=== PATIENT | male | born 1950 | race Caucasian/White ===

== ENCOUNTER 2024-02-11 09:00 | Outpatient (OUT) | payer MEDICARE, OTHER, SELFPAY ==
--- NOTE | 2024-02-11 09:17 | CT_ITS ---
[address] [address] Patient Name: NIVIA RAMOS MRN: [id number] date: 1950 Sex: M Assigned Patient Location: CT Current Patient Location: Accession/Order Number: [id number] Exam Date: 02/11/2024 10:45 Report Date: 02/12/2024 11:09 At the request of: ELIJAH DUNBAR Procedure: CT abdomen pelvis wo/w con EXAMINATION: CT abdomen pelvis wo/w con HISTORY: Abnormal Finding On CT, Cecum Mass COMPARISON: No relevant comparison available. TECHNIQUE: Axial, Coronal, and Sagittal images were created without and with non-ionic intravenous contrast material. Dose reduction techniques were achieved by using automated exposure control and/or adjustment of mA and/or kV according to patient size and/or use of iterative reconstruction technique. FINDINGS: LUNG BASES: No visible pulmonary or pleural disease. LIVER: No enlargement, atrophy, abnormal density, or significant focal lesion. BILIARY: No dilatation or calcification. PANCREAS: No lesion, fluid collection, ductal dilatation, or atrophy. SPLEEN: No enlargement or focal lesion. ADRENALS: No mass or enlargement. KIDNEYS: Right renal enhancing hypodensity measuring 36 Hounsfield units on precontrast coronal image 45 and 16 Hounsfield units postcontrast coronal image, 1.8 cm in diameter axial image 169, indeterminate. Additional hypodensities likely small cysts. No obstructive uropathy. BOWEL/MESENTERY: Nonobstructive bowel gas pattern. Normal appendix. Suture line along the sigmoid colon. Posterior soft tissue thickening along the cecum best seen on axial image 186 measuring up to 1.1 cm, AORTA/VASCULAR: No aortic aneurysm or dissection. Moderate calcific atherosclerosis RETROPERITONEUM: No mass or adenopathy. LYMPH NODES: No adenopathy. URINARY BLADDER: Moderately distended urinary bladder PELVIC ORGANS: No visible mass. Pelvic organs appropriate for patient age. ABDOMINAL WALL: 2 cm umbilical hernia containing fat without strangulation BONES: No bony lesion or fracture. OTHER: Negative. CT/CT abdomen pelvis wo/w con IMPRESSION: Posterior soft tissue thickening of the cecum, indeterminate. Consider direct visualization 1.8 cm enhancing lesion medial pole of the right kidney. Malignancy should be considered Electronically authenticated by: REMBERTO HENDERSON Date: 02/12/2024 11:09
== END 2024-02-11 09:01 | disposition home or self-care (01) ==
LOC: CT 09:05
PROVIDERS: PCP Internal Medicine; Visit Provider Internal Medicine
DX: R93.89 Abnormal findings on diagnostic imaging of other specified body structures (principal); K63.89 Other specified diseases of intestine
CPT/HCPCS: 74178; Q9967

== ENCOUNTER 2024-04-03 08:59 | Outpatient (OUT) | payer MEDICARE, OTHER, SELFPAY ==
--- NOTE | 2024-04-03 09:10 | CT_ITS ---
[address] [address] Patient Name: NIVIA RAMOS MRN: [id number] date: 1950 Sex: M Assigned Patient Location: LAB Current Patient Location: Accession/Order Number: [id number] Exam Date: 04/03/2024 10:45 Report Date: 04/06/2024 10:04 At the request of: ARIANNA REECE Procedure: CT abdomen pelvis wo/w con EXAMINATION: CT abdomen pelvis wo/w con HISTORY: Renal Mass COMPARISON: CT abdomen pelvis 02/11/2024 TECHNIQUE: Axial, Coronal, and Sagittal images were obtained without and/or with IV contrast as indicated by examination type. Dose reduction techniques were achieved by using automated exposure control and/or adjustment of mA and/or kV according to patient size and/or use of iterative reconstruction technique. FINDINGS: LUNG BASES: No visible pulmonary or pleural disease. LIVER: No enlargement, atrophy, suspicious density, or significant focal lesion. BILIARY: No dilatation or calcification. PANCREAS: No lesion, fluid collection, or abnormal duct dilatation. SPLEEN: No enlargement or focal lesion. ADRENALS: No mass or enlargement. KIDNEYS: Mildly enhancing 2.0 cm rounded mass within posterior medial mid body of right kidney. BOWEL/MESENTERY: Prior sigmoid resection and anastomosis. No visible mass, obstruction, or bowel wall thickening. AORTA/VASCULAR: Moderate atherosclerotic disease. No aneurysm or dissection. RETROPERITONEUM: No mass or adenopathy. LYMPH NODES: No adenopathy. URINARY BLADDER: No visible focal wall thickening, lesion, or calculus. PELVIC ORGANS: No visible mass. Pelvic organs appropriate for patient age. ABDOMINAL WALL: Small fat filled paraumbilical hernia without strangulation. 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 No appreciable bone lesion. OTHER: Negative. CT/CT abdomen pelvis wo/w con IMPRESSION: 1. Stable 2.0 cm mildly enhancing mass within mid body of right kidney. Nonspecific but concerning for neoplasm. 2. Additional chronic changes detailed above. Electronically authenticated by: FERNANDO GUERRA Date: 04/06/2024 10:04
[2024-04-03 09:13] LABS: Estimated GFR (African America >60 (>=60 mL/min/1.73m^2); Estimated GFR (Non-African Ame >60 (>=60 mL/min/1.73m^2)
--- OUTSIDE RECORDS SUMMARY | 2024-04-03 09:14 | XMS_ITS | CCD ---
Author Organization [facility] Care Team Providers Care Branch Account Executive Name Role Phone JUANJO MURDOCK Primary Care Physician [phone] NEENA MURDOCK Attending Unavailable NEENA MURDOCK Admitting Unavailable DR JUANJO MURDOCK Consulting Unavailable DR JUANJO MURDOCK Primary Care Unavailable Juanjo Murdock II Unavailable Juanjo Murdock II Unavailable Walker CUNHA, Max Unavailable Juanjo Murdock MD Unavailable Juanjo Murdock MD Primary Care Provider [phone] Mathieu GAMEZ MD, Daniel B Unavailable Walker CUNHA, Max Unavailable Mathieu GAMEZ MD, Daniel B Primary Care Provider Edmond FUENTES Attending Unavailable Edmond FUENTES Attending Unavailable Edmond FUENTES Attending Unavailable JUANJO MURDOCK Referring Unavailable Edmond FUENTES Attending Unavailable JUANJO MURDOCK II Primary Care Unavailable JEOVANNY-PALSHOOK, FLIP Referring Unavai KAMERON Dyer Attending Unavailable KAMERON WINSLOW Admitting Unavailable JUANJO MURDOCK II Primary Care Unavailable JEOVANNY-PALSHOOK, FLIP Referring Unavai lable JEOVANNY-PALSHOOK, FLIP Referring Unavai lable JEOVANNY-PALSHOMELBA, FLIP Referring Unavai lable JUANJO MURDOCK II Primary Care Unavailable JUANJO MURDOCK II Primary Care Unavailable JEOVANNY-PALSHOOK, FLIP Referring Unavai lable JUANJO MURDOCK II Primary Care Unavailable JEOVANNY-PALSHOOK, FLIP Referring Unavai lable JUANJO MURDOCK II Primary Care Unavailable UNAI, SHINYA Attending Unavailable MURDOCK II, JUANJO B Primary Care Unavailable KAMERON WINSLOW Attending Unavailable KAMERON WINSLOW Referring Unavailable MURDOCK II, JUANJO B Primary Care Unavailable WALKER, MAX Referring Unavailable WALKER, MAX Referring Unavailable WALKER, MAX Attending Unavailable WALKER, MAX Referring Unavailable MURDOCK II, JUANJO B Primary Care Unavailable BRI VALLADARES Attending Unavailable JEOVANNY-PALSHOOK, FLIP Referring Unavai lable MURDOCK II, JUANJO B Primary Care Unavailable MICHEL BRICENO Attending Unavailable JEOVANNY-PALSHOOK, FLIP Referring Unavai lable Murdock, Juanjo Primary Care Unavailable NancePilot Admitting Unavailable NanceLucy Attending Unavailable Mike Max Admitting Unavailable Bisage, Mike Attending Unavailable Murdock, Juanjo Primary Care Unavailable Murdock, Juanjo Primary Care Unavailable Bisage, Mike Admitting Unavailable Pankaj, Mike Attending Unavailable AMRITA HERNANDEZ Attending Unavailable MURDOCKLAZAROEL B Attending Unavailable HEMMERPEGGY Attending Unavailable HEMMER, PEGGY Miranda Attending Unavailable BLACKSTONQUANG Attending Unavailable HEMMER, PEGGY M Referring Unavailable MURDOCK, JUANJO B Attending Unavailable PETCINDY MANN Attending Unavailable BLACKSTON, QUANG Oleary Attending Unavailable HEMMER, PEGGY M Referring Unavailable BRINK, SARAH Attending Unavailable HEMMER, PEGGY M Referring Unavailable BRINK, SARAH Attending Unavailable HEMMER, PEGGY M Referring Unavailable MURDOCKJUANJO B Attending Unavailable BRINK, SARAH Attending Unavailable HEMMER, PEGGY M Referring Unavailable BLACKSTONQUANG Attending Unavailable HEMMER, PEGGY M Referring Unavailable BRINK, SARAH Attending Unavailable HEMMER, PEGGY M Referring Unavailable BRINK, SARAH Attending Unavailable HEMMER, PEGGY M Referring Unavailable KELBLEMELBA Husain Attending Unavailable HEMMER, PEGGY M Referring Unavailable NANCE LUCY Ramirez Attending Unavailable JUANJO MURDOCK B Referring Unavailable WALKER HIGGINBOTHAM Attending Unavailable MIKE MAX Attending Unavailable WALKER HIGGINBOTHAM Referring Unavailable HEMMER, PEGGY Miranda Attending Unavailable Allergies Allergy Classification Reported Allergen(s) Allergy Type Date of Onset Reaction(s) Facility (5 sources) Sulfanilamide; Translations: [sulfanilamide topical] Drug Allergy Unknown (qualifier value) [facility] (1 source) Sulfanilamide Drug Allergy 4 [facility] (20 sources) Sulfonamides (Antibiotic); Translations: [SULFA (SULFONAMIDE ANTIBIOTICS)] Drug Allergy 4 Other: See Comments [facility] (20 sources) Sulfanilamide Allergy to substance 3 Unknown [facility] Work Phone: (20 sources) tiZANidine; Translations: [TIZANIDINE] Drug Allergy 1 GI intolerance, GI Upset [facility] Medications Current Medications Medication Drug Class(es) Dates Sig (Normalized) Sig (Original) acetaminophen 325 mg / HYDROcodone bitartrate 5 mg oral tablet (2 sources) Opioid Agonist Start: 03-27-2024 take 1 tablet by mouth every six hours as needed for pain and pain HYDROcodone-aceta minophen (Robson) 5-325 MG tablet Take 1 tablet by mouth every 6 (six) hours if needed for moderate pain or severe pain 03/27/2024 Active [id number] 200 actuat albuterol 0.09 mg/actuat metered dose inhaler (6 sources) beta2-Adrenergic Agonist End: 01-07-2024 take 2 puff(s) by inhalation every four hours for wheezing albuterol HFA 90 mcg/act inhaler Inhale 2 puffs every 4 (four) hours if needed for wheezing. 01/07/2024 Discontinued (Other) amLODIPine 5 mg / benazepril hydrochloride 20 mg oral capsule (20 sources) Dihydropyridine Calcium Channel Carroll, Angiotensin Converting Enzyme Inhibitor Start: 04-12-2023 End: 05-16-2024 take 1 capsule by mouth in the morning amLODIPine-benaze pril (Lotrel) 5-20 MG capsule Indications: Primary hypertension (CMS/HCC) Take 1 capsule by mouth in the morning. 100 capsule 3 04/12/2023 01/30/2024 Discontinued (Reorder) Start: 04-14-2019 take 1 capsule by mo uth once daily amLODIPine-benazepril (Lotrel) 5-20 MG capsule Indications: Primary hypertension (CMS/HCC) Take 1 capsule by mouth Daily 90 capsule 3 01/31/2024 Active Comment on above: Take 1 capsule by mo uth every morning. ascorbic acid 1000 mg oral tablet (20 sources) Vitamin C take 1 tablet by mouth once daily Ascorbic Acid (VITAMIN C) 1,000 mg tablet Take 1,000 mg by mouth once daily. Active Comment on above: Take 1,000 mg by paty th once daily. aspirin 81 mg oral tablet (20 sources) Platelet Aggregation Inhibitor, Nonsteroidal Anti-inflammatory Drug Start: 04-14-2019 take 1 tablet by mouth once daily aspirin 81 mg oral tablet 81 mg = 1 tab(s), Oral, Daily, # 30 tab(s), Refills(s) 0 Start Date: 04/14/19 Status: Ordered take 1 tablet by mouth in the mo rning aspirin (Aspirin Adult Low Dose) 81 MG EC tablet Take 81 mg by mouth in the morning. Active Comment on above: Take 81 mg by mouth daily at bedtime. benzonatate 200 mg oral capsule (2 sources) Non-narcotic Antitussive Start: End: take 1 capsule by mouth three times daily as needed for cough benzonatate (Tessalon) 200 MG capsule Indications: URI with cough and congestion Take 1 capsule (200 mg) by mouth 3 (three) times a day as needed for cough for up to 7 days Do not crush or chew. 21 capsule 03/31/2024 04/07/2024 Active bisoprolol fumarate 5 mg / hydroCHLOROthiazide 6.25 mg oral tablet (20 sources) Thiazide Diuretic, beta-Adrenergic Carroll Start: End: 025 take 1 tablet by mouth once daily bisoprolol-hydroCHL OROthiazide (Ziac) 5-6.25 MG tablet Indications: Primary hypertension (CMS/HCC) TAKE 1 TABLET BY MOUTH ONCE DAILY at the same time 90 tablet 3 02/07/2024 Active Start: 04-09-2019 take 1 tablet by paty th once daily Ziac 2.5 mg-6.25 mg Tab tab(s), Oral, Daily, Refill(s) 0 Start Date: 04/09/19 Status: Ordered Comment on above: Take 1 tablet by paty th every morning. 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 03/31/2024 Discontinued (Other) Comment on above: Take 10 mg by mouth every morning. codeine phosphate 2 mg/ml / guaiFENesin 20 mg/ml oral solution (2 sources) Opioid Agonist Start: End: take 10 mL by mouth every six hours as needed for cough and cough and cough guaiFENesin-codeine (Robitussin-AC) 100-10 MG/5ML syrup Indications: Acute cough Take 10 mL by mouth every 6 (six) hours if needed for cough for up to 10 days 240 mL 0 05/21/2023 05/31/2023 Active cyclobenzaprine hydrochloride 10 mg oral tablet (20 sources) Muscle Relaxant Start: End: take 1 tablet by mouth twice daily as needed for muscle spasms cyclobenzaprine (Flexeril) 10 MG tablet Indications: Lumbar paraspinal muscle spasm Take 1 tablet (10 mg) by mouth 2 (two) times a day as needed for muscle spasms 60 tablet 5 01/30/2024 Active Start: 08-21-2022 End: 03-03-2024 take 1 tablet by mouth once daily at bedtime cyclobenzaprine (FLEXERIL) 10 mg tablet Take 10 mg by mouth daily at bedtime. 08/21/2022 Active Comment on above: Take 10 mg by mouth daily at bedtime. ibuprofen 800 mg oral tablet (20 sources) Nonsteroidal Anti-inflammatory Drug Start: End: take 1 tablet by mouth three times daily as needed for pain ibuprofen 800 MG tablet Indications: Generalized osteoarthritis Take 1 tablet (800 mg) by mouth 3 (three) times a day as needed for mild pain or moderate pain 90 tablet 3 01/30/2024 01/29/2025 Active Start: 09-04-2022 take 1 tablet by paty th once daily at bedtime ibuprofen (MOTRIN) 800 mg tablet Take 1 tablet by mouth daily at bedtime. 09/04/2022 Active Start: 04-09-2019 take 1 mg by mouth e very six hours Motrin IB mg, Oral, q6hr, Refills(s) 0 Start Date: 04/09/19 Status: Ordered Comment on above: Take 1 tablet by paty th daily at bedtime. iv contrast (will be provided with radiology test) (1 source) Start: 2023 End: 2023 inject 1 dose intravenously once iv contrast (will be provided with radiology test) Indications: Aortic valve disorder CTA CHST/ABD/PEL. No IV access, insert saline lock prior to the sedation, infusion, injection for imaging exam. Discontinue saline lock post exam. If Pt. has a central line or IVAD, may access for administration according to line specific nursing protocol. Once exam is complete flush line and de-access according to line specific nursing protocol in the CT contrast administration guidelines link. 1 Each 0 11/12/2023 11/13/2023 Active ketoconazole 20 mg/ml topical cream (20 sources) Azole Antifungal ketoconazole (NIZOral) 2 % cream Apply 1 application topically Daily as needed PRN Active levoFLOXacin 500 mg oral tablet (2 sources) Quinolone Antimicrobial Start: 2023 End: 2023 take 1 tablet by mouth in the morning levoFLOXacin (Levaquin) 500 MG tablet Indications: Acute non-recurrent pansinusitis Take 1 tablet (500 mg) by mouth in the morning for 10 days. 10 tablet 0 05/21/2023 05/31/2023 Active Flexall (4 sources) Start: 2019 Flexall Topical, BID, Refill(s) 0 Start Date: 04/14/19 Status: Ordered mometasone furoate 1 mg/ml topical cream (20 sources) Corticosteroid mometasone (Eloc on) 0.1 % cream Apply 1 application topically Daily as needed Active Multi Vitamin+ (4 sources) Start: 2019 Multi Vitamin+ Refill(s) 0 Start Date: 04/14/19 Status: Ordered MULTIVITAMIN ORAL (20 sources) take 1 tablet by mouth once daily MULTIVITAMIN ORAL Take 1 tablet by mouth once daily. Suspended take 1 tablet by mouth once laurie y MULTIVITAMIN ORAL Take 1 tablet by mouth once daily. Active take 1 tablet by mouth once laurie y MULTIVITAMIN ORAL Take 1 tablet by mouth once daily. 0 Active Comment on above: Take 1 tablet by paty th once daily. perflutren lipid microspheres 1.3 mL in NaCl (PF) 0.9% 10 mL injection (DEFINITY) (4 sources) Start: 08-15-2022 End: 11-14-2023 perflutren lipid microspheres 1.3 mL in NaCl (PF) 0.9% 10 mL injection (DEFINITY) predniSONE 10 mg oral tablet (2 sources) Start: 05-21-2023 End: 05-29-2023 take 4 tablets by mouth once daily, then take 3 tablets by mouth once daily, then take 2 tablets by mouth once daily, then take 1 tablet by mouth once daily predniSONE (Deltasone) 10 MG tablet Indications: Olecranon bursitis of left elbow Take 4 tablets (40 mg) by mouth Daily for 2 days, THEN 3 tablets (30 mg) Daily for 2 days, THEN 2 tablets (20 mg) Daily for 2 days, THEN 1 tablet (10 mg) Daily for 2 days. 20 tablet 0 05/21/2023 05/29/2023 Active 125 ml sodium chloride 9 mg/ml prefilled syringe (4 sources) Start: 08-15-2022 End: 11-14-2023 sodium chloride 0.9 % (flush) 10 mL (BD POSIFLUSH) Problems Active Problems Problem Classification Problem Date Documented Da te Episodic/Chronic Aortic; peripheral; and visceral artery aneurysms (20 sources) Ectasia of thoracic aorta; Translations: [Thoracic aortic ectasia] Onset: 01-22-2024 01-22-2024 Chronic Congestive heart failure; nonhypertensive (2 sources) Chronic heart failure co-occurrent with normal ejection fraction; Translations: [Chronic diastolic (congestive) heart failure] Onset: 01-17-2024 01-17-2024 Chronic Diverticulosis and diverticulitis (20 sources) Diverticular disease; Translations: [Diverticulosis of colon] Onset: 09-18-2022 04-09-2019 Chronic Essential hypertension (20 sources) Hypertensive disorder; Translations: [Essential (primary) hypertension] Onset: 08-06-2022 Resolved: 01-22-2024 04-09-2019 Chronic Heart valve disorders (20 sources) Aortic stenosis, non-rheumatic ; Translations: [Nonrheumatic aortic (valve) stenosis] Onset: 09-18-2022 11-02-2022 Chronic Heart valve disorders (4 sources) Cardiac murmur, unspecified; Translations: [CARDIAC MURMUR UNSPECIFIED] Onset: 08-02-2022 Episodic Hyperplasia of prostate (20 sources) Benign prostatic hypertrophy with outflow obstruction; Translations: [Benign prostatic hyperplasia with lower urinary tract symptoms] Onset: 05-02-2022 Chronic Neoplasms of unspecified nature or uncertain behavior (2 sources) Neoplastic disease; Translations: [Neoplasm of unspecified behavior of bone, soft tissue, and skin] 02-03-2024 Episodic Osteoarthritis (20 sources) Osteoarthritis; Translations: [Degenerative joint disease involving multiple joints] Onset: 03-09-2015 04-09-2019 Chronic Other and unspecified benign neoplasm (2 sources) Skin lesion; Translations: [Hemangioma of skin and subcutaneous tissue] 02-03-2024 Episodic Other connective tissue disease (2 sources) Bursitis of olecranon of left elbow; Translations: [Olecranon bursitis, left elbow] 05-21-2023 Episodic Other diseases of bladder and urethra (20 sources) Diverticulum of bladder; Translations: [Diverticulum of bladder] Onset: 01-22-2024 01-22-2024 Chronic Other diseases of kidney and ureters (8 sources) Renal mass; Translations: [Other specified disorders of kidney and ureter] Onset: 03-31-2024 02-13-2024 Chronic Other diseases of kidney and ureters (1 source) Disorder of kidney and/or ureter; Translations: [Other specified disorders of kidney and ureter] Onset: 03-02-2024 Chronic Other diseases of kidney and ureters (1 source) Urinary tract obstruction; Translations: [Other obstructive and reflux uropathy] Onset: 05-02-2022 Episodic Other gastrointestinal disorders (15 sources) Other specified diseases of intestine; Translations: [Other specified disorders of intestine] Onset: 03-17-2024 01-30-2024 Episodic Other lower respiratory disease (2 sources) Cough; Translations: [Acute cough] 05-21-2023 Episodic Other lower respiratory disease (2 sources) Dyspnea; Translations: [Shortness of breath] 11-11-2023 Episodic Other lower respiratory disease (2 sources) Nodule of lung; Translations: [Solitary pulmonary nodule] 01-21-2024 Episodic Other lower respiratory disease (20 sources) Multiple nodules of lung; Translations: [Other nonspecific abnormal finding of lung field] Onset: 01-22-2024 01-22-2024 Episodic Other lower respiratory disease (1 source) Solitary pulmonary nodule; Translations: [Lung nodule] Onset: 02-06-2024 Episodic Other nervous system disorders (1 source) Other acute postprocedural pain; Translations: [Other acute postprocedural pain] Onset: 03-27-2024 Episodic Other screening for suspected conditions (not mental disorders or infectious disease) (20 sources) Computed tomography result abnormal; Translations: [Abnormal findings on diagnostic imaging of other specified body structures] Onset: 01-22-2024 01-22-2024 Chronic Other screening for suspected conditions (not mental disorders or infectious disease) (1 source) CT of abdomen abnormal; Translations: [Abnormal findings on diagnostic imaging of other abdominal regions, including retroperitoneum] 03-17-2024 Episodic Other skin disorders (2 sources) Seborrheic keratosis; Translations: [Other seborrheic keratosis] 02-03-2024 Episodic Other skin disorders (2 sources) Lentiginosis; Translations: [Other melanin hyperpigmentation] 02-03-2024 Episodic Other skin disorders (2 sources) Actinic keratosis; Translations: [Actinic keratosis] 02-03-2024 Episodic Other skin disorders (2 sources) Inflamed seborrheic keratosis; Translations: [Inflamed seborrheic keratosis] 02-03-2024 Episodic Other skin disorders (2 sources) Surgical wound finding; Translations: [Other specified disorders of the skin and subcutaneous tissue] 03-26-2024 Episodic Other upper respiratory disease (20 sources) Allergic rhinitis; Translations: [Other allergic rhinitis] Onset: 09-18-2022 09-18-2022 Chronic Other upper respiratory infections (20 sources) Chronic sinusitis; Translations: [Chronic sinusitis, unspecified] Onset: 07-01-2017 03-04-2023 Chronic Other upper respiratory infections (4 sources) Acute pansinusitis; Translations: [Acute pansinusitis, unspecified] 05-21-2023 Episodic Peripheral and visceral atherosclerosis (20 sources) Atherosclerosis of aorta; Translations: [Atherosclerosis of aorta] Onset: 01-22-2024 01-22-2024 Chronic Spondylosis; intervertebral disc disorders; other back problems (20 sources) Cervical spondylosis; Translations: [Spondylosis without myelopathy or radiculopathy, cervical region] Onset: 07-17-2014 03-04-2023 Chronic Sprains and strains (2 sources) Low back strain; Translations: [Strain of muscle, fascia and tendon of lower back, initial encounter] 01-07-2024 Episodic Unclassified (2 sources) Cecum mass 02-13-2024 Past or Other Problems Problem Classification Problem Date Documented Da te Episodic/Chronic Genitourinary symptoms and ill-defined conditions (20 sources) Nocturia; Translations: [Poor stream of urine] Onset: 03-04-2023 04-09-2019 Episodic Other acquired deformities (20 sources) Spondylolisthesis; Translations: [Spondylolisthesis , site unspecified] Onset: 07-17-2014 03-04-2023 Episodic Other connective tissue disease (20 sources) History of cervical spine fusion; Translations: [Arthrodesis status] Onset: 07-19-2014 03-04-2023 Episodic Other non-epithelial cancer of skin (20 sources) History of malignant neoplasm of skin; Translations: [History of malignant basal cell neoplasm of skin] Onset: 09-18-2022 Resolved: 09-18-2022 04-09-2019 Episodic Residual codes; unclassified (20 sources) History of partial resection of colon; Translations: [Acquired absence of other specified parts of digestive tract] Onset: 09-18-2022 09-18-2022 Episodic Residual codes; unclassified (20 sources) History of excision of intestinal structure; Translations: [Acquired absence of other specified parts of digestive tract] Onset: 08-22-2020 03-04-2023 Episodic Screening and history of mental health and substance abuse codes (20 sources) Ex-smoker; Translations: [Personal history of nicotine dependence] Onset: 03-04-2023 04-14-2019 Episodic Spondylosis; intervertebral disc disorders; other back problems (20 sources) Spasm of muscle of lower back; Translations: [Muscle spasm of back] Onset: 09-18-2022 09-18-2022 Episodic Results Test Name Value Interpretation Reference Range Facility Basic Metabolic Panelon 12-1 4 Anion gap [Moles/Vol] 8.2 mmol/L Normal 6.0-15.0 [facility] Comment on above: Performed By: #### C BC, BMP #### [address] Calcium [Mass/Vol] 9.6 mg/dL Normal 8.6-10.3 [facility] Comment on above: Result Comment: PERF ORMED BY: [place] [id number] PATHOLOGIST [employer] KATHY MARCANO M.D. Performed By: #### C BC, BMP #### [address] Chloride [Moles/Vol] 99 mmol/L Normal 98-107 [facility] Comment on above: Performed By: #### C BC, BMP #### [address] CO2 [Moles/Vol] 32.0 mmol/L High 21.0-31.0 [facility] Comment on above: Performed By: #### C BC, BMP #### [address] Creatinine [Mass/Vol] 0.76 mg/dL Normal 0.70-1.30 [facility] Comment on above: Performed By: #### C BC, BMP #### [place] [address] [place] GFR/1.73 sq M.predicted MDRD (S/P/Bld) [Vol rate/Area] mL/min/{1.73_m2} Normal [facility] Comment on above: Performed By: #### C BC, BMP #### [address] Glucose [Mass/Vol] 93 mg/dL Normal 70-100 [facility] Comment on above: Result Comment: [place] Glucose Reference Range is dependent on time and content of last meal. Glucose of more than 200 mg/dL in a nonstressed, ambulatory subject supports the diagnosis of Diabetes Mellitus. ADA recommended reference range Performed By: #### C BC, BMP #### [facility] [address] [id number] [facility] Potassium [Moles/Vol] 4.2 mmol/L Normal 3.5-5.1 [facility] Comment on above: Performed By: #### C BC, BMP #### [facility] [address] Sodium [Moles/Vol] 135 mmol/L Low 136-145 [facility] Comment on above: Performed By: #### C BC, BMP #### [facility] [address] Urea nitrogen [Mass/Vol] 14 mg/dL Normal 7-25 [facility] Comment on above: Performed By: #### C BC, BMP #### [facility] [address] Basic metabolic 1998 panelon 03-26-2024 Anion gap [Moles/Vol] 8.2 mmol/L 6.0 - 15.0 meq/L [facility] Calcium [Mass/Vol] 9.6 mg/dL 8.6 - 10. 3 mg/dL [facility] Chloride [Moles/Vol] 99 mmol/L 98 - 10 7 mmol/L [facility] CO2 [Moles/Vol] 32 mmol/L High 21.0 - 31.0 mmol/L [facility] Creatinine (U) [Mass/Vol] 0.76 mg/dL 0.70 - 1.30 mg/dL [facility] ESTIMATED GFR mL/Min [facility] Glucose [Mass/Vol] 93 mg/dL 70 - 100 mg/dL [facility] Comment on above: Random Glucose Refer ence Range is dependent on time and content of last meal. Glucose of more than 200 mg/dL in a nonstressed, ambulatory subject supports the diagnosis of Diabetes Mellitus. ADA recommended reference range Interpretation and review of laboratory results Abnormal [facility] Potassium [Moles/Vol] 4.2 mmol/L 3.5 - 5.1 mmol/L [facility] Sodium [Moles/Vol] 135 mmol/L Low 136 - 145 mmol/L [facility] Urea nitrogen [Mass/Vol] 14 mg/dL 7 - 25 mg/dL [facility] CBC W Auto Differential pane l (Bld)on 03-26-2024 Basophils (Bld) [#/Vol] 0.1 10*3/uL 0.0 - 0.2 10*3/uL [facility] Basophils/100 WBC Manual cnt (Syn fld) 0.9 % . [facility] Eosinophils (Bld) [#/Vol] 0.2 10*3/uL 0.0 - 0.45 10*3/uL [facility] Eosinophils/100 WBC Manual cnt (Syn fld) 2.5 % . [facility] Erythrocyte distribution width (RBC) [Ratio] 13.1 % 12.0 - 14.8 % [facility] Hematocrit (Bld) [Volume fraction] 38.8 % 38.8 - 50.0 % [facility] Hemoglobin (Bld) [Mass/Vol] 13.2 g/dL 13.0 - 17.0 g/dL [facility] Interpretation and review of laboratory results Abnormal [facility] Lymphocytes (Bld) [#/Vol] 1.3 10*3/uL 1.00 - 4.8 10*3/uL [facility] Lymphocytes/100 WBC Manual cnt (Syn fld) 22 % . [facility] MCH (RBC) [Entitic mass] 32.6 pg 27.5 - 35.2 pg [facility] MCHC (RBC) [Mass/Vol] 34 g/dL 32.5 - 35.6 g/dL [facility] MCV (RBC) [Entitic vol] 96.1 fL 83.5 - 101 fL [facility] Monocytes (Bld) [#/Vol] 0.9 10*3/uL High 0.0 - 0.8 10*3/uL [facility] Monocytes+Macrophage s/100 WBC Manual cnt (Syn fld) 15.6 % . [facility] Neutrophils (Bld) [#/Vol] 3.6 10*3/uL 1.8 - 7.7 10*3/uL [facility] Neutrophils/100 WBC Manual cnt (Syn fld) 59 % . [facility] NRBC 0 /100{WBC} 0 - 0.5 /100{WBC} [facility] Platelet mean volume (Bld) [Entitic vol] 7.6 fL 6.6 - 10.1 fL [facility] Platelets (Bld) [#/Vol] 286 10*3/uL 150 - 450 10*3/uL [facility] RBC LM.HPF (Urine sed) [#/Area] 4.04 10*6/uL 3.90 - 5.60 10*6/uL [facility] WBC (Bld) [#/Vol] 6 10*3/uL 4.1 - 10.5 10*3/uL [facility] WBC LM.HPF (Urine sed) [#/Area] 6 10*3/uL 4.1 - 10.5 10*3/uL [facility] Complete Blood Count Auto Di ffon 03-26-2024 Basophils (Bld) [#/Vol] 0.1 10*3/uL Normal 0.0-0.2 [facility] Comment on above: Result Comment: PERF ORMED BY: [place] [id number] PATHOLOGIST [employer]DLE WORKER KATHY MARCANO M.D. Performed By: #### C BC, BMP #### [address] Basophils/100 WBC (Bld) 0.9 % Normal . [facility] Comment on above: Performed By: #### C BC, BMP #### [address] Eosinophils (Bld) [#/Vol] 0.2 10*3/uL Normal 0.0-0.45 [facility] Comment on above: Performed By: #### C BC, BMP #### [address] Eosinophils/100 WBC (Bld) 2.5 % Normal . [facility] Comment on above: Performed By: #### C BC, BMP #### [address] Erythrocyte distribution width (RBC) [Ratio] 13.1 % Normal 12.0-14.8 [facility] Comment on above: Performed By: #### C BC, BMP #### [address] Hematocrit (Bld) [Volume fraction] 38.8 % Normal 38.8-50.0 [facility] Comment on above: Performed By: #### C BC, BMP #### [address] Hemoglobin (Bld) [Mass/Vol] 13.2 g/dL Normal 13.0-17.0 [facility] Comment on above: Performed By: #### C BC, BMP #### [address] Lymphocytes (Bld) [#/Vol] 1.3 10*3/uL Normal 1.00-4.8 [facility] Comment on above: Performed By: #### C BC, BMP #### [address] Lymphocytes/100 WBC (Bld) 22.0 % Normal . [facility] Comment on above: Performed By: #### C BC, BMP #### [address] MCH (RBC) [Entitic mass] 32.6 pg Normal 27.5-35.2 [facility] Comment on above: Performed By: #### C BC, BMP #### [address] MCV (RBC) [Entitic vol] 96.1 fL Normal 83.5-101 [facility] Comment on above: Performed By: #### C BC, BMP #### [address] Mean Corpuscular HGB Conc 34.0 g/dL Normal 32.5-35.6 [facility] Comment on above: Performed By: #### C BC, BMP #### [address] Monocytes (Bld) [#/Vol] 0.9 10*3/uL High 0.0-0.8 [facility] Comment on above: Performed By: #### C BC, BMP #### [address] Monocytes/100 WBC (Bld) 15.6 % Normal . [facility] Comment on above: Performed By: #### C BC, BMP #### [facility] [address] [id number] [place] Neutrophils (Bld) [#/Vol] 3.6 10*3/uL Normal 1.8-7.7 [facility] Comment on above: Performed By: #### C BC, BMP #### [facility] [address] [place] [address] [place] Neutrophils/100 WBC (Bld) 59.0 % Normal . [facility] Comment on above: Performed By: #### C BC, BMP #### [facility] [address] [place] [address] [place] NRBC% 0.0 /100{WBC} Normal 0-0.5 [facility] Comment on above: Performed By: #### C BC, BMP #### [facility] [address] [phone] [place] Platelet mean volume (Bld) [Entitic vol] 7.6 fL Normal 6.6-10.1 [facility] Comment on above: Performed By: #### C BC, BMP #### [facility] [address] [place] [address] [place] Platelets (Bld) [#/Vol] 286 10*3/uL Normal 150-450 [facility] Comment on above: Performed By: #### C BC, BMP #### [facility] [address] [place] [address] [place] RBC (Bld) [#/Vol] 4.04 10*6/uL Normal 3.90-5.60 [facility] Comment on above: Performed By: #### C BC, BMP #### [facility] [address] [place] [address] [place] WBC (Bld) [#/Vol] 6.0 10*3/uL Normal 4.1-10.5 [facility] Comment on above: Performed By: #### C BC, BMP #### [facility] [address] [phone] [place] ECG 12 lead ECGon 03-26-2024 ECG 12 lead ECG [facility] [place] [address] Electrocardiograph Report Signed Patient: Nivia Ramos MR#: [id number] : 1950 Acct:[id number] Age/Sex: 73 / M ADM Date: 03/26/24 Loc: Room: Type: [facility] Attending Dr: Mike Max DO Ordering Provider: Mike Max DO Date of Service: 03/26/24 ECG/ECG 12 lead ECG: surgery 03/27/24 Copies to: Test Reason : Blood Pressure : */* mmHG Vent. Rate : 65 BPM Atrial Rate : 65 BPM P-R Int : 188 ms QRS Dur : 106 ms QT Int : 376 ms P-R-T Axes : 41 -16 57 degrees QTcB Int : 391 ms Normal sinus rhythm Incomplete right bundle branch block Borderline ECG No previous ECGs available Confirmed by URBAN CUNHA [facility] ([id number][facility] on 03/26/2024 5:49:26 PM Referred By: Electronically Signed By: GHANSHYAM DUGGAN MD [facility] Transcribed By: MUS Signed By Ghanshyam Duggan MD, FAC 03/26/24 5531 Normal [facility] Naun 03-25-2024 KAYLAN Telephone (CATHMN) NIVIA RAMOS ([id number]) 1950 M Date Time Provider Department 03/25/24 MICHEL BRICENO During your visit today, we recorded the following information about you: Bradford Duff 03/25/2024 10:06 AM Signed Pt has decided to move forward and has been warm transferred to TAVR nurse. Allergies As of Date: 03/25/2024 Noted Allergy Reaction TIZANIDINE 09/08/2020 8 - GI Upset SULFA (SULFONAMIDE ANTIBIOTICS) 01/03/2014 14 - Other: See Comments Comments: Red eyes d/t sulfa eye drops Date Reviewed: 02/06/2024 Reviewed by: Bri Valladares APRN.[facility] - Fully Assessed Reason for Visit: Return Call Request [[id number]] Prescriptions as of 03/25/2024 - mometasone (ELOCON) 0.1 % cream Apply 1 Application to affected area. - bisoprolol-hydroCHLOROt hiazide (ZIAC) 5-6.25 mg per tablet Take 1 tablet by mouth every morning. - amLODIPine-benazepril (LOTREL) 5-20 mg per capsule Take 1 capsule by mouth every morning. - cetirizine (ZYRTEC) 10 mg tablet Take 10 mg by mouth every morning. - cyclobenzaprine (FLEXERIL) 10 mg tablet Take 10 mg by mouth daily at bedtime. - ibuprofen (MOTRIN) 800 mg tablet Take 1 tablet by mouth daily at bedtime. - aspirin, enteric coated (ASPIRIN, ENTERIC COATED) 81 mg EC tablet Take 81 mg by mouth daily at bedtime. - Ascorbic Acid (VITAMIN C) 1,000 mg tablet Take 1,000 mg by mouth once daily. - MULTIVITAMIN ORAL Take 1 tablet by mouth once daily. Problem List As Of Date: 03/25/2024 (None) Encounter Status:Closed by BRADFORD DUFF [facility]IV[facility] ([id number]) 1950 M Date Time Provider Department 03/25/24 ETHEL RIZVI During your visit today, we recorded the following information about you: Ethel Rizvi APRN.[employer] 03/25/2024 10:11 AM Signed I spoke with him on the phone today. He would like to proceed with TAVR. Offered 05/28/2023, pre-op on Saturday 05/27. However, we will contact him again to confirm scheduling once we are < 30 days out. I have advised that he get an updated dental clearance as the last one was completed in August 2023. Will send a new dental form in [facility]. Reviewed medication list; will not need to stop anything PRIOR to the TAVR. Ethel Rizvi APRN.[employer] Allergies As of Date: 03/25/2024 Noted Allergy Reaction TIZANIDINE 09/08/2020 8 - GI Upset SULFA (SULFONAMIDE ANTIBIOTICS) 01/03/2014 14 - Other: See Comments Comments: Red eyes d/t sulfa eye drops Date Reviewed: 02/06/2024 Reviewed by: Bri Valladares APRN.[employer] - Fully Assessed Reason for Visit: Patient Update [[id number]] Primary Visit Diagnosis:Nonrheumatic aortic valve stenosis [I35.0] Prescriptions as of 03/25/2024 - mometasone (ELOCON) 0.1 % cream Apply 1 Application to affected area. - bisoprolol-hydroCHLOROt hiazide (ZIAC) 5-6.25 mg per tablet Take 1 tablet by mouth every morning. - amLODIPine-benazepril (LOTREL) 5-20 mg per capsule Take 1 capsule by mouth every morning. - cetirizine (ZYRTEC) 10 mg tablet Take 10 mg by mouth every morning. - cyclobenzaprine (FLEXERIL) 10 mg tablet Take 10 mg by mouth daily at bedtime. - ibuprofen (MOTRIN) 800 mg tablet Take 1 tablet by mouth daily at bedtime. - aspirin, enteric coated (ASPIRIN, ENTERIC COATED) 81 mg EC tablet Take 81 mg by mouth daily at bedtime. - Ascorbic Acid (VITAMIN C) 1,000 mg tablet Take 1,000 mg by mouth once daily. - MULTIVITAMIN ORAL Take 1 tablet by mouth once daily. Problem List As Of Date: 03/25/2024 (None) Encounter Status:Closed by ETHEL RIZVI on 03/25/24 [facility] No Panel Informationon 03-25 Consent obtained: written (The rationale for Mohs as well as the risks, benefits, and alternatives. The risks of infection, scarring, bleeding, prolonged wound healing, incomplete removal, allergy to anesthesia or meds, nerve injury, and recurrence were addressed.) Lyerly Protocol: Procedure explained and questions answered to patient or proxy's satisfaction: Yes Test results available and properly labeled: Yes Pathology report reviewed: Yes Photo or diagram used for site identification: Yes Site/side marked: Yes Anticoagulation: Is the patient taking prescription anticoagulant and/or aspirin prescribed/recommended by a physician? Yes (81 mg ASA) Was the anticoagulation regimen changed prior to Mohs? No Anesthesia: Anesthesia method: local infiltration Local anesthetic: lidocaine 1% WITH epi and sodium bicarbonate Procedure Details: Biopsy accession number: [id number] Biopsy lab: [email or web address] Date of biopsy: 02/03/2024 Frozen section biopsy performed: Yes Specimen debulked: No Pre-Op diagnosis: basal cell carcinoma BCC subtype: nodular MohsAIQ Surgical site (if tumor spans multiple areas, please select predominant area): nose Surgery side: midline Surgical site (from skin exam): Mid Tip of Nose Pre-operative length (cm): 0.6 Pre-operative width (cm): 0.6 Indications for Mohs surgery: anatomic location where tissue conservation is critical and recurrence Previously treated? Yes Previous treatment type: Mohs micrographic surgery Previous treatment type comment: 01/17/2023 Mohs Appropriate Use Criteria Score: 9 Details of micrographic surgery: Mohs accession number: [id number] Micrographic Surgery Details: Post-operative length (cm): 1.3 Post-operative width (cm): 1.1 Number of Mohs stages: 2 Stage 1 Comments: The area was prepped with Betadine, draped in a sterile fashion, and infiltrated with local anesthetic. Sterile technique was used throughout the procedure. The marked area of clinical tumor with a small rim of clinically normal surrounding skin was removed using Mohs technique with beveled edges. Hash smith were placed for orientation of the specimen. Hemostasis was achieved with electrodessication. After hemostasis, the defect was measured and recorded, a temporary sterile dressing was placed over the wound, and the patient was escorted to the waiting area. The specimen was oriented, mapped, and if necessary, divided into sections. A Mohs map was prepared. The specimen was placed in a labeled delaney dish and was taken to the Mohs lab where it was chromacoded and processed. Mohs sections were prepared with serial tissue sections, stained, and evaluated by Dr. Higginbotham for interpretation of deep and peripheral margins. The Mohs map was marked accordingly. Amount of lidocaine used: 1.5 cc Estimated blood loss: minimal Defect size: 1.3 x 1.0 cm Number of blocks per stage: 1 Number of positive blocks: 1 Tumor features identified on Mohs section: basal carcinoma Tumor features identified on Mohs section comment: infiltrative pattern Depth of defect after stage: dermis Stage 2 Comments: The patient returned to the procedure room, the dressing was removed, the tumor area was re-prepped and draped, and anesthesia was assessed and augmented as necessary. A layer of tissue around the positive margin(s) was removed, and the tissue was oriented, mapped, and processed in an identical fashion as for Stage 1. Hemostasis was achieved and dressing placed as in Stage 1. The patient was escorted to the waiting area. As with Stage 1, Mohs sections were prepared with serial tissue sections, stained, and evaluated by Dr. Higginbotham for interpretation of deep and peripheral margins. The Mohs map was updated. Assistants: Lynsey Bell LPN Amount of lidocaine used: 1.3 cc Estimated blood loss: minimal Defect size: 1.3 x 1.1 cm Number of blocks: 1 Number of positive blocks: 0. Tumor free margins were obtained and the Mohs procedure was considered complete. Tumor features identified on Mohs section: no tumor identified Depth of defect after stage comment: deep dermis Patient tolerance of procedure: tolerated well, no immediate complications Reconstruction: Was the defect reconstructed? Yes (Undecided, patient will discuss with ENT) Was reconstruction performed by the same Mohs surgeon? No If no, what is the specialty of the surgeon who did the reconstruction? ENT facial plastics When was reconstruction performed? different day Antibiotics: Were antibiotics given on the day of surgery? Yes When were antibiotics given? post-operative [facility] Healthcare [facility] Ambulatory Visit Summaryon 1 05-02-2023 Ambulatory Visit Summary Ambulatory Visit Summary NIVIA RAMOS :1950 Visit Date:03/02/2024 Ambulatory Visit Instructions Your Diagnosis Renal mass Bladder diverticulum BPH with urinary obstruction Tests Performed CT Abdomen/Pelvis w/ + w/o Contrast -- Results Pending -- Please visit your patient portal for your results or contact your primary care physician. Your Care Team Attending Physician - CHEVY CUNHA, Edmond Rojas Primary Care Physician - MURDOCK JUANJO CUNHA Referring Physician - JUANJO MURDOCK MD This Is Your Medications List Contact prescribing physician if questions or concerns amlodipine-benazepril (Lotrel 5 mg-20 mg Cap) aspirin (aspirin 81 mg oral tablet) bisoprolol-hydrochlorot hiazide (Ziac 2.5 mg-6.25 mg Tab) ibuprofen (Motrin IB) menthol topical (Flexall) multivitamin (Multi Vitamin+) Procedures Performed Cardiac catheterization (01/2024), Laser ablation of prostate (01/20/2014), Cystoscopy (06/29/2013), Colectomy, hernia repair, neck surgery, Tonsillectomy, Transrectal biopsy of prostate using ultrasound (US) guidance. Discharge Vitals Heart Rate (Peripheral) 72 Respiratory Rate 16 Blood Pressure 138/98 Height 175 cm Height 69 in Weight 72 kg Weight 158.733 lb BMI 23.51 What to do next Scheduled Follow-Up Appointments Saturday 10:15 AM EST With: Edmond FUENTES MD Where: [facility] [address] [facility] [place] [address]- Saturday 10:00 AM EDT With: Edmond FUENTES MD Where: [facility] [address] [facility] [address]- You Need to Schedule the Following Appointments Follow Up with Edmond FUENTES MD, URL When: Where: [address] [place] [id number]- Medications What How Much When Instructions Unchanged amlodipine-benazepril (Lotrel 5 mg-20 mg Cap) 1 Capsules By Mouth Every day Contact prescribing physician if questions or concerns Unchanged aspirin (aspirin 81 mg oral tablet) 1 Tablets By Mouth Every day Contact prescribing physician if questions or concerns Unchanged bisoprolol-hydrochlorot hiazide (Ziac 2.5 mg-6.25 mg Tab) By Mouth Every day Contact prescribing physician if questions or concerns Unchanged ibuprofen (Motrin IB) By Mouth Every 6 hours Contact prescribing physician if questions or concerns Unchanged menthol topical (Flexall) Topical 2 times a day Contact prescribing physician if questions or concerns Unchanged multivitamin (Multi Vitamin+) Contact prescribing physician if questions or concerns Allergies Sulfanilamide (Unknown) Problems Ongoing - Any problem that you are currently receiving treatment for. Bladder diverticulum BPH with urinary obstruction Diverticular disease Former smoker HTN (hypertension) Nocturia Osteoarthrosis Personal history of skin cancer Renal mass Weak urinary stream Patient Survey You may receive a survey via text or e-mail asking about your office visit. Please share your experience with us by completing your survey. We appreciate your feedback and thank you for choosing us for your care. Education Materials Renal Mass A renal mass is an abnormal growth in the kidney. It may be found while performing an MRI, CT scan, or ultrasound to evaluate other problems of the abdomen. A renal mass that is cancerous (malignant) may grow or spread quickly. Others are not cancerous (benign). Renal masses include: ??? Tumors. These may be malignant or benign. ? The most common type of kidney cancer in adults is renal cell carcinoma. In children, the most common type of kidney cancer is Wilms tumor. ? The most common benign tumors of the kidney include renal adenomas, oncocytomas, and angiomyolipoma (AML). ??? Cysts. These are fluid-filled sacs that form on or in the kidney. What are the causes? Certain types of cancers, infections, or injuries can cause a renal mass. It is not always known what causes a cyst to develop in or on the kidney. What are the signs or symptoms? Often, a renal mass does not cause any signs or symptoms; most kidney cysts do not cause symptoms. How is this diagnosed? Your health care provider may recommend tests to diagnose the cause of your renal mass. These tests may be done if a renal mass is found: ??? Physical exam. ??? Blood tests. ??? Urine tests. ??? Imaging tests, such as ultrasound, CT scan, or MRI. ??? Biopsy. This is a small sample that is removed from the renal mass and tested in a lab. The exact tests and how often they are done will depend on: ??? The size and appearance of the renal mass. ??? Risk factors or medical conditions that increase your risk for problems. ??? Any symptoms associated with the renal mass, or concerns that you have about it. Tests and physical exam (more content not included)... Normal [facility] Urology Office/Clinic Noteon 03-02-2024 Urology Office/Clinic Note Urology Office/Clinic Note Chief Complaint Re referaal HPI Staff Re Referral per Juanjo Murdock MD due to renal mass-right CT SCAN, Chest XRAY-[facility] Pt was last seen on 09/16/23 Previous DX: BPH with urinary obstruction, nocturia, weak urinary stream Previous PSA 08/15/23 - 1.08-PCP IPPS 5 Dysuria: Sometimes has burning but not consistently Incomplete bladder emptying: denies Hematuria: denies visible blood Frequency: 5x or more Urgency: denies Nocturia: 0x-1x Stream: denies hesitancy, weak stream at night, denies start/stop stream Leaking: denies Post void dripping: denies Wearing pads/ Depends: denies Urge incontinence: denies Stress incontinence: denies Incontinence without Sensory Awareness: denies Abdominal pain: denies Flank pain: denies Sexual complaints: denies History of Present Illness Tests reviewed: UA, referral records, CTs I have reviewed the previous health record information and history for this patient from Dr. Murdock and Dr. Fuentes. I have reviewed and verified the staff HPI to be accurate for this encounter. Review of Systems PHQ Score Initial Depression Screen Score: 0 SCORE ROS - Provider Constitutional: denies weight loss, denies hot flashes. Eyes: denies eye problems. Gastrointestinal: denies nausea, denies vomiting. Cardiovascular: denies chest pain or angina. Integumentary: no dryness Musculoskeletal: denies musculoskeletal symptoms. ENMT: denies otolaryngeal symptoms. Respiratory: no shortness of breath. Heme/Lymph: denies easy bleeding tendency, denies easy bruising tendency. Psychiatric: no confusion, no anxiety. Genitourinary: See HPI. Physical Exam Vitals & Measurements HR: 72(Peripheral) RR: 16 BP: 138/98 HT: 69 in HT: 175 cm WT: 72 kg WT: 158.733 lb BMI: 23.51 General Appearance: alert, no distress, well nourished, well developed male. Assessment/Plan Re-referred by Dr. Juanjo Murdock due to incidentally found renal mass and bladder diverticulum. Pt accompanied by an adult female today. 1. Renal mass (N28.89: Other specified disorders of kidney and ureter) CT CAP w con 01/17/24 [facility] - Kidneys unremarkable. CT AP w/wo con 02/11/24 [facility] - 1.8 cm R Medial Pole Renal enhancing hypodensity. Malignancy additional hypodensities likely small cyst. Reviewed imaging with pt, given that the small mass is enhancing, it is suspicious for malignancy. Discussed other imaging options besides for CT given the discrepancy between the [facility] and [facility] readings like BHARTI or MRI. Reassured pt that if mass is malignant, they are typically slow growing. Discussed options including cont to monitor vs renal bx (would refer to tertiary center) vs surgical options (minimally invasive like cryotherapy vs radiofrequency ablation vs surgical removal). Likely would not require radical nephrectomy given small size. Risk that kidney bx misses malignant area and is neg while the mass could be cancerous. Unable to view image however per report, if the mass is inside the kidney, this would make bx more difficult and risky. R/Bs of options discussed. Recommended cont to monitor. Pt amenable. Also needs aortic valve replaced which is certainly of greater priority than potential renal mass at this time. Follow up [address] AP w/wo con at [facility] or sooner if needed. Pt understands and agrees with plan. 2. 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 Reviewed imaging. Could be congenital vs developed overtime due to ROMO from BPH. 3. BPH with urinary obstruction (N40.1: Benign prostatic hyperplasia with lower urinary tract symptoms) PSA (through PCP): 07/01/19 - 1.28 07/12/20 - 1.23 07/25/22 - 0.98 08/15/23 - 1.08 S/p green light 01/19/15. UA neg. IPSS 8 (5). Not taking any BPH or bladder meds. -PSA due 09/2024. As noted the patient was previously seen for BPH and PSA monitoring. He had a CT scan for another reason. Reviewed CT scan report (independent review) This reveals a 1.8 cm right renal mass which does enhance, suspicious for the possibility of renal cell carcinoma. We did note that he has had 2 CT scans within a fairly small timeframe. The CT scan from the [facility] did not mention this mass but the CT scan from the [facility] certainly does. We discussed the options as well delineated above. He agrees with the plan for repeat evaluation with imaging and in about 4 months. Discussed that the bladder diverticulum could either be acquired or congenital. He said no evidence of gross hematuria. Do not see that there is a definite indication for cystoscopic evaluation. He is to call if anything changes from the standpoint. Follow-up With When Contact Information Edmond FUENTES MD, URL [address] [address]- Additional Instructions: [address] Ab pelvis w/wo con at [facility] Patient Education Renal Mass Benign Prostatic Hyper (more content not included)... Normal [facility] Comment on above: Result Comment: Elec tronically Signed By: Edmond FUETNES MD\.br\Date and Time Signed: 03/02/24 16:46 EST\.br\Electronically Co-Signed By: Astrid Harris\.br\Date and Time Co-Signed: 03/02/24 11:42 EST KAYLANon 02-14-2024 CNPN Telephone (CATHMN) NIVIA RAMOS ([id number]) 1950 M Date Time Provider Department 02/14/24 ZITA SIMMONS CATHNC During your visit today, we recorded the following information about you: Zita Simmons APRN.MUSIC ARTIST 02/14/2024 1:09 PM Signed Patient called to update us regarding how he wants to move forward. He states that he will hopefully have more information to make a decision by end of March or April. I told him to keep us updated as he continues to decide Allergies As of Date: 02/14/2024 Noted Allergy Reaction TIZANIDINE 09/08/2020 8 - GI Upset SULFA (SULFONAMIDE ANTIBIOTICS) 01/03/2014 14 - Other: See Comments Comments: Red eyes d/t sulfa eye drops Date Reviewed: 02/06/2024 Reviewed by: Bri Valladares APRN.MUSIC ARTIST - Fully Assessed Reason for Visit: Patient Update [1234] Cmt: { Prescriptions as of 02/14/2024 - mometasone (ELOCON) 0.1 % cream Apply 1 Application to affected area. - bisoprolol-hydroCHLOROt hiazide (ZIAC) 5-6.25 mg per tablet Take 1 tablet by mouth every morning. - amLODIPine-benazepril (LOTREL) 5-20 mg per capsule Take 1 capsule by mouth every morning. - cetirizine (ZYRTEC) 10 mg tablet Take 10 mg by mouth every morning. - cyclobenzaprine (FLEXERIL) 10 mg tablet Take 10 mg by mouth daily at bedtime. - ibuprofen (MOTRIN) 800 mg tablet Take 1 tablet by mouth daily at bedtime. - aspirin, enteric coated (ASPIRIN, ENTERIC COATED) 81 mg EC tablet Take 81 mg by mouth daily at bedtime. - Ascorbic Acid (VITAMIN C) 1,000 mg tablet Take 1,000 mg by mouth once daily. - MULTIVITAMIN ORAL Take 1 tablet by mouth once daily. Problem List As Of Date: 02/14/2024 (None) Encounter Status:Closed by ZITA SIMMONS [facility][id number]) 1950 M Date Time Provider Department 02/14/24 MICHEL BRICENO During your visit today, we recorded the following information about you: Bradford Duff 02/14/2024 1:11 PM Signed Pt returned TAVR nurse call. Allergies As of Date: 02/14/2024 Noted Allergy Reaction TIZANIDINE 09/08/2020 8 - GI Upset SULFA (SULFONAMIDE ANTIBIOTICS) 01/03/2014 14 - Other: See Comments Comments: Red eyes d/t sulfa eye drops Date Reviewed: 02/06/2024 Reviewed by: Bri Valladares APRN.CNP - Fully Assessed Reason for Visit: Return Call Request [[id number]] Prescriptions as of 02/14/2024 - mometasone (ELOCON) 0.1 % cream Apply 1 Application to affected area. - bisoprolol-hydroCHLOROt hiazide (ZIAC) 5-6.25 mg per tablet Take 1 tablet by mouth every morning. - amLODIPine-benazepril (LOTREL) 5-20 mg per capsule Take 1 capsule by mouth every morning. - cetirizine (ZYRTEC) 10 mg tablet Take 10 mg by mouth every morning. - cyclobenzaprine (FLEXERIL) 10 mg tablet Take 10 mg by mouth daily at bedtime. - ibuprofen (MOTRIN) 800 mg tablet Take 1 tablet by mouth daily at bedtime. - aspirin, enteric coated (ASPIRIN, ENTERIC COATED) 81 mg EC tablet Take 81 mg by mouth daily at bedtime. - Ascorbic Acid (VITAMIN C) 1,000 mg tablet Take 1,000 mg by mouth once daily. - MULTIVITAMIN ORAL Take 1 tablet by mouth once daily. Problem List As Of Date: 02/14/2024 (None) Encounter Status:Closed by BRADFORD DUFF on 02/14/24 Normal [facility] CNOVon 02-06-2024 CNOV Office Visit (PULMAV ) NIVIA RAMOS ([id number]) 1950 M Date Time Provider Department 02/06/24 10:30 AM BRI VALLADARES During your visit today, we recorded the following information about you: Pulse Blood pressure Weight Height 69/minute 159/80 71.4 kg 1.753 m Bri Valladares APRN.CNP 02/06/2024 11:08 AM Signed [facility] INCIDENTAL LUNG NODULE PROGRAM Impression / Recommendations Lung Nodule- 6 mm right upper lobe nodule. This nodule may be a scar, inflammation, mucus but a malignancy can't be excluded. Plan will be to repeat CT scan in 6 months. Follow Up Follow Up Diagnosis: Lung Nodule Recommendation: CT Scan Follow up Date: 08/05/2024 Follow-Up Scheduled: Yes Pulmonary Follow-Up Type: Lung Nodule Surveillance Enrolled in Lung Nodule program: Yes Lung Nodule Program Location: [facility] Requesting Provider: Flip Lozano Reason for the Consult Nivia Ramos presents today for consultation / opinion regarding lung nodule(s). My impression and final recommendations will be communicated back to the requesting physician by way of shared medical record or letter via US mail. History of Present Illness Nivia Ramos is a 73 year old male with a pertinent past medical history significant for Former smoker: (13 pack-years, >40 years since quit) who is being seen as a new consultation for evaluation of a lung nodule(s). Nivia Ramos had a CTA Chest (scan type) on 01.17.2024 (date) for the indication of aortic valve disorder. 1 were detected Incidentally. Solid Smooth nodule/s up to 6 mm were noted in the Right upper lobe of the lung. They have no prior imaging (No) He rides a stationary bike 30-40 mins a day 5 to 6 days a week. Respiratory symptoms include: SOB: No Chest tightness: No Coughing: Yes: Without mucus, occasionally Hemoptysis: No Wheezing: No Fever/Chills: No Recent Respiratory Infection: No Unintentional weight loss: No Last 6 Encounter Wt Readings: Date: Wt: 01/21/2024 70.3 kg (155 lb) 01/17/2024 71.2 kg (157 lb) 12/12/2023 70.3 kg (155 lb) 10/22/2023 69.4 kg (153 lb) 10/23/2022 69.1 kg (152 lb 6.4 oz) Modified Medical Research Eek Dyspnea Scale (MMRC) I only get breathless with strenous exercise 0 Other Pertinent Clinical Risk Factors: Significant exposures (1 year or more of exposure): Dusts. Recent travel history: None Animal exposure: dog and cat Hobbies: none Does the patient have a prior history malignancy? No Does the patient have a family history of lung cancer? No Malignancy Risk ([facility] model) Lung Nodule Calculator: (if applicable) 11-20% risk of malignancy. Problem List, History, Medications and allergies have been reviewed from the [facility] electronic medical record and any appropriate up-dates have been made. Physical Exam BP 159/80 Pulse 69 Ht 175.3 cm (5' 9 ) Wt 71.4 kg (157 lb 6.5 oz) SpO2 99% BMI 23.25 kg/m? General Appearance: Well appearing, alert, in no acute distress, well-hydrated, well nourished.. Eyes: Anicteric sclera. Pupils are equally round and reactive to light. Extraocular movements are intact. . Lungs: Lungs clear to auscultation. No wheezing, rhonchi, rales.. Heart: RRR without murmur, gallop, or rubs. No ectopy. Extremities: No deformities, edema, skin discoloration, clubbing or cyanosis. Good capillary refill. . Neurologic: Gait normal. Reflexes normal and symmetric. Sensation grossly intact.. Diagnostic Data I have personally visualized, reviewed and analyzed the findings on pulmonary function testing and radiographs. Last CT/CTA Chest/Lungs CTA CHEST/ABD/PEL (GATED) W IVCON Exam End: 01/17/2024 2:56 PM (Final result) Narrative: * * *Final Report* * * DATE OF EXAM: Jan 17 2024 2:56PM JQC 0133 - CTA C/A/P (GATED) W IVCON / PROCEDURE REASON: Aortic valve disorder * * * * Physician Interpretation * * * * CTA Aorta chest, abdomen and pelvis Direct Image Comparison: None HISTORY: 73 years y/o Male with chronic h/o aortic valve stenosis. Evaluation for further treatment options, including surgical and transcatheter interventional treatment. There is request to define thoracic and aortic anatomy. Additional request to define details aortic annulus and root anatomy including dynamic assessment TECHNIQUE: SCANNER: Multi-detector scanner PROTOCOL: Spiral imaging of the heart with retrospective gating with sub-millimeter slice reconstruction throughout the cardiac cycle for dynamic 4-D assessment, following intravenous contrast administration. Additional single-phase, non-gated spiral imaging of the chest/abdomen/pelvis without additional contrast administration. Scan Range: thoracic inlet through the isch (more content not included)... Normal [facility] No Panel Informationon 02-02 Type of biopsy: tangential Informed consent: discussed and consent obtained Informed consent comment: The risks and benefits of the biopsy were discussed. Risks include but are not limited to bleeding, infection, scarring, pain, and nerve damage. An opportunity to ask questions prior to the procedure was permitted and all questions were answered. Patient was prepped and draped in usual sterile fashion: area cleansed with alcohol. Anesthesia: the lesion was anesthetized in a standard fashion Anesthetic: 1% lidocaine w/ epinephrine 1-100,000 buffered w/ 8.4% NaHCO3 Instrument used: DermaBlade Hemostasis achieved with: electrodesiccation Outcome: patient tolerated procedure well Outcome comment: The specimen was placed in a prelabeled formalin container to be sent for pathology Post-procedure details: sterile dressing applied and wound care instructions given Post-procedure details comment: Emphasized need to contact clinic for any signs of infection, uncontrollable bleeding, or complications. Dressing type: bandage Additional details: Photo taken Amount of lidocaine used: 0.5 cc [facility] 01-29-2024 [facility] Telephone (CATHMN) NIVIA RAMOS ([id number]) 1950 M Date Time Provider Department 01/29/24 ANJALI CRAIG During your visit today, we recorded the following information about you: Anjali Craig APRN.CNP 01/29/2024 2:29 PM Signed Allergies As of Date: 01/29/2024 Noted Allergy Reaction TIZANIDINE 09/08/2020 8 - GI Upset SULFA (SULFONAMIDE ANTIBIOTICS) 01/03/2014 14 - Other: See Comments Comments: Red eyes d/t sulfa eye drops Date Reviewed: 01/21/2024 Reviewed by: Liss Rico RN - Fully Assessed Reason for Visit: Dental [Other] Prescriptions as of 01/29/2024 - mometasone (ELOCON) 0.1 % cream Apply 1 Application to affected area. - bisoprolol-hydroCHLOROt hiazide (ZIAC) 5-6.25 mg per tablet Take 1 tablet by mouth every morning. - amLODIPine-benazepril (LOTREL) 5-20 mg per capsule Take 1 capsule by mouth every morning. - cetirizine (ZYRTEC) 10 mg tablet Take 10 mg by mouth every morning. - cyclobenzaprine (FLEXERIL) 10 mg tablet Take 10 mg by mouth daily at bedtime. - ibuprofen (MOTRIN) 800 mg tablet Take 1 tablet by mouth daily at bedtime. - aspirin, enteric coated (ASPIRIN, ENTERIC COATED) 81 mg EC tablet Take 81 mg by mouth daily at bedtime. - Ascorbic Acid (VITAMIN C) 1,000 mg tablet Take 1,000 mg by mouth once daily. - MULTIVITAMIN ORAL Take 1 tablet by mouth once daily. Problem List As Of Date: 01/29/2024 (None) Encounter Status:Closed by ANJALI CRAIG on 01/29/24 Normal [facility] CATH DIAGNOSTICon 01-20 [facility] CATH DIAGNOSTIC Site Id: [id number] Lab #: [id number] Rod Tape Operator 4 Study Date: 01/21/2024 Start Time: 01/21/2024 5:01:43 PM End Time: 01/21/2024 5:41:02 PM Physician Name Kameron Winslow M.D., Aditya M.D. Nursing/NATASHA Hernandez,Dinesh Quiros R.N., B. R.N. Schlabach, J. R.N. + + PATIENT INFORMATION + + Name: NIVIA RAMOS : 1950 Age: 73 years Gender: M Height: 69 in / 175 cm Weight: 155.00 lb / 70.31 kg BMI: 22.96 kg/m BSA: 1.85 m Allergies: YES + --------+ CLINICAL HISTORY/INDICATION(s) + --------+ Preoperative assessment before valvular surgery; AUC score = 7. CAD Presentation: No Symptoms, No Angina Angina Classification (within 2 weeks): No Angina Anti-Angina Meds (within 2 weeks): No. No Heart Failure No Cardiomyopathy - No LV Dysfunction Pre-Op Evaluation before Non-Card Surg: No Cardiogenic Shock: No Cardiac Arrest: No 73 y/o M who presents for preop [facility] pmh: 1. Aortic stenosis, CHICO 0.7, Pk/Mn: 63/32 2. HTN 3. Basel Cell Carcinoma s/p MOHS procedure 4. Diverticulosis with perforation (2009) s/p partial colectomy Access Point Sheath Size Hemostasis Method Right Radial Artery 6F Short Radial TR band + + DIAGNOSTIC FINDINGS + + Coronary Anatomy: Right Dominant Injection Site(s): Coronary Artery LMT: _ The LMT is normal. Additional Comment: Large caliber, short vessel that bifurcates into the LAD and LCX systems. LAD: _ The LAD has mild diffuse disease. Additional Comment: Large caliber vessel that wraps the apex. Gives rise to three small to moderate diagonal branches. LCX: _ The Circumflex has mild diffuse disease. Additional Comment: Large caliber vessel. Bifurcates distally to supply two moderate to large tortuous marginal branches. Small caliber AV continuation. RAMUS: _ The proximal Ramus is narrowed 50 % - focal disease. Additional Comment: Moderate caliber vessel that reaches distal anterolateral wall. RCA: _ The RCA has mild diffuse disease. Additional Comment: Moderate calbier dominant vessel. High RPDA takeoff. Distally supplies RPLV. + + IMPRESSION/PLAN + + Impression: Mild non-obstructive coronary artery disease in a right dominant system. Catheters: JL4 JR4 via R radial access. Recommended Treatment: Valve repair / replacement. Plan: 1. No revascularization recommended at the time of valve intervention. 2. Routine lifestyle optimization and medical management of non-obstructive mild coronary artery disease. + + ADVERSE OUTCOME(s)/COMPLICATION (s) + + None + --------+ PROCEDURAL & TECHNICAL DETAILS + --------+ PROCEDURE SEQUENCE: Time Procedure Performed 01/21/2024 5:31:01 PM Left Heart Cath PROCEDURE DETAILS: Contrast: Contrast Type Total Infused Omnipaque 150ml 55 Blood Loss: < 30ml Specimen: No Specimen Obtained RADIATION: Procedure performed under Fluoroscopic Guidance Total Dose Dose Area Product Total Exposure Time 96.96 mGy 8.43 Gy*cm 179.54 sec + + MEDICAL HISTORY + + Left Ventricle EF: LVEF 58, last assessed on 10/22/2023, by Echo. Physician Intra Service Procedure End Time: 01/21/2024 5:41:02 PM Attending Physician Presence Attestation: Entire Procedure Electronically submitted by: Kameron Winslow MD On: 01/22/2024 at 7:32:42 AM Final CC [facility] Image : [id number] [id number] See Link below for Image Normal [facility] CBC panel Auto (Bld)on 01-20 Erythrocyte distribution width (RBC) [Ratio] 12.6 % Normal 11.5-15.0 [facility] Comment on above: Order Comment: Speci men Type: BLOOD SPECIMENOrdering Facility: [facility] Address: [address] [place] [address] Performed By: #### 5 8410-2 ####[facility] [id number] [place] [address] [place] Hematocrit (Bld) [Volume fraction] 41.3 % Normal 39.0-51.0 [facility] Comment on above: Order Comment: Speci men Type: BLOOD SPECIMENOrdering Facility: [facility] Address: [address] [place] [address] Performed By: #### 5 8410-2 ####[facility] [id number] [place] [address] [place] Hemoglobin (Bld) [Mass/Vol] 13.4 g/dL Normal 13.0-17.0 [facility] Comment on above: Order Comment: Speci men Type: BLOOD SPECIMENOrdering Facility: [facility] Address: [address] [place] [address] Performed By: #### 5 8410-2 ####[facility] [id number] [place] [address] [place] MCH (RBC) [Entitic mass] 31.5 pg Normal 26.0-34.0 [facility] Comment on above: Order Comment: Speci men Type: BLOOD SPECIMENOrdering Facility: [facility] Address: [address] [place] [address] Performed By: #### 5 8410-2 ####[facility] [id number] [address] [id number] [address] [place] MCHC (RBC) [Mass/Vol] 32.4 g/dL Normal 30.5-36.0 [facility] Comment on above: Order Comment: Speci men Type: BLOOD SPECIMENOrdering Facility: [facility] Address: [address] [place] [address] Performed By: #### 5 8410-2 ####[facility] [id number] [place] [address] [place] MCV (RBC) [Entitic vol] 96.9 fL Normal 80.0-100.0 [facility] Comment on above: Order Comment: Speci men Type: BLOOD SPECIMENOrdering Facility: [facility] Address: [address] [place] [address] Performed By: #### 5 8410-2 ####[facility] [id number] [place] [address] [place] Nucleated RBC (Bld) [#/Vol] 10*3/uL Normal <0.01 [facility] Comment on above: Order Comment: Speci men Type: BLOOD SPECIMENOrdering Facility: [facility] Address: [address] [place] [address] Performed By: #### 5 8410-2 ####[facility] [id number] [place] [address] [place] Platelet mean volume (Bld) [Entitic vol] 9.2 fL Normal 9.0-12.7 [facility] Comment on above: Order Comment: Speci men Type: BLOOD SPECIMENOrdering Facility: [facility] Address: [address] [place] [address] Performed By: #### 5 8410-2 ####[facility] [id number] [place] [address] [place] Platelets (Bld) [#/Vol] 315 10*3/uL Normal 150-400 [facility] Comment on above: Order Comment: Speci men Type: BLOOD SPECIMENOrdering Facility: [facility] Address: [address] [place] [address] Performed By: #### 5 8410-2 ####[facility] [id number] [place] [address] [place] RBC (Bld) [#/Vol] 4.26 10*6/uL Normal 4.20-6.00 [facility] Comment on above: Order Comment: Speci men Type: BLOOD SPECIMENOrdering Facility: [facility] Address: [address] [place] [address] Performed By: #### 5 8410-2 ####[facility] [id number] [place] [address] [place] WBC (Bld) [#/Vol] 7.09 10*3/uL Normal 3.70-11.00 [facility] Comment on above: Order Comment: Speci men Type: BLOOD SPECIMENOrdering Facility: [facility] Address: [address] [place] [address] Performed By: #### 5 8410-2 ####[facility] [id number] [place] [address] [place] CNOVon 01-21-2024 CNOV Office Visit ([facility] ) NIVIA RAMOS ([id number]) 1950 M Date Time Provider Department 01/21/24 2:30 PM FELIZ MAYERS [facility] During your visit today, we recorded the following information about you: Feliz Mayers MD 01/21/2024 6:10 PM Signed [facility] [place] DEPARTMENT OF CARDIAC SURGERY OUTPATIENT VISIT DATE January 21, 2024 OUTPATIENT VISIT SERVICE DATE: 01/21/2024 SERVICE TIME: 2:30 PM PCP: Juanjo Murdock II, MD [address] [place] [address] Referring Physician: No referring provider defined for this encounter. Patient Type: Consult Visit to determine Surgery: Yes HPI: Mr. Nivia Ramos is a 73 year old male seen in consultation at the request of for opinion regarding treatment options for . He is currently asymptomatic. The Echocardiogram reveals severe (pk/mn 63/32, DI 0.25, 1+MR, 1+TR. Cardiac catheterization pending . CT shows 4.0cm aorta. Last CT Result Conclusion CTA CHEST/ABD/PEL (GATED) W IVCON Exam End: 01/17/2024 2:56 PM (Final result) Impression: IMPRESSION: Mildly dilated aortic root at 4.0 cm and ascending aorta at 3.9 cm. Otherwise Normal Thoracic and Abdominal Aortic Anatomy. Atherosclerotic changes as in the body of the report. Minimum luminal diameter throughout: 7 mm. Aortic Annulus Anatomy as described above. Small (<6 mm) non-calcified lung nodules. 6.3 mm noncalcified intrabronchial nodule involving anterior subsegmental upper lobar bronchus (12:258) Incidental Finding: Follow-up Acuity: Incidental Finding: Solid: 6-8 mm (solitary nodule) Routing Code: RI_1 Recommendation: CT Chest WO IVCON Time Frame: 6-12 months Comments: If stable on follow-up imaging, a repeat chest CT exam in 12 months (18-24 months from the initial exam) is recommended --END OF FINDING-- COMMUNICATION:? Results will be communicated with the ordering provider via [employer] staff message by [employer] within 2 business days of report finalization. Suspect 4.1 cm lesion involving cecum/ileocecal junction, assessment is limited in this study. Dedicated imaging recommended ACTIONABLE RESULT: FOLLOW-UP Acuity: Actionable Findings: Digestive Tract Routing Code: GI_1 Recommendation: Unlisted Recommendation (see report) Time Frame: At the discretion of the clinical team. COMMUNICATION: Results will be communicated with the ordering provider via [employer] staff message or phone message by [facility] within 2 business days of report finalization. --END OF FINDING-- Suspect large 5.7 cm posterior diverticulum. Dedicated imaging recommended Acuity: Actionable Findings: Kidneys/Ureters/Bladder Routing Code: GU_1 Recommendation: Unlisted Recommendation (see report) TimeFrame: at the discretion of the clinical team. --END OF FINDING-- Director Summer Sessions: CAMRYN ... Last ECHO Result Conclusion ECHO Collected: 10/22/2023 12:48 PM (Final result) Impression: CONCLUSIONS: - Technically difficult exam due to body habitus. - Exam indication: Aortic Stenosis - The left ventricle is normal in size. Left ventricular systolic function is normal. EF = 58 ? 5% (2D biplane) Normal left ventricular diastolic function. - The right ventricle is normal in size. Right ventricular systolic function is normal. - The right atrial cavity is mildly dilated. - The visualized aorta is borderline dilated with a maximal dimension of 3.9 cm. - There is severe aortic valve stenosis caused by calcified valve and restricted opening. AV area is 0.70 cm? (0.38 cm?/m?) by continuity, VTI. The peak gradient is 63 mmHg, the mean gradient is 32 mmHg and the dimensionless valve index is 0.25. Prior gradients of 63/32 mmHg. Paradoxic low flow, low gradient severe . - Exam was compared with the prior echocardiographic exam performed on 10/23/2022. There is no significant change. * * * Final * * * Based on my evaluation he is a low risk for OHS. Impression: Plan: continue medical management vs SAVR vs TAVR The risks, benefits and anticipated outcomes of the procedure, the risks and benefits of the alternatives to the procedure, and the roles and tasks of the personnel to be involved, were discussed with the patient, and the patient consents to the procedure and agrees to proceed. We discussed the possibility that there could be two patients undergoing surgery in two separate rooms (concurrent surgery) and that I would be present for the critical components of all operations. We also discussed that in an emergency situation, a qualified backup surgeon is available and in the rare event of such a serious situation, that colleague might take over the operation. These findings will be communicated back to the requesting (more content not included)... Normal [facility] CNOV Office Visit (CATHMN ) NIVIA RAMOS ([id number]) 1950 M Date Time Provider Department 01/21/24 12:00 PM [facility] During your visit today, we recorded the following information about you: Respiration Weight Height 18/minute 70.3 kg 1.753 m Raya Karimi 01/21/2024 2:59 PM Signed [facility] [place] [facility] Department of Cardiovascular Medicine SECTION OF INTERVENTIONAL CARDIOLOGY OUTPATIENT VISIT DATE January 21, 2024 OUTPATIENT VISIT TYPE ESTABLISHED FOLLOW UP Primary Conveyor Tender: Dr. Briceno Chief Complaint: Patient here for cardiac follow up evaluation History of Present Illness: Patient is a 73 year old male who presents today for ongoing evaluation of valvular heart disease. Pt noticed a decrease in his ability to perform daily cycling exercises (decreased rpm on his stationary bike). Continues to exercise for 30 min each morning even with the decrease. Patient is slightly fatigued, and experiences occasional exertional dyspnea but has no limitations on his daily activities. CT scan results discussed with pt, and consult placed for lung nodule clinic. Pt is the primary caregiver for his who has dementia, and is accompanied today by his daughter. 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 Denies: chest pain, orthopnea, PND, palpitations, lightheadedness, syncope, claudication, leg swelling, cough, and wheezing CARDIOVASCULAR MEDICINE TESTING: CT CHEST/ABDOMEN/PEL 01/17/2024: LINES, TUBES and DEVICES: None CHEST: Chest wall anatomy: unremarkable. LUNGS: . Small (<6 mm) non-calcified lung nodules. 6.3 mm noncalcified intrabronchial nodule involving anterior subsegmental upper lobar bronchus (12:258) MEDIASTINUM: unremarkable. PERICARDIUM: unremarkable CENTRAL PULMONARY ARTERY: normal dimensions. Assessment is limited due to limited contrast enhancement. CARDIAC CHAMBERS: LEFT VENTRICLE: normal size with normal systolic function; LV EF = 75 %; LV EDV 96 ml; LVmass 139 g RIGHT VENTRICLE: normal size and normal function on qualitative assessment. LV/RV reference values: [normal values LV EDV 77-195 ml; LVmass 118-238 g normal value RV EDV 88-227 ml] Left Atrium: dilated. TOSIN: normal. Right Atrium: normal size CENTRAL VENOUS and PULMONARY VENOUS RETURN: normal. Coronary Sinus: normal size MITRAL VALVE: assessment is limited in the current study - no leaflet calcification. No annular calcification TRICUSPID and PULMONIC VALVE: appear unremarkable. CORONARY ANATOMY: normal origin of the coronary arteries. Severe calcified atherosclerotic changes of the coronary arteries. However, the current study is not optimized for coronary assessment. AORTIC ANNULUS: no calcification -max. and min. Diameter: 2.7 x 2.3 cm, AREA: 4.9 cm2, Circumference: 9.1 cm AORTIC VALVE: bicuspid, with likely fusion of the left and right cusp. Severe leaflet calcification. - AV calcium score 1940 AU (threshold 170 HU, Score likely underestimated relative to standard threshold of 130 HU) - significant restriction of valve opening with slit-like systolic opening area consistent with severe aortic stenosis. Coronary Height/distance to annulus: Left Main: 13 mm, RCA: 12 mm. AORTA: Pathology: No acute aortic pathology. Intervention: None Complications: n/a Aortic Size: Ectasia/Mild Dilation aortic root and ascending aorta. STJ: maintained. No calcification. Wall Changes: scattered mild partially calcified wall changes. Moderate partially calcified wall changes infrarenal abdominal aorta. Arch Branch Vessels: Patent, normal size proximal segments of the arch branch vessels, with mild partially calcified wall changes. Moderate changes left subclavian Visceral Branch Vessels: Patent, normal size proximal segments of the visceral branch vessels and renal arteries, with mild proximal partially calcified wall changes. Iliac Arteries: Patent, normal size iliac arteries, with mild partially calcified wall changes. AORTIC DIMENSIONS: AORTIC ROOT: 4.0 cm measured [id number] STJ: 3.1 cm mid ASCENDING THORACIC AORTA: 3.9 cm mid AORTIC ARCH: 2.7 cm mid DESCENDING THORACIC AORTA: 3.0 cm JUXTARENAL ABDOMINAL AORTA (level of SMA): 2.3 cm mid INFRARENAL ABDOMINAL AORTA: 1.8 cm Diameter Left and Right Common Iliac Arteries minimal luminal diameter: 9 / 9 mm respectively Diameter Left and Right External Iliac Arteries minimal luminal diameter: 7 / 7 mm respectively ABDOMEN Gallbladder: unremarkable. Liver: unremarkable. Spleen: unremarkable. Adrenal glands: unremarkable. Pancreas: unremarkable. Kidneys: unremarkable. Bowel: Suspect 4.1 cm lesion involving cecum/ileocecal junction, assessment is limited in this study. Dedicated imaging recommended. PELVIS: Bladder: Suspect large 5.7 cm (more content not included)... Normal [facility] Comprehensive metabolic 2000 panelon 01-21-2024 Albumin [Mass/Vol] 4.5 g/dL Normal 3.9-4.[address] [facility] Comment on above: Order Comment: Speci men Type: BLOOD SPECIMENOrdering Facility: [facility] Address: [address] [place] [address] Performed By: #### 2 4323-8 ####[facility] LABCLIA [id number] [place] [address] [place] ALP [Catalytic activity/Vol] 61 U/L Normal 38-113 [facility] Comment on above: Order Comment: Speci men Type: BLOOD SPECIMENOrdering Facility: [facility] Address: [address] [place] [address] Performed By: #### 2 4323-8 ####[facility] LABCLIA [id number] [place] [address] [place] ALT [Catalytic activity/Vol] 15 U/L Normal 10-54 [facility] Comment on above: Order Comment: Speci men Type: BLOOD SPECIMENOrdering Facility: [facility] Address: [address] [place] [address] Performed By: #### 2 4323-8 ####[facility] LABCLIA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 ml; LVmass 139 g RIGHT VENTRICLE: normal size and normal function on qualitative assessment. LV/RV reference values: [normal values LV EDV 77-195 ml; LVmass 118-238 g normal value RV EDV 88-227 ml] Left Atrium: dilated. TOSIN: normal. Right Atrium: normal size CENTRAL VENOUS and PULMONARY VENOUS RETURN: normal. Coronary Sinus: normal size MITRAL VALVE: assessment is limited in the current study - no leaflet calcification. No annular calcification TRICUSPID and PULMONIC VALVE: appear unremarkable. CORONARY ANATOMY: normal origin of the coronary arteries. Severe calcified atherosclerotic changes of the coronary arteries. However, the current study is not optimized for coronary assessment. AORTIC ANNULUS: no calcification -max. and min. Diameter: 2.7 x 2.3 cm, AREA: 4.9 cm2, Circumference: 9.1 cm AORTIC VALVE: bicuspid, with likely fusion of the left and right cusp. Severe leaflet calcification. - AV calcium score 1940 AU (threshold 170 HU, Score likely underestimated relative to standard threshold of 130 HU) - significant restriction of valve opening with slit-like systolic opening area consistent with severe aortic stenosis. Coronary Height/distance to annulus: Left Main: 13 mm, RCA: 12 mm. AORTA: Pathology: No acute aortic pathology. Intervention: None Complications: n/a Aortic Size: Ectasia/Mild Dilation aortic root and ascending aorta. STJ: maintained. No calcification. Wall Changes: scattered mild partially calcified wall changes. Moderate partially calcified wall changes infrarenal abdominal aorta. Arch Branch Vessels: Patent, normal size proximal segments of the arch branch vessels, with mild partially calcified wall changes. Moderate changes left subclavian Visceral Branch Vessels: Patent, normal size proximal segments of the visceral branch vessels and renal arteries, with mild proximal partially calcified wall changes. Iliac Arteries: Patent, normal size iliac arteries, with mild partially calcified wall changes. AORTIC DIMENSIONS: AORTIC ROOT: 4.0 cm measured [id number]-[id number] STJ: 3.1 cm mid ASCENDING THORACIC AORTA: 3.9 cm mid AORTIC ARCH: 2.7 cm mid DESCENDING THORACIC AORTA: 3.0 cm JUXTARENAL ABDOMINAL AORTA (level of SMA): 2.3 cm mid INFRARENAL ABDOMINAL AORTA: 1.8 cm Diameter Left and Right Common Iliac Arteries minimal luminal diameter: 9 / 9 mm respectively Diameter Left and Right External Iliac Arteries minimal luminal diameter: 7 / 7 mm respectively ABDOMEN Gallbladder: unremarkable. Liver: unremarkable. Spleen: unremarkable. Adrenal glands: unremarkable. Pancreas: unremarkable. Kidneys: unremarkable. Bowel: Suspect 4.1 cm lesion involving cecum/ileocecal junction, assessment is limited in this study. Dedicated imaging recommended. PELVIS: Bladder: Suspect large 5.7 cm posterior diverticulum. Dedicated i (more content not included)... DIVISION OF RADIOLOGY Provider, [facility] - 01/17/2024 * * *Final Report* * * DATE OF EXAM: Jan 17 2024 2:56PM JQC 0133 - CTA C/A/P (GATED) W IVCON / PROCEDURE REASON: Aortic valve disorder * * * * Physician Interpretation * * * * CTA Aorta chest, abdomen and pelvis Direct Image Comparison: None HISTORY: 73 years y/o Male with chronic h/o aortic valve stenosis. Evaluation for further treatment options, including surgical and transcatheter interventional treatment. There is request to define thoracic and aortic anatomy. Additional request to define details aortic annulus and root anatomy including dynamic assessment TECHNIQUE: SCANNER: Multi-detector scanner PROTOCOL: Spiral imaging of the heart with retrospective gating with sub-millimeter slice reconstruction throughout the cardiac cycle for dynamic 4-D assessment, following intravenous contrast administration. Additional single-phase, non-gated spiral imaging of the chest/abdomen/pelvis without additional contrast administration. Scan Range: thoracic inlet through the ischial tuberosities CT Dose-Length Product (DLP): 1129 mGy*cm CT Dose Reduction Employed: Automated exposure control (AEC) CONTRAST: IV administration of 60 ml Omnipaque 350 Scan acquisition: uncomplicated Macro Version: [id number]:[id number]_7 For optimization of anatomic evaluation, advanced 3-D off-line postprocessing was performed on a dedicated workstation by the interpreting physician. STUDY LIMITATIONS: Limited contrast enhancement of the aorta except for the level of the heart.. RESULT: LINES, TUBES and DEVICES: None CHEST: Chest wall anatomy: unremarkable. LUNGS: . Small (<6 mm) non-calcified lung nodules. 6.3 mm noncalcified intrabronchial nodule involving anterior subsegmental upper lobar bronchus (12:258) MEDIASTINUM: unremarkable. PERICARDIUM: unremarkable CENTRAL PULMONARY ARTERY: normal dimensions. Assessment is limited due to limited contrast enhancement. CARDIAC CHAMBERS: LEFT VENTRICLE: normal size with normal systolic function; LV EF = 75 %; LV EDV 96 ml; LVmass 139 g RIGHT VENTRICLE: normal size and normal function on qualitative assessment. LV/RV reference values: [normal values LV EDV 77-195 ml; LVmass 118-238 g normal value RV EDV 88-227 ml] Left Atrium: dilated. TOSIN: normal. Right Atrium: normal size CENTRAL VENOUS and PULMONARY VENOUS RETURN: normal. Coronary Sinus: normal size MITRAL VALVE: assessment is limited in the current study - no leaflet calcification. No annular calcification TRICUSPID and PULMONIC VALVE: appear unremarkable. CORONARY ANATOMY: normal origin of the coronary arteries. Severe calcified atherosclerotic changes of the coronary arteries. However, the current study is not optimized for coronary assessment. AORTIC ANNULUS: no calcification -max. and min. Diameter: 2.7 x 2.3 cm, AREA: 4.9 cm2, Circumference: 9.1 cm AORTIC VALVE: bicuspid, with likely fusion of the left and right cusp. Severe leaflet calcification. - AV calcium score 1940 AU (threshold 170 HU, Score likely underestimated relative to standard threshold of 130 HU) - significant restriction of valve opening with slit-like systolic opening area consistent with severe aortic stenosis. Coronary Height/distance to annulus: Left Main: 13 mm, RCA: 12 mm. AORTA: Pathology: No acute aortic pathology. Intervention: None Complications: n/a Aortic Size: Ectasia/Mild Dilation aortic root and ascending aorta. STJ: maintained. No calcification. Wall Changes: scattered mild partially calcified wall changes. Moderate partially calcified wall changes infrarenal abdominal aorta. Arch Branch Vessels: Patent, normal size proximal segments of the arch branch vessels, with mild partially calcified wall changes. Moderate changes left subclavian Visceral Branch Vessels: Patent, normal size proximal segments of the visceral branch vessels and renal arteries, with mild proximal partially calcified wall changes. Iliac Arteries: Patent, normal size iliac arteries, with mild partially calcified wall changes. AORTIC DIMENSIONS: AORTIC ROOT: 4.0 cm measured [id number] STJ: 3.1 cm mid ASCENDING THORACIC AORTA: 3.9 cm mid AORTIC ARCH: 2.7 cm mid DESCENDING THORACIC AORTA: 3.0 cm JUXTARENAL ABDOMINAL AORTA (level of SMA): 2.3 cm mid INFRARENAL ABDOMINAL AORTA: 1.8 cm Diameter Left and Right Common Iliac Arteries minimal luminal diameter: 9 / 9 mm respectively Diameter Left and Right External Iliac Arteries minimal luminal diameter: 7 / 7 mm respectively ABDOMEN Gallbladder: unremarkable. Liver: unremarkable. Spleen: unremarkable. Adrenal glands: unremarkable. Pancreas: unremarkable. Kidneys: unremarkable. Bowel: Suspect 4.1 cm lesion involving cecum/ileocecal junction, assessment is limited in this study. Dedicated imaging recommended. (more content not included)... [facility] Radiology Study observation (narrative) [facility] ECG COMPLETEon 01-17-2024 ECG COMPLETE Ventricular Rate : 6 2 BPM Atrial Rate : 62 BPM P-R Interval : 180 ms QRS Duration : 104 ms Q-T Interval : 396 ms QTC Calculation(Bazett) : 401 ms Calculated P Idalou : 29 degrees Calculated R Idalou : -44 degrees Calculated T Idalou : 15 degrees NORMAL SINUS RHYTHM LEFT AXIS DEVIATION MINIMAL VOLTAGE CRITERIA FOR LVH, MAY BE NORMAL VARIANT ( R in aVL ) ABNORMAL ECG Confirmed by SHEEBA ROLLE MD ([id number]) on 02/21/2024 3:47:18 PM NAME : NIVIA RAMOS PID : [id number] : 1950 Gender : Male Race : ORD : [id number] Procedure Date : Jan 17 2024 14:17:59 Edit Date : Feb 21 2024 15:47:24 Diagnosis: NORMAL SINUS RHYTHM LEFT AXIS DEVIATION MINIMAL VOLTAGE CRITERIA FOR LVH, MAY BE NORMAL VARIANT ( R in aVL ) ABNORMAL ECG Confirmed by SHEEBA ROLLE MD ([id number]) on 02/21/2024 3:47:18 PM Test Reason : Location : 314 : J14 J1-4 Overread By : SHEEBA ROLLE MD Edited By : SHEEBA ROLLE MD Referred By : HAMLET LOZANO Acquired by : KEYLA LIMON Normal [facility] XR CHEST 2V FRONTAL/LATon XR CHEST 2V FRONTAL/LAT * * *Final Report* * * DATE OF EXAM: Jan 17 2024 2:23PM [id number] - XR CHEST 2V FRONTAL/LAT / PROCEDURE REASON: Aortic valve disorder * * * * Physician Interpretation * * * * EXAMINATION: CHEST RADIOGRAPH (2 VIEW FRONTAL and LATERAL) CLINICAL HISTORY: Aortic valve disorder MQ: XC2_6 EXAM DATE/TIME: 01/17/2024 2:23 PM COMPARISON: No prior chest radiograph is available for comparison. RESULT: Lines, tubes, and devices: None. Lungs and pleura: No acute focal lung consolidation is seen. No substantial pleural effusion is seen. There is no pneumothorax. Cardiomediastinal silhouette: Normal cardiomediastinal silhouette. Bones and soft tissues: The vertebral bodies are well aligned and the vertebral body heights are maintained. Cervical spinal instrumentation is seen. There is mild pectus excavatum. IMPRESSION: Please see body of the report. Director Summer Sessions: [facility] Transcribe Date/Time: Jan 17 2024 4:48P Dictated by : JOSH EVANGELISTA MD This examination was interpreted and the report reviewed and electronically signed by: JOSH EVANGELISTA MD on Jan 17 2024 4:50PM EST [id number] Normal [facility] XR Chest PA and Lateralon IMPRESSION: Please see body of the report. Director Summer Sessions: [facility] Transcribe Date/Time: Jan 17 2024 4:48P Dictated by : JOSH EVANGELISTA MD This examination was interpreted and the report reviewed and electronically signed by: JOSH EVANGELISTA MD on Jan 17 2024 4:50PM EST DIVISION OF RADIOLOGY * * *Final Report* * * DATE OF EXAM: Jan 17 2024 2:23PM [id number] - XR CHEST 2V FRONTAL/LAT / PROCEDURE REASON: Aortic valve disorder * * * * Physician Interpretation * * * * EXAMINATION: CHEST RADIOGRAPH (2 VIEW FRONTAL & LATERAL) CLINICAL HISTORY: Aortic valve disorder MQ: XC2_6 EXAM DATE/TIME: 01/17/2024 2:23 PM COMPARISON: No prior chest radiograph is available for comparison. RESULT: Lines, tubes, and devices: None. Lungs and pleura: No acute focal lung consolidation is seen. No substantial pleural effusion is seen. There is no pneumothorax. Cardiomediastinal silhouette: Normal cardiomediastinal silhouette. Bones and soft tissues: The vertebral bodies are well aligned and the vertebral body heights are maintained. Cervical spinal instrumentation is seen. There is mild pectus excavatum. DIVISION OF RADIOLOGY Provider, [facility] - 01/17/2024 * * *Final Report* * * DATE OF EXAM: Jan 17 2024 2:23PM [id number] - XR CHEST 2V FRONTAL/LAT / PROCEDURE REASON: Aortic valve disorder * * * * Physician Interpretation * * * * EXAMINATION: CHEST RADIOGRAPH (2 VIEW FRONTAL & LATERAL) CLINICAL HISTORY: Aortic valve disorder MQ: XC2_6 EXAM DATE/TIME: 01/17/2024 2:23 PM COMPARISON: No prior chest radiograph is available for comparison. RESULT: Lines, tubes, and devices: None. Lungs and pleura: No acute focal lung consolidation is seen. No substantial pleural effusion is seen. There is no pneumothorax. Cardiomediastinal silhouette: Normal cardiomediastinal silhouette. Bones and soft tissues: The vertebral bodies are well aligned and the vertebral body heights are maintained. Cervical spinal instrumentation is seen. There is mild pectus excavatum. IMPRESSION IMPRESSION: Please see body of the report. Director Summer Sessions: [facility] Transcribe Date/Time: Jan 17 2024 4:48P Dictated by : JOSH EVANGELISTA MD This examination was interpreted and the report reviewed and electronically signed by: JOSH EVANGELISTA MD on Jan 17 2024 4:50PM EST [facility] Radiology Study observation (narrative) [facility] XR Chest PA and LateralOrder ed By: Ccf Provider on 01-17-2024 [facility] CBC W Auto Differential pane l (Bld)on 11-13-2023 Basophils (Bld) [#/Vol] 0.04 10*3/uL Normal <0.11 [facility] Comment on above: Order Comment: Speci men Type: BLOOD SPECIMENOrdering Facility: [facility] Address: [address] [place] [address] Performed By: #### 5 7021-8 ####[facility] LABCLIA [id number] [place] [address] Basophils/100 WBC (Bld) 0.7 % Normal [facility] Comment on above: Order Comment: Speci men Type: BLOOD SPECIMENOrdering Facility: [facility] Address: [address] [place] [address] Performed By: #### 5 7021-8 ####[facility] LABCLIA [id number] [place] [address] Differential cell count method Nom (Bld) Auto Normal [facility] Comment on above: Order Comment: Speci men Type: BLOOD SPECIMENOrdering Facility: [facility] Address: [address] [place] [address] Performed By: #### 5 7021-8 ####[facility] LABCLIA [id number] [place] [address] Eosinophils (Bld) [#/Vol] 0.11 10*3/uL Normal <0.46 [facility] Comment on above: Order Comment: Speci men Type: BLOOD SPECIMENOrdering Facility: [facility] Address: [address] [place] [address] Performed By: #### 5 7021-8 ####[facility] LABCLIA [id number] [place] [address] Eosinophils/100 WBC (Bld) 1.9 % Normal [facility] Comment on above: Order Comment: Speci men Type: BLOOD SPECIMENOrdering Facility: [facility] Address: [address] [place] [address] Performed By: #### 5 7021-8 ####[facility] LABCLIA [id number] [place] [address] Erythrocyte distribution width (RBC) [Ratio] 12.6 % Normal 11.5-15.0 [facility] Comment on above: Order Comment: Speci men Type: BLOOD SPECIMENOrdering Facility: [facility] Address: [address] [place] [address] Performed By: #### 5 7021-8 ####[facility] LABCLIA [id number] [place] [address] Hematocrit (Bld) [Volume fraction] 38.6 % Low 39.0-51.0 [facility] Comment on above: Order Comment: Speci men Type: BLOOD SPECIMENOrdering Facility: [facility] Address: [address] [place] [address] Performed By: #### 5 7021-8 ####[facility] LABCLIA [id number] [place] [address] Hemoglobin (Bld) [Mass/Vol] 13.0 g/dL Normal 13.0-17.0 [facility] Comment on above: Order Comment: Speci men Type: BLOOD SPECIMENOrdering Facility: [facility] Address: [address] [place] [address] Performed By: #### 5 7021-8 ####[facility] LABCLIA [id number] [place] [address] Immature granulocytes (Bld) [#/Vol] 10*3/uL Normal <0.10 [facility] Comment on above: Order Comment: Speci men Type: BLOOD SPECIMENOrdering Facility: [facility] Address: [address] [place] [address] Performed By: #### 5 7021-8 ####[facility] LABIA [id number] [place] [address] Immature granulocytes/100 WBC (Bld) 0.3 % Normal [facility] Comment on above: Order Comment: Speci men Type: BLOOD SPECIMENOrdering Facility: [facility] Address: [address] [place] [address] Performed By: #### 5 7021-8 ####[facility] LABCLIA [id number] [place] [address] Lymphocytes (Bld) [#/Vol] 1.09 10*3/uL Normal 1.00-4.00 [facility] Comment on above: Order Comment: Speci men Type: BLOOD SPECIMENOrdering Facility: [facility] Address: [address] [place] [address] Performed By: #### 5 7021-8 ####[facility] LABCLIA [id number] [place] [address] Lymphocytes/100 WBC (Bld) 18.7 % Normal [facility] Comment on above: Order Comment: Speci men Type: BLOOD SPECIMENOrdering Facility: [facility] Address: [address] [place] [address] Performed By: #### 5 7021-8 ####[facility] LABCLIA [id number] [place] [address] MCH (RBC) [Entitic mass] 32.7 pg Normal 26.0-34.0 [facility] Comment on above: Order Comment: Speci men Type: BLOOD SPECIMENOrdering Facility: [facility] Address: [address] [place] [address] Performed By: #### 5 7021-8 ####[facility] LABCLIA [id number] [place] [address] MCHC (RBC) [Mass/Vol] 33.7 g/dL Normal 30.5-36.0 [facility] Comment on above: Order Comment: Speci men Type: BLOOD SPECIMENOrdering Facility: [facility] Address: [address] [place] [address] Performed By: #### 5 7021-8 ####[facility] LABCLIA [id number] [place] [address] MCV (RBC) [Entitic vol] 97.0 fL Normal 80.0-100.0 [facility] Comment on above: Order Comment: Speci men Type: BLOOD SPECIMENOrdering Facility: [facility] Address: [address] [place] [address] Performed By: #### 5 7021-8 ####[facility] LABCLIA [id number] [place] [address] Monocytes (Bld) [#/Vol] 0.73 10*3/uL Normal <0.87 [facility] Comment on above: Order Comment: Speci men Type: BLOOD SPECIMENOrdering Facility: [facility] Address: [address] [place] [address] Performed By: #### 5 7021-8 ####[facility] LABCLIA [id number] [place] [address] Monocytes/100 WBC (Bld) 12.5 % Normal [facility] Comment on above: Order Comment: Speci men Type: BLOOD SPECIMENOrdering Facility: [facility] Address: [address] [place] [address] Performed By: #### 5 7021-8 ####[facility] LABCLIA [id number] [place] [address] Neutrophils (Bld) [#/Vol] 3.83 10*3/uL Normal 1.45-7.50 [facility] Comment on above: Order Comment: Speci men Type: BLOOD SPECIMENOrdering Facility: [facility] Address: [address] [place] [address] Performed By: #### 5 7021-8 ####[facility] LABCLIA [id number] [place] [address] Neutrophils/100 WBC (Bld) 65.9 % Normal [facility] Comment on above: Order Comment: Speci men Type: BLOOD SPECIMENOrdering Facility: [facility] Address: [address] [place] [address] Performed By: #### 5 7021-8 ####[facility] LABCLIA [id number] [place] [address] Nucleated RBC (Bld) [#/Vol] 10*3/uL Normal <0.01 [facility] Comment on above: Order Comment: Speci men Type: BLOOD SPECIMENOrdering Facility: [facility] Address: [address] [place] [address] Performed By: #### 5 7021-8 ####[facility] LABCLIA [id number] [place] [address] Nucleated RBC/100 WBC (Bld) [Ratio] 0.0 /100 WBC Normal [facility] Comment on above: Order Comment: Speci men Type: BLOOD SPECIMENOrdering Facility: [facility] Address: [address] [place] [address] Performed By: #### 5 7021-8 ####[facility] LABIA [id number] [place] [address] Platelet mean volume (Bld) [Entitic vol] 8.8 fL Low 9.0-12.7 [facility] Comment on above: Order Comment: Speci men Type: BLOOD SPECIMENOrdering Facility: [facility] Address: [address] [place] [address] Performed By: #### 5 7021-8 ####[facility] LABCLIA [id number] [place] [address] Platelets (Bld) [#/Vol] 243 10*3/uL Normal 150-400 [facility] Comment on above: Order Comment: Speci men Type: BLOOD SPECIMENOrdering Facility: [facility] Address: [address] [place] [address] Performed By: #### 5 7021-8 ####[facility] LABIA [id number] [place] [address] RBC (Bld) [#/Vol] 3.98 10*6/uL Low 4.20-6.00 [facility] Comment on above: Order Comment: Speci men Type: BLOOD SPECIMENOrdering Facility: [facility] Address: [address] [place] [address] Performed By: #### 5 7021-8 ####[facility] LABIA [id number] [place] [address] WBC (Bld) [#/Vol] 5.82 10*3/uL Normal 3.70-11.00 [facility] Comment on above: Order Comment: Speci men Type: BLOOD SPECIMENOrdering Facility: [facility] Address: [address] [place] [address] Performed By: #### 5 7021-8 ####[facility] LABIA [id number] [place] [address] Comprehensive metabolic 2000 panelon 11-13-2023 Albumin [Mass/Vol] 4.3 g/dL Normal 3.9-4.[address] [facility] Comment on above: Order Comment: Speci men Type: BLOOD SPECIMENOrdering Facility: [facility] Address: [address] [place] [address] Performed By: #### 2 4323-8 ####[facility] LABIA [id number] [place] [address] ALP [Catalytic activity/Vol] 60 U/L Normal 38-113 [facility] Comment on above: Order Comment: Speci men Type: BLOOD SPECIMENOrdering Facility: [facility] Address: [address] [place] [address] Performed By: #### 2 4323-8 ####[facility] LABCLIA [id number] [place] [address] ALT [Catalytic activity/Vol] 14 U/L Normal 10-54 [facility] Comment on above: Order Comment: Speci men Type: BLOOD SPECIMENOrdering Facility: [facility] Address: [address] [place] [address] Performed By: #### 2 4323-8 ####[facility] LABCLIA [id number] [place] [address] Anion gap [Moles/Vol] 7 mmol/L Low 8-15 [facility] Comment on above: Order Comment: Speci men Type: BLOOD SPECIMENOrdering Facility: [facility] Address: [address] [place] [address] Performed By: #### 2 4323-8 ####[facility] LABCLIA [id number] [place] [address] AST [Catalytic activity/Vol] 20 U/L Normal 14-40 [facility] Comment on above: Order Comment: Speci men Type: BLOOD SPECIMENOrdering Facility: [facility] Address: [address] [place] [address] Performed By: #### 2 4323-8 ####[facility] LABCLIA [id number] [place] [address] Bilirubin [Mass/Vol] 0.7 mg/dL Normal 0.2-1.3 [facility] Comment on above: Order Comment: Speci men Type: BLOOD SPECIMENOrdering Facility: [facility] Address: [address] [place] [address] Performed By: #### 2 4323-8 ####[facility] LABCLIA [id number] [place] [address] Calcium [Mass/Vol] 10.0 mg/dL Normal 8.5-10.[address] [facility] Comment on above: Order Comment: Speci men Type: BLOOD SPECIMENOrdering Facility: [facility] Address: [address] [place] [address] Performed By: #### 2 4323-8 ####[facility] LABCLIA [id number] [place] [address] Chloride [Moles/Vol] 102 mmol/L Normal 98-107 [facility] Comment on above: Order Comment: Speci men Type: BLOOD SPECIMENOrdering Facility: [facility] Address: [address] [place] [address] Performed By: #### 2 4323-8 ####[facility] LABCLIA [id number] [place] [address] CO2 [Moles/Vol] 29 mmol/L Normal 22-30 [facility] Comment on above: Order Comment: Speci men Type: BLOOD SPECIMENOrdering Facility: [facility] Address: [address] [place] [address] Performed By: #### 2 4323-8 ####[facility] LABCLIA [id number] [place] [address] Creatinine [Mass/Vol] 0.82 mg/dL Normal 0.73-1.22 [facility] Comment on above: Order Comment: Speci men Type: BLOOD SPECIMENOrdering Facility: [facility] Address: [address] [place] [address] Performed By: #### 2 4323-8 ####[facility] LABCLIA [id number] [place] [address] Creatinine and Glomerular filtration rate.predicted panel (S/P/Bld) 93 mL/min/1.73m??? Normal >=60 [facility] Comment on above: Order Comment: Speci men Type: BLOOD SPECIMENOrdering Facility: [facility] Address: [address] [place] [address] Result Comment: Bia mated Glomerular Filtration Rate (eGFR) is calculated using the 2020 CKD-EPI creatinine equation. This equation utilizes serum creatinine, sex, and age as parameters. The creatinine assay has traceable calibration to isotope dilution-mass spectrometry. Refer to KDIGO guidelines for clinical interpretation. In patients with unstable renal function, e.g. those with acute kidney injury, the eGFR may not accurately reflect actual GFR. Performed By: #### 2 4323-8 ####[facility] LABCLIA [id number] [place] [address] Glucose [Mass/Vol] 111 mg/dL High 74-[address] [facility] Comment on above: Order Comment: Speci men Type: BLOOD SPECIMENOrdering Facility: [facility] Address: [address] [place] [address] Result Comment: The Canadian Diabetes Association (ADA) provides guidance for cutoff values for fasting glucose and random glucose. The ADA defines fasting as no caloric intake for at least 8 hours. Fasting plasma glucose results between 100 to 125 mg/dL indicate increased risk for diabetes (prediabetes). Fasting plasma glucose results greater than or equal to 126 mg/dL meet the criteria for diagnosis of diabetes. In the absence of unequivocal hyperglycemia, results should be confirmed by repeat testing. In a patient with classic symptoms of hyperglycemia or hyperglycemic crisis, random plasma glucose results greater than or equal to 200 mg/dL meet the criteria for diagnosis of diabetes. Reference: Standards of Medical Care in Diabetes 2016, Canadian Diabetes Association. Diabetes Care. 2016.39(Suppl 1). Performed By: #### 2 4323-8 ####[facility] LABCLIA [id number] [place] [address] Potassium [Moles/Vol] 4.3 mmol/L Normal 3.7-5.1 [facility] Comment on above: Order Comment: Speci men Type: BLOOD SPECIMENOrdering Facility: [facility] Address: [address] [id number] Performed By: #### 2 4323-8 ####[facility] LABCLIA [id number] [place] [address] Protein [Mass/Vol]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 influenza virus vaccine, inactivated 01/15/2023 Recorded pneumococcal 23-valent vaccine 06/04/2022 Recorded SARS-CoV-2 (COVID-19) [id number] 02/07/2022 Recorded 2023-09-04: [id number] influenza virus vaccine, inactivated 01/16/2022 Recorded SARS-CoV- (more content not included)... Normal [facility] Comment on above: Result Comment: Elec tronically Signed By: Edmond FUENTES MD\.br\Date and Time Signed: 09/16/23 11:53 EDT\.br\Electronically Co-Signed By: Astrid Harris\.br\Date and Time Co-Signed: 09/16/23 11:17 EDT ECHOCARDIO M/2D COMPLETEon 0 08-02-2022 ECHOCARDIO M/2D COMPLETE Patient: NIVIA RAMOS Exam Date: 08/02/2022 : 1950 Gender:M Ordering : DR JUANJO MURDOCK M.D. Admission #: [id number] Family : NEENA MURDOCK Order #: [id number] CLICK HERE TO VIEW EXAM ECHOCARDIOGRAM REPORT PROCEDURE: CARDIO PULMONARY ECHOCARDIO M/2D COMP INDICATIONS: Cardiac murmur, hypertension COMPARISON: None. DESCRIPTION: COMPLETE ECHOCARDIOGRAM Real-time transthoracic echocardiography with 2D, M-mode, spectral and color flow Doppler performed. QUALITY: Technical quality was good. LEFT VENTRICLE: Normal chamber size. Normal left ventricular wall thickness. LV EF: Normal left ventricular ejection fraction, (>55%). No significant wall motion abnormalities. DIASTOLIC: Normal diastolic function. ATRIAL SEPTUM: Inadequately seen. LEFT ATRIUM: Normal chamber size. RIGHT ATRIUM: Normal chamber size. RIGHT VENTRICLE: Normal chamber size. Normal systolic function. TRICUSPID VALVE: Normal mobility and thickness. Mild to moderate regurgitation. Moderately elevated right ventricular systolic pressure; RVSP 48 mmHg MITRAL VALVE: Normal mobility and thickness. No evidence of mitral valve stenosis. There is no mitral annular calcification. Mild to moderate mitral regurgitation. AORTIC VALVE: Normal trileaflet appearance. Moderately calcified aortic valve. Severely diminished mobility. Doppler velocity suggest moderate to severe aortic valve stenosis. DVI 0.23, and CHICO 0.9 cm2 consistent with severe stenosis. Mild aortic regurgitation. AORTIC ROOT: Normal diameter and appearance. PULMONIC VALVE: Normal thickness and mobility. No stenosis. Mild regurgitation. PERICARDIUM: No evidence of pericardial effusion. IVC: Collapses with inspirations. CONCLUSION: 1. Global left ventricular systolic function is normal; visually estimated ejection fraction 60 to 65%. 2. Normal diastolic function. 3. The right ventricle is normal in size and systolic function. 4. Mild to moderate tricuspid regurgitation. 5. Moderately elevated right ventricular systolic pressure. 6. Mild to moderate mitral regurgitation. 7. Moderate to severe aortic valve stenosis. DVI is 0.23 consistent with severe aortic valve stenosis. Mild aortic valve regurgitation. 8. Mild pulmonic valve regurgitation. Adult Echocardiography Procedure Report Left Ventricle LVEDD (3.7 - 5.6 cm): 4.34 cm LVESD (2.2 - 4.0 cm): 2.66 cm LVIVS thickness (0.6 - 1.2 cm): 1.02 cm LVPW thickness (0.5 - 1.0 cm): 1.07 cm e': 0.11 m/s E - e': 7.98 LVOT Max Gradient: 1.97 mm[Hg] Peak Velocity (LVOT): 0.70 m/s Mean Velocity (LVOT): 0.51 m/s LVOT Diameter 2.07 cm Left Ventricular Ejection Fraction: 69.27 %, 69.27 % Left Atrium LA Volume Index (2D A2C): 35.94 ml, 35.94 ml Left Atrium Systolic Dimension: 3.88 cm Mitral Valve MV E to A Ratio: 1.09 Mitral Valve A-Wave Peak Velocity: 0.83 m/s Mitral Valve E-Wave Peak Velocity: 0.90 m/s Right Ventricle Aorta AO Root Diam: 3.70 cm Aortic Valve AoV Area (Peak Hi): 0.79 cm2, 0.79 cm2 AoV Area (VTI): 0.87 cm2, 0.87 cm2 Peak Velocity(Antegrade Flow): 3.00 m/s Peak Gradient(Antegrade Flow): 35.89 mm[Hg] Mean Velocity(Antegrade Flow): 2.06 m/s Mean Gradient(Antegrade Flow): 19.02 mm[Hg] Velocity Time Integral: 72.06 cm Tricuspid Valve Peak Velocity (Regurgitant Flow): 2.70 m/s, 2.76 m/s, 2.85 m/s, 3.48 m/s Peak Velocity: 0.43 m/s Pulmonic Valve Peak Velocity: 0.87 m/s, 0.92 m/s Peak Gradient: 3.03 mm[Hg], 3.38 mm[Hg] Right Atrium Dictated by: Marvin Lopez M.D. on 08/02/2022 at 15:30 Approved by: Marvin Lopez M.D. on 08/02/2022 at 15:38 Normal [facility] Comprehensive Metabolic Pane [facility] 07-25-2021 Albumin [Mass/Vol] 4.0 g/dL Normal 3.6-5.1 [facility] Specialist Comment on above: Performed By: #### L TONY, CMP #### [facility] [address], [place] [id number] Albumin/Globulin [Mass ratio] 1.8 {ratio} Normal 1.0-2.5 [facility] Specialist Comment on above: Performed By: #### L TONY, CMP #### [facility] [address], [place] [id number] ALP [Catalytic activity/Vol] 72 U/L Normal 40-129 [facility] Specialist Comment on above: Performed By: #### L TONY, CMP #### [facility] [address], [place] [id number] ALT [Catalytic activity/Vol] 24 U/L Normal 9-46 [facility] Specialist Comment on above: Result Comment: 03/08 Female reference range changed. Performed By: #### L TONY, CMP #### [facility] [address], [place] [id number] Anion gap [Moles/Vol] 15 mmol/L Normal 12-20 [facility] Specialist Comment on above: Result Comment: Effe ctive 04/13/2019 reference range changed. Performed By: #### L TONY, CMP #### [facility] [address], [place] [id number] AST [Catalytic activity/Vol] 27 U/L Normal 10-40 [facility] Comment on above: Performed By: #### L IPD, CMP #### [facility] [address], [place] [id number] Bilirubin [Mass/Vol] 0.44 mg/dL Normal 0.30-1.20 [facility] Comment on above: Performed By: #### L IPD, CMP #### [facility] [address], [place] [id number] BUN/CREA 24 Ratio High 6-22 [facility] Comment on above: Performed By: #### L IPD, CMP #### [facility] [address], [place] [id number] Calcium [Mass/Vol] 9.3 mg/dL Normal 8.6-10.2 [facility] Comment on above: Performed By: #### L IPD, CMP #### [facility] [address], [place] [id number] Chloride [Moles/Vol] 103 mmol/L Normal 98-107 [facility] Comment on above: Performed By: #### L IPD, CMP #### [facility] [address], [place] [id number] CO2 [Moles/Vol] 24 mmol/L Normal 20-31 [facility] Comment on above: Performed By: #### L IPD, CMP #### [facility] [address], [place] [id number] Creatinine [Mass/Vol] 0.7 mg/dL Normal 0.7-1.4 [facility] Comment on above: Performed By: #### L IPD, CMP #### [facility] [address], [place] [id number] eGFRAA 135 mL/min/1.73m2 Normal >60 [facility] Comment on above: Performed By: #### L IPD, CMP #### [facility] [address], [place] [id number] eGFRNAA 111 mL/min/1.73m2 Normal >60 [facility] Specialist Comment on above: Performed By: #### L IPD, CMP #### [facility] [address], [place] [id number] Globulin (S) [Mass/Vol] 2.2 g/dL Normal 1.9-3.7 [facility] Corporate Representative Comment on above: Performed By: #### L IPD, CMP #### [facility] [address], [place] [id number] Glucose [Mass/Vol] 99 mg/dL Normal 65-99 [facility] Corporate Representative Comment on above: Result Comment: For FASTING Glucose --- ADA reference ranges: Normal 65-99 mg/dl Prediabetes 100-125 Diabetes >/= 126 Performed By: #### L IPD, CMP #### [facility] [address], [place] [id number] Potassium [Moles/Vol] 4.4 mmol/L Normal 3.5-5.5 [facility] Corporate Representative Comment on above: Performed By: #### L IPD, CMP #### [facility] [address], [place] [id number] Protein [Mass/Vol] 6.2 g/dL Normal 6.1-8.1 [facility] Corporate Representative Comment on above: Performed By: #### L IPD, CMP #### [facility] [address], [place] [id number] Sodium [Moles/Vol] 138 mmol/L Normal 135-146 [facility] Corporate Representative Comment on above: Performed By: #### L IPD, CMP #### [facility] [address], [place] [id number] Urea nitrogen [Mass/Vol] 17 mg/dL Normal 7-25 [facility] Corporate Representative Comment on above: Performed By: #### L IPD, CMP #### [facility] [address], [place] [id number] Lipid Panelon 07-25-2021 Cholesterol [Mass/Vol] 208 mg/dL High 125-200 [facility] Corporate Representative Comment on above: Result Comment: Low risk < 200mg/dL Borderline risk 201-239 mg/dl High risk > or equal to 240 Performed By: #### L IPD, CMP #### [facility] [address], [place] [id number] Cholesterol in HDL [Mass/Vol] 85 mg/dL Normal >40 [facility] Corporate Representative Comment on above: Result Comment: High Cardiovascular Risk HDL <40 mg/dL Low Cardiovascular Risk HDL > or equal to 60 mg/dl Performed By: #### L IPD, CMP #### [facility] [address], [place] [id number] Cholesterol in LDL [Mass/Vol] 109 mg/dL Normal [facility] Corporate Representative Comment on above: Result Comment: LDL ATP III CLASSIFICATION LDL less than 100 mg/dl Optimal LDL 100-129 mg/dl Near or above optimal LDL 130-159 Borderline high LDL 160-189 High LDL greater than 189 mg/dl Very High Performed By: #### L IPD, CMP #### [facility] [address], [place] [id number] Cholesterol in VLDL [Mass/Vol] 14 mg/dL Normal [facility] Corporate Representative Comment on above: Performed By: #### L IPD, CMP #### [facility] [address], [place] [id number] Cholesterol.total/Ch olesterol in HDL [Mass ratio] 2 {ratio} Normal [facility] Specialist Comment on above: Performed By: #### L IPD, CMP #### [facility] [address], [place] [id number] Triglyceride [Mass/Vol] 71 mg/dL Normal 30-150 [facility] Corporate Representative Comment on above: Result Comment: TRIG ATPIII CLASSIFICATIONS TRIG less than 150 mg/dl Normal TRIG 150-199 mg/dl Borderline High TRIG 200-500 mg/dl High TRIG greather than 500 mg/dl Very High Performed By: #### L IPD, CMP #### [facility] [address], [place] [id number] PSA SCREEN (MEDICARE)on 07-07 TPSA 1.290 ng/mL Normal <4.000 [facility] Corporate Representative Comment on above: Result Comment: PSA Test Method: ECLIA/Jonathan e 601 Performed By: #### P SA #### [facility] [address], [place] [id number] Vital Signs Date Time Vital Sign Value Performing Clinician Facility 03-31-2024 11:09-0500 Body height 175.3 cm Peggy Hemmer PA Work Phone: [facility] 03-31-2024 11:09-0500 Body mass index (BMI) [Ratio] 23.3 kg/m2 Peggy Hemmer PA Work Phone: [facility] 03-31-2024 11:09-0500 Body temperature 101.5 [degF] Peggy Hemmer PA Work Phone: [facility] 03-31-2024 11:09-0500 Body weight 71.58 kg Peggy Hemmer PA Work Phone: [facility] 03-31-2024 11:09-0500 Diastolic blood pressure 70 mm[Hg] Peggy Hemmer PA Work Phone: [facility] 03-31-2024 11:09-0500 Heart rate 87 /min Peggy Hemmer PA Work Phone: [facility] 03-31-2024 11:09-0500 Respiratory rate 16 /min Peggy Hemmer PA Work Phone: [facility] 03-31-2024 11:09-0500 SaO2% (BldA) [Mass fraction] 96 % Peggy Hemmer PA Work Phone: [facility] 03-31-2024 11:09-0500 Systolic blood pressure 112 mm[Hg] Peggy Hemmer PA Work Phone: [facility] 03-26-2024 11:19-0500 Body height 175.3 cm Mike Max DO Work Phone: [facility] 03-26-2024 11:19-0500 Body mass index (BMI) [Ratio] 23.63 kg/m2 Mike Max DO Work Phone: [facility] 03-26-2024 11:19-0500 Body weight 72.58 kg Mike Max DO Work Phone: [facility] 03-26-2024 09:09-0500 Diastolic blood pressure 82 mm[Hg] Walker Higginbotham MD Work Phone: [facility] 03-26-2024 09:09-0500 Systolic blood pressure 140 mm[Hg] Walker Higginbotham MD Work Phone: [facility] 03-17-2024 13:59-0500 Body height 175.3 cm Lucy Ramirez MD Work Phone: [facility] 03-17-2024 13:59-0500 Body mass index (BMI) [Ratio] 23.63 kg/m2 Lucy Ramirez MD Work Phone: [facility] 03-17-2024 13:59-0500 Body weight 72.58 kg Lucy Ramirez MD Work Phone: [facility] 03-17-2024 13:59-0500 Diastolic blood pressure 76 mm[Hg] Lucy Ramirez MD Work Phone: [facility] 03-17-2024 13:59-0500 Systolic blood pressure 162 mm[Hg] Lucy Ramirez MD Work Phone: [facility] 03-02-2024 10:54-0500 Blood Pressure Location Edmond FUENTES [facility] 03-02-2024 10:54-0500 Diastolic blood pressure 98 mm[Hg] Edmond CHEVY [facility] 03-02-2024 10:54-0500 Heart rate 72 /min Edmond FUENTES [facility] 03-02-2024 10:54-0500 Respiratory rate 16 /min Edmond FUENTES [facility] 03-02-2024 10:54-0500 Systolic blood pressure 138 mm[Hg] Edmond CHEVY [facility] 02-13-2024 09:11-0500 Body height 175.3 cm Juanjo Murdock MD Work Phone: [facility] 02-13-2024 09:11-0500 Body mass index (BMI) [Ratio] 23.33 kg/m2 Juanjo Murdock MD Work Phone: [facility] 02-13-2024 09:11-0500 Body weight 71.67 kg Juanjo Murdock MD Work Phone: [facility] 02-13-2024 09:11-0500 Diastolic blood pressure 82 mm[Hg] Juanjo Murdock MD Work Phone: [facility] 02-13-2024 09:11-0500 Heart rate 74 /min Juanjo Murdock MD Work Phone: [facility] 02-13-2024 09:11-0500 SaO2% (BldA) [Mass fraction] 98 % Juanjo Murdock MD Work Phone: [facility] 02-13-2024 09:11-0500 Systolic blood pressure 138 mm[Hg] Juanjo Murdock MD Work Phone: [facility] 02-06-2024 10:17-0400 Body height 175.3 cm Bri Valladares APRN.MUSIC ARTIST Work Phone: [facility] 02-06-2024 10:17-0400 Body mass index (BMI) [Ratio] 23.25 kg/m2 Bri Valladares APRN.MUSIC ARTIST Work Phone: [facility] 02-06-2024 10:17-0400 Body weight 71.4 kg Bri Valladares APRN.MUSIC ARTIST Work Phone: [facility] 02-06-2024 10:17-0400 Diastolic blood pressure 80 mm[Hg] Bri Valladares BAKER OPERATOR AUTOMATIC.MUSIC ARTIST Work Phone: [facility] 02-06-2024 10:17-0400 Systolic blood pressure 159 mm[Hg] Bri Valladares APRN.MUSIC ARTIST Work Phone: [facility] 02-06-2024 10:14-0400 Heart rate 69 /min Bri Valladares APRN.MUSIC ARTIST Work Phone: [facility] 02-06-2024 10:14-0400 SaO2% (BldA) [Mass fraction] 99 % Bri Mali JOSHI Work Phone: [facility] 01-30-2024 10:55-0400 Body height 175.3 cm Juanjo Murdock MD Work Phone: [facility] 01-30-2024 10:55-0400 Body mass index (BMI) [Ratio] 23.33 kg/m2 Juanjo Murdock MD Work Phone: [facility] 01-30-2024 10:55-0400 Body weight 71.67 kg Juanjo Murdock MD Work Phone: [facility] 01-30-2024 10:55-0400 Diastolic blood pressure 84 mm[Hg] Juanjo Murdock MD Work Phone: [facility] 01-30-2024 10:55-0400 Heart rate 75 /min Juanjo Murdock MD Work Phone: [facility] 01-30-2024 10:55-0400 SaO2% (BldA) [Mass fraction] 98 % Juanjo Murdock MD Work Phone: [facility] 01-30-2024 10:55-0400 Systolic blood pressure 158 mm[Hg] Juanjo Murdock MD Work Phone: [facility] 01-22-2024 14:11-0400 Body height 175.3 cm Peggy Hemmer PA Work Phone: [facility] 01-22-2024 14:11-0400 Body mass index (BMI) [Ratio] 23.1 kg/m2 Peggy Hemmer PA Work Phone: [facility] 01-22-2024 14:11-0400 Body weight 70.94 kg Peggy Hemmer PA Work Phone: [facility] 01-22-2024 14:11-0400 Diastolic blood pressure 90 mm[Hg] Peggy Hemmer PA Work Phone: [facility] 01-22-2024 14:11-0400 Heart rate 75 /min Peggy Hemmer PA Work Phone: [facility] 01-22-2024 14:11-0400 Respiratory rate 16 /min Peggy Sernarenetta PA Work Phone: [facility] 01-22-2024 14:11-0400 SaO2% (BldA) [Mass fraction] 98 % Peggy Sernamer PA Work Phone: [facility] 01-22-2024 14:11-0400 Systolic blood pressure 152 mm[Hg] Peggy Sernarenetta PA Work Phone: [facility] 01-21-2024 12:14-0400 Body height 175.3 cm [facility] 01-21-2024 12:14-0400 Body mass index (BMI) [Ratio] 22.89 kg/m2 [facility] 01-21-2024 12:14-0400 Body weight 70.31 kg [facility] 01-21-2024 12:14-0400 Respiratory rate 18 /min [facility] 01-17-2024 13:08-0400 Body height 175.3 cm Michel Briceno MD Work Phone: [facility] 01-17-2024 13:08-0400 Body mass index (BMI) [Ratio] 23.18 kg/m2 Michel Briceno MD Work Phone: [facility] 01-17-2024 13:08-0400 Body weight 71.22 kg Michel Briceno MD Work Phone: [facility] 01-17-2024 13:08-0400 Diastolic blood pressure 91 mm[Hg] Michel Briceno MD Work Phone: [facility] 01-17-2024 13:08-0400 Heart rate 64 /min Michel Briceno MD Work Phone: [facility] 01-17-2024 13:08-0400 Respiratory rate 16 /min Michel Briceno MD Work Phone: [facility] 01-17-2024 13:08-0400 SaO2% (BldA) [Mass fraction] 96 % Michel Briceno MD Work Phone: [facility] 01-17-2024 13:08-0400 Systolic blood pressure 179 mm[Hg] Michel Briceno MD Work Phone: [facility] 01-07-2024 10:04-0400 Body height 175.3 cm Peggy Hemmer PA Work Phone: [facility] 01-07-2024 10:04-0400 Body mass index (BMI) [Ratio] 23.3 kg/m2 Peggy Hemmer PA Work Phone: [facility] 01-07-2024 10:04-0400 Body weight 71.58 kg Peggy Hemmer PA Work Phone: [facility] 01-07-2024 10:04-0400 Diastolic blood pressure 76 mm[Hg] Peggy Hemmer PA Work Phone: [facility] 01-07-2024 10:04-0400 Heart rate 72 /min Peggy Hemmer PA Work Phone: [facility] 01-07-2024 10:04-0400 Respiratory rate 16 /min Peggy Hemmer PA Work Phone: [facility] 01-07-2024 10:04-0400 SaO2% (BldA) [Mass fraction] 96 % Peggy Hemmer PA Work Phone: [facility] 01-07-2024 10:04-0400 Systolic blood pressure 158 mm[Hg] Peggy Hemmer PA Work Phone: [facility] 10-22-2023 14:51-0400 Body height 175.3 cm Max Cardoso MD Work Phone: [facility] 10-22-2023 14:51-0400 Body mass index (BMI) [Ratio] 22.59 kg/m2 Max Cardoso MD Work Phone: [facility] 10-22-2023 14:51-0400 Body weight 69.4 kg Max Cardoso MD Work Phone: [facility] 10-22-2023 14:51-0400 Diastolic blood pressure 70 mm[Hg] Max Cardoso MD Work Phone: [facility] 10-22-2023 14:51-0400 Heart rate 66 /min Max Cardoso MD Work Phone: [facility] 10-22-2023 14:51-0400 Respiratory rate 12 /min Max Cardoso MD Work Phone: [facility] 10-22-2023 14:51-0400 SaO2% (BldA) [Mass fraction] 98 % Max Cardoso MD Work Phone: [facility] 10-22-2023 14:51-0400 Systolic blood pressure 140 mm[Hg] Max Cardoso MD Work Phone: [facility] 09-16-2023 10:41-0400 Body temperature 98.6 [degF] Edmond FUENTES [facility] 09-16-2023 10:41-0400 Diastolic blood pressure 86 mm[Hg] Edmond FUENTES [facility] 09-16-2023 10:41-0400 Heart rate 71 /min Edmond FUENTES [facility] 09-16-2023 10:41-0400 Respiratory rate 16 /min Edmond FUENTES [facility] 09-16-2023 10:41-0400 Systolic blood pressure 140 mm[Hg] Edmond COOK [facility] 05-21-2023 10:44-0500 Body mass index (BMI) [Ratio] 23.42 kg/m2 Amrita Hernandez NP Work Phone: [facility] 05-21-2023 10:44-0500 Body weight 71.94 kg Amrita Hernandez BARREL LEVELER Work Phone: [facility] 05-21-2023 10:44-0500 Diastolic blood pressure 80 mm[Hg] Amrita Hernandez BARREL LEVELER Work Phone: [facility] 05-21-2023 10:44-0500 Heart rate 76 /min Amrita Fariasvely BARREL LEVELER Work Phone: [facility] 05-21-2023 10:44-0500 Respiratory rate 14 /min Amrita [place] BARREL LEVELER Work Phone: [facility] 05-21-2023 10:44-0500 SaO2% (BldA) [Mass fraction] 98 % Amrita Hernandez BARREL LEVELER Work Phone: [facility] 05-21-2023 10:44-0500 Systolic blood pressure 140 mm[Hg] Amrita [place] BARREL LEVELER Work Phone: [facility] 10-23-2022 13:45-0400 Diastolic blood pressure 77 mm[Hg] Max Cardoso MD Work Phone: [facility] 10-23-2022 13:45-0400 Systolic blood pressure 141 mm[Hg] Max Cardoso MD Work Phone: [facility] 10-23-2022 13:39-0400 Body height 175.3 cm Max Cardoso MD Work Phone: [facility] 10-23-2022 13:39-0400 Body weight 69.13 kg Max Cardoso MD Work Phone: [facility] 10-23-2022 13:39-0400 Heart rate 64 /min Max Cardoso MD Work Phone: [facility] 10-23-2022 13:39-0400 SaO2% (BldA) [Mass fraction] 99 % Max Cardoso MD Work Phone: [facility] 10-22-2022 08:00-0400 Blood Pressure Location Edmond FUENTES [facility] 10-22-2022 08:00-0400 Diastolic blood pressure 87 mm[Hg] Edmond FUENTES [facility] 10-22-2022 08:00-0400 Heart rate 68 /min Edmond FUENTES [facility] 10-22-2022 08:00-0400 Respiratory rate 16 /min Edmond FUENTES [facility] 10-22-2022 08:00-0400 Systolic blood pressure 158 mm[Hg] Edmond FUENTES [facility] Encounters Encounter Date Encounter Type Care Provider Facility Start: 09-22-2024 ambulatory Edmond Rojas [place] Facility :[facility] Start: 06-01-2024 ambulatory Edmond Bob [place] Facility :[facility] Start: 03-31-2024 End: 03-31-2024 Bamboo flowsheet Peggy Wakefield PA Work Phone: [facility] Start: 03-31-2024 End: 03-31-2024 Bamboo flowsheet Peggy Wakefield PA Work Phone: [facility] Start: 03-31-2024 End: 03-31-2024 Office outpatient visit 15 minutes Peggy Wakefield PA Work Phone: [facility] Comment on above: URI with cough and c ongestion (Primary Dx) Start: 03-31-2024 End: 03-31-2024 ambulatory PEGGY WAKEFIELD Not Available Start: 03-27-2024 End: 03-27-2024 ambulatory Mike Max Facility:[facility] Start: 03-26-2024 End: 03-26-2024 ambulatory Juanjo Murdock Facility:[facility] Start: 03-26-2024 End: 03-26-2024 External Result Encounter Mike Max DO Work Phone: [facility] Unsolicited Start: 03-26-2024 End: 03-26-2024 External Result Encounter Mike Max DO Work Phone: [facility] Unsolicited Start: 03-26-2024 End: 03-26-2024 ambulatory MIKE MAX Not Available Start: 03-26-2024 End: 03-26-2024 Office outpatient new 45 minutes Mike Max DO Work Phone: [facility] Comment on above: Mohs defect (Primary Dx); 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 Start: 03-26-2024 End: 03-26-2024 Patient encounter procedure Walker Higginbotham MD Work Phone: [facility] Comment on above: 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 Start: 03-26-2024 End: 03-26-2024 ambulatory WALKER HIGGINBOTHAM Not Available Start: 03-25-2024 End: 03-25-2024 ambulatory Ethel Underwood Dana GRAMAJO.POWER PLANT MECHANIC Work Phone: Cardiology Comment on above: Dental clearance Start: 03-25-2024 End: 03-25-2024 E-mail encounter from caregiver Ethel Underwood Dana GRAMAJO.POWER PLANT MECHANIC Work Phone: Cardiology Start: 03-25-2024 End: 03-25-2024 Telephone encounter Michel Briceno MD Work Phone: Cardiology Comment on above: Return Call Request Patient Update Start: 03-24-2024 End: 03-24-2024 ambulatory Juanjo Murdock Facility:[facility] Start: 03-17-2024 End: 03-17-2024 Office outpatient new 45 minutes Lucy Nance MD Work Phone: [facility] Comment on above: Abnormal abdominal C T scan (Primary Dx); Cecum mass Start: 03-17-2024 End: 03-17-2024 ambulatory LUCY NANCE V Not Available Start: 03-02-2024 End: 03-02-2024 ambulatory JUANJO MURDOCK Facility:[facility] Start: 03-02-2024 End: 03-02-2024 Patient encounter procedure Edmond FUENTES [facility] Start: 02-27-2024 End: 02-27-2024 Bamboo flowsheet Melba Kelbley GYMNASIUM TEACHER [facility] Start: 02-27-2024 End: 02-27-2024 Bamboo flowsheet Melba Shettyy GYMNASIUM TEACHER [facility] Start: 02-27-2024 End: 02-27-2024 ambulatory Melba Shettyy GYMNASIUM TEACHER [facility] Comment on above: Lumbar paraspinal mu scle spasm (Primary Dx) Start: 02-25-2024 End: 02-25-2024 Bamboo flowsheet Sarah Brink GYMNASIUM TEACHER [facility] Start: 02-25-2024 End: 02-25-2024 Bamboo flowsheet Sarah Brink GYMNASIUM TEACHER [facility] Start: 02-25-2024 End: 02-25-2024 ambulatory Sarah Brink GYMNASIUM TEACHER [facility] Comment on above: Lumbar paraspinal mu scle spasm (Primary Dx) Start: 02-21-2024 End: 02-21-2024 Bamboo flowsheet Sarah Brink GYMNASIUM TEACHER [facility] Start: 02-21-2024 End: 02-21-2024 Bamboo flowsheet Sarah Brink GYMNASIUM TEACHER [facility] Start: 02-21-2024 End: 02-21-2024 ambulatory Sarah Brink GYMNASIUM TEACHER [facility] Comment on above: Lumbar paraspinal mu scle spasm (Primary Dx) Start: 02-18-2024 End: 02-18-2024 Bamboo flowsheet Quang Gacria PT Work Phone: [facility] Start: 02-18-2024 End: 02-18-2024 Bamboo flowsheet Quang Garcia PT Work Phone: [facility] Start: 02-18-2024 End: 02-18-2024 ambulatory Quang Garcia PT Work Phone: [facility] Comment on above: Lumbar paraspinal mu scle spasm (Primary Dx) Start: 02-14-2024 End: 02-14-2024 Telephone encounter Michel Briceno MD Work Phone: Cardiology Comment on above: Return Call Request Patient Update ({) Start: 02-13-2024 End: 02-13-2024 Edna Murdock MD Work Phone: [facility] Start: 02-13-2024 End: 02-13-2024 Bamboo flowsheet Juanjo Murdock MD Work Phone: [facility] Start: 02-13-2024 End: 02-13-2024 ambulatory Sarah Brink GYMNASIUM TEACHER [facility] Comment on above: Lumbar paraspinal mu scle spasm (Primary Dx) Start: 02-13-2024 End: 02-13-2024 Office outpatient visit 25 minutes Juanjo Murdock MD Work Phone: [facility] Comment on above: Primary hypertension (CMS/HCC) (Primary Dx); Abnormal finding on CT scan; Cecum mass; Bladder diverticulum; Renal mass, right; Nonrheumatic aortic valve stenosis; Pulmonary nodules Start: 02-13-2024 End: 02-13-2024 ambulatory JUANJO MURDOCK Not Available Start: 02-10-2024 End: 02-10-2024 Bamboo flowsheet Sarah Brink GYMNASIUM TEACHER [facility] Start: 02-10-2024 End: 02-10-2024 Bamboo flowsheet Sarah Brink GYMNASIUM TEACHER [facility] Start: 02-10-2024 End: 02-10-2024 ambulatory Sarah Brink GYMNASIUM TEACHER [facility] Comment on above: Lumbar paraspinal mu scle spasm (Primary Dx) TAVR Meeting Start: 02-07-2024 End: 02-07-2024 ambulatory Sarah Brink GYMNASIUM TEACHER [facility] Comment on above: Lumbar paraspinal mu scle spasm (Primary Dx) Start: 02-06-2024 End: 02-06-2024 ambulatory JUANJO MURDOCK II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 (RSV), vaccine, bivalent, protein subunit RSV prefusion F, diluent reconstituted, 0.5 mL, PF Peggy FARLEY Work Phone: [facility] 02-12-2024 influenza virus vacc ine, unspecified formulation [facility] 02-12-2024 influenza, high dose seasonal, preservative-free Peggy FARLEY Work Phone: [facility] 02-22-2023 SARS-COV-2 (COVID-19 ) vaccine, mRNA, spike protein, LNP, PF, 50 mcg/0.5 mL Amrita Hernandez BARREL LEVELER Work Phone: [facility] 01-15-2023 influenza virus vacc ine, unspecified formulation [employer] [facility] 01-15-2023 influenza, high dose seasonal, preservative-free Amrita Hernandez BARREL LEVELER Work Phone: [facility] 01-15-2023 Influenza, High-dose Seasonal, Quadrivalent, Preservative Free Amrita Hernandez BARREL LEVELER Work Phone: [facility] 06-04-2022 pneumococcal polysaccharide vaccine, 23 valent Amrita Hernandez BARREL LEVELER Work Phone: [facility] 02-07-2022 SARS-CoV-2 (COVID-19 ) [id number] Edmond CHEVY [facility] Comment on above: Result Comment: 2023: [id number] 01-16-2022 influenza, high dose seasonal, preservative-free Amrita Hernandez BARREL LEVELER Work Phone: [facility] 01-16-2022 Influenza, High-dose Seasonal, Quadrivalent, Preservative Free Amrita Hernandez BARREL LEVELER Work Phone: [facility] 01-16-2022 influenza virus vacc ine, unspecified formulation Max Cardoso MD Work Phone: [facility] 08-02-2021 SARS-CoV-2 (COVID-19 ) mRNA-1273 vaccine Edmond FUENTES [facility] Comment on above: Result Comment: 2023: [id number] 02-20-2021 SARS-CoV-2 (COVID-19 ) mRNA-1273 vaccine Edmond FUENTES [facility] 01-11-2021 influenza virus vacc ine, unspecified formulation Edmond CHEVY [facility] 01-11-2021 Influenza, High-dose Seasonal, Quadrivalent, Preservative Free Amrita Hernandez BARREL LEVELER Work Phone: [facility] 06-14-2020 SARS-CoV-2 (COVID-19 ) mRNA-1273 vaccine Edmond CHEVY [facility] Comment on above: Result Comment: 2023: [id number] 05-17-2020 SARS-CoV-2 (COVID-19 ) mRNA-7103 vaccine Edmond FUENTES [facility] Comment on above: Result Comment: 2023: [id number] 01-12-2020 influenza virus vacc ine, unspecified formulation Edmond FUENTES [facility] 01-12-2020 influenza, high dose seasonal, preservative-free Amrita [place] [employer] [place] [employer] [place] BARREL LEVELER Work Phone: [facility] 06-16-2019 zoster vaccine recombinant Amrita Gypsy BARREL LEVELER Work Phone: [facility] 04-09-2019 zoster vaccine recombinant Amrita [place] BARREL LEVELER Work Phone: [facility] 01-26-2019 influenza virus vacc ine, unspecified formulation Edmond FUENTES [facility] 01-26-2019 influenza, high dose seasonal, preservative-free Amrita [place] BARREL LEVELER Work Phone: [facility] 02-06-2018 influenza virus vacc ine, unspecified formulation Edmond FUENTES [facility] 02-06-2018 Influenza, High-dose Seasonal, Quadrivalent, Preservative Free Amrita [place] BARREL LEVELER Work Phone: [facility] 01-28-2017 influenza virus vacc ine, unspecified formulation Edmond FUENTES [facility] 01-28-2017 Influenza, High-dose Seasonal, Quadrivalent, Preservative Free Amrita [place] BARREL LEVELER Work Phone: [facility] 07-26-2016 pneumococcal polysaccharide vaccine, 23 valent Amrita [employer] BARREL LEVELER Work Phone: [facility] 02-10-2016 influenza virus vacc ine, unspecified formulation Edmond FUENTES [facility] 02-10-2016 influenza, injectabl e, quadrivalent, preservative free Amrita [place] BARREL LEVELER Work Phone: [facility] 03-09-2015 tetanus toxoid, redu ronny diphtheria toxoid, and acellular pertussis vaccine, adsorbed Amrita [place] BARREL LEVELER Work Phone: [facility] 01-18-2015 seasonal influenza, intradermal, preservative free Amrita Gypsy BARREL LEVELER Work Phone: [facility] 01-29-2014 influenza virus vacc ine, unspecified formulation [employer] [facility] 01-29-2014 influenza, injectabl e, quadrivalent, preservative free Amrita Gypsy BARREL LEVELER Work Phone: [facility] 06-08-2013 pneumococcal polysaccharide vaccine, 23 valent Amrita Gypsy BARREL LEVELER Work Phone: [facility] 01-30-2013 influenza virus vacc ine, unspecified formulation Edmond FUENTES [facility] 01-30-2013 influenza, seasonal, injectable Amrita [employer] Work Phone: [facility] 07-11-2012 zoster vaccine, live Amrita [employer] BARREL LEVELER Work Phone: [facility] 06-23-2012 zoster vaccine, live Amrita [employer]psy BARREL LEVELER Work Phone: [facility] 03-08-2006 tetanus toxoid, redu ronny diphtheria toxoid, and acellular pertussis vaccine, adsorbed Amrita Gypsy BARREL LEVELER Work Phone: [facility] Payers Date Payer Category Payer Self-pay 2024 Unknown [id number] 2022 Private Health Insurance [id number] 2014 Medicare [id number] 2014 Unknown [id number] 2014 Medicare [id number] 1959 Medicare [id number] 1959 Unknown [id number] 1949 Unknown [id number] 2.16.84 0.1.991072.3.579.2.593 1949 Unknown [id number] 2.16.8 40.1.608051.3.579.2.727 1949 Unknown [id number] 2.16.8 40.1.667340.3.579.2.727 1949 Unknown [id number] 2.16.8 40.1.557823.3.579.2.727 1949 Unknown [id number] 2.16.8 40.1.820632.3.579.2.727 1949 Unknown [id number] 2.16.84 0.1.534719.3.579.2.1259 1949 Unknown [id number] 2.16.84 0.1.202960.3.579.2.1259 1949 Unknown [id number] 2.16.84 0.1.683382.3.579.2.1259 1949 Unknown [id number] 2.16.84 0.1.562493.3.579.2.1259 1949 Unknown [id number] 2.16.84 0.1.576693.3.579.2.1259 1949 Unknown [id number] 2.16.84 0.1.523660.3.579.2.1259 1949 Unknown [id number] 2.16.84 0.1.184180.3.579.2.1259 1949 Unknown [id number] 2.16.84 0.1.827828.3.579.2.1259 1949 Unknown [id number] 2.16.84 0.1.897624.3.579.2.1259 1949 Unknown [id number] 2.16.84 0.1.127837.3.579.2.1259 1949 Unknown [id number] 2.16.84 0.1.443655.3.579.2.125 1949 Unknown [id number] 2.16.84 0.1.910131.3.579.2.125 1949 Unknown [id number] 2.16.84 0.1.054246.3.579.2.125 1949 Unknown [id number] 2.16.84 0.1.475738.3.579.2.1259 1949 Unknown [id number] 2.16.84 0.1.005349.3.579.2.125 1949 Unknown [id number] 2.16.84 0.1.829231.3.579.2.1259 1949 Unknown [id number] 2.16.84 0.1.243840.3.579.2.125 1949 Unknown [id number] 2.16.84 0.1.537058.3.579.2.1259 1949 Unknown [id number] 2.16.84 0.1.148197.3.579.2.125 1949 Unknown [id number] 2.16.84 0.1.410568.3.579.2.1259 Unknown [id number] 2.16.8 40.1.158422.3.579.2.531 Social History Date Type Detail Facility Start: 04-19-2020 End: 01-22-2024 Tobacco smoking status Ex-smoker (finding) [facility] Start: 10-23-2022 End: 08-07-2023 Sex Assigned At Male [facility] Tobacco smoking stat [facility] Tobacco smoking consumption unknown [facility] Start: 1950 Sex Assigned At Not on file [facility] Start: 10-23-2022 Tobacco smoking stat us NHIS Never smoked tobacco [facility] Start: 10-23-2022 End: 01-22-2024 Tobacco use and exposure Smokeless tobacco non-user [facility] Start: 10-23-2022 End: 03-31-2024 Alcohol intake Current drinker of alcohol (finding) [facility] Start: 10-23-2022 End: 08-07-2023 Alcohol intake [facility] National Score (1-10 0), lower number is lower risk 59 [facility] Start: 04-08-1968 End: 04-08-1981 History of tobacco use Current smoker [facility] Start: 04-08-1968 End: 04-08-1981 History of tobacco use Cigarette Smoker [facility] How often to you hav e a drink containing alcohol? 2-3 time sa week [facility] How many standard drinks containing alcohol do you have on a typical day? 1 or 2 [facility] How often do you hav e 6 or more drinks on 1 occasion? Never [facility] Start: 09-21-2022 Alcohol Comment Caffeine intak e: 2-3 cups per day of soda [facility] Goals Date Patient Goal Desired Activity /State Personal health goal Functional Status Date Assessment Result Facility 03-02-2024 Functional Status N/A [facility] 09-16-2023 Functional Status N/A [facility] 10-22-2022 Functional Status N/A [facility] Clinical Notes 05-02-2022 to 03-31-2024 MIGUELITO Huitron - 03/31/2024 11:00 AM Cecilia Max DO - 03/26/2024 11:00 AM Abhijeet Higginbotham MD - 03/26/2024 9:00 AM Shobha Ramirez MD - 03/17/2024 2:00 PM ESTPatient Instructions Note Date & Type Note Facility 03-31-2024 History of Present illness Narrative Images from the original note were not included. Subjective Patient ID: Nivia Ramos is a 73 y.o. male who presents for URI. Nivia is present today for evaluation of URI symptoms. Admits sinus pressure, headache, nasal congestion, cough dry, hoarseness, fever, scratchy throat. Started Saturday. He did have basal cell carcinoma removal on Saturday and has been on Keflex for 10 days so still has about 5 days left of it. Fever just started this morning. First noticed scratchy throat on Saturday. Current Outpatient Medications on File Prior to Visit Medication Sig Dispense Refill HYDROcodone-acetaminophen (Robson) 5-325 MG tablet Take 1 tablet by mouth every 6 (six) hours if needed for moderate pain or severe pain amLODIPine-benazepril (Lotrel) 5-20 MG capsule Take 1 capsule by mouth Daily 90 capsule 3 aspirin (Aspirin Adult Low Dose) 81 MG EC tablet Take 81 mg by mouth in the morning. bisoprolol-hydroCHLOROthiazide (Ziac) 5-6.25 MG tablet TAKE 1 TABLET BY MOUTH ONCE DAILY at the same time 90 tablet 3 cephalexin (Keflex) 500 MG capsule Take 1 capsule, by mouth, bid, 10 days 20 capsule 0 cyclobenzaprine (Flexeril) 10 MG tablet Take 1 tablet (10 mg) by mouth 2 (two) times a day as needed for muscle spasms 60 tablet 5 ibuprofen 800 MG tablet Take 1 tablet (800 mg) by mouth 3 (three) times a day as needed for mild pain or moderate pain 90 tablet 3 ketoconazole (NIZOral) 2 % cream Apply 1 application topically Daily as needed PRN mometasone (Elocon) 0.1 % cream Apply 1 application topically Daily as needed [DISCONTINUED] cetirizine (ZyrTEC ALLERGY) 10 MG tablet Take 10 mg by mouth 1 (one) time each day at the same time. (Patient not taking: Reported on 03/26/2024) No current facility-administered medications on file prior to visit. I have reviewed and reconciled the history and medication list with the patient today. Allergies Allergen Reactions Sulfanilamide Unknown Tizanidine GI intolerance Social History Tobacco Use Smoking status: Former Current packs/day: 0.00 Types: Cigarettes Quit date: 04/08/1971 Years since quittin.0 Smokeless tobacco: Never Vaping Use Vaping status: Never Used Substance Use Topics Alcohol use: Yes Alcohol/week: 4.0 standard drinks of alcohol Types: 4 Standard drinks or equivalent per week Comment: Caffeine intake: 2-3 cups per day of soda Drug use: Never Family History Problem Relation Name Age of Onset Hypertension Mother Other (COD) Mother Heart failure Father Hypertension Father Other (cod) Father Hypertension Sibling Melanoma Neg Hx Past Medical History: Diagnosis Date Actinic keratoses Allergic rhinitis Basal cell carcinoma 04/20/2022 right jawline, Mohs BPH (benign prostatic hyperplasia) Diverticulosis of colon 2009 w/ perforation Heart murmur Patient reports he was dx with heart murmur Hypertension (CMS/HCC) Osteoarthritis, multiple sites Past Surgical History: Procedure Laterality Date CERVICAL SPINE SURGERY COLECTOMY PARTIAL / TOTAL 2009 COLONOSCOPY 2010 COLONOSCOPY 03/24/2024 Normal HERNIA REPAIR PROSTATE BIOPSY 2005 TONSILLECTOMY 1954 WOUND DEBRIDEMENT 03/26/2024 Debridement, Biopsy, Dorsal Nasal Flap Reconstruction Visit Vitals BP 112/70 Pulse 87 Temp 101.5 F Resp 16 Ht 5' 9 Wt 157 lb 12.8 oz SpO2 96% BMI 23.30 kg/m Smoking Status Former BSA 1.87 m Review of Systems Constitutional: Positive for fever. Negative for chills and fatigue. HENT: Positive for congestion, sinus pressure, sinus pain, sore throat and voice change. Respiratory: Positive for cough. Negative for shortness of breath and wheezing. Cardiovascular: Negative for chest pain, palpitations and leg swelling. Gastrointestinal: Negative for abdominal pain, constipation, diarrhea, nausea and vomiting. Skin: Negative for rash. Neurological: Positive for headaches. Objective Physical Exam Constitutional: General: He is not in acute distress. Appearance: Normal appearance. HENT: Head: Normocephalic and atraumatic. Right Ear: Tympanic membrane and ear canal normal. Left Ear: Tympanic membrane and ear canal normal. Nose: Right Turbinates: Swollen (Mild). Left Turbinates: Swollen (Mild). Comments: Healing skin of nose s/p procedure for skin cancer. Mouth/Throat: Mouth: Mucous membranes are moist. Pharynx: Posterior oropharyngeal erythema (Mild) present. Eyes: General: No scleral icterus. Cardiovascular: Rate and Rhythm: Normal rate and regular rhythm. Heart sounds: Murmur (Over RUSB) heard. Decrescendo systolic murmur is present with a grade of 3/6. Pulmonary: Effort: Pulmonary effort is normal. No respiratory distress. Breath sounds: Normal breath sounds. No wheezing, rhonchi or rales. Comments: Dry cough after taking a few deep breaths Musculoskeletal: General: No swelling. Lymphadenopathy: Cervical: No cervical adenopathy. Skin: General: Skin is warm and dry. Neurological: General: No focal deficit present. Mental Status: He is alert and oriented to person, place, and time. Psychiatric: Mood and Affect: Mood normal. Behavior: Behavior normal. Assessment/Plan Diagnoses and all orders for this visit: URI with cough and congestion - benzonatate (Tessalon) 200 MG capsule; Take 1 capsule (200 mg) by mouth 3 (three) times a day as needed for cough for up to 7 days Do not crush or chew. Advised pt that as his symptoms started while on an antibiotic, it is likely a viral illness and should be self-limiting. Benzonatate prn for cough. Increase water intake, get plenty of rest. Can take Tylenol prn for any discomfort or fever. Cough into elbow. Wash hands often. Follow up in our office if no improvement in one week. ER if fever 104 or greater, or significant worsening of symptoms. Follow up if symptoms worsen or fail to improve. documented in this encounter [facility] 03-26-2024 History of Present illness Narrative Subjective Patient ID: Nivia Ramos is a 73 y.o. male who presents for Mohs Reconstruction (New Patient : Mohs nose / BCC) HPI 73-year-old white male presents today for evaluation of Mohs defect of the nasal tip. Patient recently underwent excision of basal cell carcinoma of the nasal tip. Left with soft tissue defect in this area. Review of Systems Patient describes mild discomfort in the area of surgical intervention. Has undergone resection in the past in the similar area. The rest of his review of systems is negative. Allergies as of 03/26/2024 - Reviewed 03/26/2024 Allergen Reaction Noted Sulfanilamide Unknown 09/18/2022 Tizanidine GI intolerance 09/18/2022 Past Medical History: Diagnosis Date Actinic keratoses Allergic rhinitis Basal cell carcinoma 04/20/2022 right jawline, Mohs BPH (benign prostatic hyperplasia) Diverticulosis of colon 2009 w/ perforation Heart murmur Patient reports he was dx with heart murmur Hypertension (CMS/HCC) Osteoarthritis, multiple sites Current Outpatient Medications: amLODIPine-benazepril (Lotrel) 5-20 MG capsule, Take 1 capsule by mouth Daily, Disp: 90 capsule, Rfl: 3 aspirin (Aspirin Adult Low Dose) 81 MG EC tablet, Take 81 mg by mouth in the morning., Disp: , Rfl: bisoprolol-hydroCHLOROthiazide (Ziac) 5-6.25 MG tablet, TAKE 1 TABLET BY MOUTH ONCE DAILY at the same time, Disp: 90 tablet, Rfl: 3 cephalexin (Keflex) 500 MG capsule, Take 1 capsule, by mouth, bid, 10 days, Disp: 20 capsule, Rfl: 0 cyclobenzaprine (Flexeril) 10 MG tablet, Take 1 tablet (10 mg) by mouth 2 (two) times a day as needed for muscle spasms, Disp: 60 tablet, Rfl: 5 ibuprofen 800 MG tablet, Take 1 tablet (800 mg) by mouth 3 (three) times a day as needed for mild pain or moderate pain, Disp: 90 tablet, Rfl: 3 ketoconazole (NIZOral) 2 % cream, Apply 1 application topically Daily as needed PRN, Disp: , Rfl: mometasone (Elocon) 0.1 % cream, Apply 1 application topically Daily as needed, Disp: , Rfl: cetirizine (ZyrTEC ALLERGY) 10 MG tablet, Take 10 mg by mouth 1 (one) time each day at the same time. (Patient not taking: Reported on 03/26/2024), Disp: , Rfl: Past Surgical History: Procedure Laterality Date CERVICAL SPINE SURGERY COLECTOMY PARTIAL / TOTAL 2009 COLONOSCOPY 2010 HERNIA REPAIR PROSTATE BIOPSY 2006 TONSILLECTOMY 1954 Social History Socioeconomic History Marital status: Spouse name: Not on file Number of children: Not on file Years of education: Not on file Highest education level: Not on file Occupational History Not on file Tobacco Use Smoking status: Former Current packs/day: 0.00 Types: Cigarettes Quit date: 04/08/1971 Years since quittin.0 Smokeless tobacco: Never Vaping Use Vaping status: Never Used Substance and Sexual Activity Alcohol use: Yes Alcohol/week: 4.0 standard drinks of alcohol Types: 4 Standard drinks or equivalent per week Comment: Caffeine intake: 2-3 cups per day of soda Drug use: Never Sexual activity: Not on file Other Topics Concern Not on file Social History Narrative Not on file Social Drivers of Health Financial Resource Strain: Not on file Food Insecurity: Not on file Transportation Needs: Not on file Physical Activity: Not on file Stress: Not on file Social Connections: Not on file Intimate Partner Violence: Unknown (05/31/2023) Received from [facility] Safety & Environment Fear of Current or Ex-Partner: Not on file Emotionally Abused: Not on file Physically Abused: Not on file Sexually Abused: Not on file Physically or Sexually Abused: Not on file Housing Stability: Not on file Objective ENT Physical Exam General Examination: General overview: Normal, age-appropriate, no evidence of distress Head: Normocephalic, atraumatic Eyes: Pupils are equally round and reactive to light and accommodation, extraocular muscles are intact Ears: External ear architecture within normal limits, ear canals are patent, tympanic membranes are intact. Nose: External nose shows a 2 x 1.5 cm soft tissue defect of the left nasal tip without involvement of the underlying cartilage., nares patent, septum intact, no evidence of congestion. Oral cavity: Mucosa moist, no evidence of ulcer, mass, or lesion Throat: Clear Neck/thyroid: Neck supple, full range of motion, no cervical lymphadenopathy, no evidence of thyromegaly Lymph nodes: No cervical lymphadenopathy Skin: Warm and dry, no evidence of suspicious lesions, no rash Heart: No jugular venous distention, point of maximal impulse normal Lungs: Good air movement, no audible wheezing, no shortness of breath Chest: Normal shape and expansion Abdomen: Normal, soft, nontender, nondistended Musculoskeletal: Cervical spine normal, full range of motion Extremities: No clubbing, cyanosis, or edema Peripheral pulses: 2+ radial, 2+ carotid Neurologic: Alert and oriented, cranial nerves 2-12 are grossly intact Psych: Alert and oriented, normal affect, no evidence of distress Assessment/Plan Diagnoses and all orders for this visit: Mohs defect Comments: Recommend wound debridement with flap reconstruction 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 - Ambulatory referral to ENT At this time, I do recommend debridement of the wound with reconstruction utilizing flap and/or skin graft methods. All of the options, risks, and aspects are discussed in depth. The risks include but are not limited to bleeding, infection, poor wound healing, need for further surgery, nerve injury, serous disability, and documented in this encounter [facility] 03-26-2024 History of Present illness Narrative Images from the original note were not included. Mohs Surgery Location: Mid tip of nose Date of biopsy: 02/03/2024 Diagnosis: Basal Cell Carcinoma All pertinent medical history, medications, and allergies were reviewed. General Exam: alert, oriented to person, place, and time, normal affect, well appearing Unaccompanied A focused exam completed based on patient reported problems, see below: 1. 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 Mid Tip of Nose Erythematous macule within previous surgical scar Mohs surgery Consent obtained: written (The rationale for Mohs as well as the risks, benefits, and alternatives. The risks of infection, scarring, bleeding, prolonged wound healing, incomplete removal, allergy to anesthesia or meds, nerve injury, and recurrence were addressed.) [place] Protocol: Procedure explained and questions answered to patient or proxy's satisfaction: Yes Test results available and properly labeled: Yes Pathology report reviewed: Yes Photo or diagram used for site identification: Yes Site/side marked: Yes Anticoagulation: Is the patient taking prescription anticoagulant and/or aspirin prescribed/recommended by a physician? Yes (81 mg ASA) Was the anticoagulation regimen changed prior to Mohs? No Anesthesia: Anesthesia method: local infiltration Local anesthetic: lidocaine 1% WITH epi and sodium bicarbonate Procedure Details: Biopsy accession number: [id number] Biopsy lab: [facility] Date of biopsy: 02/03/2024 Frozen section biopsy performed: Yes Specimen debulked: No Pre-Op diagnosis: basal cell carcinoma BCC subtype: nodular MohsAIQ Surgical site (if tumor spans multiple areas, please select predominant area): nose Surgery side: midline Surgical site (from skin exam): Mid Tip of Nose Pre-operative length (cm): 0.6 Pre-operative width (cm): 0.6 Indications for Mohs surgery: anatomic location where tissue conservation is critical and recurrence Previously treated? Yes Previous treatment type: Mohs micrographic surgery Previous treatment type comment: 01/17/2023 Mohs Appropriate Use Criteria Score: 9 Details of micrographic surgery: Mohs accession number: [id number] Micrographic Surgery Details: Post-operative length (cm): 1.3 Post-operative width (cm): 1.1 Number of Mohs stages: 2 Stage 1 Comments: The area was prepped with Betadine, draped in a sterile fashion, and infiltrated with local anesthetic. Sterile technique was used throughout the procedure. The marked area of clinical tumor with a small rim of clinically normal surrounding skin was removed using Mohs technique with beveled edges. Hash smith were placed for orientation of the specimen. Hemostasis was achieved with electrodessication. After hemostasis, the defect was measured and recorded, a temporary sterile dressing was placed over the wound, and the patient was escorted to the waiting area. The specimen was oriented, mapped, and if necessary, divided into sections. A Mohs map was prepared. The specimen was placed in a labeled delaney dish and was taken to the Mohs lab where it was chromacoded and processed. Mohs sections were prepared with serial tissue sections, stained, and evaluated by Dr. Higginbotham for interpretation of deep and peripheral margins. The Mohs map was marked accordingly. Amount of lidocaine used: 1.5 cc Estimated blood loss: minimal Defect size: 1.3 x 1.0 cm Number of blocks per stage: 1 Number of positive blocks: 1 Tumor features identified on Mohs section: basal carcinoma Tumor features identified on Mohs section comment: infiltrative pattern Depth of defect after stage: dermis Stage 2 Comments: The patient returned to the procedure room, the dressing was removed, the tumor area was re-prepped and draped, and anesthesia was assessed and augmented as necessary. A layer of tissue around the positive margin(s) was removed, and the tissue was oriented, mapped, and processed in an identical fashion as for Stage 1. Hemostasis was achieved and dressing placed as in Stage 1. The patient was escorted to the waiting area. As with Stage 1, Mohs sections were prepared with serial tissue sections, stained, and evaluated by Dr. Higginbotham for interpretation of deep and peripheral margins. The Mohs map was updated. Assistants: Lynsey Bell LPN Amount of lidocaine used: 1.3 cc Estimated blood loss: minimal Defect size: 1.3 x 1.1 cm Number of blocks: 1 Number of positive blocks: 0. Tumor free margins were obtained and the Mohs procedure was considered complete. Tumor features identified on Mohs section: no tumor identified Depth of defect after stage comment: deep dermis Patient tolerance of procedure: tolerated well, no immediate complications Reconstruction: Was the defect reconstructed? Yes (Undecided, patient will discuss with ENT) Was reconstruction performed by the same Mohs surgeon? No If no, what is the specialty of the surgeon who did the reconstruction? ENT facial plastics When was reconstruction performed? different day Antibiotics: Were antibiotics given on the day of surgery? Yes When were antibiotics given? post-operative Mohs Post Operative Type of repair: Referred for repair to Ely Max DO. Consultation is today at 11:5 am. Wound Care: A dressing was placed on the surgical wound. Post-operative instructions were given in writing and were reviewed with the patient. A follow-up appointment was made, and instructions were given to follow-up sooner if necessary. Related Procedures Ambulatory referral to ENT Related Medications cephalexin (Keflex) 500 MG capsule Take 1 capsule, by mouth, bid, 10 days Next visit: 02/11/2025 documented in this encounter [facility] 03-25-2024 Telephone encounter Note see message Ethel Rizvi APRN.CNS [facility] Work Phone: 03-25-2024 Miscellaneous Notes see message Ethel Rizvi APRN.CNS documented in this encounter [facility] 03-25-2024 Telephone encounter Note I spoke with him on the phone today. He would like to proceed with TAVR. Offered 05/28/2023, pre-op on Saturday 05/27. However, we will contact him again to confirm scheduling once we are < 30 days out. I have advised that he get an updated dental clearance as the last one was completed in August 2023. Will send a new dental form in [facility]. Reviewed medication list; will not need to stop anything PRIOR to the TAVR. Ethel Rizvi APRN.CNS [facility] 03-25-2024 Miscellaneous Notes I spoke with him on the phone today. He would like to proceed with TAVR. Offered 05/28/2023, pre-op on Saturday 05/27. However, we will contact him again to confirm scheduling once we are < 30 days out. I have advised that he get an updated dental clearance as the last one was completed in August 2023. Will send a new dental form in [facility]. Reviewed medication list; will not need to stop anything PRIOR to the TAVR. Ethel Rizvi APRN.CNS documented in this encounter [facility] 03-25-2024 Telephone encounter Note Pt has decided to move forward and has been warm transferred to TAVR nurse. [facility] 03-25-2024 Miscellaneous Notes Pt has decided to move forward and has been warm transferred to TAVR nurse. documented in this encounter [facility] 03-17-2024 History of Present illness Narrative Images from the original note were not included. Nivia Ramos 1950 Nivia Ramos is a 73 y.o. male presents with chief complaint of Consult (Abnormal CT, needs colonoscopy) HPI: The patient is a 73-year-old male who presents to discuss colonoscopy. Patient is being worked up for an aortic valve replacement in [place]. He had some CT scans performed and apparently there were some abnormalities in his primary care physician ordered another CT scan of the abdomen. This showed posterior soft tissue thickening along the cecum measuring up to 1.1 cm. There was also a lesion on the medial pole of the right kidney for which urology is following him. Patient's last colonoscopy was about 3 years ago and this was normal. About 20 years ago, patient had sigmoid colectomy for diverticular disease. Patient denies abdominal pain, change in bowel habits, blood in the stool. He denies family history for colon cancer. Patient denies chest pain or shortness of breath. He does exercise regularly and just did 40 minutes on the bike without any symptoms. SUBJECTIVE: MEDICATIONS: ALLERGIES Current Outpatient Medications Medication Instructions amLODIPine-benazepril (Lotrel) 5-20 MG capsule 1 capsule, Oral, Daily aspirin (ASPIRIN ADULT LOW DOSE) 81 mg, Daily bisoprolol-hydroCHLOROthiazide (Ziac) 5-6.25 MG tablet TAKE 1 TABLET BY MOUTH ONCE DAILY at the same time cetirizine (ZYRTEC ALLERGY) 10 mg, Every 24 hours cyclobenzaprine (FLEXERIL) 10 mg, Oral, 2 times daily PRN ibuprofen 800 mg, Oral, 3 times daily PRN ketoconazole (NIZOral) 2 % cream 1 application , Daily PRN mometasone (Elocon) 0.1 % cream 1 application , Daily PRN Allergies Allergen Reactions Sulfanilamide Unknown Tizanidine GI intolerance PAST MEDICAL HISTORY: SOCIAL HISTORY SURGICAL HISTORY: Past Medical History: Diagnosis Date Actinic keratoses Allergic rhinitis Basal cell carcinoma 04/20/2022 right jawline, Mohs BPH (benign prostatic hyperplasia) Diverticulosis of colon 2009 w/ perforation Heart murmur Patient reports he was dx with heart murmur Hypertension (CMS/HCC) Osteoarthritis, multiple sites Social History Tobacco Use Smoking status: Former Current packs/day: 0.00 Types: Cigarettes Quit date: 04/08/1971 Years since quittin.9 Smokeless tobacco: Never Vaping Use Vaping status: Never Used Substance Use Topics Alcohol use: Yes Alcohol/week: 4.0 standard drinks of alcohol Types: 4 Standard drinks or equivalent per week Comment: Caffeine intake: 2-3 cups per day of soda Drug use: Never Past Surgical History: Procedure Laterality Date CERVICAL SPINE SURGERY COLECTOMY PARTIAL / TOTAL 2009 COLONOSCOPY 2010 HERNIA REPAIR PROSTATE BIOPSY 2006 TONSILLECTOMY 195 REVIEW OF SYMPTOMS: Review of Systems Constitutional: Negative for fever. HENT: Negative for trouble swallowing. Respiratory: Negative for shortness of breath. Cardiovascular: Negative for chest pain. Gastrointestinal: Negative for abdominal pain and blood in stool. Genitourinary: Negative for difficulty urinating. Neurological: Negative for syncope. OBJECTIVE: Visit Vitals BP 162/76 Ht 5' 9 Wt 160 lb BMI 23.63 kg/m Smoking Status Former BSA 1.88 m Physical Exam Constitutional: General: He is not in acute distress. HENT: Head: Atraumatic. Eyes: General: No scleral icterus. Cardiovascular: Rate and Rhythm: Normal rate and regular rhythm. Heart sounds: Murmur heard. Comments: Systolic murmur. Pulmonary: Breath sounds: Normal breath sounds. Abdominal: General: There is no distension. Palpations: Abdomen is soft. Tenderness: There is no abdominal tenderness. Musculoskeletal: Right lower leg: No edema. Left lower leg: No edema. Skin: General: Skin is warm and dry. Neurological: Mental Status: He is alert. ASSESSMENT AND PLAN: Assessment/Plan Diagnoses and all orders for this visit: Abnormal abdominal CT scan Cecum mass - Ambulatory referral to General Surgery Plan will be to perform a colonoscopy. The procedure, benefits, risks including risks of bleeding, perforation, incomplete colonoscopy were discussed. If the colonoscopy is normal, next colonoscopy in 10 years. documented in this encounter [facility] 03-02-2024 Hospital Discharge instructions Patient Education 03/02/2024 11:31:38 Renal Mass Renal Mass A renal mass is an abnormal growth in the kidney. It may be found while performing an MRI, CT scan, or ultrasound to evaluate other problems of the abdomen. A renal mass that is cancerous (malignant) may grow or spread quickly. Others are not cancerous (benign). Renal masses include: Tumors. These may be malignant or benign. ?The most common type of kidney cancer in adults is renal cell carcinoma. In children, the most common type of kidney cancer is Wilms tumor. ?The most common benign tumors of the kidney include renal adenomas, oncocytomas, and angiomyolipoma (AML). Cysts. These are fluid-filled sacs that form on or in the kidney. What are the causes? Certain types of cancers, infections, or injuries can cause a renal mass. It is not always known what causes a cyst to develop in or on the kidney. What are the signs or symptoms? Often, a renal mass does not cause any signs or symptoms; most kidney cysts do not cause symptoms. How is this diagnosed? Your health care provider may recommend tests to diagnose the cause of your renal mass. These tests may be done if a renal mass is found: Physical exam. Blood tests. Urine tests. Imaging tests, such as ultrasound, CT scan, or MRI. Biopsy. This is a small sample that is removed from the renal mass and tested in a lab. The exact tests and how often they are done will depend on: The size and appearance of the renal mass. Risk factors or medical conditions that increase your risk for problems. Any symptoms associated with the renal mass, or concerns that you have about it. Tests and physical exams may be done once, or they may be done regularly for a period of time. Tests and exams that are done regularly will help monitor whether the mass is growing and beginning to cause problems. How is this treated? Treatment is not always needed for this condition. Your health care provider may recommend careful monitoring and regular tests and exams. Treatment will depend on the cause of the mass. Treatment for a cancerous renal mass may include surgical removal, chemotherapy, radiation, or immunotherapy. Most kidney cysts do not need to be treated. Follow these instructions at home: What you need to do at home will depend on the cause of the mass. Follow the instructions that your health care provider gives to you. In general: Take [id number] and prescription medicines only as told by your health care provider. If you were prescribed an antibiotic medicine, take it as told by your health care provider. Do not stop taking the antibiotic even if you start to feel better. Follow any restrictions that are given to you by your health care provider. Keep all follow-up visits. This is important. ?You may need to see your health care provider once or twice a year to have CT scans and ultrasounds. These tests will show if your renal mass has changed or grown. Contact a health care provider if you: Have pain in your side or back (flank pain). Have a fever. Feel full soon after eating. Have pain or swelling in the abdomen. Lose weight. Get help right away if: Your pain gets worse. There is blood in your urine. You cannot urinate. You have chest pain. You have trouble breathing. These symptoms may represent a serious problem that is an emergency. Do not wait to see if the symptoms will go away. Get medical help right away. Call your local emergency services (911 in the [place] Summary A renal mass is an abnormal growth in the kidney. It may be cancerous (malignant) and grow or spread quickly, or it may not be cancerous (benign). Renal masses often do not have any signs or symptoms. Renal masses may be found while performing an MRI, CT scan, or ultrasound for other problems of the abdomen. Your health care provider may recommend that you have tests to diagnose the cause of your renal mass. These may include a physical exam, blood tests, urine tests, imaging, or a biopsy. Treatment is not always needed for this condition. Careful monitoring may be recommended. This information is not intended to replace advice given to you by your health care provider. Make sure you discuss any questions you have with your health care provider. Document Revised: 09/19/2020 Document Reviewed: 09/19/2020 [employer] Patient Education 2023 [employer]. 03/02/2024 11:29:23 Benign Prostatic Hyperplasia Benign Prostatic Hyperplasia Benign prostatic hyperplasia (BPH) is an enlarged prostate gland that is caused by the normal aging process. The prostate may get bigger as a man gets older. The condition is not caused by cancer. The prostate is a walnut-sized gland that is involved in the production of semen. It is located in front of the rectum and below the bladder. The bladder stores urine. The urethra carries stored urine out of the body. An enlarged prostate can press on the urethra. This can make it harder to pass urine. The buildup of urine in the bladder can cause infection. Back pressure and infection may progress to bladder damage and kidney (renal) failure. What are the causes? This condition is part of the normal aging process. However, not all men develop problems from this condition. If the prostate enlarges away from the urethra, urine flow will not be blocked. If it enlarges toward the urethra and compresses it, there will be problems passing urine. What increases the risk? This condition is more likely to develop in men older than 50 years. What are the signs or symptoms? Symptoms of this condition include: Getting up often during the night to urinate. Needing to urinate frequently during the day. Difficulty starting urine flow. Decrease in size and strength of your urine stream. Leaking (dribbling) after urinating. Inability to pass urine. This needs immediate treatment. Inability to completely empty your bladder. Pain when you pass urine. This is more common if there is also an infection. Urinary tract infection (UTI). How is this diagnosed? This condition is diagnosed based on your medical history, a physical exam, and your symptoms. Tests will also be done, such as: A post-void bladder scan. This measures any amount of urine that may remain in your bladder after you finish urinating. A digital rectal exam. In a rectal exam, your health care provider checks your prostate by putting a lubricated, gloved finger into your rectum to feel the back of your prostate gland. This exam detects the size of your gland and any abnormal lumps or growths. An exam of your urine (urinalysis). A prostate specific antigen (PSA) screening. This is a blood test used to screen for prostate cancer. An ultrasound. This test uses sound waves to electronically produce a picture of your prostate gland. Your health care provider may refer you to a specialist in kidney and prostate diseases (urologist). How is this treated? Once symptoms begin, your health care provider will monitor your condition (active surveillance or watchful waiting). Treatment for this condition will depend on the severity of your condition. Treatment may include: Observation and yearly exams. This may be the only treatment needed if your condition and symptoms are mild. Medicines to relieve your symptoms, including: ?Medicines to shrink the prostate. ?Medicines to relax the muscle of the prostate. Surgery in severe cases. Surgery may include: ?Prostatectomy. In this procedure, the prostate tissue is removed completely through an open incision or with a laparoscope or robotics. ?Transurethral resection of the prostate (TURP). In this procedure, a tool is inserted through the opening at the tip of the penis (urethra). It is used to cut away tissue of the inner core of the prostate. The pieces are removed through the same opening of the penis. This removes the blockage. ?Transurethral incision (TUIP). In this procedure, small cuts are made in the prostate. This lessens the prostate's pressure on the urethra. ?Transurethral microwave thermotherapy (TUMT). This procedure uses microwaves to create heat. The heat destroys and removes a small amount of prostate tissue. ?Transurethral needle ablation (TUNA). This procedure uses radio frequencies to destroy and remove a small amount of prostate tissue. ?Interstitial laser coagulation (ILC). This procedure uses a laser to destroy and remove a small amount of prostate tissue. ?Transurethral electrovaporization (TUVP). This procedure uses electrodes to destroy and remove a small amount of prostate tissue. ?Prostatic urethral lift. This procedure inserts an implant to push the lobes of the prostate away from the urethra. Follow these instructions at home: Take xdlu-pnb-zjcuwhd and prescription medicines only as told by your health care provider. Monitor your symptoms for any changes. Contact your health care provider with any changes. Avoid drinking large amounts of liquid before going to bed or out in public. Avoid or reduce how much caffeine or alcohol you drink. Give yourself time when you urinate. Keep all follow-up visits. This is important. Contact a health care provider if: You have unexplained back pain. Your symptoms do not get better with treatment. You develop side effects from the medicine you are taking. Your urine becomes very dark or has a bad smell. Your lower abdomen becomes distended and you have trouble passing urine. Get help right away if: You have a fever or chills. You suddenly cannot urinate. You feel light-headed or very dizzy, or you faint. There are large amounts of blood or clots in your urine. Your urinary problems become hard to manage. You develop moderate to severe low back or flank pain. The flank is the side of your body between the ribs and the hip. These symptoms may be an emergency. Get help right away. Call 911. Do not wait to see if the symptoms will go away. Do not drive yourself to the hospital. Summary Benign prostatic hyperplasia (BPH) is an enlarged prostate that is caused by the normal aging process. It is not caused by cancer. An enlarged prostate can press on the urethra. This can make it hard to pass urine. This condition is more likely to develop in men older than 50 years. Get help right away if you suddenly cannot urinate. This information is not intended to replace advice given to you by your health care provider. Make sure you discuss any questions you have with your health care provider. Document Revised: 10/11/2021 Document Reviewed: 10/11/2021 [employer] Patient Education 2023 [employer]. Follow Up Care 02/13/2024 13:52:38 With:CHEVY CUNHA, Edmond Rojas, URL Address: [address] [place] [address] [address] [place] [address]- When: Unknown [facility] 03-02-2024 Note Patient Education Urology Renal Mass A renal mass is an abnormal growth in the kidney. It may be found while performing an MRI, CT scan, or ultrasound to evaluate other problems of the abdomen. A renal mass that is cancerous (malignant) may grow or spread quickly. Others are not cancerous (benign). Renal masses include: ??? Tumors. These may be malignant or benign. ? The most common type of kidney cancer in adults is renal cell carcinoma. In children, the most common type of kidney cancer is Wilms tumor. ? The most common benign tumors of the kidney include renal adenomas, oncocytomas, and angiomyolipoma (AML). ??? Cysts. These are fluid-filled sacs that form on or in the kidney. What are the causes? Certain types of cancers, infections, or injuries can cause a renal mass. It is not always known what causes a cyst to develop in or on the kidney. What are the signs or symptoms? Often, a renal mass does not cause any signs or symptoms; most kidney cysts do not cause symptoms. How is this diagnosed? Your health care provider may recommend tests to diagnose the cause of your renal mass. These tests may be done if a renal mass is found: ??? Physical exam. ??? Blood tests. ??? Urine tests. ??? Imaging tests, such as ultrasound, CT scan, or MRI. ??? Biopsy. This is a small sample that is removed from the renal mass and tested in a lab. The exact tests and how often they are done will depend on: ??? The size and appearance of the renal mass. ??? Risk factors or medical conditions that increase your risk for problems. ??? Any symptoms associated with the renal mass, or concerns that you have about it. Tests and physical exams may be done once, or they may be done regularly for a period of time. Tests and exams that are done regularly will help monitor whether the mass is growing and beginning to cause problems. How is this treated? Treatment is not always needed for this condition. Your health care provider may recommend careful monitoring and regular tests and exams. Treatment will depend on the cause of the mass. Treatment for a cancerous renal mass may include surgical removal, chemotherapy, radiation, or immunotherapy. Most kidney cysts do not need to be treated. Follow these instructions at home: What you need to do at home will depend on the cause of the mass. Follow the instructions that your health care provider gives to you. In general: ??? Take vbgj-wmr-uzbvlnu and prescription medicines only as told by your health care provider. ??? If you were prescribed an antibiotic medicine, take it as told by your health care provider. Do not stop taking the antibiotic even if you start to feel better. ??? Follow any restrictions that are given to you by your health care provider. ??? Keep all follow-up visits. This is important. ? You may need to see your health care provider once or twice a year to have CT scans and ultrasounds. These tests will show if your renal mass has changed or grown. Contact a health care provider if you: ??? Have pain in your side or back (flank pain). ??? Have a fever. ??? Feel full soon after eating. ??? Have pain or swelling in the abdomen. ??? Lose weight. Get help right away if: ??? Your pain gets worse. ??? There is blood in your urine. ??? You cannot urinate. ??? You have chest pain. ??? You have trouble breathing. These symptoms may represent a serious problem that is an emergency. Do not wait to see if the symptoms will go away. Get medical help right away. Call your local emergency services (911 in the [place] Summary ??? A renal mass is an abnormal growth in the kidney. It may be cancerous (malignant) and grow or spread quickly, or it may not be cancerous (benign). Renal masses often do not have any signs or symptoms. ??? Renal masses may be found while performing an MRI, CT scan, or ultrasound for other problems of the abdomen. ??? Your health care provider may recommend that you have tests to diagnose the cause of your renal mass. These may include a physical exam, blood tests, urine tests, imaging, or a biopsy. ??? Treatment is not always needed for this condition. Careful monitoring may be recommended. This information is not intended to replace advice given to you by your health care provider. Make sure you discuss any questions you have with your health care provider. Document Revised: 09/19/2020 Document Reviewed: 09/19/2020 [email or web address] Patient Education ? 2023 [employer]. Benign Prostatic Hyperplasia Benign prostatic hyperplasia (BPH) is an enlarged prostate gland that is caused by the normal aging process. The prostate may get bigger as a man gets older. The condition is not caused by cancer. The prostate is a walnut-sized gland that is involved in the production of semen. It is located in front of the rectum and below the bladder. The bladder stores urine. The urethra carries stored ur (more content not included)... [facility] 02-21-2024 History of Present illness Narrative Physical Therapy Treatment Visit Patient Name: Nivia Ramos Today's Date: 02/21/2024 Encounter Diagnoses Name Primary? Lumbar paraspinal muscle spasm Yes Visit number: 7 Timed Code Treatment Minutes: 53 minutes Total Treatment Time: 55 minutes Time IN: 1030 Time Out: 1125 History: Pt. Presents to PT with c/c of left buttock pain which started couple months ago. Pt. Was doing a lot of lifting of toys for yard sale and felt his back pull. Denies N/T. Most pain is localized in his left buttock area. Increased pain while walking, increased pain with sit to stand transfers. Sitting increases his pain. Increased pain while sleeping at night. No pain in morning but increases as the day goes on. Precautions: neck surgery Subjective: Pt reports doing dry needling and that seemed to help a lot. No pain 24 hr following last session, Currently very slight soreness. Pain: 4/10 pain today Objective: PT Evaluation (01/29/24) Lumbar ROM: flexion mid garcia (pain), side bending Left normal, right knee with pain, prone extension painfree Hip ROM: grossly WFL in all planes Flexibility: moderate piriformis tightness, moderate + hamstring muscle tightness, moderate + lumbar paraspinal muscle tightness Strength: core 4+/5, lateral hip 4-/5, Palpation: TTP SIJ on left with trigger point present Treatment: Education: HEP education with demonstration, Educated on Eval Findings and POC Manual Therapy: (8 minutes) STM/MRF to piriformis/glut region. Passive stretches for hip rotators. PA mobs of L hip and lumbar region, lateral glides to sacral region. Passive ROM, Joint mobilization, Soft Tissue Mobilization, Myofascial Release, Muscle Energy Technique, Neural Mobilization, Myofascial Cupping, Dry Needling, IASTM, and Scar mobilization Therapeutic Exercise: (23 minutes) Hip and posterior chain strengthening exercises in grid; Strength, Endurance, Flexibility, ROM, HEP, Neural Mobilization, Power, and Core Stability Therapeutic Activity: Exercises to improve dynamic activities, functional tasks, functional mobility to return to prior activity level Neuromuscular re-education: (15 minutes) Instructed on dynamic lumbar stabilization in standing, also working on coordination to improve balance. Balance Training, Muscle Facilitation, Dynamic Stability, Core Stabilization, and Blood Flow Restriction Training (BFRT) Modalities: (held minutes) prone: ESU: lumbar/left buttock with MHP; Heat, Ice, Electrical Stimulation, Ultrasound, Cervical Mechanical Traction, Lumbar Mechanical Traction, Iontophoresis, and Fluidotherapy Assessment: Pt. Has participated in 7 PT session with left buttock/piriformis muscle spasm with start of POC on 01/29/24. Pt. Will benefit from skilled PT services. PT treatment to focus on improving muscle hip/Core strength. Poor posterior chain strength remains, and is progressing towards LTGs. Outcome Measure: 22% back index Short Term Goal: To be met in 2 weeks Goal 1: Pt to be instructed in home exercise program. Engineering Consultant Goals: To be met in 10 weeks Goal 1: Pt to report independence and compliance with home program. Goal 2: Pt. Will report of 0/10 left hip pain while walking/sitting/standing for long periods of time to help improve his quality of life and functional mobility. Goal 3: Pt. Will demonstrate normal right hip flexibility to help decrease pain and improve his flexibility with daily tasks. Goal 4: Pt. Will demonstrate normal hamstring muscle flexibility to help decrease pain to improve his functional mobility with daily tasks. Goal 5: Pt. Will demonstrate 5/5 lateral hip strength to allow him to walk/stand/sit for long periods of time to help improve his functional mobility and quality of life. Goal 6: Pt. Will score 10% or less on back index to help improve his functional mobility. Pt will benefit from skilled PT for 2x/week from 01/29/24 to 04/08/24 to address the above impairments. I hereby deem this POC medically necessary. Please sign below. Date: Cosigned by Quang Garcia, PT at 02/24/2024 9:50 AM EST documented in this encounter [facility] 02-18-2024 History of Present illness Narrative Physical Therapy Treatment Visit Patient Name: Nivia Ramos Today's Date: 02/18/2024 Encounter Diagnoses Name Primary? Lumbar paraspinal muscle spasm Yes Visit number: 5 Timed Code Treatment Minutes: 53 minutes Total Treatment Time: 63 minutes Time IN: 1000 Time Out: 1103 History: Pt. Presents to PT with c/c of left buttock pain which started couple months ago. Pt. Was doing a lot of lifting of toys for yard sale and felt his back pull. Denies N/T. Most pain is localized in his left buttock area. Increased pain while walking, increased pain with sit to stand transfers. Sitting increases his pain. Increased pain while sleeping at night. No pain in morning but increases as the day goes on. Precautions: neck surgery Subjective: Pt reports continues to have bouts of sharp pain while sitting and reading emails. Some days feels better and other days back feels worse. Pain: 4/10 pain today Objective: PT Evaluation (01/29/24) Lumbar ROM: flexion mid garcia (pain), side bending Left normal, right knee with pain, prone extension painfree Hip ROM: grossly WFL in all planes Flexibility: moderate piriformis tightness, moderate + hamstring muscle tightness, moderate + lumbar paraspinal muscle tightness Strength: core 4+/5, lateral hip 4-/5, Palpation: TTP SIJ on left with trigger point present Treatment: Education: HEP education with demonstration, Educated on Eval Findings and POC Manual Therapy: (24 minutes) STM/MRF to piriformis/glut region. Passive stretches for hip rotators. PA mobs of L hip and lumbar region, lateral glides to sacral region. Log roll MET, QL MET Passive ROM, Joint mobilization, Soft Tissue Mobilization, Myofascial Release, Muscle Energy Technique, Neural Mobilization, Myofascial Cupping, Dry Needling, IASTM, and Scar mobilization Therapeutic Exercise: (15 minutes) exercises in grid; Strength, Endurance, Flexibility, ROM, HEP, Neural Mobilization, Power, and Core Stability Therapeutic Activity: Exercises to improve dynamic activities, functional tasks, functional mobility to return to prior activity level Neuromuscular re-education: (14 minutes) Balance Training, Muscle Facilitation, Dynamic Stability, Core Stabilization, and Blood Flow Restriction Training (BFRT) Modalities: (held minutes) prone: ESU: lumbar/left buttock with MHP; Heat, Ice, Electrical Stimulation, Ultrasound, Cervical Mechanical Traction, Lumbar Mechanical Traction, Iontophoresis, and Fluidotherapy DN: prone: left SIJ/piriformis 3x needles max depth 40-50 mm, (10 minute rest) Assessment: Pt. Has participated in 5 PT session with left buttock/piriformis muscle spasm with start of POC on 01/29/24. Pt. Will benefit from skilled PT services. PT treatment to focus on improving muscle flexibility and hip/Core strength. Trial of DN tx today to help decrease left piriformis pain, pt. Was agreeable and tolerated treatment well. Performed MET to help improve muscle flexibility due to knot feeling in left buttock area. Outcome Measure: 22% back index Short Term Goal: To be met in 2 weeks Goal 1: Pt to be instructed in home exercise program. Intermediate Goals: To be met in 10 weeks Goal 1: Pt to report independence and compliance with home program. Goal 2: Pt. Will report of 0/10 left hip pain while walking/sitting/standing for long periods of time to help improve his quality of life and functional mobility. Goal 3: Pt. Will demonstrate normal right hip flexibility to help decrease pain and improve his flexibility with daily tasks. Goal 4: Pt. Will demonstrate normal hamstring muscle flexibility to help decrease pain to improve his functional mobility with daily tasks. Goal 5: Pt. Will demonstrate 5/5 lateral hip strength to allow him to walk/stand/sit for long periods of time to help improve his functional mobility and quality of life. Goal 6: Pt. Will score 10% or less on back index to help improve his functional mobility. Pt will benefit from skilled PT for 2x/week from 01/29/24 to 04/08/24 to address the above impairments. I hereby deem this POC medically necessary. Please sign below. Date: documented in this encounter [facility] 02-14-2024 Telephone encounter Note Pt returned TAVR nurse call. [facility] 02-14-2024 Miscellaneous Notes Pt returned TAVR nurse call. documented in this encounter [facility] 02-14-2024 Telephone encounter Note Patient called to update us regarding how he wants to move forward. He states that he will hopefully have more information to make a decision by end of March or April. I told him to keep us updated as he continues to decide [facility] Work Phone: 02-14-2024 Miscellaneous Notes Patient called to update us regarding how he wants to move forward. He states that he will hopefully have more information to make a decision by end of March or April. I told him to keep us updated as he continues to decide documented in this encounter [facility] 02-13-2024 History of Present illness Narrative Images from the original note were not included. HPI Results Additional comments: Ct scan results Last edited by Ember Sommers LPN on 02/13/2024 9:11 AM. Subjective Patient ID: Nivia Ramos is a 73 y.o. male who presents for Results (Ct scan results) and Hypertension. Subjective Patient here for follow-up of elevated blood pressure. Denies SOB, chest pain, blurry vision, headaches. Does check BP's at home Takes all medications as directed. Brought home readings Hypertension Current Outpatient Medications on File Prior to Visit Medication Sig Dispense Refill amLODIPine-benazepril (Lotrel) 5-20 MG capsule Take 1 capsule by mouth Daily 90 capsule 3 aspirin (Aspirin Adult Low Dose) 81 MG EC tablet Take 81 mg by mouth in the morning. bisoprolol-hydroCHLOROthiazide (Ziac) 5-6.25 MG tablet TAKE 1 TABLET BY MOUTH ONCE DAILY at the same time 90 tablet 3 cetirizine (ZyrTEC ALLERGY) 10 MG tablet Take 10 mg by mouth 1 (one) time each day at the same time. cyclobenzaprine (Flexeril) 10 MG tablet Take 1 tablet (10 mg) by mouth 2 (two) times a day as needed for muscle spasms 60 tablet 5 ibuprofen 800 MG tablet Take 1 tablet (800 mg) by mouth 3 (three) times a day as needed for mild pain or moderate pain 90 tablet 3 ketoconazole (NIZOral) 2 % cream Apply 1 application topically Daily as needed PRN mometasone (Elocon) 0.1 % cream Apply 1 application topically Daily as needed [DISCONTINUED] bisoprolol-hydroCHLOROthiazide (Ziac) 5-6.25 MG tablet Take 1 tablet by mouth 1 (one) time each day at the same time 90 tablet 3 No current facility-administered medications on file prior to visit. I have reviewed and reconciled the history and medication list with the patient today. Allergies Allergen Reactions Sulfanilamide Unknown Tizanidine GI intolerance Social History Tobacco Use Smoking status: Former Current packs/day: 0.00 Types: Cigarettes Quit date: 04/08/1971 Years since quittin.8 Smokeless tobacco: Never Vaping Use Vaping status: Never Used Substance Use Topics Alcohol use: Yes Alcohol/week: 4.0 standard drinks of alcohol Types: 4 Standard drinks or equivalent per week Comment: Caffeine intake: 2-3 cups per day of soda Drug use: Never Family History Problem Relation Name Age of Onset Hypertension Mother Other (COD) Mother Heart failure Father Hypertension Father Other (cod) Father Hypertension Sibling Melanoma Neg Hx Past Medical History: Diagnosis Date Actinic keratoses Allergic rhinitis Basal cell carcinoma 04/20/2022 right jawline, Mohs BPH (benign prostatic hyperplasia) Diverticulosis of colon 2009 w/ perforation Heart murmur Patient reports he was dx with heart murmur Hypertension (CMS/HCC) Osteoarthritis, multiple sites Past Surgical History: Procedure Laterality Date CERVICAL SPINE SURGERY COLECTOMY PARTIAL / TOTAL 2009 COLONOSCOPY 2010 HERNIA REPAIR PROSTATE BIOPSY 2006 TONSILLECTOMY 1954 Visit Vitals BP 138/82 Pulse 74 Ht 5' 9 Wt 158 lb SpO2 98% BMI 23.33 kg/m Smoking Status Former BSA 1.87 m Review of Systems Objective Physical Exam Constitutional: General: He is not in acute distress. Appearance: He is normal weight. He is not ill-appearing. HENT: Head: Normocephalic. Cardiovascular: Rate and Rhythm: Normal rate and regular rhythm. Heart sounds: Murmur heard. Decrescendo systolic murmur is present with a grade of 3/6. Comments: Murmur is heard at RUSB Pulmonary: Effort: Pulmonary effort is normal. Breath sounds: Normal breath sounds. Musculoskeletal: General: No swelling. Right lower leg: No edema. Left lower leg: No edema. Neurological: Mental Status: He is alert. Psychiatric: Mood and Affect: Mood normal. Thought Content: Thought content normal. Judgment: Judgment normal. Assessment/Plan Diagnoses and all orders for this visit: Primary hypertension (CMS/HCC) - This is a chronic medical condition that is stable since last assessment. No changes in treatment are suggested at this time. BP log at home shows good control. Abnormal finding on CT scan Cecum mass - Ambulatory referral to General Surgery; Future - He needs a colonoscopy. Bladder diverticulum - Ambulatory referral to Urology; Future Renal mass, right - Ambulatory referral to Urology; Future. He sees Dr Fuentes. - Seen on [facility] CT scan. Interestingly, it was not reported on the [facility] scan. Nonrheumatic aortic valve stenosis - Will need this addressed. He is seeing [facility] Cardiology about this. Pulmonary nodules - Seeing Pulmonology. Repeat CT in 6 months per Pulmonology. They have ordered this. Follow up in about 3 months (around 05/15/2024) for Routine F/U. documented in this encounter [facility] 02-10-2024 Note HNO ID: [id number] Author: ZITA SIMMONS APRN.KAYLA Service: ? Author Type: Nurse Practitioner Type: Progress Notes Filed: 02/10/2024 13:53 Note Text: [facility] [place] [facility] Department of Cardiovascular Medicine SECTION OF INTERVENTIONAL CARDIOLOGY Date February 10, 2024 MULTI DISCIPLINARY TAVR TEAM MEETING [employer] Teams Meeting Team members: Dr. Garcia, Dr. Owen, Dr. Gaming, Dr. Briceno, Dr. Zimmerman, Dr. Mckeon, Dr. Blanchard, Dr. Gage, Dr. Mayers, Dr. Woods, Dr. Mosher, Apolinar Rizvi [facility], Apolinar Simmons CNP, Alexx FARLEY, Lynsey FARLEY and Hanna Osman CNP PATIENT NAME: Nivia Ramos DATE: 02/10/2024 Presenting Physician: Dr. Briceno Outcome: Nivia Ramos history and imaging were reviewed by the physicians in attendance. Cares for with dementia. Has a bicuspid AV with calcified Raphe and calcium into the LVOT. CT scan reviewed. Aortic root 40. Sinuses are huge. Coronaries are fine. Due to his social situation to care for his , TAVR is reasonable. The collaborative recommendation would be 26 slightly underfilled s3. Can offer both but he can decide The patient will be contacted in the next few days/weeks to discuss the team recommendations. will be handled by: CVM coordinator (Spoke with the patient on the phone and he has an appointment with his PCP tomorrow to discuss he incidental findings found on his CT scan. He wants to find out the actions needed to be taken for those before he decides between TAVR VS. OHS. I provided Dr. Briceno's office number and he will be calling back either by end of this week or next week) Zita Simmons APRN.CNP [facility] 02-10-2024 History of Present illness Narrative Images from the original note were not included. [facility] [place] [facility] Department of Cardiovascular Medicine SECTION OF INTERVENTIONAL CARDIOLOGY Date February 10, 2024 MULTI DISCIPLINARY TAVR TEAM MEETING [employer] Teams Meeting Team members: Dr. Garcia, Dr. Owen, Dr. Gaming, Dr. Briceno, Dr. Zimmerman, Dr. Mckeon, Dr. Blanchard, Dr. Gage, Dr. Mayers, Dr. Woods, Dr. Mosher, Apolinar Rizvi [facility], Apolinar Simmons CNP, Alexx FARLEY, Lynsey FARLEY and Hanna Osman CNP PATIENT NAME: Nivia Ramos DATE: 02/10/2024 Presenting Physician: Dr. Briceno Outcome: Nivia Ramos history and imaging were reviewed by the physicians in attendance. Cares for with dementia. Has a bicuspid AV with calcified Raphe and calcium into the LVOT. CT scan reviewed. Aortic root 40. Sinuses are huge. Coronaries are fine. Due to his social situation to care for his , TAVR is reasonable. The collaborative recommendation would be 26 slightly underfilled s3. Can offer both but he can decide The patient will be contacted in the next few days/weeks to discuss the team recommendations. will be handled by: CVM coordinator (Spoke with the patient on the phone and he has an appointment with his PCP tomorrow to discuss he incidental findings found on his CT scan. He wants to find out the actions needed to be taken for those before he decides between TAVR VS. OHS. I provided Dr. Briceno's office number and he will be calling back either by end of this week or next week) Zita Simmons APRN.CNP documented in this encounter [facility] 02-06-2024 Instructions Bri Valladares APRN.CNP - 02/06/2024 10:11 AM EDT Lung Nodule-6.3 mm right upper lobe nodule. This nodule may be a scar, infectious, inflammatory but a malignancy can't be excluded. Plan will be to repeat Ct scan in 6 months. Bri Valladares APRN.CNP [phone] documented in this encounter [facility] 02-06-2024 Note HNO ID: [id number] Author: BRI VALLADARES APRN.CNP Service: ? Author Type: Nurse Practitioner Type: Progress Notes Filed: 02/06/2024 11:08 Note Text: [facility] INCIDENTAL LUNG NODULE PROGRAM Impression / Recommendations Lung Nodule- 6 mm right upper lobe nodule. This nodule may be a scar, inflammation, mucus but a malignancy can't be excluded. Plan will be to repeat CT scan in 6 months. Follow Up Follow Up Diagnosis: Lung Nodule Recommendation: CT Scan Follow up Date: 08/05/2024 Follow-Up Scheduled: Yes Pulmonary Follow-Up Type: Lung Nodule Surveillance Enrolled in Lung Nodule program: Yes Lung Nodule Program Location: [facility] -- Requesting Provider: Flip Lozano Reason for the Consult Nivia Ramos presents today for consultation / opinion regarding lung nodule(s). My impression and final recommendations will be communicated back to the requesting physician by way of shared medical record or letter via US mail. History of Present Illness Nivia Ramos is a 73 year old male with a pertinent past medical history significant for Former smoker: (13 pack-years, >40 years since quit) who is being seen as a new consultation for evaluation of a lung nodule(s). Nivia Ramos had a CTA Chest (scan type) on 01.17.2024 (date) for the indication of aortic valve disorder. 1 were detected Incidentally. Solid Smooth nodule/s up to 6 mm were noted in the Right upper lobe of the lung. They have no prior imaging (No) He rides a stationary bike 30-40 mins a day 5 to 6 days a week. Respiratory symptoms include: SOB: No Chest tightness: No Coughing: Yes: Without mucus, occasionally Hemoptysis: No Wheezing: No Fever/Chills: No Recent Respiratory Infection: No Unintentional weight loss: No Last 6 Encounter Wt Readings: Date: Wt: 01/21/2024 70.3 kg (155 lb) 01/17/2024 71.2 kg (157 lb) 12/12/2023 70.3 kg (155 lb) 10/22/2023 69.4 kg (153 lb) 10/23/2022 69.1 kg (152 lb 6.4 oz) Modified Medical Research Eek Dyspnea Scale (MMRC) I only get breathless with strenous exercise 0 Other Pertinent Clinical Risk Factors: Significant exposures (1 year or more of exposure): Dusts. Recent travel history: None Animal exposure: dog and cat Hobbies: none Does the patient have a prior history malignancy? No Does the patient have a family history of lung cancer? No Malignancy Risk ([facility] model) Lung Nodule Calculator: (if applicable) 11-20% risk of malignancy. Problem List, History, Medications and allergies have been reviewed from the [facility] electronic medical record and any appropriate up-dates have been made. Physical Exam BP 159/80 Pulse 69 Ht 175.3 cm (5' 9 ) Wt 71.4 kg (157 lb 6.5 oz) SpO2 99% BMI 23.25 kg/m? General Appearance: Well appearing, alert, in no acute distress, well-hydrated, well nourished.. Eyes: Anicteric sclera. Pupils are equally round and reactive to light. Extraocular movements are intact. . Lungs: Lungs clear to auscultation. No wheezing, rhonchi, rales.. Heart: RRR without murmur, gallop, or rubs. No ectopy. Extremities: No deformities, edema, skin discoloration, clubbing or cyanosis. Good capillary refill. . Neurologic: Gait normal. Reflexes normal and symmetric. Sensation grossly intact.. Diagnostic Data I have personally visualized, reviewed and analyzed the findings on pulmonary function testing and radiographs. Last CT/CTA Chest/Lungs CTA CHEST/ABD/PEL (GATED) W IVCON Exam End: 01/17/2024 2:56 PM (Final result) Narrative: * * *Final Report* * * DATE OF EXAM: Jan 17 2024 2:56PM JQC 0133 - CTA C/A/P (GATED) W IVCON / PROCEDURE REASON: Aortic valve disorder * * * * Physician Interpretation * * * * CTA Aorta chest, abdomen and pelvis Direct Image Comparison: None HISTORY: 73 years y/o Male with chronic h/o aortic valve stenosis. Evaluation for further treatment options, including surgical and transcatheter interventional treatment. There is request to define thoracic and aortic anatomy. Additional request to define details aortic annulus and root anatomy including dynamic assessment TECHNIQUE: SCANNER: Multi-detector scanner PROTOCOL: Spiral imaging of the heart with retrospective gating with sub-millimeter slice reconstruction throughout the cardiac cycle for dynamic 4-D assessment, following intravenous contrast administration. Additional single-phase, non-gated spiral imaging of the chest/abdomen/pelvis without additional contrast administration. Scan Range: thoracic inlet through the ischial tuberosities CT Dose-Length Product (DLP): 1129 mGy*cm CT Dose Reduction Employed: Automated exposure control (AEC) CONTRAST: IV administration of 60 ml Omnipaque 350 Scan acquisition: uncomplicated Macro Version: [id number] For optimization (more content not included)... [facility] 02-06-2024 History of Present illness Narrative Images from the original note were not included. [facility] INCIDENTAL LUNG NODULE PROGRAM Impression / Recommendations Lung Nodule- 6 mm right upper lobe nodule. This nodule may be a scar, inflammation, mucus but a malignancy can't be excluded. Plan will be to repeat CT scan in 6 months. Follow Up Follow Up Diagnosis: Lung Nodule Recommendation: CT Scan Follow up Date: 08/05/2024 Follow-Up Scheduled: Yes Pulmonary Follow-Up Type: Lung Nodule Surveillance Enrolled in Lung Nodule program: Yes Lung Nodule Program Location: [facility] Requesting Provider: Flip Lozano Reason for the Consult Nivia Ramos presents today for consultation / opinion regarding lung nodule(s). My impression and final recommendations will be communicated back to the requesting physician by way of shared medical record or letter via US mail. History of Present Illness Nivia Ramos is a 73 year old male with a pertinent past medical history significant for Former smoker: (13 pack-years, >40 years since quit) who is being seen as a new consultation for evaluation of a lung nodule(s). Nivia Ramos had a CTA Chest (scan type) on 01.17.2024 (date) for the indication of aortic valve disorder. 1 were detected Incidentally. Solid Smooth nodule/s up to 6 mm were noted in the Right upper lobe of the lung. They have no prior imaging (No) He rides a stationary bike 30-40 mins a day 5 to 6 days a week. Respiratory symptoms include: SOB: No Chest tightness: No Coughing: Yes: Without mucus, occasionally Hemoptysis: No Wheezing: No Fever/Chills: No Recent Respiratory Infection: No Unintentional weight loss: No Last 6 Encounter Wt Readings: Date: Wt: 01/21/2024 70.3 kg (155 lb) 01/17/2024 71.2 kg (157 lb) 12/12/2023 70.3 kg (155 lb) 10/22/2023 69.4 kg (153 lb) 10/23/2022 69.1 kg (152 lb 6.4 oz) Modified Medical Research Eek Dyspnea Scale (MMRC) I only get breathless with strenous exercise 0 Other Pertinent Clinical Risk Factors: Significant exposures (1 year or more of exposure): Dusts. Recent travel history: None Animal exposure: dog and cat Hobbies: none Does the patient have a prior history malignancy? No Does the patient have a family history of lung cancer? No Malignancy Risk ([facility] model) Lung Nodule Calculator: (if applicable) 11-20% risk of malignancy. Problem List, History, Medications and allergies have been reviewed from the [facility] electronic medical record and any appropriate up-dates have been made. Physical Exam BP 159/80 Pulse 69 Ht 175.3 cm (5' 9 ) Wt 71.4 kg (157 lb 6.5 oz) SpO2 99% BMI 23.25 kg/m General Appearance: Well appearing, alert, in no acute distress, well-hydrated, well nourished.. Eyes: Anicteric sclera. Pupils are equally round and reactive to light. Extraocular movements are intact. . Lungs: Lungs clear to auscultation. No wheezing, rhonchi, rales.. Heart: RRR without murmur, gallop, or rubs. No ectopy. Extremities: No deformities, edema, skin discoloration, clubbing or cyanosis. Good capillary refill. . Neurologic: Gait normal. Reflexes normal and symmetric. Sensation grossly intact.. Diagnostic Data I have personally visualized, reviewed and analyzed the findings on pulmonary function testing and radiographs. Last CT/CTA Chest/Lungs CTA CHEST/ABD/PEL (GATED) W IVCON Exam End: 01/17/2024 2:56 PM (Final result) Narrative: * * *Final Report* * * DATE OF EXAM: Jan 17 2024 2:56PM JQC 0133 - CTA C/A/P (GATED) W IVCON / PROCEDURE REASON: Aortic valve disorder * * * * Physician Interpretation * * * * CTA Aorta chest, abdomen and pelvis Direct Image Comparison: None HISTORY: 73 years y/o Male with chronic h/o aortic valve stenosis. Evaluation for further treatment options, including surgical and transcatheter interventional treatment. There is request to define thoracic and aortic anatomy. Additional request to define details aortic annulus and root anatomy including dynamic assessment TECHNIQUE: SCANNER: Multi-detector scanner PROTOCOL: Spiral imaging of the heart with retrospective gating with sub-millimeter slice reconstruction throughout the cardiac cycle for dynamic 4-D assessment, following intravenous contrast administration. Additional single-phase, non-gated spiral imaging of the chest/abdomen/pelvis without additional contrast administration. Scan Range: thoracic inlet through the ischial tuberosities CT Dose-Length Product (DLP): 1129 mGy*cm CT Dose Reduction Employed: Automated exposure control (AEC) CONTRAST: IV administration of 60 ml Omnipaque 350 Scan acquisition: uncomplicated Macro Version: [id number] For optimization of anatomic evaluation, advanced 3-D off-line postprocessing was performed on a dedicated workstation by the interpreting physician. STUDY LIMITATIONS: Limited contrast enhancement of the aorta except for the level of the heart.. RESULT: LINES, TUBES and DEVICES: None CHEST: Chest wall anatomy: unremarkable. LUNGS: . Small (<6 mm) non-calcified lung nodules. 6.3 mm noncalcified intrabronchial nodule involving anterior subsegmental upper lobar bronchus (12:258) MEDIASTINUM: unremarkable. PERICARDIUM: unremarkable CENTRAL PULMONARY ARTERY: normal dimensions. Assessment is limited due to limited contrast enhancement. CARDIAC CHAMBERS: LEFT VENTRICLE: normal size with normal systolic function; LV EF = 75 %; LV EDV 96 ml; LVmass 139 g RIGHT VENTRICLE: normal size and normal function on qualitative assessment. LV/RV reference values: [normal values LV EDV 77-195 ml; LVmass 118-238 g normal value RV EDV 88-227 ml] Left Atrium: dilated. TOSIN: normal. Right Atrium: normal size CENTRAL VENOUS and PULMONARY VENOUS RETURN: normal. Coronary Sinus: normal size MITRAL VALVE: assessment is limited in the current study - no leaflet calcification. No annular calcification TRICUSPID and PULMONIC VALVE: appear unremarkable. CORONARY ANATOMY: normal origin of the coronary arteries. Severe calcified atherosclerotic changes of the coronary arteries. However, the current study is not optimized for coronary assessment. AORTIC ANNULUS: no calcification -max. and min. Diameter: 2.7 x 2.3 cm, AREA: 4.9 cm2, Circumference: 9.1 cm AORTIC VALVE: bicuspid, with likely fusion of the left and right cusp. Severe leaflet calcification. - AV calcium score 1940 AU (threshold 170 HU, Score likely underestimated relative to standard threshold of 130 HU) - significant restriction of valve opening with slit-like systolic opening area consistent with severe aortic stenosis. Coronary Height/distance to annulus: Left Main: 13 mm, RCA: 12 mm. AORTA: Pathology: No acute aortic pathology. Intervention: None Complications: n/a Aortic Size: Ectasia/Mild Dilation aortic root and ascending aorta. STJ: maintained. No calcification. Wall Changes: scattered mild partially calcified wall changes. Moderate partially calcified wall changes infrarenal abdominal aorta. Arch Branch Vessels: Patent, normal size proximal segments of the arch branch vessels, with mild partially calcified wall changes. Moderate changes left subclavian Visceral Branch Vessels: Patent, normal size proximal segments of the visceral branch vessels and renal arteries, with mild proximal partially calcified wall changes. Iliac Arteries: Patent, normal size iliac arteries, with mild partially calcified wall changes. AORTIC DIMENSIONS: AORTIC ROOT: 4.0 cm measured [id number] STJ: 3.1 cm mid ASCENDING THORACIC AORTA: 3.9 cm mid AORTIC ARCH: 2.7 cm mid DESCENDING THORACIC AORTA: 3.0 cm JUXTARENAL ABDOMINAL AORTA (level of SMA): 2.3 cm mid INFRARENAL ABDOMINAL AORTA: 1.8 cm Diameter Left and Right Common Iliac Arteries minimal luminal diameter: 9 / 9 mm respectively Diameter Left and Right External Iliac Arteries minimal luminal diameter: 7 / 7 mm respectively ABDOMEN Gallbladder: unremarkable. Liver: unremarkable. Spleen: unremarkable. Adrenal glands: unremarkable. Pancreas: unremarkable. Kidneys: unremarkable. Bowel: Suspect 4.1 cm lesion involving cecum/ileocecal junction, assessment is limited in this study. Dedicated imaging recommended. PELVIS: Bladder: Suspect large 5.7 cm posterior diverticulum. Dedicated imaging recommended. BONES and SOFT TISSUES: degenerative changes of the thoracic and lumbar spine. Fixation material lower cervical vertebra. Motors Assembler (topogram) images: No additional findings. Impression: IMPRESSION: Mildly dilated aortic root at 4.0 cm and ascending aorta at 3.9 cm. Otherwise Normal Thoracic and Abdominal Aortic Anatomy. Atherosclerotic changes as in the body of the report. Minimum luminal diameter throughout: 7 mm. Aortic Annulus Anatomy as described above. Small (<6 mm) non-calcified lung nodules. 6.3 mm noncalcified intrabronchial nodule involving anterior subsegmental upper lobar bronchus (12:258) Incidental Finding: Follow-up Acuity: Incidental Finding: Solid: 6-8 mm (solitary nodule) Routing Code: RI_1 Recommendation: CT Chest WO IVCON Time Frame: 6-12 months Comments: If stable on follow-up imaging, a repeat chest CT exam in 12 months (18-24 months from the initial exam) is recommended --END OF FINDING-- COMMUNICATION:? Results will be communicated with the ordering provider via [employer] staff message by [employer] within 2 business days of report finalization. Suspect 4.1 cm lesion involving cecum/ileocecal junction, assessment is limited in this study. Dedicated imaging recommended ACTIONABLE RESULT: FOLLOW-UP Acuity: Actionable Findings: Digestive Tract Routing Code: GI_1 Recommendation: Unlisted Recommendation (see report) Time Frame: At the discretion of the clinical team. COMMUNICATION: Results will be communicated with the ordering provider via [employer] staff message or phone message by [facility] [employer] [facility] within 2 business days of report finalization. --END OF FINDING-- Suspect large 5.7 cm posterior diverticulum. Dedicated imaging recommended Acuity: Actionable Findings: Kidneys/Ureters/Bladder Routing Code: GU_1 Recommendation: Unlisted Recommendation (see report) TimeFrame: at the discretion of the clinical team. --END OF FINDING-- Director Summer Sessions: [facility] Transcribe Date/Time: Jan 17 2024 3:22P Dictated by : ALEJANDRA FUCHS MD This examination was interpreted and the report reviewed and electronically signed by: ALEJANDRA FUCHS MD on Jan 17 2024 4:06PM EST No data to display Latest Ref Rng & Units 01/21/2024 Spirometry Data FVC PRE (L) L 3.54 FEV1 PRE (L) L 2.42 FEV1/FVC PRE (%) % 68 [id number]% PRE (L/S) L/S 1.33 PEF PRE (L/S) L/S 8.21 DLCO (ml/min/mmHg) ml/min/mmHg 23.19 VA (L) L 5.41 DLCO/VA (ml/min/mmHg/L) ml/min/mmHg/L 4.29 No data to display Latest Ref Rng & Units 01/21/2024 Lung Diffusion DLCO (ml/min/mmHg) ml/min/mmHg 23.19 DLCO/VA (ml/min/mmHg/L) ml/min/mmHg/L 4.29 VA (L) L 5.41 No data to display Impression / Recommendations To optimize physician communication via the electronic health record, the Impression & Recommendations section has been placed at the beginning of this note. ------ Bri Valladares APRN.CNP Pulmonary & Critical Care Medicine February 06, 2024 10:09 AM documented in this encounter [facility] 02-03-2024 History of Present illness Narrative Images from the original note were not included. Skin Check Location: Patient requests a full body skin examination Dermatologic history: history of Actinic Keratosis, history of Basal Cell Carcinoma Last visit: 1 year ago Established patient Lesions: Location: head, scalp, and left hip Duration: months Quality: itchy Modifying factors: none Associated symptoms: brown Treatments: none All pertinent medical history, medications, and allergies were reviewed. General Exam: alert, oriented to person, place, and time, normal affect, well appearing Unaccompanied Areas not examined despite medical recommendation: Scalp, Examined Right leg Examined Head, Face Examined Left leg Examined Neck Examined Right foot Examined Chest Examined Left foot Examined Back Examined Buttocks Examined Abdomen Examined Digits,nails: Examined Right arm Examined Left arm Examined Lymphatics: Not examined Hands Examined 1. Seborrheic keratosis (5) Generalized, Head - Anterior (Face), Left Arm, Right Arm, Torso - Posterior (Back) Stuck on verrucous, rivas-brown papules and plaques. Patient was counseled regarding these benign growths. Removal is normally not necessary, but they may be removed if they are symptomatic or for cosmetic reasons. 2. Lentigines (2) Left Arm, Right Arm Scattered rivas macules in sun-exposed areas. The patient was informed that lentigines are benign pigmented lesions that occur on sun-exposed and sun-damaged skin. No treatment is necessary. Recommended regular use of broad spectrum sunscreen SPF 30 or higher 3. Angioma of skin (2) Abdomen (Lower Torso, Anterior), Chest (Upper Torso, Anterior) Scattered aguilar-red papule(s). The patient was informed that angiomas are benign growths on the the skin. No treatment is necessary. 4. Actinic keratosis Mid Parietal Scalp Erythematous scaly papules Patient was counseled regarding these sun-induced growths that can develop into squamous cell carcinoma if left untreated. Discussed treatment with cryotherapy. It was emphasized that any treated lesions that fail to resolve should be re-evaluated. Cryotherapy performed today; see procedure note Diagnosis: Actinic keratosis Indication: Precancerous Location: see skin exam Consent: Verbal consent was obtained and risks were discussed, including, but not limited to risks of scarring, darker or internet sales associate pigmentary changes, recurrence, incomplete removal and infection. Method: Liquid nitrogen was used to treat the lesion(s) with two 5-10 second freeze-thaw cycles. Number of lesions treated: 1 Post-procedure instructions: Instructions were given orally and in writing. The office will be contacted if the lesion fails to resolve despite treatment, or if a side effect develops such as abnormal crusting, scabbing, redness or tenderness Cryotherapy, skin lesion - Mid Parietal Scalp 5. Seborrheic keratosis, inflamed Left Zygomatic Area [place] and brown stuck on verrucous scaly papule with surrounding erythema The patient was informed that symptomatic seborrheic keratoses are benign growths that become inflamed, itchy, tender, traumatized, caught on clothing, or bleed. Symptomatic lesions can be treated with cryotherapy or curretage. Thicker lesions treated with cryotherapy may require more than one treatment. The patient was instructed to notify the office if abnormal redness or tenderness develops at the treatment site. Cryotherapy today, see procedure note. Diagnosis: Inflamed seborrheic keratosis Indication: Inflamed Consent: Verbal consent was obtained and risks were discussed, including, but not limited to risks of scarring, darker or internet sales associate pigmentary changes, recurrence, incomplete removal and infection. Method: Liquid nitrogen was used to treat the lesion(s) with two 5-10 second freeze-thaw cycles Number of lesions treated: 1 Post-procedure instructions: Instructions were given orally and in writing. The office will be contacted if the lesion fails to resolve despite treatment, or if a side effect develops such as abnormal crusting, scabbing, redness or tenderness Cryotherapy, skin lesion - Left Zygomatic Area 6. Neoplasm of unspecified behavior of bone, soft tissue, and skin Mid Tip of Nose [place] pearly papule Lesion biopsy Type of biopsy: tangential Informed consent: discussed and consent obtained Informed consent comment: The risks and benefits of the biopsy were discussed. Risks include but are not limited to bleeding, infection, scarring, pain, and nerve damage. An opportunity to ask questions prior to the procedure was permitted and all questions were answered. Patient was prepped and draped in usual sterile fashion: area cleansed with alcohol. Anesthesia: the lesion was anesthetized in a standard fashion Anesthetic: 1% lidocaine w/ epinephrine 1-100,000 buffered w/ 8.4% NaHCO3 Instrument used: DermaBlade Hemostasis achieved with: electrodesiccation Outcome: patient tolerated procedure well Outcome comment: The specimen was placed in a prelabeled formalin container to be sent for pathology Post-procedure details: sterile dressing applied and wound care instructions given Post-procedure details comment: Emphasized need to contact clinic for any signs of infection, uncontrollable bleeding, or complications. Dressing type: bandage Additional details: Photo taken Amount of lidocaine used: 0.5 cc Specimen A - Dermatopathology exam Differential Diagnosis: recurrent BCC vs scar Check Margins: No Size of lesion: 0.6 x 0.6 cm Shave biopsy today, see procedure note. Patient will be notified of results. Follow up pending biopsy results. Next Visit: pending biopsy results, 1 year skin exam documented in this encounter [facility] 01-30-2024 History of Present illness Narrative Images from the original note were not included. HPI DISCUSS RESULTS FROM [facility] Additional comments: HAD RECENT CTA DONE THROUGH [facility]-- WAS REFERRED TO PULMONOLOGY NEXT WEEK FOR THE LUNG NODULE Med Refill Additional comments: Pt would like ziac,lotrel,flexeril-- DM moi Would like ibuprofen increased to twice daily if possible Last edited by Ember Sommers LPN on 01/30/2024 11:02 AM. Subjective Patient ID: Nivia Ramos is a 73 y.o. male who presents for Hypertension, DISCUSS RESULTS FROM [facility] (HAD RECENT CTA DONE THROUGH [facility]-- WAS REFERRED TO PULMONOLOGY NEXT WEEK FOR THE LUNG NODULE), and Med Refill (Pt would like ziac,lotrel,flexeril-- DM moi//Would like ibuprofen increased to twice daily if possible). Subjective Patient here for follow-up of elevated blood pressure. Denies SOB, chest pain, blurry vision, headaches. Does check BP's at home Takes all medications as directed. Hypertension Med Refill Current Outpatient Medications on File Prior to Visit Medication Sig Dispense Refill aspirin (Aspirin Adult Low Dose) 81 MG EC tablet Take 81 mg by mouth in the morning. cetirizine (ZyrTEC ALLERGY) 10 MG tablet Take 10 mg by mouth 1 (one) time each day at the same time. ketoconazole (NIZOral) 2 % cream Apply 1 application topically Daily as needed PRN mometasone (Elocon) 0.1 % cream Apply 1 application topically Daily as needed [DISCONTINUED] amLODIPine-benazepril (Lotrel) 5-20 MG capsule Take 1 capsule by mouth in the morning. 100 capsule 3 [DISCONTINUED] bisoprolol-hydroCHLOROthiazide (Ziac) 5-6.25 MG tablet Take 1 tablet by mouth 1 (one) time each day at the same time. 90 tablet 3 [DISCONTINUED] cyclobenzaprine (Flexeril) 10 MG tablet Take 1 tablet (10 mg) by mouth 2 (two) times a day as needed for muscle spasms 60 tablet 5 [DISCONTINUED] ibuprofen 800 MG tablet Take 1 tablet (800 mg) by mouth 3 (three) times a day as needed for mild pain or moderate pain. 90 tablet 3 No current facility-administered medications on file prior to visit. I have reviewed and reconciled the history and medication list with the patient today. Allergies Allergen Reactions Sulfanilamide Unknown Tizanidine GI intolerance Social History Tobacco Use Smoking status: Former Current packs/day: 0.00 Types: Cigarettes Quit date: 04/08/1971 Years since quittin.8 Smokeless tobacco: Never Vaping Use Vaping status: Never Used Substance Use Topics Alcohol use: Yes Alcohol/week: 4.0 standard drinks of alcohol Types: 4 Standard drinks or equivalent per week Comment: Caffeine intake: 2-3 cups per day of soda Drug use: Never Family History Problem Relation Name Age of Onset Hypertension Mother Other (COD) Mother Heart failure Father Hypertension Father Other (cod) Father Hypertension Sibling Past Medical History: Diagnosis Date Actinic keratoses Allergic rhinitis Basal cell carcinoma 04/20/2022 right jawline, Mohs BPH (benign prostatic hyperplasia) Diverticulosis of colon 2009 w/ perforation Hypertension (CMS/HCC) Osteoarthritis, multiple sites Past Surgical History: Procedure Laterality Date CERVICAL SPINE SURGERY COLECTOMY PARTIAL / TOTAL 2009 COLONOSCOPY 2010 HERNIA REPAIR PROSTATE BIOPSY 2006 TONSILLECTOMY 1954 Visit Vitals BP 158/84 Pulse 75 Ht 5' 9 Wt 158 lb SpO2 98% BMI 23.33 kg/m Smoking Status Former BSA 1.87 m Review of Systems Objective Physical Exam Constitutional: General: He is not in acute distress. Appearance: He is normal weight. He is not ill-appearing. HENT: Head: Normocephalic. Cardiovascular: Rate and Rhythm: Normal rate and regular rhythm. Heart sounds: Murmur heard. Decrescendo systolic murmur is present with a grade of 3/6. Comments: Murmur is heard at RUSB Pulmonary: Effort: Pulmonary effort is normal. Breath sounds: Normal breath sounds. Musculoskeletal: General: No swelling. Right lower leg: No edema. Left lower leg: No edema. Neurological: Mental Status: He is alert. Psychiatric: Mood and Affect: Mood normal. Thought Content: Thought content normal. Judgment: Judgment normal. Assessment/Plan Diagnoses and all orders for this visit: Primary hypertension (CMS/HCC) - amLODIPine-benazepril (Lotrel) 5-20 MG capsule; Take 1 capsule by mouth Daily - bisoprolol-hydroCHLOROthiazide (Ziac) 5-6.25 MG tablet; Take 1 tablet by mouth 1 (one) time each day at the same time - RTC 2 week with home BP log Lumbar paraspinal muscle spasm - cyclobenzaprine (Flexeril) 10 MG tablet; Take 1 tablet (10 mg) by mouth 2 (two) times a day as needed for muscle spasms Generalized osteoarthritis - ibuprofen 800 MG tablet; Take 1 tablet (800 mg) by mouth 3 (three) times a day as needed for mild pain or moderate pain Nonrheumatic aortic valve stenosis - Valve replacement is planned by [facility]. Bladder diverticulum - Ambulatory referral to Urology; Future Cecum mass - This may be related to his prior bowel perf during colonoscopy many years ago. It was called a 5.7cm lesion not mass. Dedicated imagining recommended per the report. Follow up in about 2 weeks (around 02/13/2024) for Home BP log, f/u imaginig. documented in this encounter [facility] 01-29-2024 Telephone encounter Note Images from the original note were not included. [facility] Work Phone: 01-29-2024 Miscellaneous Notes Images from the original note were not included. documented in this encounter [facility] 01-22-2024 History of Present illness Narrative Images from the original note were not included. Subjective Patient ID: Nivia Ramos is a 73 y.o. male who presents for back pain. Nivia is present today for follow up back pain. He was seen on 01/07/24 Dx. Strain of lumbar and his cyclobenaprine was changed to BID instead of at night, muscle relaxers do help but he does get off/on sharp pains to his lower left back and feels like he has a knot in his lower back, has a tight feeling in it also. He is ok for PT to be ordered if you feel it is necessary. He also had his heart cath yesterday at [facility]. Denies any pain shooting down his leg. They found a lung nodule and is waiting for a call for follow up. They are still trying to decide if he is having open heart or TAVR for valve replacement. Current Outpatient Medications on File Prior to Visit Medication Sig Dispense Refill amLODIPine-benazepril (Lotrel) 5-20 MG capsule Take 1 capsule by mouth in the morning. 100 capsule 3 aspirin (Aspirin Adult Low Dose) 81 MG EC tablet Take 81 mg by mouth in the morning. bisoprolol-hydroCHLOROthiazide (Ziac) 5-6.25 MG tablet Take 1 tablet by mouth 1 (one) time each day at the same time. 90 tablet 3 cetirizine (ZyrTEC ALLERGY) 10 MG tablet Take 10 mg by mouth 1 (one) time each day at the same time. cyclobenzaprine (Flexeril) 10 MG tablet Take 1 tablet (10 mg) by mouth 2 (two) times a day as needed for muscle spasms 60 tablet 5 ibuprofen 800 MG tablet Take 1 tablet (800 mg) by mouth 3 (three) times a day as needed for mild pain or moderate pain. 90 tablet 3 ketoconazole (NIZOral) 2 % cream Apply 1 application topically Daily as needed PRN mometasone (Elocon) 0.1 % cream Apply 1 application topically Daily as needed No current facility-administered medications on file prior to visit. I have reviewed and reconciled the history and medication list with the patient today. Allergies Allergen Reactions Sulfanilamide Unknown Tizanidine GI intolerance Social History Tobacco Use Smoking status: Former Current packs/day: 0.00 Types: Cigarettes Quit date: 04/08/1971 Years since quittin.8 Smokeless tobacco: Never Vaping Use Vaping status: Never Used Substance Use Topics Alcohol use: Yes Alcohol/week: 4.0 standard drinks of alcohol Types: 4 Standard drinks or equivalent per week Comment: Caffeine intake: 2-3 cups per day of soda Drug use: Never Family History Problem Relation Name Age of Onset Hypertension Mother Other (COD) Mother Heart failure Father Hypertension Father Other (cod) Father Hypertension Sibling Past Medical History: Diagnosis Date Actinic keratoses Allergic rhinitis Basal cell carcinoma 04/20/2022 right jawline, Mohs BPH (benign prostatic hyperplasia) Diverticulosis of colon 2009 w/ perforation Hypertension (CMS/HCC) Osteoarthritis, multiple sites Past Surgical History: Procedure Laterality Date CERVICAL SPINE SURGERY COLECTOMY PARTIAL / TOTAL 2009 COLONOSCOPY 2010 HERNIA REPAIR PROSTATE BIOPSY 2006 TONSILLECTOMY 1954 Visit Vitals BP 152/90 Pulse 75 Resp 16 Ht 5' 9 Wt 156 lb 6.4 oz SpO2 98% BMI 23.10 kg/m Smoking Status Former BSA 1.86 m Review of Systems Constitutional: Negative for chills, fatigue and fever. Respiratory: Negative for cough, shortness of breath and wheezing. Cardiovascular: Negative for chest pain, palpitations and leg swelling. Gastrointestinal: Negative for abdominal pain, constipation, diarrhea, nausea and vomiting. Musculoskeletal: Positive for back pain and myalgias. Skin: Negative for rash. Objective Physical Exam Constitutional: General: He is not in acute distress. Appearance: Normal appearance. HENT: Head: Normocephalic and atraumatic. Eyes: General: No scleral icterus. Cardiovascular: Rate and Rhythm: Normal rate and regular rhythm. Heart sounds: Murmur (Over RUSB) heard. Decrescendo systolic murmur is present with a grade of 3/6. Pulmonary: Effort: Pulmonary effort is normal. No respiratory distress. Breath sounds: Normal breath sounds. No wheezing, rhonchi or rales. Musculoskeletal: General: No swelling. Lumbar back: Spasms (Left) and tenderness (Left) present. No bony tenderness. Normal range of motion. Negative right straight leg raise test and negative left straight leg raise test. Back: Comments: Point tenderness in area noted in drawing. Skin: General: Skin is warm and dry. Neurological: General: No focal deficit present. Mental Status: He is alert and oriented to person, place, and time. Sensory: No sensory deficit. Motor: No weakness. Psychiatric: Mood and Affect: Mood normal. Behavior: Behavior normal. Assessment/Plan Diagnoses and all orders for this visit: Lumbar paraspinal muscle spasm - Ambulatory referral to Physical Therapy; Future Continue muscle relaxers as needed. Referred pt to PT for evaluation and treatment. Bladder diverticulum Seen on recent CTA, incidental finding. Pt would like to hold off on further work up at this time time given his current heart issues. Abnormal finding on CT scan Comments: Ileocecal lesion Seen on recent CTA, incidental finding. Pt would like to hold off on further work up at this time time given his current heart issues. Will consider follow up imaging in the near future. Atherosclerosis of aorta (CMS/HCC) The patient is seeing a medical transcriptionist for this condition, treatment is deferred to that specialist. Correspondence from that specialist and any available testing were reviewed during today's visit. Thoracic aortic ectasia (CMS/HCC) The patient is seeing a medical transcriptionist for this condition, treatment is deferred to that specialist. Correspondence from that specialist and any available testing were reviewed during today's visit. Pulmonary nodules Will be following up with the [facility] for monitoring. Nonrheumatic aortic valve stenosis Will be finding out soon if he is to have open heart surgery or TAVR. Benign essential hypertension (CMS/HCC) BP 160/82 on recheck. Pt is concerned about multiple aspects of his healthcare today. Continue to follow up with Cardiology. Continue current meds. Follow up in about 2 months (around 03/23/2024) for Medication Follow Up. documented in this encounter [facility] 01-21-2024 Note HNO ID: [id number] Author: FELIZ MAYERS MD Service: ? Author Type: Physician Type: Progress Notes Filed: 01/21/2024 18:10 Note Text: Heart, Vascular and Thoracic [place] DEPARTMENT OF CARDIAC SURGERY OUTPATIENT VISIT DATE January 21, 2024 OUTPATIENT VISIT SERVICE DATE: 01/21/2024 SERVICE TIME: 2:30 PM PCP: Juanjo Murdock II, MD [address] [place] [address] Referring Physician: No referring provider defined for this encounter. Patient Type: Consult Visit to determine Surgery: Yes HPI: Mr. Nivia Ramos is a 73 year old male seen in consultation at the request of for opinion regarding treatment options for . He is currently asymptomatic. The Echocardiogram reveals severe (pk/mn 63/32, DI 0.25, 1+MR, 1+TR. Cardiac catheterization pending . CT shows 4.0cm aorta. Last CT Result Conclusion CTA CHEST/ABD/PEL (GATED) W IVCON Exam End: 01/17/2024 2:56 PM (Final result) Impression: IMPRESSION: Mildly dilated aortic root at 4.0 cm and ascending aorta at 3.9 cm. Otherwise Normal Thoracic and Abdominal Aortic Anatomy. Atherosclerotic changes as in the body of the report. Minimum luminal diameter throughout: 7 mm. Aortic Annulus Anatomy as described above. Small (<6 mm) non-calcified lung nodules. 6.3 mm noncalcified intrabronchial nodule involving anterior subsegmental upper lobar bronchus (12:258) Incidental Finding: Follow-up Acuity: Incidental Finding: Solid: 6-8 mm (solitary nodule) Routing Code: RI_1 Recommendation: CT Chest WO IVCON Time Frame: 6-12 months Comments: If stable on follow-up imaging, a repeat chest CT exam in 12 months (18-24 months from the initial exam) is recommended --END OF FINDING-- COMMUNICATION:? Results will be communicated with the ordering provider via [employer] staff message by [employer] within 2 business days of report finalization. Suspect 4.1 cm lesion involving cecum/ileocecal junction, assessment is limited in this study. Dedicated imaging recommended ACTIONABLE RESULT: FOLLOW-UP Acuity: Actionable Findings: Digestive Tract Routing Code: GI_1 Recommendation: Unlisted Recommendation (see report) Time Frame: At the discretion of the clinical team. COMMUNICATION: Results will be communicated with the ordering provider via [employer] staff message or phone message by [employer] within 2 business days of report finalization. --END OF FINDING-- Suspect large 5.7 cm posterior diverticulum. Dedicated imaging recommended Acuity: Actionable Findings: Kidneys/Ureters/Bladder Routing Code: GU_1 Recommendation: Unlisted Recommendation (see report) TimeFrame: at the discretion of the clinical team. --END OF FINDING-- Director Summer Sessions: [facility] ... Last ECHO Result Conclusion ECHO Collected: 10/22/2023 12:48 PM (Final result) Impression: CONCLUSIONS: - Technically difficult exam due to body habitus. - Exam indication: Aortic Stenosis - The left ventricle is normal in size. Left ventricular systolic function is normal. EF = 58 ? 5% (2D biplane) Normal left ventricular diastolic function. - The right ventricle is normal in size. Right ventricular systolic function is normal. - The right atrial cavity is mildly dilated. - The visualized aorta is borderline dilated with a maximal dimension of 3.9 cm. - There is severe aortic valve stenosis caused by calcified valve and restricted opening. AV area is 0.70 cm? (0.38 cm?/m?) by continuity, VTI. The peak gradient is 63 mmHg, the mean gradient is 32 mmHg and the dimensionless valve index is 0.25. Prior gradients of 63/32 mmHg. Paradoxic low flow, low gradient severe . - Exam was compared with the prior echocardiographic exam performed on 10/23/2022. There is no significant change. * * * Final * * * Based on my evaluation he is a low risk for OHS. Impression: Plan: continue medical management vs SAVR vs TAVR The risks, benefits and anticipated outcomes of the procedure, the risks and benefits of the alternatives to the procedure, and the roles and tasks of the personnel to be involved, were discussed with the patient, and the patient consents to the procedure and agrees to proceed. We discussed the possibility that there could be two patients undergoing surgery in two separate rooms (concurrent surgery) and that I would be present for the critical components of all operations. We also discussed that in an emergency situation, a qualified backup surgeon is available and in the rare event of such a serious situation, that colleague might take over the operation. These findings will be communicated back to the requesting physician via electronic medical record Feliz Mayers MD [facility] 01-21-2024 History of Present illness Narrative Images from the original note were not included. Heart, Vascular and Thoracic [place] DEPARTMENT OF CARDIAC SURGERY OUTPATIENT VISIT DATE January 21, 2024 OUTPATIENT VISIT SERVICE DATE: 01/21/2024 SERVICE TIME: 2:30 PM PCP: Juanjo Murdock II, MD [address] [place] [address] Referring Physician: No referring provider defined for this encounter. Patient Type: Consult Visit to determine Surgery: Yes HPI: Mr. Nivia Ramos is a 73 year old male seen in consultation at the request of for opinion regarding treatment options for . He is currently asymptomatic. The Echocardiogram reveals severe (pk/mn 63/32, DI 0.25, 1+MR, 1+TR. Cardiac catheterization pending . CT shows 4.0cm aorta. Last CT Result Conclusion CTA CHEST/ABD/PEL (GATED) W IVCON Exam End: 01/17/2024 2:56 PM (Final result) Impression: IMPRESSION: Mildly dilated aortic root at 4.0 cm and ascending aorta at 3.9 cm. Otherwise Normal Thoracic and Abdominal Aortic Anatomy. Atherosclerotic changes as in the body of the report. Minimum luminal diameter throughout: 7 mm. Aortic Annulus Anatomy as described above. Small (<6 mm) non-calcified lung nodules. 6.3 mm noncalcified intrabronchial nodule involving anterior subsegmental upper lobar bronchus (12:258) Incidental Finding: Follow-up Acuity: Incidental Finding: Solid: 6-8 mm (solitary nodule) Routing Code: RI_1 Recommendation: CT Chest WO IVCON Time Frame: 6-12 months Comments: If stable on follow-up imaging, a repeat chest CT exam in 12 months (18-24 months from the initial exam) is recommended --END OF FINDING-- COMMUNICATION:? Results will be communicated with the ordering provider via [employer] staff message by [employer] within 2 business days of report finalization. Suspect 4.1 cm lesion involving cecum/ileocecal junction, assessment is limited in this study. Dedicated imaging recommended ACTIONABLE RESULT: FOLLOW-UP Acuity: Actionable Findings: Digestive Tract Routing Code: GI_1 Recommendation: Unlisted Recommendation (see report) Time Frame: At the discretion of the clinical team. COMMUNICATION: Results will be communicated with the ordering provider via [employer] staff message or phone message by [employer] within 2 business days of report finalization. --END OF FINDING-- Suspect large 5.7 cm posterior diverticulum. Dedicated imaging recommended Acuity: Actionable Findings: Kidneys/Ureters/Bladder Routing Code: GU_1 Recommendation: Unlisted Recommendation (see report) TimeFrame: at the discretion of the clinical team. --END OF FINDING-- Director Summer Sessions: CAMRYN ... Last ECHO Result Conclusion ECHO Collected: 10/22/2023 12:48 PM (Final result) Impression: CONCLUSIONS: - Technically difficult exam due to body habitus. - Exam indication: Aortic Stenosis - The left ventricle is normal in size. Left ventricular systolic function is normal. EF = 58 5% (2D biplane) Normal left ventricular diastolic function. - The right ventricle is normal in size. Right ventricular systolic function is normal. - The right atrial cavity is mildly dilated. - The visualized aorta is borderline dilated with a maximal dimension of 3.9 cm. - There is severe aortic valve stenosis caused by calcified valve and restricted opening. AV area is 0.70 cm (0.38 cm /m ) by CHRISTELLE ledezma. The peak gradient is 63 mmHg, the mean gradient is 32 mmHg and the dimensionless valve index is 0.25. Prior gradients of 63/32 mmHg. Paradoxic low flow, low gradient severe . - Exam was compared with the prior echocardiographic exam performed on 10/23/2022. There is no significant change. * * * Final * * * Based on my evaluation he is a low risk for OHS. Impression: Plan: continue medical management vs SAVR vs TAVR The risks, benefits and anticipated outcomes of the procedure, the risks and benefits of the alternatives to the procedure, and the roles and tasks of the personnel to be involved, were discussed with the patient, and the patient consents to the procedure and agrees to proceed. We discussed the possibility that there could be two patients undergoing surgery in two separate rooms (concurrent surgery) and that I would be present for the critical components of all operations. We also discussed that in an emergency situation, a qualified backup surgeon is available and in the rare event of such a serious situation, that colleague might take over the operation. These findings will be communicated back to the requesting physician via electronic medical record Feliz Mayers MD documented in this encounter [facility] 01-21-2024 Note HNO ID: [id number] Author: NICOLE HOLLIS RRT Service: ? Author Type: Registered Resp Therapist Type: Progress Notes Filed: 01/21/2024 13:33 Note Text: PULM FUNCTION: Provider: Flip Lozano APRN.CNP Spirometry: 1 DLCO: 1 [facility] 01-21-2024 History of Present illness Narrative PULM FUNCTION: Provider: Flip Lozano APRN.CNP Spirometry: 1 DLCO: 1 documented in this encounter [facility] 01-21-2024 Instructions Flip Lozano APRN.KAYLA - 01/21/2024 12:37 PM EDT Nivia, I have spoken with you regarding the evaluation process for TAVR. I explained to you that this is a surgical evaluation to determine the best treatment plan for aortic valve stenosis. I reviewed the commercially available [employer] Lifesciences valve and Medtronic valve, including the valve model. We also discussed the possibility of a research trial. I showed the animation of the TF procedure while explaining the procedure. I also reviewed the Sentinnel device. I also discussed possible complications which include: possible stroke, possible pacemaker and/or bleeding. SDM: A formal shared decision making discussion was conducted with the patient during which the benefits and risks of the TAVR procedure were discussed along with consideration of the patient s values, preferences and wishes. Dental clearance : gave him the form. There also also other alternative access options that may be discussed and recommended depending on your clinical condition. Hospital stay following an alternative access, such as subclavian TAVR or EMMANUELLE-TAVR , will vary upon the approach. I have discussed with Nivia Ramos that once all of the testing has been completed, the results will be reviewed by the HR AVR team and He will be notified of the recommendations. If you are approved for TAVR, you may received a letter in the mail from the TAVR team to inform you of this recommendation. Phone notification following the team meeting could take up to 2-3 weeks. Scheduling of the TAVR procedure could take up to 6-8 weeks from the time of the team recommendations. We discussed pre-op planning which includes the need to come 1-2 days prior to surgery to have the following: An updated H&P with a provider in our office; pre-surgical labs/testing and meet with anesthesia. The duration of the procedure will last about 2 hours. Your Anticipated Discharge Needs: Same Day Discharge (Home if live in distance less than 2 hours. If greater than 2 hours exception would be to local hotel) - Evening after 5PM -Must have an adult (persons >18 years old) with you overnight -Follow up in [facility]PD the next day Next Day Discharge -Transportation/ride by 9 AM - Recommended that you have an adult (persons >18 years old) with you overnight -Follow up in OPD with in 1 week Activity Restrictions post procedure. Do not strain during bowel movements for 3 to 4 days after the procedure. This helps prevent bleeding from the catheter-insertion site. Do not lift anything that weighs more than 10 pounds or push or pull heavy objects for the first 10 to 14 days after the procedure. Do not do any strenuous activities for 5 days after the procedure. This includes most sports, such as jogging, golfing, playing tennis and bowling. You may climb stairs if needed, but walk up and down the stairs more slowly than usual. Gradually increase your activity level during the week after the procedure, when you should be back to your normal routine. Do not have sexual intercourse. Ask your doctor when it is safe to resume sexual activity. Do not drive until you get the OK from your doctor. Ask your doctor at your follow-up visit about taking part in Stage II cardiac rehabilitation. Cardiac Rehab is a supervised program designed for patients who have certain heart procedures. You will receive a referral prior to discharge so that you can start the outpatient cardiac rehab program 2-3 weeks after you leave the hospital. Cardiac rehab will help you get stronger so you can return to your routine activities, teach you about lifestyle changes, and nutrition by education and exercise. Completing your cardiac rehab program can greatly help your recovery and greatly reduce your risk of future heart problems. For [facility] call [phone] to schedule after you are home from your procedure. If you do not receive your referral, please call your cut press operator's office for the order. We also discussed signs and symptoms of increased shortness of breath and peripheral edema should be reported to the local physician right away and be treated accordingly, If hospitalization is required, then it should be done. We can be notified with this information and all efforts will be made to expedite procedure accordingly. It was nice to meet you, we will be in touch. Kindly, Flip Lozano APRN.KAYLA documented in this encounter [facility] 01-21-2024 History of Present illness Narrative Images from the original note were not included. [facility] [place] [facility] Department of Cardiovascular Medicine SECTION OF INTERVENTIONAL CARDIOLOGY OUTPATIENT VISIT DATE January 21, 2024 OUTPATIENT VISIT TYPE ESTABLISHED FOLLOW UP Primary Conveyor Tender: Dr. Briceno Chief Complaint: Patient here for cardiac follow up evaluation History of Present Illness: Patient is a 73 year old male who presents today for ongoing evaluation of valvular heart disease. Pt noticed a decrease in his ability to perform daily cycling exercises (decreased rpm on his stationary bike). Continues to exercise for 30 min each morning even with the decrease. Patient is slightly fatigued, and experiences occasional exertional dyspnea but has no limitations on his daily activities. CT scan results discussed with pt, and consult placed for lung nodule clinic. Pt is the primary caregiver for his who has dementia, and is accompanied today by his daughter. 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 Denies: chest pain, orthopnea, PND, palpitations, lightheadedness, syncope, claudication, leg swelling, cough, and wheezing CARDIOVASCULAR MEDICINE TESTING: CT CHEST/ABDOMEN/PEL 01/17/2024: LINES, TUBES and DEVICES: None CHEST: Chest wall anatomy: unremarkable. LUNGS: . Small (<6 mm) non-calcified lung nodules. 6.3 mm noncalcified intrabronchial nodule involving anterior subsegmental upper lobar bronchus (12:258) MEDIASTINUM: unremarkable. PERICARDIUM: unremarkable CENTRAL PULMONARY ARTERY: normal dimensions. Assessment is limited due to limited contrast enhancement. CARDIAC CHAMBERS: LEFT VENTRICLE: normal size with normal systolic function; LV EF = 75 %; LV EDV 96 ml; LVmass 139 g RIGHT VENTRICLE: normal size and normal function on qualitative assessment. LV/RV reference values: [normal values LV EDV 77-195 ml; LVmass 118-238 g normal value RV EDV 88-227 ml] Left Atrium: dilated. TOSIN: normal. Right Atrium: normal size CENTRAL VENOUS and PULMONARY VENOUS RETURN: normal. Coronary Sinus: normal size MITRAL VALVE: assessment is limited in the current study - no leaflet calcification. No annular calcification TRICUSPID and PULMONIC VALVE: appear unremarkable. CORONARY ANATOMY: normal origin of the coronary arteries. Severe calcified atherosclerotic changes of the coronary arteries. However, the current study is not optimized for coronary assessment. AORTIC ANNULUS: no calcification -max. and min. Diameter: 2.7 x 2.3 cm, AREA: 4.9 cm2, Circumference: 9.1 cm AORTIC VALVE: bicuspid, with likely fusion of the left and right cusp. Severe leaflet calcification. - AV calcium score 1940 AU (threshold 170 HU, Score likely underestimated relative to standard threshold of 130 HU) - significant restriction of valve opening with slit-like systolic opening area consistent with severe aortic stenosis. Coronary Height/distance to annulus: Left Main: 13 mm, RCA: 12 mm. AORTA: Pathology: No acute aortic pathology. Intervention: None Complications: n/a Aortic Size: Ectasia/Mild Dilation aortic root and ascending aorta. STJ: maintained. No calcification. Wall Changes: scattered mild partially calcified wall changes. Moderate partially calcified wall changes infrarenal abdominal aorta. Arch Branch Vessels: Patent, normal size proximal segments of the arch branch vessels, with mild partially calcified wall changes. Moderate changes left subclavian Visceral Branch Vessels: Patent, normal size proximal segments of the visceral branch vessels and renal arteries, with mild proximal partially calcified wall changes. Iliac Arteries: Patent, normal size iliac arteries, with mild partially calcified wall changes. AORTIC DIMENSIONS: AORTIC ROOT: 4.0 cm measured [id number] STJ: 3.1 cm mid ASCENDING THORACIC AORTA: 3.9 cm mid AORTIC ARCH: 2.7 cm mid DESCENDING THORACIC AORTA: 3.0 cm JUXTARENAL ABDOMINAL AORTA (level of SMA): 2.3 cm mid INFRARENAL ABDOMINAL AORTA: 1.8 cm Diameter Left and Right Common Iliac Arteries minimal luminal diameter: 9 / 9 mm respectively Diameter Left and Right External Iliac Arteries minimal luminal diameter: 7 / 7 mm respectively ABDOMEN Gallbladder: unremarkable. Liver: unremarkable. Spleen: unremarkable. Adrenal glands: unremarkable. Pancreas: unremarkable. Kidneys: unremarkable. Bowel: Suspect 4.1 cm lesion involving cecum/ileocecal junction, assessment is limited in this study. Dedicated imaging recommended. PELVIS: Bladder: Suspect large 5.7 cm posterior diverticulum. Dedicated imaging recommended. BONES and SOFT TISSUES: degenerative changes of the thoracic and lumbar spine. Fixation material lower cervical vertebra. Motors Assembler (topogram) images: No additional findings. Chest X Ray 01/17/2024 Lines, tubes, and devices: None. Lungs and pleura: No acute focal lung consolidation is seen. No substantial pleural effusion is seen. There is no pneumothorax. Cardiomediastinal silhouette: Normal cardiomediastinal silhouette. Bones and soft tissues: The vertebral bodies are well aligned and the vertebral body heights are maintained. Cervical spinal instrumentation is seen. There is mild pectus excavatum. ECHO 10/22/23 CONCLUSIONS: - Technically difficult exam due to body habitus. - Exam indication: Aortic Stenosis - The left ventricle is normal in size. Left ventricular systolic function is normal. EF = 58 5% (2D biplane) Normal left ventricular diastolic function. - The right ventricle is normal in size. Right ventricular systolic function is normal. - The right atrial cavity is mildly dilated. - The visualized aorta is borderline dilated with a maximal dimension of 3.9 cm. - There is severe aortic valve stenosis caused by calcified valve and restricted opening. AV area is 0.70 cm (0.38 cm /m ) by continuity, VTI. The peak gradient is 63 mmHg, the mean gradient is 32 mmHg and the dimensionless valve index is 0.25. Prior gradients of 63/32 mmHg. Paradoxic low flow, low gradient severe . - Exam was compared with the prior echocardiographic exam performed on 10/23/2022. There is no significant change. Labs Latest Ref Rng 11/13/2023 WBC 3.70 - 11.00 k/uL 5.82 RBC 4.20 - 6.00 m/uL 3.98 (L) Hemoglobin 13.0 - 17.0 g/dL 13.0 Hematocrit 39.0 - 51.0 % 38.6 (L) MCV 80.0 - 100.0 fL 97.0 MCH 26.0 - 34.0 pg 32.7 MCHC 30.5 - 36.0 g/dL 33.7 RDW-CV 11.5 - 15.0 % 12.6 Platelet Count 150 - 400 k/uL 243 MPV 9.0 - 12.7 fL 8.8 (L) Neut% % 65.9 Abs Neut (ANC) 1.45 - 7.50 k/uL 3.83 Lymph% % 18.7 Abs Lymph 1.00 - 4.00 k/uL 1.09 [place]% % 12.5 Abs [place] <0.87 k/uL 0.73 Eosin% % 1.9 Abs Eosin <0.46 k/uL 0.11 Baso% % 0.7 Abs Baso <0.11 k/uL 0.04 Immature Gran % % 0.3 IMMATURE GRANS (ABS) <0.10 k/uL <0.03 NRBC /100 WBC 0.0 Absolute nRBC <0.01 k/uL <0.01 DTYPE Auto Protein, Total 6.3 - 8.0 g/dL 6.8 Albumin 3.9 - 4.9 g/dL 4.3 Calcium 8.5 - 10.2 mg/dL 10.0 Bilirubin, Total 0.2 - 1.3 mg/dL 0.7 Alkaline Phosphatase 38 - 113 U/L 60 AST 14 - 40 U/L 20 ALT 10 - 54 U/L 14 Glucose 74 - 99 mg/dL 111 (H) BUN 9 - 24 mg/dL 13 Creatinine 0.73 - 1.22 mg/dL 0.82 Sodium 136 - 144 mmol/L 138 Potassium 3.7 - 5.1 mmol/L 4.3 Chloride 98 - 107 mmol/L 102 CO2 22 - 30 mmol/L 29 Anion Gap 8 - 15 mmol/L 7 (L) eGFR >=60 mL/min/1.73m 93 PT Sec 9.7 - 13.0 sec 10.8 PT INR 0.9 - 1.3 1.0 NT Pro BNP <125 pg/mL 345 (H) MARNI High Sensitivity <12 ng/L 8 Lipoprotein (a) <30 mg/dL <6 Legend: (L) Low (H) High [place] CARDIOMYOPATHY QUESTIONNAIRE (CQ-12) Activity: A. Showering/bathing: Extremely limited Quite a bit limited Moderately limited Slightly limited Not at all limited Limited for other reasons or did not do the activity B. Walking 1 block on level ground: Extremely limited Quite a bit limited Moderately limited Slightly limited Not at all limited Limited for other reasons or did not do the activity C.Hurrying or jogging (as if to catch a bus): Extremely limited Quite a bit limited Moderately limited Slightly limited Not at all limited Limited for other reasons or did not do the activity 2. Over the past 2 weeks, how many times did you have swelling in your feet, ankles or legs when you woke up in the morning? Every morning 3 or more times per week but not every day 1-2 times per week less than once a week never over the past 2 weeks 3. Over the past 2 weeks, on average, how many times did you has fatigue limited your ability to do what you wanted? All of the time Several times per day At least once per day 3 or more times per week but not every day 1-2 times per week less than once a week never over the past 2 weeks 4. Over the past 2 weeks, on average, how many times has shortness of breath limited your ability to do what you wanted? All of the time Several times per day At least once per day 3 or more times per week but not every day 1-2 times per week less than once a week never over the past 2 weeks 5. Over the past 2 weeks, on average, how many times have your been forced to sleep sitting up in a chair or with at least 3 pillows to prop you up because of shortness of breath? Every night 3 or more times per week but not every day 1-2 times per week less than once a week never over the past 2 weeks 6. Over the past 2 weeks, how much has your heart failure limited your enjoyment of life? It has extremely limited my enjoyment of life it has limited my enjoyment of life quite a bit it has moderately limited my enjoyment of life It has slightly limited my enjoyment of life It has not limited my enjoyment of life at all 7. If you had to spend the rest of your life with your heart failure the way it is right now, how would you feel about this? Not at all satisfied Mostly dissatisfied Somewhat satisfied Mostly satisfied Completely satisfied 8. How much does your heart failure affect your lifestyle? Please indicated how your heart failure may have limited your participation in the following activities over the past 2 weeks? A. Hobbies, recreational activities Severely limited Limited quite a bit Moderately limited Slightly limited Did not limit at all Does not apply or did not do for other reasons. 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 C. Visiting family or friends out of your home Severely limited Limited quite a bit Moderately limited Slightly limited Did not limit at all Does not apply or did not do for other reasons. 15 - Foot Walk: 5.2 seconds Cutoff off time to walk 15 feet criterion for frailty: Men Women Height < 173 cm > 7 seconds Height < 159 cm > 7 seconds Height > 173 cm > 6 seconds Height > 159 cm > 6 seconds HISTORY Nivia Ramos is an 73 year old male with pmhx of: Valvular heart disease Aortic stenosis,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 normal. EF = 64 5% (2D biplane) Normal left ventricular diastolic function. - The right ventricle is normal in size. Right ventricular systolic function is normal. - The right atrial cavity is mildly dilated. - There is paradoxical low flow, low gradient, moderately severe aortic valve stenosis caused by calcified valve and restricted opening. AV area is 0.66 cm (0.36 cm /m ) by continuity, VTI. The peak gradient is 63 mmHg, the mean gradient is 32 mmHg and the dimensionless valve index is 0.23. - AV morphology difficult to visualize due to calcification. - The patient has not had a prior CC echocardiographic exam for comparison. * * * Final * * * I have personally reviewed the Electrocardiogram and ECHO. IMPRESSION/PLAN: Mr. Ramos is a 71 year old male from [place], [place], with h/o hypertension and back pain who presents today for cardiac evaluation regarding valvular heart disease (aortic valve stenosis, mitral valve regurgitation). He is very active and asymptomatic. ECHO shows paradoxical low flow low gradient moderately severe with pk/mean 63/32,CHICO 0.66 cm squared, and DI 0.23 He will f/u in one year ECHO/ECG and call before that time with any questions or concerns. I personally interviewed, confirmed and edited the above information as obtained by others. CONTACT INFORMATION: Max Cardoso MD, [facility] Department of Cardiovascular Medicine [facility] [place] [facility] [id number] [place] [address] Office Office documented in this encounter [facility] 10-22-2022 Hospital Discharge instructions Patient Education 10/22/2022 08:23:00 Benign Prostatic Hyperplasia Benign Prostatic Hyperplasia Benign prostatic hyperplasia (BPH) is an enlarged prostate gland that is caused by the normal aging process. The prostate may get bigger as a man gets older. The condition is not caused by cancer. The prostate is a walnut-sized gland that is involved in the production of semen. It is located in front of the rectum and below the bladder. The bladder stores urine. The urethra carries stored urine out of the body. An enlarged prostate can press on the urethra. This can make it harder to pass urine. The buildup of urine in the bladder can cause infection. Back pressure and infection may progress to bladder damage and kidney (renal) failure. What are the causes? This condition is part of the normal aging process. However, not all men develop problems from this condition. If the prostate enlarges away from the urethra, urine flow will not be blocked. If it enlarges toward the urethra and compresses it, there will be problems passing urine. What increases the risk? This condition is more likely to develop in men older than 50 years. What are the signs or symptoms? Symptoms of this condition include: Getting up often during the night to urinate. Needing to urinate frequently during the day. Difficulty starting urine flow. Decrease in size and strength of your urine stream. Leaking (dribbling) after urinating. Inability to pass urine. This needs immediate treatment. Inability to completely empty your bladder. Pain when you pass urine. This is more common if there is also an infection. Urinary tract infection (UTI). How is this diagnosed? This condition is diagnosed based on your medical history, a physical exam, and your symptoms. Tests will also be done, such as: A post-void bladder scan. This measures any amount of urine that may remain in your bladder after you finish urinating. A digital rectal exam. In a rectal exam, your health care provider checks your prostate by putting a lubricated, gloved finger into your rectum to feel the back of your prostate gland. This exam detects the size of your gland and any abnormal lumps or growths. An exam of your urine (urinalysis). A prostate specific antigen (PSA) screening. This is a blood test used to screen for prostate cancer. An ultrasound. This test uses sound waves to electronically produce a picture of your prostate gland. Your health care provider may refer you to a specialist in kidney and prostate diseases (urologist). How is this treated? Once symptoms begin, your health care provider will monitor your condition (active surveillance or watchful waiting). Treatment for this condition will depend on the severity of your condition. Treatment may include: Observation and yearly exams. This may be the only treatment needed if your condition and symptoms are mild. Medicines to relieve your symptoms, including: ?Medicines to shrink the prostate. ?Medicines to relax the muscle of the prostate. Surgery in severe cases. Surgery may include: ?Prostatectomy. In this procedure, the prostate tissue is removed completely through an open incision or with a laparoscope or robotics. ?Transurethral resection of the prostate (TURP). In this procedure, a tool is inserted through the opening at the tip of the penis (urethra). It is used to cut away tissue of the inner core of the prostate. The pieces are removed through the same opening of the penis. This removes the blockage. ?Transurethral incision (TUIP). In this procedure, small cuts are made in the prostate. This lessens the prostate's pressure on the urethra. ?Transurethral microwave thermotherapy (TUMT). This procedure uses microwaves to create heat. The heat destroys and removes a small amount of prostate tissue. ?Transurethral needle ablation (TUNA). This procedure uses radio frequencies to destroy and remove a small amount of prostate tissue. ?Interstitial laser coagulation (ILC). This procedure uses a laser to destroy and remove a small amount of prostate tissue. ?Transurethral electrovaporization (TUVP). This procedure uses electrodes to destroy and remove a small amount of prostate tissue. ?Prostatic urethral lift. This procedure inserts an implant to push the lobes of the prostate away from the urethra. Follow these instructions at home: Take etsn-gnt-npekbyi and prescription medicines only as told by your health care provider. Monitor your symptoms for any changes. Contact your health care provider with any changes. Avoid drinking large amounts of liquid before going to bed or out in public. Avoid or reduce how much caffeine or alcohol you drink. Give yourself time when you urinate. Keep all follow-up visits. This is important. Contact a health care provider if: You have unexplained back pain. Your symptoms do not get better with treatment. You develop side effects from the medicine you are taking. Your urine becomes very dark or has a bad smell. Your lower abdomen becomes distended and you have trouble passing urine. Get help right away if: You have a fever or chills. You suddenly cannot urinate. You feel light-headed or very dizzy, or you faint. There are large amounts of blood or clots in your urine. Your urinary problems become hard to manage. You develop moderate to severe low back or flank pain. The flank is the side of your body between the ribs and the hip. These symptoms may be an emergency. Get help right away. Call 911. Do not wait to see if the symptoms will go away. Do not drive yourself to the hospital. Summary Benign prostatic hyperplasia (BPH) is an enlarged prostate that is caused by the normal aging process. It is not caused by cancer. An enlarged prostate can press on the urethra. This can make it hard to pass urine. This condition is more likely to develop in men older than 50 years. Get help right away if you suddenly cannot urinate. This information is not intended to replace advice given to you by your health care provider. Make sure you discuss any questions you have with your health care provider. Document Revised: 10/11/2021 Document Reviewed: 10/11/2021 [employer] Patient Education 2022 [employer] Follow Up Care 07/23/2022 09:43:51 With:CHEVY CUNHA, Edmond Rojas, URL Address: [facility] [place] [id number]- When:Within 1 Year(s) Comments:w/ BARRIE [facility] 08-14-2022 Miscellaneous Notes Summary: HVTI Patient: Nivia Ramos Date of : 1950 Patient phone number: [phone] Referring Provider for the encounter: Juanjo Murdock Requesting Provider: Reason for requesting visit (RFV/signs and symptoms/diagnosis): aortic valve stenosis. Person calling: RP Fax Return call to: self Medical Records/Insurance Card scanned into Epic: Comments: documented in this encounter [facility] 05-02-2022 Evaluation + Plan note Diagnostic Tests PendingPSA Total 05/02/22 [facility] Evaluation + Plan note Future Appointments Appointment Date:09/16/2023 10:15:00 AM Scheduled Provider:Ed[facility]UENTES [facility] Office Visit [facility] RE[facility] Evaluation + Plan note Future Appointments Appointment Date:09/22/2024 10:00:00 AM Scheduled Provider:Edmond FUENTES MD [facility] App[facility] Type:URO Office Visit Diagnostic Tests PendingPSA Total 09/16/23 [facility] [employer] Evaluation + Plan note Future Appointments Appointment Date:06/01/2024 10:15:00 AM Scheduled Provider:Edmond FUENTES MD Location:[facility] Appointment Type:URO Office Visit Appointment Date:09/22/2024 10:00:00 AM Scheduled Provider:Edmond FUENTES MD [facility] App[facility] Type:URO Office Visit [facility] [employer] Evaluation note Diagnosis Nonrheumatic aortic valve stenosis- Primary Aortic valve disorders Nonrheumatic mitral valve regurgitation [facility] Diagnosis Olecranon bursitis of left elbow- Primary Acute non-recurrent pansinusitis Acute cough [facility] Diagnosis Nonrheumatic aortic valve stenosis- Primary Aortic valve disorders Nonrheumatic mitral valve regurgitation [facility] Diagnosis Nonrheumatic aortic valve stenosis- Primary Aortic valve disorders Shortness of breath [facility] Diagnosis Nonrheumatic aortic valve stenosis- Primary Aortic valve disorders Aortic valve disorder Aortic valve disorders Shortness of breath [facility] Strain of lumbar region, initial encounter- Primary Lumbar paraspinal muscle spasm Other symptoms referable to back documented in this encounter [facility]* Diagnosis Nonrheumatic aortic valve stenosis- Primary Aortic valve disorders Chronic heart failure with preserved ejection fraction (HCC) Primary hypertension Unspecified essential hypertension Nonrheumatic aortic valve stenosis Aortic valve disorders [facility] Aortic valve disorder Aortic valve disorders Nonrheumatic aortic valve stenosis Aortic valve disorders [facility] Diagnosis Aortic valve disorder Aortic valve disorders Nonrheumatic aortic valve stenosis Aortic valve disorders [facility] Diagnosis Aortic valve disorder- Primary Aortic valve disorders [facility] Diagnosis Aortic valve disorder- Primary Aortic valve disorders [facility] Diagnosis Lung nodule- Primary Solitary pulmonary nodule Nonrheumatic aortic valve stenosis Aortic valve disorders [facility] Diagnosis Nonrheumatic aortic valve stenosis- Primary Aortic valve disorders [facility] Diagnosis Lumbar paraspinal muscle spasm- Primary Other symptoms referable to back Bladder diverticulum Diverticulum of bladder Abnormal finding on CT scan Atherosclerosis of aorta (CMS/HCC) Atherosclerosis of aorta Thoracic aortic ectasia (CMS/HCC) Thoracic aortic ectasia Pulmonary nodules Other diseases of lung, not elsewhere classified Nonrheumatic aortic valve stenosis Benign essential hypertension (CMS/HCC) Essential hypertension, benign documented in this encounter [facility] HealthcareEvaluation note* Diagnosis Lumbar paraspinal muscle spasm Other symptoms referable to back documented in this encounter [facility] note* Diagnosis Primary hypertension (CMS/HCC)- Primary Unspecified essential hypertension Lumbar paraspinal muscle spasm Other symptoms referable to back Generalized osteoarthritis Generalized osteoarthrosis, involving multiple sites Nonrheumatic aortic valve stenosis Bladder diverticulum Diverticulum of bladder Cecum mass Unspecified disorder of intestine documented in this encounter [facility] Healthcare[facility]* Diagnosis Seborrheic keratosis- Primary Lentigines Angioma of skin Actinic keratosis Seborrheic keratosis, inflamed Neoplasm of unspecified behavior of bone, soft tissue, and skin documented in this encounter [facility]* Diagnosis Lung nodules- Primary Other nonspecific abnormal finding of lung field Lung nodule Solitary pulmonary nodule [facility] Diagnosis Lumbar paraspinal muscle spasm- Primary Other symptoms referable to back documented in this encounter [facility] Healthcare[facility] note* Diagnosis Lumbar paraspinal muscle spasm- Primary Other symptoms referable to back documented in this encounter [facility] HealthcareEvaluation note* Diagnosis Nonrheumatic aortic valve stenosis- Primary Aortic valve disorders [facility] Diagnosis Lumbar paraspinal muscle spasm- Primary Other symptoms referable to back documented in this encounter [facility] HealthcareEvaluation note* Diagnosis Primary hypertension (CMS/HCC)- Primary Unspecified essential hypertension Abnormal finding on CT scan Cecum mass Unspecified disorder of intestine Bladder diverticulum Diverticulum of bladder Renal mass, right Unspecified disorder of kidney and ureter Nonrheumatic aortic valve stenosis Pulmonary nodules Other diseases of lung, not elsewhere classified documented in this encounter [facility] HealthcareEvaluation note* Diagnosis Lumbar paraspinal muscle spasm- Primary Other symptoms referable to back documented in this encounter [facility] Healthcare[facility] note* Diagnosis Lumbar paraspinal muscle spasm- Primary Other symptoms referable to back documented in this encounter [facility] HealthcareEvaluation note* Diagnosis Lumbar paraspinal muscle spasm- Primary Other symptoms referable to back documented in this encounter [facility]* Diagnosis Abnormal abdominal CT scan- Primary Nonspecific (abnormal) findings on radiological and other examination of abdominal area, including retroperitoneum Cecum mass Unspecified disorder of intestine documented in this encounter [facility] HealthcareEvaluation note* Diagnosis 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 documented in this encounter [facility] note* Diagnosis Mohs defect- Primary 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 documented in this encounter [facility] Healthcare[facility] note* Diagnosis URI with cough and congestion- Primary [facility] Narrative No data available for this section [facility] Hospital Discharge instructions No data available for this section [facility] Progress note No data available for this section [facility] Baker Reason for referral (narrative)* Outpatient Procedure (Routine) - Authorized Specialty Diagnoses / Procedures Referred By Regulo t Referred To [facility] Diagnoses Nonrheumatic aortic valve stenosis Nonrheumatic mitral valve regurgitation Procedures ECHO ECHO TTHRC R-T 2D W/WOM-MODE COMPL SPEC&COLR D Max Cardoso MD [address] [place] [id number] [address] [address] Referral ID Status Reason Start Date Expiration Date Visits Requested Visits Authorized [id number] Authorized Auto-Generat ed Referral 06/12/2023 06/11/2024 1 1 * Outpatient Procedure (Routine) - Authorized Specialty Diagnoses / Procedures Referred By Regulo oleary Referred To [facility] Diagnoses Nonrheumatic aortic valve stenosis Nonrheumatic mitral valve regurgitation Procedures ECG COMPLETE ECG ROUTINE ECG W/LEAST 12 LDS W/I&R Max Cardoso MD [address] [place] [address] [address] Referral ID Status Reason Start Date Expiration Date Visits Requested Visits Authorized [id number] Authorized Auto-Generat ed Referral 06/12/2023 06/11/2024 1 1 [facility] for referral (narrative)* Outpatient Procedure (Routine) - Authorized Specialty Diagnoses / Procedures Referred By Contac t Referred To [facility] Diagnoses Nonrheumatic aortic valve stenosis Shortness of breath Procedures ECG COMPLETE ECG ROUTINE ECG W/LEAST 12 LDS W/I&R Max Cardoso MD [address] [place] [place] [address] [address] Referral ID Status Reason Start Date Expiration Date Visits Requested Visits Authorized [id number] Authorized Auto-Generat ed Referral 11/11/2023 11/10/2024 1 1 * Transition of Care (Routine) - Ref Not Required Specialty Diagnoses / Procedures Referred By Contac t Referred To Contact [facility] Procedures CARDIOVASCULAR MEDICINE OP FOLLOW UP APPT ORDER Max Cardoso MD [facility] [place] [id number] [place] [address] Referral ID Status Reason Start Date Expiration Date Visits Requested Visits Authorized [id number] Ref Not Required PCP Requested Referral 05/13/2024 11/10/2024 1 1 [facility] for referral (narrative)* Outpatient Procedure (Routine) - New Request Specialty Diagnoses / Procedures Referred By Contac t Referred To Contact [facility] Diagnoses Aortic valve disorder Procedures ECG COMPLETE ECG ROUTINE ECG W/LEAST 12 LDS W/I&R Flip Lozano APRN.MUSIC ARTIST [address] [id number] [place] [id number] Referral ID Status Reason Start Date Expiration Date Visits Requested Visits Authorized [id number] New Request Auto-Generat ed Referral 11/12/2023 11/11/2024 1 1 * MRI/CT (Routine) - New Request Specialty Diagnoses / Procedures Referred By Contac t Referred To Contact CT IMAGING Diagnoses Aortic valve disorder Procedures CTA CHEST/ABD/PEL (GATED) W IVCON CT ANGIOGRAPHY CHEST W/CONTRAST/NONCONTRAST CT ANGIO ABD&PLVIS CNTRST MTRL W/WO CNTRST Flip Dodson APRN.MUSIC ARTIST [address] [place] [address] Ct Imaging [facility] Referral ID Status Reason Start Date Expiration Date Visits Requested Visits Authorized [id number] New Request Auto-Generat ed Referral 11/12/2023 12/11/2024 1 1 * Outpatient Procedure (Routine) - New Request Specialty Diagnoses / Procedures Referred By Contac t Referred To Contact [facility] Diagnoses Aortic valve disorder Procedures LUNG DIFFUSION CAPACITY (DLCO) DIFFUSING CAPACITY Flip Lozano APRN.CNP [address] [place] [address] [place] [address] Referral ID Status Reason Start Date Expiration Date Visits Requested Visits Authorized [id number] New Request Auto-Generat ed Referral 11/12/2023 12/11/2024 1 1 * Outpatient Procedure (Routine) - New Request Specialty Diagnoses / Procedures Referred By Contac t Referred To Contact [facility] Diagnoses Aortic valve disorder Procedures SPIROMETRY BASELINE ONLY SPMTRY W/VC EXPIRATORY ANGUS W/WO MXML VOL VNTJ Flip Lozano APRN.MUSIC ARTIST [address] [place] [address] [place] [address] Referral ID Status Reason Start Date Expiration Date Visits Requested Visits Authorized [id number] New Request Auto-Generat ed Referral 11/12/2023 12/11/2024 1 1 [facility] for visit Narrative* Rehabilitation - Outpatient (Routine) - Authorized Specialty Diagnoses / Procedures Referred By Contac t Referred To Contact Physical Therapy Diagnoses Lumbar paraspinal muscle spasm Procedures SD OFFICE/OUTPATIENT NEW HIGH MDM 60 MINUTES Peggy Wakefield PA [address] [facility] [address] [place] [address] Phone: tel: fax: Quang Garcia, PT 112 [facility] [address] [place] [address] Phone: tel: fax: Referral ID Status Reason Start Date Expiration Date Visits Requested Visits Authorized [id number] Authorized Specialty Services Required 07/20/2024 10 10 [facility] Narrative* Rehabilitation - Outpatient (Routine) - Authorized Specialty Diagnoses / Procedures Referred By Contac t Referred To Contact Physical Therapy Diagnoses Lumbar paraspinal muscle spasm Procedures SD OFFICE/OUTPATIENT NEW HIGH MDM 60 MINUTES Peggy Wakefield, PA 112 [facility] [address] [place] [address] Phone: tel: fax: Quang Garcia, PT [address] [address] Phone: tel: fax: Referral ID Status Reason Start Date Expiration Date Visits Requested Visits Authorized [id number] Authorized Specialty Services Required 07/20/2024 20 30 [facility] HealthcareReason for visit Narrative* Rehabilitation - Outpatient (Routine) - Closed Specialty Diagnoses / Procedures Referred By Contac t Referred To Contact Physical Therapy Diagnoses Lumbar paraspinal muscle spasm Procedures SD OFFICE/OUTPATIENT NEW HIGH MDM 60 MINUTES Peggy Wakefield PA 112 [facility] [address] [place] [address] Phone: tel: fax: Quang Garcia, PT 112 [facility] [address] [place] [address] Phone: tel: fax: Referral ID Status Reason Start Date Expiration Date V isits Requested Visits Authorized [id number] Closed Specialty Services Required 01/22/2024 07/20/2024 20 30 [facility] Summary Purpose Family History No Family History Records FoundNo Family History Records Found No data available for this section No Family History Records Found No data available for this section No Family History Records FoundNo Family History Records FoundNo Family History Records Found Advance Directives No Advanced Directives Records FoundNo Advanced Directives Records FoundNo Advanced Directives Records FoundNo Advanced Directives Records FoundNo Advanced Directives Records FoundNo Advanced Directives Records Found Reason for Referral Specialty Diagnoses / Procedures Referred By Regulo t Referred To Contact CT IMAGING Diagnoses Lung nodules Procedures CT CHEST WO IVCON DIAGNOSTIC COMPUTED TOMOGRAPHY THORAX W/O CNTRST Bri Valladares, BAKER OPERATOR AUTOMATIC.MUSIC ARTIST [address] [place] [address] Ct Imaging [place] [address] Referral ID Status Reason Start Date Expiration Date Visits Requested Visits Authorized [id number] Authorized Auto-Generat ed Referral 4 03/07/2025 1 1 Specialty Diagnoses / Procedures Referred By Regulo oleary Referred To Contact [facility] Procedures CARDIOVASCULAR MEDICINE OP FOLLOW UP APPT ORDER Flip Lozano, ROX.MUSIC ARTIST [phone] [place] [address] Referral ID Status Reason Start Date Expiration Date Visits Requested Visits Authorized [id number] Ref Not Required PCP Requested Referral 4 01/20/2025 1 1 Specialty Diagnoses / Procedures Referred By Regulo oleary Referred To Contact Pulmonary Disease Diagnoses Lung nodule Procedures CONSULT TO LUNG NODULE CLINIC OFFICE/OUTPATIENT [facility] 60 MINUTES Flip Lozano, BAKER OPERATOR AUTOMATIC.MUSIC ARTIST [address] [place] [id number] Referral ID Status Reason Start Date Expiration Date Visits Requested Visits Authorized [id number] Authorized PCP Requested Referral 4 01/20/2025 1 1 Specialty Diagnoses / Procedures Referred By Regulo oleary Referred To Contact CT IMAGING Diagnoses Aortic valve disorder Procedures CTA CHEST/ABD/PEL (GATED) W IVCON CT ANGIOGRAPHY CHEST W/CONTRAST/NONCONTRAST CT ANGIO ABD&PLVIS CNTRST MTRL W/WO CNTRST IMFlip Jean, BAKER OPERATOR AUTOMATIC.MUSIC ARTIST [address] [place] [address] Ct Imaging [place] [address] Referral ID Status Reason Start Date Expiration Date V isits Requested Visits Authorized [id number] Closed Auto-Generate d Referral 11/12/2023 12/11/2024 1 1 Specialty Diagnoses / Procedures Referred By Contac t Referred To Contact Diagnoses Lumbar paraspinal muscle spasm Peggy Wakefield, PA [address] [address] Referral ID Status Reason Start Date Expiration Date V isits Requested Visits Authorized [id number] Pending Review 01/07/2024 07/05/2024 1 1 Additional Source Comments (unrecognized sect ion and content) No Status Records FoundNo Status Records FoundNo Status Records FoundNo Status Records FoundNo Status Records FoundNo Status Records Found INFORMATION SOURCE (unrecogn ized section and content) DATE CREATED AUTHOR 07/26/2021 [facility] dical Specialist DATE CREATED AUTHOR AUTHOR'S ORGANIZ ATION 08/06/2022 [facility] DATE CREATED AUTHOR AUTHOR'S ORGANIZ ATION 03/03/2024 Jernigan Naeem [facility] DATE CREATED AUTHOR AUTHOR'S ORGANIZ ATION 03/28/2024 [facility] DATE CREATED AUTHOR AUTHOR'S ORGANIZ ATION 04/02/2024 [facility] DATE CREATED AUTHOR AUTHOR'S ORGANIZ ATION 04/02/2024 [facility] dical Specialists EPIC Patient Care team informatio n (unrecognized section and content) Branch Account Executive Relationship Specialty Start Date End Date Juanjo Murdock II [address] [address] Referring Internal Medicine 08/14/22 Branch Account Executive Relationship Specialty Start Date End Date Juanjo Murdock II [address] [address] Referring Internal Medicine 08/14/22 Max Cardoso MD [address] [place] [id number] Primary Staff Physician Cardiology 10/22/22 Branch Account Executive Relationship Specialty Start Date End Date Juanjo Murdock MD [address] [place] [address] PCP - ACO Reach 08/30/22 Juanjo Murdock MD [address] [place] [address] PCP - General Internal Medicine 09/18/22 Branch Account Executive Relationship Specialty Start Date End Date Juanjo Murdock MD [address] [place] [address] PCP - ACO Reach 08/30/22 Juanjo Murdock MD [address] [place] [address] PCP - General Internal Medicine 09/18/22 Branch Account Executive Relationship Specialty Start Date End Date Juanjo Murdock II, MD [address] [facility] [address] [place] [address] Referring Internal Medicine 08/14/22 Max Cardoso MD [address] [place], [place] [id number] Primary Staff Physician Cardiology 10/22/22 Branch Account Executive Relationship Specialty Start Date End Date Juanjo Murdock II, MD [address] [facility] [address] [place] [address] Referring Internal Medicine 08/14/22 Max Cardoso MD [address] [facility] [place] [place] [id number] Primary Staff Physician Cardiology 10/22/22 Branch Account Executive Relationship Specialty Start Date End Date Juanjo Murdock II, MD [address] [place] [address] Referring Internal Medicine 08/14/22 Max Cardoso MD [address] [place], [place] [id number] Primary Staff Physician Cardiology 10/22/22 Branch Account Executive Relationship Specialty Start Date End Date Juanjo Murdock MD [address] [place] [address] PCP - ACO Reach 08/30/22 Juanjo Murdock MD [address] [place] [address] PCP - General Internal Medicine 09/18/22 Branch Account Executive Relationship Specialty Start Date End Date Juanjo Murdock MD [address] [place] [address] PCP - ACO Reach 08/30/22 Juanjo Murdock MD [address] [place] [address] PCP - General Internal Medicine 09/18/22 Branch Account Executive Relationship Specialty Start Date End Date Juanjo Murdock II, MD [address] [place] [address] PCP - General Internal Medicine 12/19/23 Juanjo Murdock II, MD [address] [place] [address] Referring Internal Medicine 08/14/22 Max Cardoso MD [address] [place], [place] [id number] Primary Staff Physician Cardiology 10/22/22 Branch Account Executive Relationship Specialty Start Date End Date Juanjo Murdock II, MD [address] [place] [address] PCP - General Internal Medicine 12/19/23 Juanjo Murdock II, MD [address] [place] [address] Referring Internal Medicine 08/14/22 Max Cardoso MD [address] [place], [place] [id number] Primary Staff Physician Cardiology 10/22/22 Branch Account Executive Relationship Specialty Start Date End Date Juanjo Murdock II, MD [address] [place] [address] PCP - General Internal Medicine 12/19/23 Juanjo Murdock II, MD [address] [place] [address] Referring Internal Medicine 08/14/22 Max Cardoso MD [address] [place] [address] Primary Staff Physician Cardiology 10/22/22 Branch Account Executive Relationship Specialty Start Date End Date Juanjo Murdock II, MD [address] [place] [address] PCP - General Internal Medicine 12/19/23 Juanjo Murdock II, MD [address] [place] [address] Referring Internal Medicine 08/14/22 Max Cardoso MD [address] [place] [address] Primary Staff Physician Cardiology 10/22/22 Branch Account Executive Relationship Specialty Start Date End Date Juanjo Murdock II, MD [address] [place] [address] PCP - General Internal Medicine 12/19/23 Juanjo Murdock II, MD [address] [place] [address] Referring Internal Medicine 08/14/22 Max Cardoso MD [address] [place] [address] Primary Staff Physician Cardiology 10/22/22 Branch Account Executive Relationship Specialty Start Date End Date Juanjo Murdock II, MD [address] [place] [address] PCP - General Internal Medicine 12/19/23 Juanjo Murdock II, MD [address] [place] [address] Referring Internal Medicine 08/14/22 Max Cardoso MD [address] [place] [address] Primary Staff Physician Cardiology 10/22/22 Branch Account Executive Relationship Specialty Start Date End Date Juanjo Murdock II, MD [address] [place] [address] PCP - General Internal Medicine 12/19/23 Juanjo Murdock II, MD [address] [place] [address] Referring Internal Medicine 08/14/22 Max Cardoso MD [address] [place], [place] [id number] Primary Staff Physician Cardiology 10/22/22 Branch Account Executive Relationship Specialty Start Date End Date Juanjo Murdock II, MD [address] [place] [address] PCP - General Internal Medicine 12/19/23 Juanjo Murdock II, MD [address] [place] [address] Referring Internal Medicine 08/14/22 Max Cardoso MD [address] [place] [address] Primary Staff Physician Cardiology 10/22/22 Branch Account Executive Relationship Specialty Start Date End Date Juanjo Murdock MD [address] [place] [address] PCP - ACO Reach 08/30/22 Juanjo Murdock MD [address] [place] [address] PCP - General Internal Medicine 09/18/22 Branch Account Executive Relationship Specialty Start Date End Date Juanjo Murdock MD [address] [place] [address] PCP - ACO Reach 08/30/22 Juanjo Murdock MD [address] [address] [place] [address] PCP - General Internal Medicine 09/18/22 Branch Account Executive Relationship Specialty Start Date End Date Juanjo Murdock MD [address] [place] [address] PCP - ACO Reach 08/30/22 Juanjo Murdock MD [address] [place] [address] PCP - General Internal Medicine 09/18/22 Branch Account Executive Relationship Specialty Start Date End Date Juanjo Murdock MD [address] [place] [address] PCP - ACO Reach 08/30/22 Juanjo Murdock MD [address] [place] [address] PCP - General Internal Medicine 09/18/22 Branch Account Executive Relationship Specialty Start Date End Date Juanjo Murdock MD [address] [place] [address] PCP - ACO Reach 08/30/22 Juanjo Murdock MD [address] [place] [address] PCP - General Internal Medicine 09/18/22 Branch Account Executive Relationship Specialty Start Date End Date Juanjo Murdock MD [address] [place] [address] PCP - ACO Reach 08/30/22 Juanjo Murdock MD [address] [place] [address] PCP - General Internal Medicine 09/18/22 Branch Account Executive Relationship Specialty Start Date End Date Juanjo Murdock MD [address] [place] [address] PCP - ACO Reach 08/30/22 Juanjo Murdock MD [address] [place] [address] PCP - General Internal Medicine 09/18/22 Branch Account Executive Relationship Specialty Start Date End Date Juanjo Murdock MD [address] [place] [address] PCP - ACO Reach 08/30/22 Juanjo Murdock MD [address] [facility] [address] [place] [address] PCP - General Internal Medicine 09/18/22 Branch Account Executive Relationship Specialty Start Date End Date Juanjo Murdock II, MD [address] [facility] [address] [place] [address] PCP - General Internal Medicine 12/19/23 Juanjo Murdock II, MD [address] [facility] [address] [place] [address] Referring Internal Medicine 08/14/22 Max Cardoso MD [address] [place] [address] Primary Staff Physician Cardiology 10/22/22 Branch Account Executive Relationship Specialty Start Date End Date Juanjo Murdock MD [address] [facility] [address] [place] [address] PCP - ACO Reach 08/30/22 Juanjo Murdock MD [address] [facility] [address] [place] [address] PCP - General Internal Medicine 09/18/22 Branch Account Executive Relationship Specialty Start Date End Date Juanjo Murdock MD [address] [place] [address] PCP - ACO Reach 08/30/22 Juanjo Murdock MD [address] [place] [address] PCP - General Internal Medicine 09/18/22 Branch Account Executive Relationship Specialty Start Date End Date Juanjo Murdock MD [address] [place] [address] PCP - ACO Reach 08/30/22 Juanjo Murdock MD [address] [place] [address] PCP - General Internal Medicine 09/18/22 Branch Account Executive Relationship Specialty Start Date End Date Juanjo Murdock II, MD [address] [place] [address] PCP - General Internal Medicine 12/19/23 Juanjo Murdock II, MD [address] [place] [address] Referring Internal Medicine 08/14/22 Max Cardoso MD [address] [place] [address] Primary Staff Physician Cardiology 10/22/22 Branch Account Executive Relationship Specialty Start Date End Date Juanjo Murdock MD [address] [place] [address] PCP - ACO Reach 08/30/22 Juanjo Murdock MD [address] [place] [address] PCP - General Internal Medicine 09/18/22 Branch Account Executive Relationship Specialty Start Date End Date Juanjo Murdock II, MD [address] [place] [address] PCP - General Internal Medicine 12/19/23 Juanjo Murdock II, MD [address] [place] [address] Referring Internal Medicine 08/14/22 Max Cardoso MD [address] [facility] [place] [address] Primary Staff Physician Cardiology 10/22/22 Branch Account Executive Relationship Specialty Start Date End Date Juanjo Murdock MD [address] [place] [address] PCP - ACO Reach 08/30/22 Juanjo Murdock MD [address] [place] [address] PCP - General Internal Medicine 09/18/22 Branch Account Executive Relationship Specialty Start Date End Date Juanjo Murdock MD [address] [place] [address] PCP - ACO Reach 08/30/22 Juanjo Murdock MD [address] [place] [address] PCP - General Internal Medicine 09/18/22 Branch Account Executive Relationship Specialty Start Date End Date Juanjo Murdock MD [address] [place] [address] PCP - ACO Reach 08/30/22 Juanjo Murdock MD [address] [place] [address] PCP - General Internal Medicine 09/18/22 Branch Account Executive Relationship Specialty Start Date End Date Juanjo Murdock MD [address] [place] [address] PCP - ACO Reach 08/30/22 Juanjo Murdock MD [address] [place] [address] PCP - General Internal Medicine 09/18/22 Branch Account Executive Relationship Specialty Start Date End Date Juanjo Murdock MD [address] [place] [address] PCP - ACO Reach 08/30/22 Juanjo Murdock MD [address] [place] [address] PCP - General Internal Medicine 09/18/22 Branch Account Executive Relationship Specialty Start Date End Date Juanjo Murdock MD [address] [place] [address] PCP - ACO Reach 08/30/22 Juanjo Murdock MD [address] [place] [address] PCP - General Internal Medicine 09/18/22 Branch Account Executive Relationship Specialty Start Date End Date Juanjo Murdock MD [address] [place] [address] PCP - ACO Reach 08/30/22 Juanjo Murdock MD [address] [place] [address] PCP - General Internal Medicine 09/18/22 Source Comments (unrecognize d section and content) In the event this informatio n is protected by the Federal Confidentiality of Alcohol and Drug Abuse Patient Records regulations: The Federal rules restrict any use of the information to criminally investigate or prosecute any alcohol or drug abuse patient.[facility] DaytonIn the event this information is protected by the Federal Confidentiality of Alcohol and Drug Abuse Patient Records regulations: The Federal rules restrict any use of the information to criminally investigate or prosecute any alcohol or drug abuse patient.[facility] DaytonIn the event this information is protected by the Federal Confidentiality of Alcohol and Drug Abuse Patient Records regulations: The Federal rules restrict any use of the information to criminally investigate or prosecute any alcohol or drug abuse patient.[facility] DaytonIn the event this information is protected by the Federal Confidentiality of Alcohol and Drug Abuse Patient Records regulations: The Federal rules restrict any use of the information to criminally investigate or prosecute any alcohol or drug abuse patient.[facility] DaytonIn the event this information is protected by the Federal Confidentiality of Alcohol and Drug Abuse Patient Records regulations: The Federal rules restrict any use of the information to criminally investigate or prosecute any alcohol or drug abuse patient.[facility] DaytonIn the event this information is protected by the Federal Confidentiality of Alcohol and Drug Abuse Patient Records regulations: The Federal rules restrict any use of the information to criminally investigate or prosecute any alcohol or drug abuse patient.[facility] DaytonIn the event this information is protected by the Federal Confidentiality of Alcohol and Drug Abuse Patient Records regulations: The Federal rules restrict any use of the information to criminally investigate or prosecute any alcohol or drug abuse patient.[facility] DaytonIn the event this information is protected by the Federal Confidentiality of Alcohol and Drug Abuse Patient Records regulations: The Federal rules restrict any use of the information to criminally investigate or prosecute any alcohol or drug abuse patient.[facility] DaytonIn the event this information is protected by the Federal Confidentiality of Alcohol and Drug Abuse Patient Records regulations: The Federal rules restrict any use of the information to criminally investigate or prosecute any alcohol or drug abuse patient.[facility] DaytonIn the event this information is protected by the Federal Confidentiality of Alcohol and Drug Abuse Patient Records regulations: The Federal rules restrict any use of the information to criminally investigate or prosecute any alcohol or drug abuse patient.[facility] DaytonIn the event this information is protected by the Federal Confidentiality of Alcohol and Drug Abuse Patient Records regulations: The Federal rules restrict any use of the information to criminally investigate or prosecute any alcohol or drug abuse patient.[facility] DaytonIn the event this information is protected by the Federal Confidentiality of Alcohol and Drug Abuse Patient Records regulations: The Federal rules restrict any use of the information to criminally investigate or prosecute any alcohol or drug abuse patient.[facility] DaytonIn the event this information is protected by the Federal Confidentiality of Alcohol and Drug Abuse Patient Records regulations: The Federal rules restrict any use of the information to criminally investigate or prosecute any alcohol or drug abuse patient.[facility] DaytonIn the event this information is protected by the Federal Confidentiality of Alcohol and Drug Abuse Patient Records regulations: The Federal rules restrict any use of the information to criminally investigate or prosecute any alcohol or drug abuse patient.[facility] DaytonIn the event this information is protected by the Federal Confidentiality of Alcohol and Drug Abuse Patient Records regulations: The Federal rules restrict any use of the information to criminally investigate or prosecute any alcohol or drug abuse patient.[facility] DaytonIn the event this information is protected by the Federal Confidentiality of Alcohol and Drug Abuse Patient Records regulations: The Federal rules restrict any use of the information to criminally investigate or prosecute any alcohol or drug abuse patient.[facility] DaytonIn the event this information is protected by the Federal Confidentiality of Alcohol and Drug Abuse Patient Records regulations: The Federal rules restrict any use of the information to criminally investigate or prosecute any alcohol or drug abuse patient.[facility] DaytonIn the event this information is protected by the Federal Confidentiality of Alcohol and Drug Abuse Patient Records regulations: The Federal rules restrict any use of the information to criminally investigate or prosecute any alcohol or drug abuse patient.[facility] DaytonIn the event this information is protected by the Federal Confidentiality of Alcohol and Drug Abuse Patient Records regulations: The Federal rules restrict any use of the information to criminally investigate or prosecute any alcohol or drug abuse patient.[facility] DaytonIn the event this information is protected by the Federal Confidentiality of Alcohol and Drug Abuse Patient Records regulations: The Federal rules restrict any use of the information to criminally investigate or prosecute any alcohol or drug abuse patient.[facility] DaytonIn the event this information is protected by the Federal Confidentiality of Alcohol and Drug Abuse Patient Records regulations: The Federal rules restrict any use of the information to criminally investigate or prosecute any alcohol or drug abuse patient.[facility] DaytonIn the event this information is protected by the Federal Confidentiality of Alcohol and Drug Abuse Patient Records regulations: The Federal rules restrict any use of the information to criminally investigate or prosecute any alcohol or drug abuse patient.[facility] Reason for Visit (unrecogniz ed section and content) Reason Comments External Referrals/resources Reason Comments TAVR Consult Reason Comments New Patient Consult Reason Comments Radio Main J1 Reason Comments Radiology CT Specialty Diagnoses / Procedures Referred By Contac t Referred To Contact CT IMAGING Diagnoses Aortic valve disorder Procedures CTA CHEST/ABD/PEL (GATED) W IVCON CT ANGIOGRAPHY CHEST W/CONTRAST/NONCONTRAST CT ANGIO ABD&PLVIS CNTRST MTRL W/WO CNTRST Flip Dodson, BAKER OPERATOR AUTOMATIC.MUSIC ARTIST [address] [place] [address] Ct [facility] [place] [address] Referral ID Status Reason Start Date Expiration Date V isits Requested Visits Authorized [id number] Closed Auto-Generate d Referral 11/12/2023 12/11/2024 1 1 Reason Comments Patient Education Reason Comments Spirometry Specialty Diagnoses / Procedures Referred By Contac t Referred [facility] Contact [facility] Diagnoses Aortic valve disorder Procedures LUNG DIFFUSION CAPACITY (DLCO) DIFFUSING CAPACITY Flip Lozano, BAKER OPERATOR AUTOMATIC.MUSIC ARTIST [address] [place] [address] [place] [address] Referral ID Status Reason Start Date Expiration Date V isits Requested Visits Authorized [id number] Closed Auto-Generate d Referral 11/12/2023 12/11/2024 1 1 Specialty Diagnoses / Procedures Referred By Contac t Referred To Contact [facility] Diagnoses Aortic valve disorder Procedures SPIROMETRY BASELINE ONLY SPMTRY W/VC EXPIRATORY ANGUS W/WO MXML VOL VNTJ Flip Lozano, BAKER OPERATOR AUTOMATIC.MUSIC ARTIST [address] [place] [address] [place] [address] Referral ID Status Reason Start Date Expiration Date V isits Requested Visits Authorized [id number] Closed Auto-Generate d Referral 11/12/2023 12/11/2024 1 1 Reason Comments Dental Reason Comments Hypertension DISCUSS RESULTS FROM [facility] HAD RECENT CTA DONE THROUGH [facility]-- WAS REFERRED TO PULMONOLOGY NEXT WEEK FOR THE LUNG NODULE Med Refill Pt would like ziac,l otrel,flexeril-- DM clydeWould like ibuprofen increased to twice daily if possible Reason Comments Skin Check Suspicious Skin Lesion Reason Comments Nodule Specialty Diagnoses / Procedures Referred By Contac t Referred To Contact Pulmonary Disease Diagnoses Lung nodule Procedures CONSULT TO LUNG NODULE CLINIC OFFICE/OUTPATIENT NEW HIGH MDM 60 MINUTES Flip Lozano, ROX.MUSIC ARTIST [address] [place] [address] Referral ID Status Reason Start Date Expiration Date V isits Requested Visits Authorized [id number] Closed PCP Requested Referral 01/21/2024 01/20/2025 1 1 Reason Comments TAVR Meeting Reason Comments Return Call Request Reason Comments Patient Update { Reason Comments Results Ct scan results Hypertension Reason Comments Consult Abnormal CT, needs c olonoscopy Specialty Diagnoses / Procedures Referred By Contac t Referred To Contact General Surgery Diagnoses Cecum mass Procedures SD OFFICE/OUTPATIENT NEW HIGH MDM 60 MINUTES Juanjo Murdock MD 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 This clinical summary was aggregated from multiple sources. Caution should be exercised in using it in the provision of clinical care. This summary normalizes information from multiple sources, and as a consequence, information in this document may materially change the coding, format and clinical context of patient data. In addition, data may be omitted in some cases. CLINICAL DECISIONS SHOULD BE BASED ON THE PRIMARY CLINICAL RECORDS. [employer] [facility]. provides no warranty or guarantee of the accuracy or completeness of information in this document.
== END 2024-04-03 09:00 | disposition home or self-care (01) ==
LOC: LAB 08:59
PROVIDERS: PCP Internal Medicine; Visit Provider Urology
DX: N28.89 Other specified disorders of kidney and ureter (principal)
CPT/HCPCS: 36415; 74178; 82565; Q9967

== ENCOUNTER 2024-05-13 11:31 | Outpatient (OUT) | payer MEDICARE, OTHER, SELFPAY ==
--- NOTE | 2024-05-13 11:42 | CT_ITS ---
[address] [address] Patient Name: NIVIA RAMOS MRN: [id number] date: 1950 Sex: M Assigned Patient Location: LAB Current Patient Location: LAB Accession/Order Number: [id number] Exam Date: 05/13/2024 12:40 Report Date: 05/13/2024 14:21 At the request of: ARIANNA REECE Procedure: CT abdomen pelvis wo/w con EXAMINATION: CT abdomen pelvis wo/w con HISTORY: Renal Mass COMPARISON: CT abdomen pelvis 04/03/2024 TECHNIQUE: Axial, Coronal, and Sagittal images were obtained without and/or with IV contrast as indicated by examination type. Dose reduction techniques were achieved by using automated exposure control and/or adjustment of mA and/or kV according to patient size and/or use of iterative reconstruction technique. FINDINGS: LUNG BASES: No visible pulmonary or pleural disease. LIVER: No enlargement, atrophy, suspicious density, or significant focal lesion. BILIARY: No dilatation or calcification. PANCREAS: No lesion, fluid collection, or abnormal duct dilatation. SPLEEN: No enlargement or focal lesion. ADRENALS: No mass or enlargement. KIDNEYS: Stable mildly enhancing 2.1 cm mass within medial aspect of posterior arm of right kidney, mid body. BOWEL/MESENTERY: Prior sigmoid resection and anastomosis. No visible mass, obstruction, or bowel wall thickening. Normal appendix. AORTA/VASCULAR: Moderate-marked atherosclerotic disease of distal aorta and iliac arteries. No aneurysm. RETROPERITONEUM: No mass or adenopathy. LYMPH NODES: No adenopathy. URINARY BLADDER: No visible focal wall thickening, lesion, or calculus. PELVIC ORGANS: No visible mass. Pelvic organs appropriate for patient age. ABDOMINAL WALL: No mass or hernia. BONES: Numerous subtle lucent areas within iliac wings bilaterally. OTHER: Negative. CT/CT abdomen pelvis wo/w con IMPRESSION: 1. Stable to minimal increase in size of a mildly enhancing lesion within the right kidney, 2.1 cm in size. While nonspecific the lesion is suspicious for neoplasm. Consider PET imaging or further evaluation with MRI. 2. Scattered lucencies within the marrow cavity of the iliac wings; metastatic lesions? Given the appearance of the renal lesion, this is concerning for metastatic disease. Electronically authenticated by: FERNANDO GUERRA Date: 05/13/2024 14:21
--- OUTSIDE RECORDS SUMMARY | 2024-05-13 11:42 | XMS_ITS | CCD ---
Author Organization [facility] Care Team Providers Care [employer] Music Therapist Name Role Phone JUANJO MURDOCK Primary Care Physician NEENA MURDOCK Attending Unavailable NEENA MURDOCK Admitting Unavailable DR JUANJO MURDOCK Consulting Unavailable DR JUANJO MURDOCK Primary Care Unavailable Juanjo Murdock II Unavailable [phone] Juanjo Murdock II Unavailable Walker CUNHA, Max Unavailable Juanjo Murdock MD Unavailable [phone] Juanjo Murdock MD Primary Care Provider [phone] Mathieu GAMEZ MD, Daniel B Unavailable Walker CUNHA, Max Unavailable Mathieu GAMEZ MD, Daniel B Primary Care Provider Edmond FUENTES Attending Unavailable Edmond FUENTES Attending Unavailable Edmond FUENTES Attending Unavailable JUANJO MURDOCK Referring Unavailable Edmond FUENTES Attending Unavailable AMRITA HERNANDEZ Attending Unavailable JUANJO MURDOCK Attending Unavailable PEGGY WAKEFIELD Attending Unavailable HEMPEGGY HOLGUIN Attending Unavailable QUANG GARCIA Attending Unavailable HEMPEGGY HOLGUIN Referring Unavailable JUANJO MURDOKC Attending Unavailable CINDY LANGFORD Attending Unavailable QUANG GARCIA Attending Unavailable HEMPEGGY HOLGUIN Referring Unavailable SARAH SHARP Attending Unavailable HEMPEGGY HOLGUIN Referring Unavailable SARAH SHARP Attending Unavailable PEGGY WAKEFIELD Referring Unavailable JUANJO MURDOCK Attending Unavailable SARAH SHARP Attending Unavailable HEMPEGGY HOLGUIN Referring Unavailable QUANG GARCIA Attending Unavailable HEMPEGGY HOLGUIN Referring Unavailable SARAH SHARP Attending Unavailable HEMPEGGY HOLGUIN Referring Unavailable BRSARAH RED Attending Unavailable HEMPEGGY HOLGUIN Referring Unavailable MELBA LOPEZ Attending Unavailable PEGGY WAKEFIELD Referring Unavailable NANCE V, LUCY Attending Unavailable MURDOCK, JUANJO B Referring Unavailable WALKER HIGGINBOTHAM Attending Unavailable MIKE MAX Attending Unavailable WALKER HIGGINBOTHAM Referring Unavailable PEGGY WAKEFIELD Attending Unavailable WINTER, MIKE S Attending Unavailable NANCE James, LUCY Attending Unavailable Pilo Nancet Admitting Unavailable Murdock, Juanjo Primary Care Unavailable Lucy Nance Attending Unavailable Murdock, Juanjo Primary Care Unavailable Winter, Mike Attending Unavailable Winter, Mike Admitting Unavailable Murdock, Juanjo Primary Care Unavailable Winter, Mike Attending Unavailable LuisedMike thakur Admitting Unavailable JEOVANNY-PALSHOOK, FLIP Referring Unavai lable MURDOCK II, JUANJO B Primary Care Unavailable KAMERON WINSLOW Admitting Unavailable KAMERON WINSLOW Attending Unavailable JEOVANNY-PALSHOOK, FLIP Referring Unavai lable MURDOCK II, JUANJO B Primary Care Unavailable JEOVANNY-PALSHOOK, FLIP Referring Unavai lable JEOVANNY-PALSHOOK, FLIP Referring Unavai lable MURDOCK II, JUANJO B Primary Care Unavailable MURDOCK II, JUANJO B Primary Care Unavailable JEOVANNY-PALSHOOK, FLIP Referring Unavai lable MURDOCK II, JUANJO B Primary Care Unavailable JEOVANNY-PALSHOOK, FLIP Referring Unavai lable MURDOCK II, JUANJO B Primary Care Unavailable SEBASTIAN MAYERSYA Attending Unavailable MURDOCK II, JUANJO B Primary Care Unavailable KAMERON WINSLOW Attending Unavailable KAMERON WINSLOW Referring Unavailable MURDOCK II, JUANJO B Primary Care Unavailable WALKER, MAX Referring Unavailable WALKER, MAX Referring Unavailable WALKER, MAX Attending Unavailable WALKER, MAX Referring Unavailable BRI VALLADARES Attending Unavailable JEOVANNY-PALSHOOK, FLIP Referring Unavai lable MURDOCK II, JUANJO B Primary Care Unavailable MICHEL BRICENO Attending Unavailable JEOVANNY-PALSHOOK, FLIP Referring Unavai lable MURDOCK II, JUANJO B Primary Care Unavailable Allergies Allergy Classification Reported Allergen(s) Allergy Type Date of Onset Reaction(s) Facility (5 sources) Sulfanilamide; Translations: [sulfanilamide topical] Drug Allergy Unknown (qualifier value) [facility] (1 source) Sulfanilamide Drug Allergy 4 [facility] Repository (20 sources) Sulfonamides (Antibiotic); Translations: [SULFA (SULFONAMIDE ANTIBIOTICS)] Drug Allergy 4 Other: See Comments [facility] (20 sources) Sulfanilamide Allergy to substance 3 Unknown [facility] Work Phone: (20 sources) tiZANidine; Translations: [TIZANIDINE] Drug Allergy 1 GI intolerance, GI Upset [facility] Medications Current Medications Medication Drug Class(es) Dates Sig (Normalized) Sig (Original) acetaminophen 325 mg / HYDROcodone bitartrate 5 mg oral tablet (7 sources) Opioid Agonist Start: 03-27-2024 take 1 tablet by mouth every six hours as needed for pain and pain HYDROcodone-aceta minophen ([place]) 5-325 MG tablet Take 1 tablet by mouth every 6 (six) hours if needed for moderate pain or severe pain 03/27/2024 Active [id number] 200 actuat albuterol 0.09 mg/actuat metered dose [...] 1 capsule by mo uth once daily in the morning amLODIPine-benazepril (LOTREL) 5-20 mg per capsule Take 1 capsule by mouth every morning. 10/16/2022 Active Comment on above: Take 1 capsule [...] 04/14/19 Status: Ordered take 1 tablet by paty th once daily at bedtime aspirin, enteric coated (ASPIRIN, ENTERI C COATED) 81 mg EC tablet Take 81 mg by mouth daily at bedtime. Active Comment on above: Take 81 mg by mouth daily at bedtime. benzonatate 200 mg oral capsule (7 sources) Non-narcotic Antitussive Start: End: take 1 [...] sources) Thiazide Diuretic, beta-Adrenergic [place] Start: End: take 1 tablet by mouth once daily in the morning bisoprolol-hydroCH LOROthiazide (ZIAC) 5-6.25 mg per tablet Take 1 tablet by mouth every morning. 08/29/2022 Active Start: 04-09-2019 take 1 tablet by paty th once daily Ziac 2.5 mg-6.25 mg Tab tab(s), Oral, Daily, Refill(s) 0 Start Date: 04/09/19 Status: Ordered Comment on above: Take 1 tablet by paty th every morning. 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 Active Comment on above: Take 10 mg [...] Start: 09-04-2022 take 1 tablet by paty once daily at bedtime ibuprofen (MOTRIN) 800 [...] mg/ml topical cream (20 sources) Corticosteroid mometasone (ELOC ON) 0.1 % cream Apply 1 Application to affected area. Active Multi Vitamin+ (4 sources) Start: 2019 [...] Chronic Other diseases of kidney and ureters (14 sources) Renal mass; Translations: [Other specified disorders of kidney and ureter] Onset: 03-31-2024 02-13-2024 Chronic Other diseases of kidney and ureters (1 source) Disorder of kidney and/or ureter; Translations: [Other specified disorders of kidney and ureter] Onset: 03-02-2024 Chronic Other diseases of kidney and ureters (1 source) Urinary tract obstruction; Translations: [Other obstructive and reflux uropathy] Onset: 05-02-2022 Episodic Other gastrointestinal disorders (20 sources) Other specified diseases of intestine; Translations: [Other specified disorders of intestine] Onset: 03-17-2024 01-30-2024 Episodic Other lower respiratory disease (2 sources) Cough; Translations: [Acute cough] 05-21-2023 Episodic Other lower respiratory disease (3 sources) Dyspnea; Translations: [Shortness of breath] 11-11-2023 [...] conditions (not mental disorders or infectious disease) (3 sources) CT of abdomen abnormal; Translations: [Abnormal findings [...] seborrheic keratosis] 02-03-2024 Episodic Other skin disorders (4 sources) Surgical wound finding; Translations: [Other specified [...] Test Name Value Interpretation Reference Range Facility [facility] 05-05[facility]2024 [facility] (CATHMN[facility] NIVIA RAMOS ([id number]) 1950 M Date Time Provider Department 05/05/24 MICHEL BRICENO During your visit today, we recorded the following information about you: Bradford Duffoine 05/05/2024 1:23 PM Signed Pt called to find out if he is definitely going to be scheduled for TAVR procedure on 05/27. Pt will be sending his dental clearance form on [employer] if he is unable to fax. Pt can be reached at [phone] Zita Simmons APRN.CNP 05/05/2024 1:38 PM Signed Spoke with patient and he is now scheduled. Allergies As of Date: 05/05/2024 Noted Allergy Reaction TIZANIDINE 09/08/2020 8 - GI Upset SULFA (SULFONAMIDE ANTIBIOTICS) 01/03/2014 14 - Other: See Comments Comments: Red eyes d/t sulfa eye drops Date Reviewed: 02/06/2024 Reviewed by: Bri Valladares APRN.COURTESY BUS DRIVER - Fully Assessed Reason for Visit: Patient Question [1261] Prescriptions as of 05/05/2024 - mometasone (ELOCON) 0.1 % cream Apply [...] once daily. Problem List As Of Date: 05/05/2024 (None) Encounter Status:Closed by ZITA SIMMONS on 05/05/[address] [facility] PATHOLOGY REQUEST FOR LAB CO RPon 04-07-2024 PATHOLOGY REQUEST FOR LAB KE[facility] Healthcare Comment on above: See report. Scanned copy available in EMR. PATHOLOGY AMBULATORY SPECIMEN [facility] CREATININEon 04-03-2024 Creatinine [Mass/Vol] 0.85 mg/dL 0.70 - 1.30 mg/dL [facility] GFR/1.73 sq M.predicted CKD-EPI (S/P/Bld) [Vol rate/Area] >60 >=60 mL/min/1.73m 2 [facility] EGFR-NON AF PRYDEINIG >60 >=60 mL/min/1.73m 2 [facility] Pathology Request for Lab Co rpon 03-27-2024 Pathology Request for Lab Keith Normal [facility] Comment on above: Order Comment: PATHO LOGY AMBULATORY SPECIMEN Result Comment: See report. Scanned copy available in EMR. PERFORMED BY: [address] [address] PATHOLOGIST AUTOMOBILE DAMAGE FIELD APPRAISER KATHY MARCANO M.D. Performed By: #### P ATH TO [facility] #### [facility] [address] [place] [address] [facility] Basic Metabolic Panelon 03-08 Anion gap [Moles/Vol] 8.2 mmol/L Normal 6.0-15.0 [facility] Comment on above: Performed By: #### C BC, BMP #### [facility] [address] [place] [id number] [facility] Calcium [Mass/Vol] 9.6 mg/dL Normal 8.6-10.3 [facility] Comment on above: Result Comment: PERF ORMED BY: [address] [place] [id number] PATHOLOGIST AUTOMOBILE DAMAGE FIELD APPRAISER KATHY MARCANO M.D. Performed By: #### C BC, BMP #### [facility] [address] [place] [address] [place] Chloride [Moles/Vol] 99 mmol/L Normal 98-107 [facility] Comment on above: Performed By: #### C BC, BMP #### [facility] [address] [place] [id number] [place] CO2 [Moles/Vol] 32.0 mmol/L High 21.0-31.0 [facility] Comment on above: Performed By: #### C BC, BMP #### [address] Creatinine [Mass/Vol] 0.76 mg/dL Normal 0.70-1.30 [facility] Comment on above: Performed By: #### C BC, BMP #### [place] [address] [place] GFR/1.73 sq M.predicted MDRD (S/P/Bld) [Vol rate/Area] mL/min/{1.73_m2} Normal [facility] Comment on above: Performed By: #### C BC, BMP #### [address] Glucose [Mass/Vol] 93 mg/dL Normal 70-100 [facility] Comment on above: Result Comment: [place] Glucose Reference Range is dependent on time and content of last meal. Glucose of more than 200 mg/dL in a nonstressed, ambulatory subject supports the diagnosis of Diabetes Mellitus. ADA recommended reference range Performed By: #### C BC, BMP #### [place] [address] [place] Potassium [Moles/Vol] 4.2 mmol/L Normal 3.5-5.1 [facility] Comment on above: Performed By: #### C BC, BMP #### [place] [address] [place] Sodium [Moles/Vol] 135 mmol/L Low 136-145 [facility] Comment on above: Performed By: #### C BC, BMP #### [address] [place] [address] [facility] Urea nitrogen [Mass/Vol] 14 mg/dL Normal 7-25 [facility] Comment on above: Performed By: #### C BC, BMP #### [facility] [address] [place] [address] [facility] Basic metabolic 1998 panelon 03-26-2024 Anion gap [Moles/Vol] 8.2 mmol/L 6.0 - 15.0 meq/L [facility] Calcium [Mass/Vol] 9.6 mg/dL 8.6 - 10. 3 mg/dL [facility] Chloride [Moles/Vol] 99 mmol/L 98 - 10 7 mmol/L [facility] CO2 [Moles/Vol] 32 mmol/L High 21.0 - 31.0 mmol/L [facility] Creatinine (U) [Mass/Vol] 0.76 mg/dL 0.70 - 1.30 mg/dL [facility] ESTIMATED GFR mL/Min [facility] Glucose [Mass/Vol] 93 mg/dL 70 - 100 mg/dL [facility] Comment on above: Random Glucose Refer ence Range is dependent on time and content of last meal. Glucose of more than 200 mg/dL in a nonstressed, ambulatory subject supports the diagnosis of Diabetes Mellitus. ADA recommended reference range Interpretation and review of laboratory results Abnormal [facility] Potassium [Moles/Vol] 4.2 mmol/L 3.5 - 5.1 mmol/L [facility] Sodium [Moles/Vol] 135 mmol/L Low 136 - 145 mmol/L [facility] Urea nitrogen [Mass/Vol] 14 mg/dL 7 - 25 mg/dL [facility] CBC W Auto Differential pane l (Bld)on 03-26-2024 Basophils (Bld) [#/Vol] 0.1 10*3/uL 0.0 - 0.2 10*3/uL [facility] Basophils/100 WBC Manual cnt (Syn fld) 0.9 % . [facility] Eosinophils (Bld) [#/Vol] 0.2 10*3/uL 0.0 - 0.45 10*3/uL [facility] Eosinophils/100 WBC Manual cnt (Syn fld) 2.5 % . [facility] Erythrocyte distribution width (RBC) [Ratio] 13.1 % 12.0 - 14.8 % [facility] Hematocrit (Bld) [Volume fraction] 38.8 % 38.8 - 50.0 % [facility] Hemoglobin (Bld) [Mass/Vol] 13.2 g/dL 13.0 - 17.0 g/dL [facility] Interpretation and review of laboratory results Abnormal [facility] Lymphocytes (Bld) [#/Vol] 1.3 10*3/uL 1.00 - 4.8 10*3/uL [facility] Lymphocytes/100 WBC Manual cnt (Syn fld) 22 % . [facility] MCH (RBC) [Entitic mass] 32.6 pg 27.5 - 35.2 pg [facility] MCHC (RBC) [Mass/Vol] 34 g/dL 32.5 - 35.6 g/dL [facility] MCV (RBC) [Entitic vol] 96.1 fL 83.5 - 101 fL [facility] Monocytes (Bld) [#/Vol] 0.9 10*3/uL High 0.0 - 0.8 10*3/uL [facility] Monocytes+Macrophage s/100 WBC Manual cnt (Syn fld) 15.6 % . [facility] Neutrophils (Bld) [#/Vol] 3.6 10*3/uL 1.8 - 7.7 10*3/uL [facility] Neutrophils/100 WBC Manual cnt (Syn fld) 59 % . [facility] NRBC 0 /100{WBC} 0 - 0.5 /100{WBC} [facility] Platelet mean volume (Bld) [Entitic vol] 7.6 fL 6.6 - 10.1 fL [facility] Platelets (Bld) [#/Vol] 286 10*3/uL 150 - 450 10*3/uL [facility] RBC LM.HPF (Urine sed) [#/Area] 4.04 10*6/uL 3.90 - 5.60 10*6/uL [facility] WBC (Bld) [#/Vol] 6 10*3/uL 4.1 - 10.5 10*3/uL [facility] WBC LM.HPF (Urine sed) [#/Area] 6 10*3/uL 4.1 - 10.5 10*3/uL [facility] Complete Blood Count Auto Di ffon 03-26-2024 Basophils (Bld) [#/Vol] 0.1 10*3/uL Normal 0.0-0.2 [facility] Comment on above: Result Comment: PERF ORMED BY: [place] [address] PATHOLOGIST AUTOMOBILE DAMAGE FIELD APPRAISER KATHY MARCANO M.D. Performed By: #### C BC, BMP #### [address] Basophils/100 WBC (Bld) 0.9 % Normal . [facility] Comment on above: Performed By: #### C BC, BMP #### [place] [address] [place] Eosinophils (Bld) [#/Vol] 0.2 10*3/uL Normal 0.0-0.45 [facility] Comment on above: Performed By: #### C BC, BMP #### [address] Eosinophils/100 WBC (Bld) 2.5 % Normal . [facility] Comment on above: Performed By: #### C BC, BMP #### [address] Erythrocyte distribution width (RBC) [Ratio] 13.1 % Normal 12.0-14.8 [facility] Comment on above: Performed By: #### C BC, BMP #### [address] Hematocrit (Bld) [Volume fraction] 38.8 % Normal 38.8-50.0 [facility] Comment on above: Performed By: #### C BC, BMP #### [address] Hemoglobin (Bld) [Mass/Vol] 13.2 g/dL Normal 13.0-17.0 [facility] Comment on above: Performed By: #### C BC, BMP #### [address] Lymphocytes (Bld) [#/Vol] 1.3 10*3/uL Normal 1.00-4.8 [facility] Comment on above: Performed By: #### C BC, BMP #### [place] [address] [place] Lymphocytes/100 WBC (Bld) 22.0 % Normal . [facility] Comment on above: Performed By: #### C BC, BMP #### [address] MCH (RBC) [Entitic mass] 32.6 pg Normal 27.5-35.2 [facility] Comment on above: Performed By: #### C BC, BMP #### [address] MCV (RBC) [Entitic vol] 96.1 fL Normal 83.5-101 [facility] Comment on above: Performed By: #### C BC, BMP #### [address] Mean Corpuscular HGB Conc 34.0 g/dL Normal 32.5-35.6 [facility] Comment on above: Performed By: #### C BC, BMP #### [place] [address] [place] Monocytes (Bld) [#/Vol] 0.9 10*3/uL High 0.0-0.8 [facility] Comment on above: Performed By: #### C BC, BMP #### [place] [address] [place] Monocytes/100 WBC (Bld) 15.6 % Normal . [facility] Comment on above: Performed By: #### C BC, BMP #### [address] Neutrophils (Bld) [#/Vol] 3.6 10*3/uL Normal 1.8-7.7 [facility] Comment on above: Performed By: #### C BC, BMP #### [address] Neutrophils/100 WBC (Bld) 59.0 % Normal . [facility] Comment on above: Performed By: #### C BC, BMP #### [facility] [address] NRBC% 0.0 /100{WBC} Normal 0-0.5 [facility] Comment on above: Performed By: #### C BC, BMP #### [facility] [address] Platelet mean volume (Bld) [Entitic vol] 7.6 fL Normal 6.6-10.1 [facility] Comment on above: Performed By: #### C BC, BMP #### [facility] [address] [place] [address] [place] Platelets (Bld) [#/Vol] 286 10*3/uL Normal 150-450 [facility] Comment on above: Performed By: #### C BC, BMP #### [facility] [address] RBC (Bld) [#/Vol] 4.04 10*6/uL Normal 3.90-5.60 [facility] Comment on above: Performed By: #### C BC, BMP #### [facility] [address] WBC (Bld) [#/Vol] 6.0 10*3/uL Normal 4.1-10.5 [facility] Comment on above: Performed By: #### C BC, BMP #### [address] ECG 12 lead ECGon 03-26-2024 ECG 12 lead ECG [facility] Main [place] [address] [place] [address] Electrocardiograph Report Signed Patient: Nivia Ramos MR#: [id number] : 1950 Acct:[id number] Age/Sex: 73 / M ADM Date: 03/26/24 Loc: PS Room: Type: [facility] Attending Dr: Mike Max DO Ordering Provider: [...] previous ECGs available Confirmed by URBAN C[facility]HA [facility] ([id number][facility] on 03/26/2024 5:49:26 PM Referred By: Electronically Signed By: GHANSHYAM DUGGAN MD [facility] Transcribed By: MUS Signed By Ghanshyam Duggan MD, [facility] 03/26/24 [id number] Normal [facility] 03-25-2024 CNPN Telephone (CATHMN) NIVIA RAMOS ([id number]) 1950 M Date Time Provider Department 03/25/24 MICHEL BRICENO CATHVA During your visit today, we recorded the following information about you: Bradford Duff 03/25/2024 10:06 AM Signed Pt has decided to move forward and [facility] Allergies As of Date: 03/25/2024 Noted Allergy Reaction TIZANIDINE 09/08/2020 8 - GI Upset SULFA (SULFONAMIDE ANTIBIOTICS) 01/03/2014 14 - Other: See Comments Comments: Red eyes d/t sulfa eye drops Date Reviewed: 02/06/2024 Reviewed by: Bri Valladares APRN.COURTESY BUS DRIVER - Fully Assessed Reason for Visit: Return Call Request [8021] Prescriptions as of 03/25/2024 - mometasone (ELOCON) [...] Encounter Status:Closed by BRADFORD DUFF on 03/25/24 [facility] Telephone (MAT) NIVIA RAMOS ([id number]) 1950 M Date Time Provider Department 03/25/24 ETHEL RIZVI During your visit today, we recorded the following information about you: Ethel Rizvi APRN.DIATHERMY EQUIPMENT REPAIRER 03/25/2024 10:11 AM Signed I spoke with [...] Will send a new dental form in [facility]. Reviewed medication list; will not need to stop anything PRIOR to the TAVR. Ethel Rizvi APRN.DIATHERMY EQUIPMENT REPAIRER Allergies As of Date: 03/25/2024 Noted Allergy Reaction TIZANIDINE 09/08/2020 8 - GI Upset SULFA (SULFONAMIDE ANTIBIOTICS) 01/03/2014 14 - Other: See Comments Comments: Red eyes d/t sulfa eye drops Date Reviewed: 02/06/2024 Reviewed by: Bri Valladares APRN.COURTESY BUS DRIVER - Fully Assessed Reason for Visit: Patient [...] Encounter Status:Closed by ETHEL RIZVI on 03/25/24 [facility] No Panel Informationon 03-25 Consent obtained: written (The rationale for Mohs as well as the risks, benefits, and alternatives. The risks of infection, scarring, bleeding, prolonged wound healing, incomplete removal, allergy to anesthesia or meds, nerve injury, and recurrence were addressed.) [place] Protocol: Procedure explained and questions answered to [...] sodium bicarbonate Procedure Details: Biopsy accession number: [id number] Biopsy lab: [facility] Date of biopsy: 02/03/2024 Frozen section biopsy [...] surgery? Yes When were antibiotics given? post-operative [facility] Ambulatory Visit Summaryon 1 05-02-2023 Ambulatory Visit Summary Ambulatory Visit Summary NIVIA RAMOS :1950 Visit Date:03/02/2024 Ambulatory Visit Instructions Your Diagnosis Renal mass Bladder diverticulum BPH with urinary obstruction Tests Performed CT Abdomen/Pelvis w/ + w/o Contrast -- Results Pending -- Please visit your patient portal for your results or contact your primary care physician. Your Care Team Attending Physician - Edmond FUENTES MD Primary Care Physician - JUANJO MURDOCK MD Referring Physician - JUANJO MURDOCK MD This [...] Edmond FUENTES MD Where: [facility] [address] [place] [address]- Saturday 10:00 AM EDT With: Edmond FUENTES MD Where: [facility] [address] [place] [address]- You Need to Schedule the Following Appointments Follow Up with Edmond FUENTES MD, URL When: Where: [address] [address]- Medications What How Much When Instructions Unchanged [...] physical exam (more content not included)... Normal [facility] Urology Office/Clinic Noteon 03-02-2024 Urology Office/Clinic Note Urology Office/Clinic Note Chief Complaint Re referaal [facility] Staff Re Referral per Juanjo Murdock MD [...] Kidneys unremarkable. CT AP w/wo con 02/11/24 [facility] - 1.8 cm R Medial Pole Renal enhancing hypodensity. Malignancy additional hypodensities likely small cyst. Reviewed imaging with pt, given that the small mass is enhancing, it is suspicious for malignancy. Discussed other imaging options besides for CT given the discrepancy between the [facility] and [facility] readings like BHARTI or MRI. Reassured pt [...] mos with CT AP w/wo con at [facility] or sooner if needed. Pt understands [...] small timeframe. The CT scan from the [facility] did not mention this mass but the CT scan from the [facility] certainly does. We discussed the options as [...] the standpoint. Follow-up With When Contact Information CHEVY CUNHA, Edmond Rojas, URL [address] [address]- Additional Instructions: [address] Ab pelvis w/wo con at [facility] Patient Education Renal Mass Benign Prostatic Hyper (more content not included)... Normal [facility] Comment on above: Result Comment: Elec tronically Signed By: Edmond FUENTES MD P\.br\Date and Time Signed: 03/02/24 16:46 EST\.br\Electronically Co-Signed By: Astrid Harris\.br\Date and Time Co-Signed: 03/02/24 11:42 EST CNPNon 02-14-2024 KAYLAN Telephone (CATHMN) NIVIA RAMOS ([id number]) 1950 M Date Time Provider Department 02/14/24 ZITA SIMMONS During your visit today, we recorded the following information about you: Zita Simmons APRN.CNP 02/14/2024 1:09 PM Signed Patient called to [...] APRN.CNP - Fully Assessed Reason for Visit: Patient [...] Encounter Status:Closed by ZITA SIMMONS [facility] ([id number]) 1950 M Date Time Provider Department 02/14/[address] [facility] During your visit today, we recorded the following information about you: Bradford Duff 02/14/2024 1:11 PM Signed Pt returned TAVR nurse call. Allergies As of Date: 02/14/2024 Noted Allergy Reaction TIZANIDINE 09/08/2020 8 - GI Upset SULFA (SULFONAMIDE ANTIBIOTICS) 01/03/2014 14 - Other: See Comments Comments: Red eyes d/t sulfa eye drops Date Reviewed: 02/06/2024 Reviewed by: Bri Valladares APRN.[facility] - Fully Assessed Reason for Visit: Return Call Request [[id number]] Prescriptions as of 02/14/2024 - mometasone (ELOCON) [...] Status:Closed by BRADFORD DUFF on 02/14/[address] [facility] CNOVon 02-06-2024 CNOV Office Visit (PULMAV ) NIVIA RAMOS ([id number]) 1950 M Date Time Provider Department 02/06/24 10:30 [facility] your visit today, we recorded the following information about you: Pulse Blood pressure Weight Height 69/minute 159/80 71.4 kg 1.753 m Bri Valladares APRN.CNP 02/06/2024 11:08 AM Signed [facility] INCIDENTAL LUNG NODULE PROGRAM Impression / Recommendations [...] Nodule program: Yes Lung Nodule Program Location: [facility] Requesting Provider: Flip Lozano Reason for [...] (152 lb 6.4 oz) Modified Medical Research [place] Dyspnea Scale (MMRC) I only get breathless with strenous exercise 0 Other Pertinent Clinical Risk Factors: Significant exposures (1 year or more of exposure): Dusts. Recent travel history: None Animal exposure: dog and cat Hobbies: none Does the patient have a prior history malignancy? No Does the patient have a family history of lung cancer? No Malignancy Risk ([facility] model) Lung Nodule Calculator: (if applicable) 11-20% [...] the isch (more content not included)... Normal 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 Nursing/NATASHA Hernandez,Dinesh Quiros R.N. B. R.Aleks. Shanell Peralta. R.Aleks. + + PATIENT INFORMATION + + Name: [...] 73 y/o M who presents for preop [facility] pmh: 1. Aortic stenosis, CHICO 0.7, Pk/Mn: [...] On: 01/22/2024 at 7:32:42 AM Final CC [employer] [facility] Image : [id number] UID See Link below for Image Normal [facility] CBC panel Auto (Bld)on 01-20 Erythrocyte distribution width (RBC) [Ratio] 12.6 % Normal 11.5-15.0 [facility] Comment on above: Order Comment: Speci men Type: BLOOD SPECIMEN Ordering Facility: [facility] Address: [address] [place] [address] Performed By: #### 2 4323-8 #### [facility] CLIA [id number] [address] [place] [address] [place] Hematocrit (Bld) [Volume fraction] 41.3 % Normal 39.0-51.0 [facility] Comment on above: Order Comment: Speci men Type: BLOOD SPECIMEN Ordering Facility: [facility] Address: [address] [place] [address] Performed By: #### 2 4323-8 #### [facility] CLIA [id number] [address] [place] [address] [place] Hemoglobin (Bld) [Mass/Vol] 13.4 g/dL Normal 13.0-17.0 [facility] Comment on above: Order Comment: Speci men Type: BLOOD SPECIMEN Ordering Facility: [facility] Address: [address] [place] [address] Performed By: #### 2 4323-8 #### [facility] CLIA [id number] [address] [place] [address] [place] MCH (RBC) [Entitic mass] 31.5 pg Normal 26.0-34.0 [facility] Comment on above: Order Comment: Speci men Type: BLOOD SPECIMEN Ordering Facility: [facility] Address: [address] [place] [address] Performed By: #### 2 4323-8 #### [facility] CLIA [id number] [address] [place] [address] [place] MCHC (RBC) [Mass/Vol] 32.4 g/dL Normal 30.5-36.0 [facility] Comment on above: Order Comment: Speci men Type: BLOOD SPECIMEN Ordering Facility: [facility] Address: [address] [place] [address] Performed By: #### 2 4323-8 #### [facility] CLIA [id number] [address] [place] [address] [place] MCV (RBC) [Entitic vol] 96.9 fL Normal 80.0-100.0 [facility] Comment on above: Order Comment: Speci men Type: BLOOD SPECIMEN Ordering Facility: [facility] Address: [address] [place] [address] Performed By: #### 2 4323-8 #### [facility] CLIA [id number] [address] [place] [address] [place] Nucleated RBC (Bld) [#/Vol] 10*3/uL Normal <0.01 [facility] Comment on above: Order Comment: Speci men Type: BLOOD SPECIMEN Ordering Facility: [facility] Address: [address] [place] [address] Performed By: #### 2 4323-8 #### [facility] CLIA [id number] [address] [place] [address] [place] Platelet mean volume (Bld) [Entitic vol] 9.2 fL Normal 9.0-12.7 [facility] Comment on above: Order Comment: Speci men Type: BLOOD SPECIMEN Ordering Facility: [facility] Address: [address] [place] [address] Performed By: #### 2 4323-8 #### [facility] CLIA [id number] [address] [place] [address] [place] Platelets (Bld) [#/Vol] 315 10*3/uL Normal 150-400 [facility] Comment on above: Order Comment: Speci men Type: BLOOD SPECIMEN Ordering Facility: [facility] Address: [address] [place] [address] Performed By: #### 2 4323-8 #### [facility] CLIA [id number] [address] [place] [address] [place] RBC (Bld) [#/Vol] 4.26 10*6/uL Normal 4.20-6.00 [facility] Comment on above: Order Comment: Speci men Type: BLOOD SPECIMEN Ordering Facility: [facility] Address: [address] [place] [address] Performed By: #### 2 4323-8 #### [facility] CLIA [id number] [address] [place] [address] [place] WBC (Bld) [#/Vol] 7.09 10*3/uL Normal 3.70-11.00 [facility] Comment on above: Order Comment: Speci men Type: BLOOD SPECIMEN Ordering Facility: [facility] Address: [address] [place] [address] Performed By: #### 2 4323-8 #### [facility] CLIA [id number] [address] [place] [address] [place] CNOVon 01-21-2024 CNOV Office Visit (TOMN ) NIVIA RAMOS ([id number]) 1950 M Date Time Provider Department 01/21/24 2:30 PM FELIZ MAYERS TOMN During your visit today, we recorded the following information about you: Feliz Mayers MD 01/21/2024 6:10 PM Signed [facility] [place] DEPARTMENT OF CARDIAC SURGERY OUTPATIENT VISIT DATE January 21, 2024 OUTPATIENT VISIT SERVICE DATE: 01/21/2024 SERVICE TIME: 2:30 PM PCP: Juanjo Murdock II, MD [address] [place] [address] Referring Physician: No referring provider defined for [...] be communicated with the ordering provider via [facility] staff message by [facility] within [...] be communicated with the ordering provider via [facility] staff message or phone message by [facility] within 2 business days of report finalization. --END OF FINDING-- Suspect large 5.7 cm posterior diverticulum. Dedicated imaging recommended Acuity: Actionable Findings: Kidneys/Ureters/Bladder Routing Code: GU_1 Recommendation: Unlisted Recommendation (see report) TimeFrame: at the discretion of the clinical team. --END OF FINDING-- Paint Tester: CAMRYN ... Last ECHO Result Conclusion ECHO [...] the requesting (more content not included)... Normal [facility] CNOV Office Visit (CATHMN ) NIVIA RAMOS ([id number]) 1950 M Date Time Provider Department 01/21/24 12:00 PM [facility] CATHMN During your visit today, we recorded the following information about you: Respiration Weight Height 18/minute 70.3 kg 1.753 m Raya Karimi 01/21/2024 2:59 PM Signed [facility] [place] Oswald Tian Department of Cardiovascular Medicine SECTION OF INTERVENTIONAL CARDIOLOGY OUTPATIENT VISIT DATE January 21, 2024 OUTPATIENT VISIT TYPE ESTABLISHED FOLLOW UP Primary Advertising Consultant: Dr. Briceno Chief Complaint: Patient here for [...] AORTIC DIMENSIONS: AORTIC ROOT: 4.0 cm measured osewt-pe-fglya STJ: 3.1 cm mid ASCENDING THORACIC AORTA: [...] 5.7 cm (more content not included)... Normal [facility] Comprehensive metabolic 2000 panelon 01-21-2024 Albumin [Mass/Vol] 4.5 g/dL Normal 3.9-4.9 [facility] Comment on above: Order Comment: Speci men Type: BLOOD SPECIMEN Ordering Facility: [facility] Address: [address] [place] [address] Performed By: #### 2 4323-8 #### [facility] CLIA [id number] [address] [place] [id number] [place] ALP [Catalytic activity/Vol] 61 U/L Normal 38-113 [facility] Comment on above: Order Comment: Speci men Type: BLOOD SPECIMEN Ordering Facility: [facility] Address: [address] [place] [address] Performed By: #### 2 4323-8 #### [facility] CLIA [id number] [address] [place] [address] [place] ALT [Catalytic activity/Vol] 15 U/L Normal 10-54 [facility] Comment on above: Order Comment: Speci men Type: BLOOD SPECIMEN Ordering Facility: [facility] Address: [address] [place] [address] Performed By: #### 2 4323-8 #### [facility] CLIA [id number] [address] [place] [address] [place] Anion gap [Moles/Vol] 11 mmol/L Normal 8-15 [facility] Comment on above: Order Comment: Speci men Type: BLOOD SPECIMEN Ordering Facility: [facility] Address: [address] [place] [address] Performed By: #### 2 4323-8 #### [facility] CLIA [id number] [address] [place] [address] [place] AST [Catalytic activity/Vol] 20 U/L Normal 14-40 [facility] Comment on above: Order Comment: Speci men Type: BLOOD SPECIMEN Ordering Facility: [facility] Address: [address] [place], [place] [address] Performed By: #### 2 4323-8 #### [facility] CLIA [id number] [address] [place] [address] [place] Bilirubin [Mass/Vol] 0.6 mg/dL Normal 0.2-1.3 [facility] Comment on above: Order Comment: Speci men Type: BLOOD SPECIMEN Ordering Facility: [facility] Address: [address] [place] [id number] Performed By: #### 2 4323-8 #### [facility] CLIA [id number] [address] [place] [address] [place] Calcium [Mass/Vol] 9.8 mg/dL Normal 8.5-10.2 [facility] Comment on above: Order Comment: Speci men Type: BLOOD SPECIMEN Ordering Facility: [facility] Address: [address] [place] [address] Performed By: #### 2 4323-8 #### [facility] CLIA [id number] [address] [place] [address] [place] Chloride [Moles/Vol] 98 mmol/L Normal 98-107 [facility] Comment on above: Order Comment: Speci men Type: BLOOD SPECIMEN Ordering Facility: [facility] Address: [address] [place] [address] Performed By: #### 2 4323-8 #### [facility] CLIA [id number] [address] [place] [address] [place] CO2 [Moles/Vol] 28 mmol/L Normal 22-30 [facility] Comment on above: Order Comment: Speci men Type: BLOOD SPECIMEN Ordering Facility: [facility] Address: [address] [place], [place] [address] Performed By: #### 2 4323-8 #### [facility] CLIA [id number] [address] [place], [place] [id number] [place] Creatinine [Mass/Vol] 0.70 mg/dL Low 0.73-1.22 [facility] Comment on above: Order Comment: Speci men Type: BLOOD SPECIMEN Ordering Facility: [facility] Address: [address] [place], [place] [address] Performed By: #### 2 4323-8 #### [facility] CLIA [id number] [address] [place] [address] [place] Creatinine and Glomerular filtration rate.predicted panel (S/P/Bld) 97 mL/min/1.73m??? Normal >=60 [facility] Comment on above: Order Comment: Cydney head Type: BLOOD SPECIMEN Ordering Facility: [facility] Address: [address] [place] [address] Result Comment: Bia mated Glomerular Filtration Rate [...] actual GFR. Performed By: #### 2 4323-8 #### [facility] CLIA [id number] [address] [place] [address] [place] Glucose [Mass/Vol] 102 mg/dL High 74-99 [facility] Comment on above: Order Comment: Cydney head Type: BLOOD SPECIMEN Ordering Facility: [facility] Address: [address] [place] [address] Result Comment: The [place] Diabetes Association (ADA) provides guidance for cutoff [...] Standards of Medical Care in Diabetes 2016, [place] Diabetes Association. Diabetes Care. 2016.39(Suppl 1). Performed By: #### 2 4323-8 #### [facility] CLIA [id number] [address] [place] [address] [place] Potassium [Moles/Vol] 3.8 mmol/L Normal 3.7-5.1 [facility] Comment on above: Order Comment: Speci men Type: BLOOD SPECIMEN Ordering Facility: [facility] Address: [address] [place] [address] Performed By: #### 2 4323-8 #### [facility] CLIA [id number] [address] [place] [address] [place] Protein [Mass/Vol] 7.0 g/dL Normal 6.3-8.0 [facility] Comment on above: Order Comment: Speci men Type: BLOOD SPECIMEN Ordering Facility: [facility] Address: [address] [place] [address] Performed By: #### 2 4323-8 #### [facility] CLIA [id number] [address] [place] [address] [place] Sodium [Moles/Vol] 137 mmol/L Normal 136-144 [facility] Comment on above: Order Comment: Speci men Type: BLOOD SPECIMEN Ordering Facility: [facility] Address: [address] [place] [address] Performed By: #### 2 4323-8 #### [facility] CLIA [id number] [address] [place] [address] [place] Urea nitrogen [Mass/Vol] 14 mg/dL Normal 9-24 [facility] Comment on above: Order Comment: Speci men Type: BLOOD SPECIMEN Ordering Facility: [facility] Address: [address] [place] [address] Performed By: #### 2 4323-8 #### [facility] CLIA [id number] [address] [place] [address] [place] Naun 01-20-2024 KAYLAN Telephone (SHAUN) NIVIA RAMOS ([id number]) 1950 M Date Time Provider Department 01/20/24 KAMERON WINSLOW During your visit today, we recorded the following information about you: Neena Colon, RN 01/20/2024 2:59 PM Signed CARDIOVASCULAR LAB [...] Date Reviewed: 01/17/2024 Reviewed by: Jose D Liang, RT(R) - Fully Assessed Reason for Visit: [...] Status:Closed by NEENA COLON RN on 01/20/24 [facility]19[facility]2024 [facility]CATLM[facility] NIVIA RAMOS ([id number]) 1950 M Date Time Provider Department 01/19/24 KAMERON WINSLOWAleks During your visit today, we recorded the [...] Status:Closed by NEENA COLON RN on 01/19/24 [facility] CNOVnaveen 01-17-2024 CNOV Office Visit (CATHMN ) NIVIA RAMOS ([id number]) 1950 M Date Time Provider Department 01/17/24 12:30 PM MICHEL BRICENO During your visit today, we recorded the following information about you: Pulse Respiration Blood pressure Weight 64/minute 16/minute 179/91 71.2 kg Height 1.753 m Michel Briceno MD 01/17/2024 2:03 PM Signed [facility] [place] Oswald Tian Department of Cardiovascular Medicine SECTION OF INTERVENTIONAL CARDIOLOGY OUTPATIENT VISIT DATE January 17, 2024 OUTPATIENT VISIT TYPE NEW PRIMARY CARE PHYSICIAN: Juanjo Murdock II, MD [address] [place] [address] REFERRING PHYSICIAN: Flip Lozano [address] [facility] [address] CHIEF COMPLAINT: Aortic stenosis HISTORY OF PRESENT [...] good repair. (more content not included)... Normal [facility] CREATININE, BLOOD (POC)on Creatinine [Mass/Vol] 0.90 mg/dL 0.7 - 1.4 mg/dL [facility] eGFR (POCT) mL/min/1.73 m2 [facility] Location:Radiology [facility], [address] [place] [address], [address] [facility] POINT OF CARE [facility] CTA C/A/P (GATED) W IVCONon 01-17-2024 CTA [...] AORTIC DIMENSIONS: AORTIC ROOT: 4.0 cm measured swhmn-xz-kvfxw STJ: 3.1 cm mid ASCENDING THORACIC AORTA: [...] (more content not included)... Invalid Interpretation Code [facility] CTA Chest vessels and Abdomi nal vessels and Pelvis vessels W contrast IVOrdered By: [facility]cf Provider on 01-17-2024 Interpretation and review of laboratory results Abnormal [facility] Radiology Result ACTIONABLE Abnormal [facility] Comment on above: This report contains an [...] contact your provider for the next steps. [facility] CTA Chest vessels and Abdomi nal [...] be communicated with the ordering provider via [facility] staff message by [facility] within [...] be communicated with the ordering provider via [facility] staff message or phone message by [facility] within 2 business days of report finalization. --END OF FINDING-- Suspect large 5.7 cm posterior diverticulum. Dedicated imaging recommended Acuity: Actionable Findings: Kidneys/Ureters/Bladder Routing Code: GU_1 Recommendation: Unlisted Recommendation (see report) TimeFrame: at the discretion of the clinical team. --END OF FINDING-- Paint Tester: CAMRYN Transcribe Date/Time: Jan 17 2024 3:22P Dictated by : ALEJANDRA FUCHS MD This examination was interpreted and the report reviewed and electronically signed by: ALEJANDRA FUCHS MD on Jan 17 2024 4:06PM [facility] DIVISION OF RADIOLOGY * * *Final Report* [...] AORTIC DIMENSIONS: AORTIC ROOT: 4.0 cm measured oalxz-my-ruzej STJ: 3.1 cm mid ASCENDING THORACIC AORTA: [...] content not included)... DIVISION OF RADIOLOGY Provider, [facility] - 01/17/2024 * * *Final Report* * [...] AORTIC DIMENSIONS: AORTIC ROOT: 4.0 cm measured yazdy-hh-vzsyy STJ: 3.1 cm mid ASCENDING THORACIC AORTA: [...] Dedicated imaging recommended. (more content not included)... [facility] Radiology Study observation (narrative) [facility] ECG COMPLETEon 01-17-2024 ECG COMPLETE Ventricular Rate : 6 2 BPM Atrial Rate : 62 BPM P-R Interval : 180 ms QRS Duration : 104 ms Q-T Interval : 396 ms QTC Calculation(Bazett) : 401 ms Calculated P Mancos : 29 degrees Calculated R Mancos : -44 degrees Calculated T Mancos : 15 degrees NORMAL SINUS RHYTHM LEFT AXIS DEVIATION MINIMAL VOLTAGE CRITERIA FOR LVH, MAY BE NORMAL VARIANT ( R in aVL ) ABNORMAL ECG Confirmed by SHEEBA ROLLE MD ([id number]) on 02/21/2024 3:47:18 PM NAME : NIVIA RAMOS PID : [id number] : 1950 Gender : Male Race : ORD : [id number] Procedure Date : Jan 17 2024 14:17:59 Edit Date : Feb 21 2024 15:47:24 Diagnosis: NORMAL SINUS RHYTHM LEFT AXIS DEVIATION MINIMAL VOLTAGE CRITERIA FOR LVH, MAY BE NORMAL VARIANT ( R in aVL ) ABNORMAL ECG Confirmed by SHEEBA ROLLE MD ([id number]) on 02/21/2024 3:47:18 PM Test Reason : Location : 314 : J14 J1-4 Overread By : SHEEBA ROLLE MD Edited By : SHEEBA ROLLE MD Referred By : HAMLET LOZANO Acquired by : KEYLA LIMON [facility] XR CHEST 2V FRONTAL/LATon XR CHEST [...] IMPRESSION: Please see body of the report. Paint Tester: [facility] Transcribe Date/Time: Jan 17 2024 4:48P Dictated by : JOSH EVANGELISTA MD This examination was interpreted and the report reviewed and electronically signed by: JOSH EVANGELISTA MD on Jan 17 2024 4:50PM EST [id number] Normal [facility] XR Chest PA and Lateralon IMPRESSION: Please see body of the report. Paint Tester: [facility] Transcribe Date/Time: Jan 17 2024 4:48P [...] mild pectus excavatum. DIVISION OF RADIOLOGY Provider, [facility]ag[facility] - 01/17/2024 * * *Final Report* * [...] IMPRESSION: Please see body of the report. Paint Tester: [facility] Transcribe Date/Time: Jan 17 2024 4:48P Dictated by : JOSH EVANGELISTA MD This examination was interpreted and the report reviewed and electronically signed by: JOSH EVANGELISTA MD on Jan 17 2024 4:50PM EST [facility] Radiology Study observation (narrative) [facility] XR Chest PA and LateralOrder ed By: [facility] Provider on 01-17-2024 [facility] CBC W Auto Differential pane l (Bld)on 11-13-2023 Basophils (Bld) [#/Vol] 0.04 10*3/uL Normal <0.11 [facility] Comment on above: Order Comment: Speci men Type: BLOOD SPECIMEN Ordering Facility: [facility] Address: [address] [place] [address] Performed By: #### 2 4323-8 #### [facility] CLIA [id number] [address] [place], [place] [address] [address] [place] Basophils/100 WBC (Bld) 0.7 % Normal [facility] Comment on above: Order Comment: Speci men Type: BLOOD SPECIMEN Ordering Facility: [facility] Address: [address] [place] [address] Performed By: #### 2 4323-8 #### [facility] CLIA [id number] [address] [place] [address] [place] Differential cell count method Nom (Bld) Auto Normal [facility] Comment on above: Order Comment: Speci men Type: BLOOD SPECIMEN Ordering Facility: [facility] Address: [address] [place] [address] Performed By: #### 2 4323-8 #### [facility] CLIA [id number] [address] [place] [address] [place] Eosinophils (Bld) [#/Vol] 0.11 10*3/uL Normal <0.46 [facility] Comment on above: Order Comment: Speci men Type: BLOOD SPECIMEN Ordering Facility: [facility] Address: [address] [place] [address] Performed By: #### 2 4323-8 #### [facility] CLIA [id number] [address] [place] [address] [place] Eosinophils/100 WBC (Bld) 1.9 % Normal [facility] Comment on above: Order Comment: Speci men Type: BLOOD SPECIMEN Ordering Facility: [facility] Address: [address] [place] [address] Performed By: #### 2 4323-8 #### [facility] CLIA [id number] [address] [place] [address] [place] Erythrocyte distribution width (RBC) [Ratio] 12.6 % Normal 11.5-15.0 [facility] Comment on above: Order Comment: Speci men Type: BLOOD SPECIMEN Ordering Facility: [facility] Address: [address] [place] [address] Performed By: #### 2 4323-8 #### [facility] CLIA [id number] [address] [place] [address] [place] Hematocrit (Bld) [Volume fraction] 38.6 % Low 39.0-51.0 [facility] Comment on above: Order Comment: Speci men Type: BLOOD SPECIMEN Ordering Facility: [facility] Address: [address] [place] [address] Performed By: #### 2 4323-8 #### [facility] CLIA [id number] [address] [place] [address] [place] Hemoglobin (Bld) [Mass/Vol] 13.0 g/dL Normal 13.0-17.0 [facility] Comment on above: Order Comment: Speci men Type: BLOOD SPECIMEN Ordering Facility: [facility] Address: [address] [place] [address] Performed By: #### 2 4323-8 #### [facility] CLIA [id number] [address] [place] [address] [place] Immature granulocytes (Bld) [#/Vol] 10*3/uL Normal <0.10 [facility] Comment on above: Order Comment: Speci men Type: BLOOD SPECIMEN Ordering Facility: [facility] Address: [address] [place] [address] Performed By: #### 2 4323-8 #### [facility] CLIA [id number] [address] [place] [address] [place] Immature granulocytes/100 WBC (Bld) 0.3 % Normal [facility] Comment on above: Order Comment: Speci men Type: BLOOD SPECIMEN Ordering Facility: [facility] Address: [address] [place] [address] Performed By: #### 2 4323-8 #### [facility] CLIA [id number] [address] [place] [address] [place] Lymphocytes (Bld) [#/Vol] 1.09 10*3/uL Normal 1.00-4.00 [facility] Comment on above: Order Comment: Speci men Type: BLOOD SPECIMEN Ordering Facility: [facility] Address: [address] [place] [address] Performed By: #### 2 4323-8 #### [facility] CLIA [id number] [address] [place] [address] [place] Lymphocytes/100 WBC (Bld) 18.7 % Normal [facility] Comment on above: Order Comment: Speci men Type: BLOOD SPECIMEN Ordering Facility: [facility] Address: [address] [place] [address] Performed By: #### 2 4323-8 #### [facility] CLIA [id number] [address] [place] [address] [place] MCH (RBC) [Entitic mass] 32.7 pg Normal 26.0-34.0 [facility] Comment on above: Order Comment: Speci men Type: BLOOD SPECIMEN Ordering Facility: [facility] Address: [address] [place] [address] Performed By: #### 2 4323-8 #### [facility] CLIA [id number] [address] [place] [address] [place] MCHC (RBC) [Mass/Vol] 33.7 g/dL Normal 30.5-36.0 [facility] Comment on above: Order Comment: Speci men Type: BLOOD SPECIMEN Ordering Facility: [facility] Address: [address] [place] [address] Performed By: #### 2 4323-8 #### [facility] CLIA [id number] [address] [place] [address] [place] MCV (RBC) [Entitic vol] 97.0 fL Normal 80.0-100.0 [facility] Comment on above: Order Comment: Speci men Type: BLOOD SPECIMEN Ordering Facility: [facility] Address: [address] [place] [address] Performed By: #### 2 4323-8 #### [facility] CLIA [id number] [address] [place] [address] [place] Monocytes (Bld) [#/Vol] 0.73 10*3/uL Normal <0.87 [facility] Comment on above: Order Comment: Speci men Type: BLOOD SPECIMEN Ordering Facility: [facility] Address: [address] [place] [address] Performed By: #### 2 4323-8 #### [facility] CLIA [id number] [address] [place] [address] [place] Monocytes/100 WBC (Bld) 12.5 % Normal [facility] Comment on above: Order Comment: Speci men Type: BLOOD SPECIMEN Ordering Facility: [facility] Address: [address] [place] [address] Performed By: #### 2 4323-8 #### [facility] CLIA [id number] [address] [place] [address] [place] Neutrophils (Bld) [#/Vol] 3.83 10*3/uL Normal 1.45-7.50 [facility] Comment on above: Order Comment: Speci men Type: BLOOD SPECIMEN Ordering Facility: [facility] Address: [address] [place] [address] Performed By: #### 2 4323-8 #### [facility] CLIA [id number] [address] [place] [address] [place] Neutrophils/100 WBC (Bld) 65.9 % Normal [facility] Comment on above: Order Comment: Speci men Type: BLOOD SPECIMEN Ordering Facility: [facility] Address: [address] [place] [address] Performed By: #### 2 4323-8 #### [facility] CLIA [id number] [address] [place] [address] [place] Nucleated RBC (Bld) [#/Vol] 10*3/uL Normal <0.01 [facility] Comment on above: Order Comment: Speci men Type: BLOOD SPECIMEN Ordering Facility: [facility] Address: [address] [place] [address] Performed By: #### 2 4323-8 #### [facility] CLIA [id number] [address] [place] [address] [place] Nucleated RBC/100 WBC (Bld) [Ratio] 0.0 /[address] [facility] Comment on above: Order Comment: Speci men Type: BLOOD SPECIMEN Ordering Facility: [facility] Address: [address] [place] [address] Performed By: #### 2 4323-8 #### [facility] CLIA [id number] [address] [place] [address] [place] Platelet mean volume (Bld) [Entitic vol] 8.8 fL Low 9.0-12.7 [facility] Comment on above: Order Comment: Speci men Type: BLOOD SPECIMEN Ordering Facility: [facility] Address: [address] [place] [address] Performed By: #### 2 4323-8 #### [facility] CLIA [id number] [address] [place] [address] [place] Platelets (Bld) [#/Vol] 243 10*3/uL Normal 150-400 [facility] Comment on above: Order Comment: Speci men Type: BLOOD SPECIMEN Ordering Facility: [facility] Address: [address] [place] [address] Performed By: #### 2 4323-8 #### [facility] CLIA [id number] [address] [place] [address] [place] RBC (Bld) [#/Vol] 3.98 10*6/uL Low 4.20-6.00 [facility] Comment on above: Order Comment: Speci men Type: BLOOD SPECIMEN Ordering Facility: [facility] Address: [address] [place] [address] Performed By: #### 2 4323-8 #### [facility] CLIA [id number] [address] [place] [address] [place] WBC (Bld) [#/Vol] 5.82 10*3/uL Normal 3.70-11.00 [facility] Comment on above: Order Comment: Speci men Type: BLOOD SPECIMEN Ordering Facility: [facility] Address: [address] [place] [address] Performed By: #### 2 4323-8 #### [facility] CLIA [id number] [address] [place] [address] [place] Comprehensive metabolic 2000 panelon 11-13-2023 Albumin [Mass/Vol] 4.3 g/dL Normal 3.9-4.9 [facility] Comment on above: Order Comment: Speci men Type: BLOOD SPECIMEN Ordering Facility: [facility] Address: [address] [place] [address] Performed By: #### 2 4323-8 #### [facility] CLIA [id number] [address] [place] [address] [place] ALP [Catalytic activity/Vol] 60 U/L Normal 38-113 [facility] Comment on above: Order Comment: Speci men Type: BLOOD SPECIMEN Ordering Facility: [facility] Address: [address] [place] [address] Performed By: #### 2 4323-8 #### [facility] CLIA [id number] [address] [place] [address] [place] ALT [Catalytic activity/Vol] 14 U/L Normal 10-54 [facility] Comment on above: Order Comment: Speci men Type: BLOOD SPECIMEN Ordering Facility: [facility] Address: [address] [place] [address] Performed By: #### 2 4323-8 #### [facility] CLIA [id number] [address] [place] [address] [place] Anion gap [Moles/Vol] 7 mmol/L Low 8-15 [facility] Comment on above: Order Comment: Speci men Type: BLOOD SPECIMEN Ordering Facility: [facility] Address: [address] [place] [address] Performed By: #### 2 4323-8 #### [facility] CLIA [id number] [address] [place] [address] [place] AST [Catalytic activity/Vol] 20 U/L Normal 14-40 [facility] Comment on above: Order Comment: Speci men Type: BLOOD SPECIMEN Ordering Facility: [facility] Address: [address] [place] [address] Performed By: #### 2 4323-8 #### [facility] CLIA [id number] [address] [place] [address] [place] Bilirubin [Mass/Vol] 0.7 mg/dL Normal 0.2-1.3 [facility] Comment on above: Order Comment: Speci men Type: BLOOD SPECIMEN Ordering Facility: [facility] Address: [address] [place] [address] Performed By: #### 2 4323-8 #### [facility] CLIA [id number] [address] [place] [address] [place] Calcium [Mass/Vol] 10.0 mg/dL Normal 8.5-10.2 [facility] Comment on above: Order Comment: Speci men Type: BLOOD SPECIMEN Ordering Facility: [facility] Address: [address] [place] [address] Performed By: #### 2 4323-8 #### [facility] CLIA [id number] [address] [place] [address] [place] Chloride [Moles/Vol] 102 mmol/L Normal 98-107 [facility] Comment on above: Order Comment: Speci men Type: BLOOD SPECIMEN Ordering Facility: [facility] Address: [address] [place] [address] Performed By: #### 2 4323-8 #### [facility] CLIA [id number] [address] [place] [address] [place] CO2 [Moles/Vol] 29 mmol/L Normal 22-30 [facility] Comment on above: Order Comment: Speci men Type: BLOOD SPECIMEN Ordering Facility: [facility] Address: [address] [place] [address] Performed By: #### 2 4323-8 #### [facility] CLIA [id number] [address] [place] [address] [place] Creatinine [Mass/Vol] 0.82 mg/dL Normal 0.73-1.22 [facility] Comment on above: Order Comment: Speci men Type: BLOOD SPECIMEN Ordering Facility: [facility] Address: [address] [place] [address] Performed By: #### 2 4323-8 #### [facility] IA [id number] [address] [place] [address] [place] Creatinine and Glomerular filtration rate.predicted panel (S/P/Bld) 93 mL/min/1.73m??? Normal >=60 [facility] Comment on above: Order Comment: Speci men Type: BLOOD SPECIMEN Ordering Facility: [facility] Address: [address] [place] [address] Result Comment: Bia mated Glomerular Filtration Rate [...] actual GFR. Performed By: #### 2 4323-8 #### [facility] CLIA [id number] [address] [place] [address] [place] Glucose [Mass/Vol] 111 mg/dL High 74-99 [facility] Comment on above: Order Comment: Speci men Type: BLOOD SPECIMEN Ordering Facility: [facility] Address: [address] [place] [address] Result Comment: The [place] [employer] (ADA) provides guidance for cutoff [...] Standards of Medical Care in Diabetes 2016, [place] [employer]. Diabetes Care. 2016.39(Suppl 1). Performed By: #### 2 4323-8 #### [facility] CLIA [id number] [address] [place] [address] [place] Potassium [Moles/Vol] 4.3 mmol/L Normal 3.7-5.1 [facility] Comment on above: Order Comment: Speci men Type: BLOOD SPECIMEN Ordering Facility: [facility] Address: [address] [place] [address] Performed By: #### 2 4323-8 #### [facility] CLIA [id number] [address] [place] [address] [place] Protein [Mass/Vol] 6.8 g/dL Normal 6.3-8.0 [facility] Comment on above: Order Comment: Speci men Type: BLOOD SPECIMEN Ordering Facility: [facility] Address: [address] [place] [address] Performed By: #### 2 4323-8 #### [facility] CLIA [id number] [address] [place] [address] [place] Sodium [Moles/Vol] 138 mmol/L Normal 136-144 [facility] Comment on above: Order Comment: Speci men Type: BLOOD SPECIMEN Ordering Facility: [facility] Address: [address] [place] [address] Performed By: #### 2 4323-8 #### [facility] CLIA [id number] [address] [place] [address] [place] Urea nitrogen [Mass/Vol] 13 mg/dL Normal 9-24 [facility] Comment on above: Order Comment: Speci men Type: BLOOD SPECIMEN Ordering Facility: [facility] Address: [address] [place] [address] Performed By: #### 2 4323-8 #### [facility] CLIA [id number] [address] [place] [address] [place] HIGH SENSITIVITY TROPONIN To n 11-13-2023 Troponin T.cardiac High sensitivity method [Mass/Vol] 8 ng/L Normal <12 [facility] Comment on above: Order Comment: Speci men Type: BLOOD SPECIMEN Ordering Facility: [facility] Address: [address] [place] [address] Performed By: #### 2 4323-8 #### [facility] CLIA [id number] [address] [place] [address] [place] LPa SerPl-mCncon 11-13-2023 Lipoprotein a [Mass/Vol] mg/dL Normal <30 [facility] Comment on above: Order Comment: Speci men Type: BLOOD SPECIMEN Ordering Facility: [facility] Address: [address] [place] [address] Performed By: #### 2 4323-8 #### [facility] CLIA [id number] [address] [place], [place] [address] [place] NT-proBNP SerPl-mCncon 11-12 Natriuretic peptide.B prohormone N-Terminal [Mass/Vol] 345 pg/mL High <125 [facility] Comment on above: Order Comment: Speci men Type: BLOOD SPECIMEN Ordering Facility: [facility] Address: [address] [place] [address] Performed By: #### 2 4323-8 #### [facility] CLIA [id number] [address] [place] [address] [place] PT panel Coag (PPP)on 2023 INR Coag (PPP) [Relative time] 1.0 {INR} Normal 0.9-1.3 [facility] Comment on above: Order Comment: Specshon head Type: BLOOD SPECIMEN Ordering Facility: [facility] Address: [address] [place] [address] Result Comment: Chen min K Antagonist (VKA) Therapeutic Range: INR 2 to 3 (Target INR of 2.5) Note: For patients treated with VKA drugs, such as warfarin, the [place] [employer] 2012 Guideline recommends [...] 2.5 to 3.5 (target INR of 3). Julianna GH, et al. Chest 2012, 141:7S-47S Lindy RA, et al. [facility] 2017, 70: 252-289 Performed By: #### 2 4323-8 #### [facility] IA [id number] [address] [place] [address] [place] PT Coag (PPP) [Time] 10.8 s Normal 9.7-13.0 [facility] Comment on above: Order Comment: Speci men Type: BLOOD SPECIMEN Ordering Facility: [facility] Address: [address] [place] [address] Performed By: #### 2 4323-8 #### [facility] IA [id number] [address] [place] [address] [place] CNOVon 10-22-2023 CNOV Office Visit (CARIMN ) NIVIA RAMOS ([id number]) 1950 M Date Time Provider Department 10/22/23 2:45 PM MAX CARDOSO During your visit today, we recorded the following information about you: Pulse Respiration Blood pressure Weight 66/minute 12/minute 140/70 69.4 kg Height 1.753 m Max Cardoso MD 11/11/2023 4:06 PM Signed [facility] Department of Cardiovascular Medicine SECTION OF CARDIOVASCULAR IMAGING OUTPATIENT VISIT DATE 10/22/2023 OUTPATIENT VISIT TYPE ESTABLISHED PRIMARY CARE PHYSICIAN: To use this Smartlink, specify the provider ID whose address you want to display, e.g., .PROVADDR[1 (where 1 is the provider ID). REFERRING PHYSICIAN: SELF CHIEF COMPLAINT: Follow up HISTORY OF PRESENT ILLNESS: Mr. Ramos is a 72 year old male from [place], [place] with a h/o hypertension and who [...] Prior gradient (more content not included)... Normal [facility] ECG COMPLETEon 10-22-2023 ECG COMPLETE Ventricular Rate : 6 4 BPM Atrial Rate : 64 BPM P-R Interval : 196 ms QRS Duration : 104 ms Q-T Interval : 400 ms QTC Calculation(Bazett) : 412 ms Calculated P Mancos : 58 degrees Calculated R Mancos : -40 degrees Calculated T Mancos : 15 degrees NORMAL SINUS RHYTHM WITH SINUS ARRHYTHMIA LEFT AXIS DEVIATION ABNORMAL ECG Confirmed by ANUPAM ABREU MD (22) on 11/14/2023 11:16:25 AM NAME : NIVIA RAMOS PID : [id number] : 1950 Gender : Male Race : ORD : [id number] Procedure Date : Oct 22 2023 14:08:47 Edit Date : Nov 14 2023 11:21:33 Diagnosis: NORMAL SINUS RHYTHM WITH SINUS ARRHYTHMIA LEFT AXIS DEVIATION ABNORMAL ECG Confirmed by ANUPAM ABREU MD (22) on 11/14/2023 11:16:25 AM Test Reason : Location : 314 : J14 J1-4 Overread By : ANUPAM ABREU MD Edited By : ANUPAM ABREU MD Referred By : MAX CARDOSO Acquired by : JEREMIAS ALVARADO [facility] ECHOon 10-22-2023 Echocardiography Echocardiography Report: Transthoracic Echo [facility] J1-5 Date of service: 10/22/2023 12:48:03 PM CLERK Ordering physician: MAX CARDOSO Indication: Aortic Stenosis [...] * * * Final * * * [employer] : [id number] Normal [facility] Lab Reportson 09-17-2023 Lab Reports [id number]#[id number] IFF Normal [facility] Screenson 09-17-2023 Screens [id number]#1.0 0TIFF [facility] Ambulatory Visit Summaryon 0 09-16-2023 Ambulatory Visit [...] Follow-Up Appointments Saturday 10:00 AM EDT With: CHEVY CUNHA, Edmond Rojas Where: [facility] Patient Educationon 09-16-19 Patient Education Urology Benign [...] Follow these instructions at home: ? Take vclr-ipv-ofqshjx and prescription medicines only as told by [...] the medicine (more content not included)... Normal [facility] Urology Office/Clinic Noteon 09-16-2023 Urology Office/Clinic Note Chief Complaint Pt is here for 1 yr w/ PSA HPI Staff 11 month follow up w/PSA Previous DX: BPH with urinary obstruction, nocturia, weak urinary stream PSA 07/01/19 - 1.28 07/12/20 - 1.23 07/25/22 [...] With When Contact Information CHEVY CUNHA, Edmond P, URL [address] [address]- Additional Instructions: 1 yr with PSA Patient Education Benign Prostatic Hyperplasia I, Astrid Harris, personally scribed for Dr. Fuentes on 09/16/2023 11:16:34. . Documentation recorded by the scribe, Astrid Harris, accurately reflects the services(s) I performed and decisions made by me. Authenticated by Dr. Fuentes on 09/16/2023 11:53:27. Portions of this record may have been created with voice recognition artificial intelligence software, specifically [employer] and or [employer] ([employer]). Substitutions may have occurred due to the [...] pneumococcal 23-valent vaccine 06/04/2022 Recorded SARS-CoV-2 (COVID-19) [id number] 02/07/2022 Recorded 2023-09-04: TPV70 influenza virus vaccine, inactivated 01/16/2022 Recorded SARS-CoV- (more content not included)... Normal [facility] Comment on above: Result Comment: Elec tronically Signed By: Edmond FUENTES MD\.br\Date and Time Signed: 09/16/23 11:53 EDT\.br\Electronically Co-Signed By: Astrid Harris\.br\Date and Time Co-Signed: 09/16/23 11:17 EDT ECHOCARDIO M/2D COMPLETEon 0 08-02-2022 ECHOCARDIO M/2D COMPLETE Patient: NIVIA RAMOS Exam Date: 08/02/2022 : 1950 Gender:M Ordering : DR JUANJO MURDOCK M.D. Admission #: [id number] Family : NEENA MURDOCK Order #: [id number] CLICK HERE TO VIEW EXAM ECHOCARDIOGRAM REPORT [...] Lopez M.D. on 08/02/2022 at 15:38 Normal [facility] Metabolic Pane [facility] 07-25-2021 Albumin [Mass/Vol] 4.0 g/dL Normal 3.6-5.1 [facility] Comment on above: Performed By: #### L IPD, CMP #### [facility] [address] [place], [place] [id number] Albumin/Globulin [Mass ratio] 1.8 {ratio} Normal 1.0-2.5 [facility] Comment on above: Performed By: #### L IPD, CMP #### [facility] [address] [place], [place] [id number] ALP [Catalytic activity/Vol] 72 U/L Normal 40-129 [facility] Comment on above: Performed By: #### L IPD, CMP #### [facility] [address] [place], [place] [id number] ALT [Catalytic activity/Vol] 24 U/L Normal 9-46 [facility] Comment on above: Result Comment: 03/08 Female reference range changed. Performed By: #### L IPD, CMP #### [facility] [address] [place], [place] [id number] Anion gap [Moles/Vol] 15 mmol/L Normal 12-20 [facility] Specialist Comment on above: Result Comment: Effe ctive 04/13/2019 reference range changed. Performed By: #### L IPD, CMP #### [facility] [address], [place] [id number] AST [Catalytic activity/Vol] 27 U/L Normal 10-40 [facility] Comment on above: Performed By: #### L IPD, CMP #### [facility] [address], [place] [id number] Bilirubin [Mass/Vol] 0.44 mg/dL Normal 0.30-1.20 [facility] Comment on above: Performed By: #### L IPD, CMP #### [facility] [address], [place] [id number] BUN/CREA 24 Ratio High 6-22 [facility] Comment on above: Performed By: #### L IPD, CMP #### [facility] [address], [place] [id number] Calcium [Mass/Vol] 9.3 mg/dL Normal 8.6-10.2 [facility] Comment on above: Performed By: #### L IPD, CMP #### [facility] [address], [place] [id number] Chloride [Moles/Vol] 103 mmol/L Normal 98-107 [facility] Comment on above: Performed By: #### L IPD, CMP #### [facility] [address], [place] [id number] CO2 [Moles/Vol] 24 mmol/L Normal 20-31 [facility] Comment on above: Performed By: #### L IPD, CMP #### [facility] [address], [place] [id number] Creatinine [Mass/Vol] 0.7 mg/dL Normal 0.7-1.4 [facility] Comment on above: Performed By: #### L IPD, CMP #### [facility] [address], [place] [id number] eGFRAA 135 mL/min/1.73m2 Normal >60 [facility] Specialist Comment on above: Performed By: #### L IPD, CMP #### [facility] [address], [place] [id number] eGFRNAA 111 mL/min/1.73m2 Normal >60 [employer] Comment on above: Performed By: #### L IPD, CMP #### [facility] [address], [place] [id number] Globulin (S) [Mass/Vol] 2.2 g/dL Normal 1.9-3.7 [facility] [employer] Comment on above: Performed By: #### L IPD, CMP #### [facility] [address], [place] [id number] Glucose [Mass/Vol] 99 mg/dL Normal 65-99 [facility] [employer] Operator Comment on above: Result Comment: For FASTING Glucose --- ADA reference ranges: Normal 65-99 mg/dl Prediabetes 100-125 Diabetes >/= 126 Performed By: #### L IPD, CMP #### [facility] [address], [place] [id number] Potassium [Moles/Vol] 4.4 mmol/L Normal 3.5-5.5 [facility] [employer] Operator Comment on above: Performed By: #### L IPD, CMP #### [facility] [address], [place] [id number] Protein [Mass/Vol] 6.2 g/dL Normal 6.1-8.1 [facility] [employer] Operator Comment on above: Performed By: #### L IPD, CMP #### [facility] [address], [place] [id number] Sodium [Moles/Vol] 138 mmol/L Normal 135-146 [facility] [employer] Operator Comment on above: Performed By: #### L IPD, CMP #### [facility] [address], [place] [id number] Urea nitrogen [Mass/Vol] 17 mg/dL Normal 7-25 [facility] [employer] Operator Comment on above: Performed By: #### L IPD, CMP #### [facility] [address], [place] [id number] Lipid Panelon 07-25-2021 Cholesterol [Mass/Vol] 208 mg/dL High 125-200 [facility] [employer] Operator Comment on above: Result Comment: Low risk < 200mg/dL Borderline risk 201-239 mg/dl High risk > or equal to 240 Performed By: #### L IPD, CMP #### [facility] [address], [place] [id number] Cholesterol in HDL [Mass/Vol] 85 mg/dL Normal >40 [facility] [employer] Operator Comment on above: Result Comment: High Cardiovascular Risk HDL <40 mg/dL Low Cardiovascular Risk HDL > or equal to 60 mg/dl Performed By: #### L IPD, CMP #### [facility] [address], [place] [id number] Cholesterol in LDL [Mass/Vol] 109 mg/dL Normal [facility] [employer] Operator Comment on above: Result Comment: LDL ATP III CLASSIFICATION LDL less than 100 mg/dl Optimal LDL 100-129 mg/dl Near or above optimal LDL 130-159 Borderline high LDL 160-189 High LDL greater than 189 mg/dl Very High Performed By: #### L IPD, CMP #### [facility] [address], [place] [id number] Cholesterol in VLDL [Mass/Vol] 14 mg/dL Normal [facility] [employer] Operator Comment on above: Performed By: #### L IPD, CMP #### [facility] [address], [place] [id number] Cholesterol.total/Ch olesterol in HDL [Mass ratio] 2 {ratio} Normal [facility] Specialist Comment on above: Performed By: #### L IPD, CMP #### [facility] [address], [place] [id number] Triglyceride [Mass/Vol] 71 mg/dL Normal 30-150 [facility] [employer] Operator Comment on above: Result Comment: TRIG ATPIII CLASSIFICATIONS TRIG less than 150 mg/dl Normal TRIG 150-199 mg/dl Borderline High TRIG 200-500 mg/dl High TRIG greather than 500 mg/dl Very High Performed By: #### L IPD, CMP #### [facility] [address], [place] [id number] PSA SCREEN (MEDICARE)on 07-07 TPSA 1.290 ng/mL Normal <4.000 [facility] [employer] Operator Comment on above: Result Comment: PSA Test Method: ECLIA/Jonathan e 601 Performed By: #### P MC #### [facility] [address], [place] [id number] Vital Signs Date Time Vital Sign Value Performing Clinician Facility 04-03-2024 14:09-0500 Body height 175.3 cm Mike Max DO Work Phone: [facility] 04-03-2024 14:09-0500 Body mass index (BMI) [Ratio] 23.18 kg/m2 Mike Max DO Work Phone: [facility] 04-03-2024 14:09-0500 Body weight 71.22 kg Mike Max DO Work Phone: [facility] 03-31-2024 11:09-0500 Body height 175.3 cm Peggy Hemmer PA Work Phone: [facility] 03-31-2024 11:09-0500 Body mass index (BMI) [Ratio] 23.3 kg/m2 Peggy Hemmer PA Work Phone: [facility] 03-31-2024 11:09-0500 Body temperature 101.5 [degF] Peggy Hemmer PA Work Phone: [facility] 03-31-2024 11:09-0500 Body weight 71.58 kg Peggy Hemmer PA Work Phone: [facility] 03-31-2024 11:09-0500 Diastolic blood pressure 70 mm[Hg] Peggy Hemmer PA Work Phone: [facility] 03-31-2024 11:09-0500 Heart rate 87 /min Peggy Hemmer PA Work Phone: [facility] 03-31-2024 11:09-0500 Respiratory rate 16 /min Peggy Hemmer PA Work Phone: [facility] 03-31-2024 11:09-0500 SaO2% (BldA) [Mass fraction] 96 % Peggy Hemmer PA Work Phone: [facility] 03-31-2024 11:09-0500 Systolic blood pressure 112 mm[Hg] Peggy Hemmer PA Work Phone: [facility] 03-26-2024 11:19-0500 Body height 175.3 cm Mike Max DO Work Phone: [facility] 03-26-2024 11:19-0500 Body mass index (BMI) [Ratio] 23.63 kg/m2 Mike Max DO Work Phone: [facility] 03-26-2024 11:19-0500 Body weight 72.58 kg Mike Max DO Work Phone: [facility] 03-26-2024 09:09-0500 Diastolic blood pressure 82 mm[Hg] Walker Higginbotham MD Work Phone: [facility] 03-26-2024 09:09-0500 Systolic blood pressure 140 mm[Hg] Walker Higginbotham MD Work Phone: [facility] 03-17-2024 13:59-0500 Body height 175.3 cm Lucy Ramirez MD Work Phone: [facility] 03-17-2024 13:59-0500 Body mass index (BMI) [Ratio] 23.63 kg/m2 Lucy Ramirez MD Work Phone: [facility] 03-17-2024 13:59-0500 Body weight 72.58 kg Lucy Ramirez MD Work Phone: [facility] 03-17-2024 13:59-0500 Diastolic blood pressure 76 mm[Hg] Lucy Ramirez MD Work Phone: [facility] 03-17-2024 13:59-0500 Systolic blood pressure 162 mm[Hg] Lucy Ramirez MD Work Phone: [facility] 03-02-2024 10:54-0500 Blood Pressure Location Edmond FUENTES [facility] 03-02-2024 10:54-0500 Diastolic blood pressure 98 mm[Hg] Edmond FUENTES [facility] 03-02-2024 10:54-0500 Heart rate 72 /min Edmond FUENTES [facility] 03-02-2024 10:54-0500 Respiratory rate 16 /min Edmond FUENTES [facility] 03-02-2024 10:54-0500 Systolic blood pressure 138 mm[Hg] Edmond FUENTES [facility] 02-13-2024 09:11-0500 Body height 175.3 cm Juanjo Murdock MD Work Phone: [facility] 02-13-2024 09:11-0500 Body mass index (BMI) [Ratio] 23.33 kg/m2 Juanjo Murdock MD Work Phone: [facility] 02-13-2024 09:11-0500 Body weight 71.67 kg Juanjo Murdock MD Work Phone: [facility] 02-13-2024 09:11-0500 Diastolic blood pressure 82 mm[Hg] Juanjo Murdock MD Work Phone: [facility] 02-13-2024 09:11-0500 Heart rate 74 /min Juanjo Murdock MD Work Phone: [facility] 02-13-2024 09:11-0500 SaO2% (BldA) [Mass fraction] 98 % Juanjo Murdock MD Work Phone: [facility] 02-13-2024 09:11-0500 Systolic blood pressure 138 mm[Hg] Juanjo Murdock MD Work Phone: [facility] 02-06-2024 10:17-0400 Body height 175.3 cm Bri Valladares APRN.COURTESY BUS DRIVER Work Phone: [facility] 02-06-2024 10:17-0400 Body mass index (BMI) [Ratio] 23.25 kg/m2 Bri Valladares FORMING PRESS OPERATOR.COURTESY BUS DRIVER Work Phone: [facility] 02-06-2024 10:17-0400 Body weight 71.4 kg Bri Valladares APRN.COURTESY BUS DRIVER Work Phone: [facility] 02-06-2024 10:17-0400 Diastolic blood pressure 80 mm[Hg] Bri Valladares FORMING PRESS OPERATOR.COURTESY BUS DRIVER Work Phone: [facility] 02-06-2024 10:17-0400 Systolic blood pressure 159 mm[Hg] Bri Valladares FORMING PRESS OPERATOR.COURTESY BUS DRIVER Work Phone: [facility] 02-06-2024 10:14-0400 Heart rate 69 /min Bri Valladares FORMING PRESS OPERATOR.COURTESY BUS DRIVER Work Phone: [facility] 02-06-2024 10:14-0400 SaO2% (BldA) [Mass fraction] 99 % Bri Valladares FORMING PRESS OPERATOR.COURTESY BUS DRIVER Work Phone: [facility] 01-30-2024 10:55-0400 Body height 175.3 cm Juanjo Murdock MD Work Phone: [facility] 01-30-2024 10:55-0400 Body mass index (BMI) [Ratio] 23.33 kg/m2 Juanjo Murdock MD Work Phone: [facility] 01-30-2024 10:55-0400 Body weight 71.67 kg Juanjo Murdock MD Work Phone: [facility] 01-30-2024 10:55-0400 Diastolic blood pressure 84 mm[Hg] Juanjo Murdock MD Work Phone: [facility] 01-30-2024 10:55-0400 Heart rate 75 /min Juanjo Murdock MD Work Phone: [facility] 01-30-2024 10:55-0400 SaO2% (BldA) [Mass fraction] 98 % Juanjo Murdock MD Work Phone: [facility] 01-30-2024 10:55-0400 Systolic blood pressure 158 mm[Hg] Juanjo Murdock MD Work Phone: [facility] 01-22-2024 14:11-0400 Body height 175.3 cm Peggy FARLEY Work Phone: [facility] 01-22-2024 14:11-0400 Body mass index (BMI) [Ratio] 23.1 kg/m2 Peggy Hemmer PA Work Phone: [facility] 01-22-2024 14:11-0400 Body weight 70.94 kg Peggy Hemmer PA Work Phone: [facility] 01-22-2024 14:11-0400 Diastolic blood pressure 90 mm[Hg] Peggy Hemmer PA Work Phone: [facility] 01-22-2024 14:11-0400 Heart rate 75 /min Peggy Hemmer PA Work Phone: [facility] 01-22-2024 14:11-0400 Respiratory rate 16 /min Peggy Hemmer PA Work Phone: [facility] 01-22-2024 14:11-0400 SaO2% (BldA) [Mass fraction] 98 % Peggy Hemmer PA Work Phone: [facility] 01-22-2024 14:11-0400 Systolic blood pressure 152 mm[Hg] Peggy Hemmer PA Work Phone: [facility] 01-21-2024 12:14-0400 Body height 175.3 cm [facility] 01-21-2024 12:14-0400 Body mass index (BMI) [Ratio] 22.89 kg/m2 [facility] 01-21-2024 12:14-0400 Body weight 70.31 kg [facility] 01-21-2024 12:14-0400 Respiratory rate 18 /[facility] 01-17-2024 13:08-0400 Body height 175.3 cm Michel Briceno MD Work Phone: [facility] 01-17-2024 13:08-0400 Body mass index (BMI) [Ratio] 23.18 kg/m2 Michel Briceno MD Work Phone: [facility] 01-17-2024 13:08-0400 Body weight 71.22 kg Michel Briceno MD Work Phone: [facility] 01-17-2024 13:08-0400 Diastolic blood pressure 91 mm[Hg] Michel Briceno MD Work Phone: [facility] 01-17-2024 13:08-0400 Heart rate 64 /min Michel Briceno MD Work Phone: [facility] 01-17-2024 13:08-0400 Respiratory rate 16 /min Michel Briceno MD Work Phone: [facility] 01-17-2024 13:08-0400 SaO2% (BldA) [Mass fraction] 96 % Michel Briceno MD Work Phone: [facility] 01-17-2024 13:08-0400 Systolic blood pressure 179 mm[Hg] Michel Briceno MD Work Phone: [facility] 01-07-2024 10:04-0400 Body height 175.3 cm Peggy Hemmer PA Work Phone: [facility] 01-07-2024 10:04-0400 Body mass index (BMI) [Ratio] 23.3 kg/m2 Peggy Hemmer PA Work Phone: [facility] 01-07-2024 10:04-0400 Body weight 71.58 kg Peggy Hemmer PA Work Phone: [facility] 01-07-2024 10:04-0400 Diastolic blood pressure 76 mm[Hg] Peggy Hemmer PA Work Phone: [facility] 01-07-2024 10:04-0400 Heart rate 72 /min Peggy Hemmer PA Work Phone: [facility] 01-07-2024 10:04-0400 Respiratory rate 16 /min Peggy Hemmer PA Work Phone: [facility] 01-07-2024 10:04-0400 SaO2% (BldA) [Mass fraction] 96 % Peggy Hemmer PA Work Phone: [facility] 01-07-2024 10:04-0400 Systolic blood pressure 158 mm[Hg] Pegyg Hemmer PA Work Phone: [facility] 10-22-2023 14:51-0400 Body height 175.3 cm Max Cardoso MD Work Phone: [facility] 10-22-2023 14:51-0400 Body mass index (BMI) [Ratio] 22.59 kg/m2 Max Cardoso MD Work Phone: [facility] 10-22-2023 14:51-0400 Body weight 69.4 kg Max Cardoso MD Work Phone: [facility] 10-22-2023 14:51-0400 Diastolic blood pressure 70 mm[Hg] Max Cardoso MD Work Phone: [facility] 10-22-2023 14:51-0400 Heart rate 66 /min Max Cardoso MD Work Phone: [facility] 10-22-2023 14:51-0400 Respiratory rate 12 /min Max Cardoso MD Work Phone: [facility] 10-22-2023 14:51-0400 SaO2% (BldA) [Mass fraction] 98 % Max Cardoso MD Work Phone: [facility] 10-22-2023 14:51-0400 Systolic blood pressure 140 mm[Hg] Max Cardoso MD Work Phone: [facility] 09-16-2023 10:41-0400 Body temperature 98.6 [degF] Edmond FUENTES [facility] 09-16-2023 10:41-0400 Diastolic blood pressure 86 mm[Hg] Edmond FUENTES [facility] 09-16-2023 10:41-0400 Heart rate 71 /min Edmond FUENTES [facility] 09-16-2023 10:41-0400 Respiratory rate 16 /min Edmond FUENTES [facility] 09-16-2023 10:41-0400 Systolic blood pressure 140 mm[Hg] Edmond FUENTES [facility] 05-21-2023 10:44-0500 Body mass index (BMI) [Ratio] 23.42 kg/m2 Amrita Hernandez LATHE MACHINIST Work Phone: [facility] 05-21-2023 10:44-0500 Body weight 71.94 kg Amrita Hernandez LATHE MACHINIST Work Phone: [facility] 05-21-2023 10:44-0500 Diastolic blood pressure 80 mm[Hg] Amrita Hernandez LATHE MACHINIST Work Phone: [facility] 05-21-2023 10:44-0500 Heart rate 76 /min Amrita Hernandez LATHE MACHINIST Work Phone: [facility] 05-21-2023 10:44-0500 Respiratory rate 14 /min Amrita Hernandez LATHE MACHINIST Work Phone: [facility] 05-21-2023 10:44-0500 SaO2% (BldA) [Mass fraction] 98 % Amrita Hernandez LATHE MACHINIST Work Phone: [facility] 05-21-2023 10:44-0500 Systolic blood pressure 140 mm[Hg] Amrita Hernandez LATHE MACHINIST Work Phone: [facility] 10-23-2022 13:45-0400 Diastolic blood pressure 77 mm[Hg] Max Cardoso MD Work Phone: [facility] 10-23-2022 13:45-0400 Systolic blood pressure 141 mm[Hg] Max Cardoso MD Work Phone: [facility] 10-23-2022 13:39-0400 Body height 175.3 cm Max Cardoso MD Work Phone: [facility] 10-23-2022 13:39-0400 Body weight 69.13 kg Max Cardoso MD Work Phone: [facility] 10-23-2022 13:39-0400 Heart rate 64 /min Max Cardoso MD Work Phone: [facility] 07-18-2023 13:39-0400 SaO2% (BldA) [Mass fraction] 99 % Max Cardoso MD Work Phone: [facility] 10-22-2022 08:00-0400 Blood Pressure Location Edmond FUENTES [facility] 10-22-2022 08:00-0400 Diastolic blood pressure 87 mm[Hg] Edmond FUENTES [facility] 10-22-2022 08:00-0400 Heart rate 68 /min Edmond FUENTES [facility] 10-22-2022 08:00-0400 Respiratory rate 16 /min Edmond FUENTES [facility] 10-22-2022 08:00-0400 Systolic blood pressure 158 mm[Hg] Edmond FUENTES [facility] Encounters Encounter Date Encounter Type Care Provider Facility Start: 09-22-2024 ambulatory Edmond FUENTES Facility :[facility] Start: 06-01-2024 ambulatory Edmondmarisela FUENTES Facility :[facility] Start: 05-06-2024 End: 05-06-2024 ambulatory Lola Thorpe FORMING PRESS OPERATOR.COURTESY BUS DRIVER, DNP Work Phone: [facility] Start: 05-05-2024 End: 05-06-2024 ambulatory Michel Briceno MD Work Phone: [facility]iology Comment on above: TAVR Schedule Start: 05-05-2024 End: 05-06-2024 Patient encounter procedure Michel Briceno MD Work Phone: [facility]iology Comment on above: Nivia Ramos dental raul arance form Start: 05-05-2024 End: 05-05-2024 Telephone encounter Michel Briceno MD Work Phone: [facility]iology Comment on above: Patient Question Start: 04-06-2024 End: 04-06-2024 Postop follow up visit related to original px Lucy Nance MD Work Phone: [facility] Comment on above: Abnormal abdominal C T scan (Primary Dx) Start: 04-06-2024 End: 04-06-2024 ambulatory LUCY NANCE V Not Available Start: 04-03-2024 End: 04-03-2024 Postop follow up visit related to original px Mike Max DO Work Phone: [facility] Comment on above: Mohs defect (Primary Dx) Start: 04-03-2024 End: 04-03-2024 ambulatory MIKE MAX Not Available Start: 04-03-2024 End: 04-03-2024 Clinisync Result Encounter Generic External Data Provider [facility] Unsolicited Start: 04-03-2024 End: 04-03-2024 Clinisync Result Encounter Generic External Data Provider [facility] External Department Unsolicited Start: 03-31-2024 End: 03-31-2024 Bamboo flowsheet Peggy [...] Not Available Start: 03-27-2024 End: 03-27-2024 ambulatory Juanjo Murdock Facility:[facility] Start: 03-27-2024 End: 04-07-2024 External Result Encounter Mike Max DO Work Phone: [facility] Unsolicited Start: 03-27-2024 End: 04-07-2024 External Result Encounter Mike Max DO Work Phone: [facility] Unsolicited Start: 03-26-2024 End: 03-26-2024 ambulatory Juanjo Murdock Facility:[facility] Start: 03-26-2024 End: 03-26-2024 External Result Encounter Mike Max DO Work Phone: [facility] Unsolicited Start: 03-26-2024 End: 03-26-2024 External Result Encounter Mike Max DO Work Phone: [facility] Unsolicited Start: 03-26-2024 End: 03-26-2024 ambulatory MIKE MAX Not Available Start: 03-26-2024 End: 03-26-2024 Office outpatient new 45 minutes Mike Max DO Work Phone: [facility] Comment on above: Mohs defect (Primary Dx); 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 Start: 03-26-2024 End: 03-26-2024 Patient encounter procedure Walker Higginbotham MD Work Phone: [facility] Comment on above: 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 Start: 03-26-2024 End: 03-26-2024 ambulatory WALKER HIGGINBOTHAM Not Available Start: 03-25-2024 End: 03-25-2024 ambulatory Ethel Rizvi APRN.DIATHERMY EQUIPMENT REPAIRER Work Phone: Cardiology Comment on above: Dental clearance Start: 03-25-2024 End: 03-25-2024 E-mail encounter from caregiver Ethel Rizvi APRN.DIATHERMY EQUIPMENT REPAIRER Work Phone: Cardiology Start: 03-25-2024 End: 03-25-2024 Telephone encounter Michel Briceno MD Work Phone: Cardiology Comment on above: Return Call Request Patient Update Start: 03-24-2024 End: 03-24-2024 ambulatory Lucy Nance Facility:[facility] Start: 03-17-2024 End: 03-17-2024 Office outpatient new 45 minutes Lucy Nance MD Work Phone: [facility] Comment on above: Abnormal abdominal C T scan (Primary Dx); Cecum mass Start: 03-17-2024 End: 03-17-2024 ambulatory LUCY PATTONS James Not Available Start: 03-02-2024 End: 03-02-2024 ambulatory JUANJO Pang MURDOCK Facility: [facility] Start: 03-02-2024 End: 03-02-2024 Patient encounter procedure Edmond Rojas CHEVY [facility] Start: 02-27-2024 End: 02-27-2024 Bamboo flowsheet Melba Shettyy PATIENT SAFETY COORDINATOR [facility] Start: 02-27-2024 End: 02-27-2024 Bamboo flowsheet Melba Shettyy PATIENT SAFETY COORDINATOR [facility] Start: 02-27-2024 End: 02-27-2024 ambulatory Melba Lopez PATIENT SAFETY COORDINATOR [facility] Comment on above: Lumbar paraspinal mu scle spasm (Primary Dx) Start: 02-25-2024 End: 02-25-2024 Bamboo flowsheet Sarah Brink PATIENT SAFETY COORDINATOR [facility] Start: 02-25-2024 End: 02-25-2024 Bamboo flowsheet Sarah Brink PATIENT SAFETY COORDINATOR [facility] Start: 02-25-2024 End: 02-25-2024 ambulatory Sarah Brink PATIENT SAFETY COORDINATOR [facility] Comment on above: Lumbar paraspinal mu scle spasm (Primary Dx) Start: 02-21-2024 End: 02-21-2024 Bamboo flowsheet Sarah Brink PATIENT SAFETY COORDINATOR [facility] Start: 02-21-2024 End: 02-21-2024 Bamboo flowsheet Sarah Brink PATIENT SAFETY COORDINATOR [facility] Start: 02-21-2024 End: 02-21-2024 ambulatory Sarah Brink PATIENT SAFETY COORDINATOR [facility] Comment on above: Lumbar [...] Patient Update ({) Start: 02-13-2024 End: 02-13-2024 Bamboo flowsoli Murdock MD Work Phone: [facility] Start: 02-13-2024 End: 02-13-2024 Bamboo flowsoli Murdock MD Work Phone: [facility] Start: 02-13-2024 End: 02-13-2024 ambulatory Sarah Brink PATIENT SAFETY COORDINATOR [facility] Comment on above: Lumbar [...] 02-10-2024 End: 02-10-2024 Bamboo flowsheet Sarah Brink PATIENT SAFETY COORDINATOR [facility] Start: 02-10-2024 End: 02-10-2024 Bamboo flowsheet Sarah Brink PATIENT SAFETY COORDINATOR [facility] Start: 02-10-2024 End: 02-10-2024 ambulatory Sarah Brink PATIENT SAFETY COORDINATOR [facility] Comment on above: Lumbar paraspinal mu scle spasm (Primary Dx) TAVR Meeting Start: 02-07-2024 End: 02-07-2024 ambulatory Sarah Brink PATIENT SAFETY COORDINATOR [facility] Comment on above: Lumbar paraspinal mu scle spasm (Primary Dx) Start: 02-06-2024 End: 02-06-2024 ambulatory BRI VALLADARES Facility:[facility] Start: 02-06-2024 End: 02-06-2024 Patient encounter procedure Bri Valladares FORMING PRESS OPERATOR.COURTESY BUS DRIVER Work Phone: Pulmonary Medicine Comment on above: [...] Start: 01-29-2024 End: 01-29-2024 Bamboo flowsheet Quang Alexandria Ridgemaria isabel PT Work Phone: [facility] Start: 01-29-2024 End: 01-29-2024 Bamboo flowsheet Quang Ibrahim Ridgemaria isabel PT Work Phone: [facility] Start: 01-29-2024 End: 01-29-2024 Telephone encounter Anjali Craig COURTESY BUS DRIVER Work Phone: Cardiology Comment on above: Dental Start: 01-29-2024 End: 01-29-2024 ambulatory Quang Garcia PT Work Phone: [facility] [...] Start: 01-21-2024 End: 01-21-2024 ambulatory KAMERON WINSLOW Facility:[facility] Start: 01-21-2024 End: 01-21-2024 ambulatory KAMERON WINSLOW [...] Education Start: 01-17-2024 End: 01-17-2024 [facility] Start: 01-17-2024 End: 01-17-2024 Subsequent hospital visit by physician Xr Chest Main J1 Work Phone: Radiology Comment on above: Aortic valve disorde r [I35.9] Start: 01-17-2024 End: 01-17-2024 ambulatory MICHEL BRICENO Facility:[facility] Start: 01-17-2024 End: 01-17-2024 Patient encounter procedure [...] 01-07-2024 Office outpatient visit 15 minutes Peggy Wakefield PA Work Phone: [facility] Comment on above: Strain of lumbar reg ion, initial encounter (Primary Dx); Lumbar paraspinal muscle spasm Start: 01-07-2024 End: 01-07-2024 ambulatory PEGGY WAKEFIELD Not Available Start: 11-13-2023 End: 11-13-2023 ambulatory FLIP JEOVANNY-PALSHOOK Facility:[facility] Start: 11-12-2023 ambulatory Flip Jeovanny-Palshook FORMING PRESS OPERATOR.COURTESY BUS DRIVER Work Phone: Cardiology Start: 11-12-2023 Patient encounter procedure Flip Blake GRAMAJO.COURTESY BUS DRIVER Work Phone: Cardiology Comment on above: TAVR Consult Start: 10-22-2023 End: 11-11-2023 Patient encounter procedure Max Cardoso MD Work Phone: Cardiology Comment on above: Nonrheumatic aortic valve stenosis (Primary Dx); Shortness of breath Start: 10-22-2023 End: 10-22-2023 ambulatory MAX CARDOSO Facility:[facility] Start: 10-22-2023 End: 10-22-2023 ambulatory MAX CARDOSO Facility:[facility] Start: 09-16-2023 End: 09-16-2023 ambulatory Edmond FUENTES Facility:[facility] Start: 09-16-2023 End: 09-16-2023 Patient encounter procedure Edmond FUENTES [facility] Start: 08-07-2023 End: 08-07-2023 ambulatory JUANJO MURDOCK Not Available Start: 06-12-2023 Orders Only Max Cardoso MD Work Phone: Cardiology Comment on above: Nonrheumatic aortic valve stenosis (Primary Dx); Nonrheumatic mitral valve regurgitation Start: 05-21-2023 Chart abstracting Amrita lawrence LATHE MACHINIST Work Phone: [facility] Start: 05-21-2023 End: 05-21-2023 Office outpatient visit 25 minutes Amrita Hernandez LATHE MACHINIST Work Phone: [facility] Comment on [...] encounter procedure Edmond FUENTES [facility] [place] Start: 08-14-2022 Telephone encounter No Pcp Ref erring Physician Comment on above: External Referrals/r esources Start: 08-02-2022 End: 08-03-2022 ambulatory [facility] Facility: Start: 05-07-2022 End: 05-07-2022 Patient encounter procedure Ramy CARTER [facility] [place] Procedures Date Procedure Procedure Detail Performing Clinician Start: 04-03-2024 TBH CREATININE Generic External Data Provider Start: 03-27-2024 PATHOLOGY REQUEST FO R LAB KEITH Mike Max DO Work Phone: Start: 03-26-2024 Basic metabolic pane l calcium total Mike Max DO Work Phone: Start: 03-26-2024 Complete blood count with white cell differential, automated Mike Max DO Work Phone: Start: 03-25-2024 MOHS SURGERY Walker bhatt MD Work Phone: Start: 02-03-2024 SKIN / NAIL BIOPSY Ramiro Langford MD Work Phone: Start: 02-03-2024 End: 02-03-2024 CRYOTHERAPY SKIN LESION Cindy Langford MD Work Phone: Start: 01-21-2024 Co diffusing capacity C dang Lozano FORMING PRESS OPERATOR.COURTESY BUS DRIVER Work Phone: Start: 01-17-2024 CTA CHEST/ABD/PEL (G ATED) W IVCON Flip Lozano FORMING PRESS OPERATOR.COURTESY BUS DRIVER Work Phone: Start: 01-17-2024 Creatinine [Mass/vol ume] in Serum or Plasma [facility] Provider Start: 01-17-2024 Radiologic exam ches t 2 views Flip Blake FORMING PRESS OPERATOR.COURTESY BUS DRIVER Work Phone: Start: 01-07-2024 Cardiac catheterization Edmond [...] Author Start: 08-13-2028 Lipid panel Lipid Screening [facility] Start: 07-26-2027 Lipid panel Lipid Screening [facility] Start: 07-26-2027 LIPID SCREEN LIPID SCREEN [facility] Start: 01-20-2027 Diabetes Screening Diabetes Screening [facility] Start: 11-12-2026 Diabetes Screening Diabetes Screening [facility] Start: 03-09-2025 Urine microalbumin profile DTaP,Tdap,Td Vaccine (3 - Td or Tdap) [facility] Start: 02-11-2025 End: 02-11-2025 Patient encounter procedure 02/11/2025 2:05 PM EST Office Visit [facility] [address] [place] [address] Cindy Langford MD [address] [place] [address] [facility] Start: 2024 RSV Vaccine (1 - 1-dose 75+ series) RSV Vaccine (1 - 1-dose 75+ series) [facility] Start: 10-20-2024 End: 10-20-2024 ambulatory 10/20/2024 11:00 AM EDT Results Only Cardiology [address] [id number] Nonrheumatic aortic valve stenosis [I35.0] Cardiology Comment on above: Nonrheumatic aortic valve stenosis [I35. 0] Start: 10-20-2024 End: 10-20-2024 Patient encounter procedure Cardiology Comment on above: Nonrheumatic aortic valve stenosis [I35. 0] Start: 10-05-2024 Influenza vaccination Influenza Vaccine (#1) [facility] Comment on above: Postponed from 12/08/2023 (Patient Refus ed) Start: 08-06-2024 Medicare Annual Wellness (AWV) Medicare Annual Wellness (AWV) [facility] Start: 08-05-2024 End: 08-05-2024 Patient encounter procedure Radiology Comment on above: Lung nodules [R91.8] Start: 05-28-2024 End: 05-28-2024 Patient encounter procedure 05/28/2024 5:45 AM EST Office Visit Cardiology [address] [id number] COMMERCIAL TF- TAVR 26 S3 Cardiology Comment on above: COMMERCIAL TF- TAVR 26 S3 Start: 05-28-2024 End: 05-28-2024 Admission to same day surgery center 05/28/2024 5:30 AM EST - 05/28/2024 8:26 AM EST Surgery Admitting [address] [place] [address] Michel Briceno MD [facility] [address] [place], [place] [id number] TRANSCATHETER AORTIC VALVE REPLACEMENT (TAVR/DAYSI) W/ PROSTHETIC VALVE PERCUTANEOUS FEMORAL ARTERY APPROACH Admitting Comment on above: TRANSCATHETER AORTIC VALVE REPLACEMENT ( TAVR/DAYSI) W/ PROSTHETIC VALVE PERCUTANEOUS FEMORAL ARTERY APPROACH Start: 05-28-2024 End: 05-28-2024 ambulatory 05/28/2024 5:30 AM EST Procedure Cardiology [address] [place] [address] COMMERCIAL TF- TAVR 26 S3 Cardiology Comment on above: COMMERCIAL TF- TAVR 26 S3 Start: 05-28-2024 End: 05-28-2024 Replace aortic valve perq femoral artry approach TRANSCATHETER AORTIC VALVE REPLACEMENT (TAVR/DAYSI) W/ PROSTHETIC VALVE PERCUTANEOUS FEMORAL ARTERY APPROACH Nonrheumatic aortic valve stenosis 05/28/2024 5:30 AM EST [facility] CT & VAS Start: 05-28-2024 Subsequent hospital visit by physician 05/28/2024 5:30 AM EST Hospital Encounter Admitting [address] [id number] Michel Briceno MD [facility] [address] [place], [place] [phone] Nonrheumatic aortic valve stenosis [I35.0] Admitting Comment on above: Nonrheumatic aortic valve stenosis [I35. 0] Start: 05-27-2024 End: 08-26-2024 CBC W Auto Differential panel - Blood COMPLETE BLOOD COUNT AND DIFFERENTIAL Lab STAT Nonrheumatic aortic valve stenosis Aortic valve disorder Expected: 05/27/2024 (Approximate), Expires: 08/26/2024 [facility] Comment on above: Expected: 05/27/2024 (Approximate), Expi res: 08/26/2024 Start: 05-27-2024 End: 08-26-2024 Comprehensive metabolic 2000 panel - Serum or Plasma COMPREHENSIVE METABOLIC PANEL Lab STAT Nonrheumatic aortic valve stenosis Aortic valve disorder Expected: 05/27/2024 (Approximate), Expires: 08/26/2024 [facility] Comment on above: Expected: 05/27/2024 (Approximate), Expi res: 08/26/2024 Start: 05-27-2024 End: 08-26-2024 CONFIRM BLOOD TYPE CONFIRM BLOOD TYPE Blood Bank STAT Nonrheumatic aortic valve stenosis Aortic valve disorder Expected: 05/27/2024 (Approximate), Expires: 08/26/2024 [facility] Comment on above: Expected: 05/27/2024 (Approximate), Expi res: 08/26/2024 Start: 05-27-2024 End: 08-26-2024 Lipoprotein a [Mass/volume] in Serum or Plasma LIPOPROTEIN (A) Lab STAT Nonrheumatic aortic valve stenosis Aortic valve disorder Expected: 05/27/2024 (Approximate), Expires: 08/26/2024 [facility] Comment on above: Expected: 05/27/2024 (Approximate), Expi res: 08/26/2024 Start: 05-27-2024 End: 08-26-2024 Natriuretic peptide.B prohormone N-Terminal [Mass/volume] in Serum or Plasma NT PRO BNP Lab STAT Nonrheumatic aortic valve stenosis Aortic valve disorder Shortness of breath Expected: 05/27/2024 (Approximate), Expires: 08/26/2024 [facility] Comment on above: Expected: 05/27/2024 (Approximate), Expi res: 08/26/2024 Start: 05-27-2024 End: 08-26-2024 PT panel - Platelet poor plasma by Coagulation assay PROTHROMBIN TIME Lab STAT Nonrheumatic aortic valve stenosis Aortic valve disorder Expected: 05/27/2024 (Approximate), Expires: 08/26/2024 [facility] Comment on above: Expected: 05/27/2024 (Approximate), Expi res: 08/26/2024 Start: 05-27-2024 End: 08-26-2024 TYPE AND SCREEN,30 DAY TYPE AND SCREEN,30 DAY Blood Bank STAT Nonrheumatic aortic valve stenosis Aortic valve disorder Expected: 05/27/2024 (Approximate), Expires: 08/26/2024 [facility] Comment on above: Expected: 05/27/2024 (Approximate), Expi res: 08/26/2024 Start: 05-27-2024 End: 05-27-2024 Patient encounter procedure 05/27/2024 1:20 PM EST Office Visit Cardiothoracic [address] [place] [address] COMMERCIAL TF- TAVR 26 S3 Cardiothoracic Comment on above: COMMERCIAL TF- TAVR 26 S3 Start: 05-27-2024 End: 05-27-2024 Patient encounter procedure Radiology Comment on above: COMMERCIAL TF- TAVR 26 S3 Start: 05-27-2024 End: 05-27-[address] [facility] J1-[address] [place] Comment on above: COMMERCIAL TF- TAVR 26 S3 Start: 05-26-2024 End: 05-26-2024 Patient encounter procedure 05/26/2024 3:15 PM EST Office Visit Cardiology [address] [place] [address] Max Cardoso MD [address] [place], [place] [phone] Nonrheumatic aortic valve stenosis [I35.0] Cardiology Comment on above: Nonrheumatic aortic valve stenosis [I35. 0] Start: 05-26-2024 End: 05-26-2024 ambulatory 05/26/2024 2:45 PM EST Results Only Cardiology [address] [id number] Nonrheumatic aortic valve stenosis [I35.0] Cardiology Comment on above: Nonrheumatic aortic valve stenosis [I35. 0] Start: 04-08-2024 Advance Directive Discussion Advance Directive Discussion [facility] Start: 04-06-2024 End: 04-06-2024 Patient encounter procedure 04/06/2024 10:45 AM EST Office Visit [facility] [address] [facility] [address] [place] [phone] Lucy Nance MD [address] [facility] [address] [place] [address] [facility] Start: 04-03-2024 End: 04-03-2024 Patient encounter procedure 04/03/2024 2:15 PM EST Office Visit [facility] [place] [address] [place] [phone] Mike Max DO [address] [place] [address] [facility] [place] Start: 03-31-2024 End: 03-31-2024 Patient encounter procedure 03/31/2024 11:00 AM EST Office Visit [facility] [address] [place] [phone] Peggy Wakefield PA [address] [place] [address] Arrived [facility] Comment on above: Arrived Start: 03-27-2024 End: 03-27-2024 Patient encounter procedure 03/27/2024 4:30 PM EST Office Visit [facility] [place] [address] [place] [address] Mike Max DO [address] [place] [address] [facility] [place] Start: 03-26-2024 End: 03-26-2024 Patient encounter procedure 03/26/2024 9:00 AM EST Office Visit [facility] [address] [place] [phone] Walker Higginbotham MD [address] [place] [address] [facility] Start: 03-17-2024 End: 03-17-2024 Patient encounter procedure 03/17/2024 2:00 PM EST Consult [facility] [address] [facility] [address] [place] [phone] Lucy Nance MD [address] [facility] [address] [place] [address] [facility] Start: 02-27-2024 End: 02-27-2024 ambulatory [facility] Start: 02-25-2024 End: 02-25-2024 ambulatory [facility] Comment on above: Arrived Start: 02-21-2024 End: 02-21-2024 ambulatory 02/21/2024 10:30 AM EST Treatment [facility] [address] [place] [address] Sarah Sharp PTA [facility] Start: 02-18-2024 End: 02-18-2024 ambulatory 02/18/2024 10:00 AM EST Treatment [facility] [address] [facility] [address] [place] [address] Quang Garcia, PT [address] [place] [address] [facility] Start: 02-13-2024 End: 02-13-2024 ambulatory 02/13/2024 10:30 AM EST Treatment [facility] [address] [facility] [address] [place] [address] Sarah Sharp PTA [facility] Start: 02-13-2024 End: 02-13-2024 Patient encounter procedure [facility] Comment on above: Arrived Start: 02-10-2024 End: 02-10-2024 ambulatory [facility] Comment on above: Arrived Start: 02-07-2024 End: 02-07-2024 ambulatory 02/07/2024 9:30 AM EDT Treatment [facility] [address] [facility] [address] [place] [address] Sarah Sharp PTA [facility] Start: 02-06-2024 End: 02-06-2024 Patient encounter procedure 02/06/2024 10:30 AM EDT Office Visit Pulmonary Medicine [address] [place] [address] Bri Valladares, FORMING PRESS OPERATOR.COURTESY BUS DRIVER [address] [place] [address] Lung nodule Pulmonary Medicine Comment on above: Lung nodule Start: 02-05-2024 End: 02-05-2024 ambulatory 02/05/2024 9:30 AM EDT Treatment [facility] [address] [facility] [address] [place] [address] Quang Garcia, PT [address] [place] [address] [facility] Start: 02-03-2024 End: 02-03-2024 Patient encounter procedure 02/03/2024 2:45 PM EDT Office Visit [facility] [address] [place] [phone] Cindy Langford MD [address] [place] [address] [facility] Start: 01-30-2024 End: 01-30-2024 Patient encounter procedure [facility] Comment on above: Arrived Start: 01-29-2024 End: 01-29-2024 ambulatory 01/29/2024 11:00 AM EDT Evaluation [facility] [address] [place] [address] Quang Garcia, PT [address] [place] [address] Lumbar paraspinal muscle spasm [facility] Comment on above: Lumbar paraspinal muscle spasm Start: 01-22-2024 End: 01-22-2024 Patient encounter procedure 01/22/2024 2:00 PM EDT Office Visit [facility] [address] [place] [phone] Peggy Wakefield PA [address] [place] [address] Arrived [facility] Comment on above: Arrived Start: 01-21-2024 End: 01-21-2024 ambulatory 01/21/2024 2:30 PM EDT Procedure Cardiology [address] [place] [address] Kameron Winslow MD [address] [place], [place] [phone] New TAVR Workup Cardiology Comment on above: New TAVR Workup Start: 01-21-2024 End: 01-21-2024 ambulatory Pulmonary Medicine Comment on above: New TAVR Workup HC//New TAVR Workup Start: 01-21-2024 End: 01-21-2024 Patient encounter procedure Cardiology Comment on above: New TAVR Workup ADMIT Start: 01-21-2024 End: 01-21-2024 Admission to same day surgery center 01/21/2024 4:00 AM EDT - 01/21/2024 5:11 AM EDT Surgery HOSP Milk Tanker Driver [address] [place] [address] Kameron Winslow MD [address] [place] [address]ON[address] W IMAGE INJECT & INTERP W LT HEART CATH W INJECT LT VENTRGRAPHY [facility] Milk Tanker Driver Comment on above: CORONARY ANGIO W CATH PLACE W IMAGE INJE CT & INTERP W LT HEART CATH W INJECT LT VENTRGRAPHY Start: 01-21-2024 End: 01-21-2024 Cath plmt l hrt & arts w/njx & angio img s&i CORONARY ANGIO W CATH PLACE W IMAGE INJECT & INTERP W LT HEART CATH W INJECT LT VENTRGRAPHY Nonrheumatic aortic valve stenosis 01/21/2024 4:00 AM EDT TRACKLESS TROLLEY DRIVER Start: 01-21-2024 Subsequent hospital visit by physician 01/21/2024 4:00 AM EDT Hospital Encounter HOSP Milk [employer] Driver [address] [place] [address] Kameron Winslow MD [address] [place] [address] Nonrheumatic aortic valve stenosis [I35.0] 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 0] Start: 01-20-2024 End: 01-20-2024 Admission to same day surgery center 01/20/2024 6:10 PM EDT - 01/20/2024 7:21 PM EDT Surgery HOSP Milk [employer]er Driver [address] [place] [address] Kameron Winslow MD [address] [place] [address] [address] W IMAGE INJECT & INTERP W LT HEART CATH W INJECT LT VENTRGRAPHY HOSP Milk Tanker Driver Comment on above: CORONARY ANGIO W CATH PLACE W IMAGE INJE CT & INTERP W LT HEART CATH W INJECT LT VENTRGRAPHY Start: 01-20-2024 End: 01-20-2024 Cath plmt l hrt & arts w/njx & angio img s&i CORONARY ANGIO W CATH PLACE W IMAGE INJECT & INTERP W LT HEART CATH W INJECT LT VENTRGRAPHY Nonrheumatic aortic valve stenosis 01/20/2024 6:10 PM EDT TRACKLESS TROLLEY DRIVER Start: 01-20-2024 Subsequent hospital visit by physician 01/20/2024 6:10 PM EDT Hospital Encounter HOSP Milk [employer] Driver [address] [place] [address] Kameron Winslow MD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 Rojas, URL Address: [facility] [place] [id number]- When: Unknown [facility] [facility]23 History of Present illness Narrative Subjective [...] PROSTATE BIOPSY 2005 TONSILLECTOMY 1954 Visit Vitals Smoking Status Former Review of [...] follow-ups on file. documented in this encounter [facility] 10-23-2022 History of Present illness Narrative Images from the original note were not included. [facility] [place] Oswald Tian Department of Cardiovascular Medicine SECTION [...] is a 71 year old male from [place], [place] with a h/o hypertension and back [...] is a 71 year old male from [place], [place], with h/o hypertension and back pain [...] by others. CONTACT INFORMATION: Max Cardoso MD, [facility] Ramy and Ana Tian Department of Cardiovascular Medicine [facility] [place] [facility] Desk [place] [address] Office Office documented in this encounter [facility] 10-22-2022 Hospital Discharge instructions Patient Education 10/22/2022 [...] urethra. Follow these instructions at home: Take wiig-hoi-xcxiawi and prescription medicines only as told by [...] provider. Document Revised: 10/11/2021 Document Reviewed: 10/11/2021 [employer] Patient Education 2022 Collect.it. Follow Up Care 07/23/2022 09:43:51 With:CHEVY CUNHA, Edmond Rojas, URL Address: [facility] [place] [id number]- When:Within 1 Year(s) Comments:w/ PSA [facility] 08-14-2022 Miscellaneous Notes Summary: HVTI Patient: Nivia Ramos Date of : 1950 Patient phone number: [phone] Referring Provider for the encounter: Juanjo Murdock Requesting Provider: Reason for requesting visit (RFV/signs and symptoms/diagnosis): aortic valve stenosis. Person calling: RP Fax Return call to: self Medical Records/Insurance Card scanned into [facility]: Comments: documented in this encounter [facility] 05-02-2022 Evaluation + Plan note Diagnostic Tests PendingPSA Total 05/02/22 [facility] Evaluation + Plan note Future Appointments Appointment Date:09/16/2023 10:15:00 AM Scheduled Provider:Edmond FUENTES MD Location:Replaced by [facility] Appointment Type:URO Office Visit [facility] Evaluation + Plan note Future Appointments Appointment Date:09/22/2024 10:00:00 AM Scheduled Provider:Edmond FUENTES MD Location[facility] Appointment Type:URO Office Visit Diagnostic Tests PendingPSA Total 09/16/23 [facility] Evaluation + Plan note Future Appointments Appointment Date:06/01/2024 10:15:00 AM Scheduled Provider:Edmond FUENTES MD Location:[facility] Appointment Type:URO Office Visit Appointment Date:09/22/2024 10:00:00 AM Scheduled Provider:Edmond FUENTES MD Location:[facility] Appointment Type:URO Office Visit [facility] Evaluation note Diagnosis Nonrheumatic aortic valve stenosis- Primary Aortic valve disorders Nonrheumatic mitral valve regurgitation [facility] Olecranon bursitis of left elbow- Primary Acute non-recurrent pansinusitis Acute cough [facility] Nonrheumatic aortic valve stenosis- Primary Aortic valve disorders Nonrheumatic mitral valve regurgitation [facility] Diagnosis Nonrheumatic aortic valve stenosis- Primary Aortic valve disorders Shortness of breath [facility] Diagnosis Nonrheumatic aortic valve stenosis- Primary Aortic valve disorders Aortic valve disorder Aortic valve disorders Shortness of breath [facility] Diagnosis Strain of lumbar region, initial encounter- Primary Lumbar paraspinal muscle spasm Other symptoms referable to back [facility] Nonrheumatic aortic valve stenosis- Primary Aortic valve disorders Chronic heart failure with preserved ejection fraction (HCC) Primary hypertension Unspecified essential hypertension Nonrheumatic aortic valve stenosis Aortic valve disorders [facility] Diagnosis Aortic valve disorder Aortic valve disorders Nonrheumatic aortic valve stenosis Aortic valve disorders [facility] Diagnosis Aortic valve disorder Aortic valve disorders Nonrheumatic aortic valve stenosis Aortic valve disorders [facility] Diagnosis Aortic valve disorder- Primary Aortic valve disorders [facility] Diagnosis Aortic valve disorder- Primary Aortic valve disorders [facility] Diagnosis Lung nodule- Primary Solitary pulmonary nodule Nonrheumatic aortic valve stenosis Aortic valve disorders [facility] Diagnosis Nonrheumatic aortic valve stenosis- Primary Aortic valve disorders [facility] Diagnosis Lumbar paraspinal muscle spasm- Primary Other symptoms referable to back Bladder diverticulum Diverticulum of bladder Abnormal finding on CT scan Atherosclerosis of aorta (CMS/HCC) Atherosclerosis of aorta Thoracic aortic ectasia (CMS/HCC) Thoracic aortic ectasia Pulmonary nodules Other diseases of lung, not elsewhere classified Nonrheumatic aortic valve stenosis Benign essential hypertension (CMS/HCC) Essential hypertension, benign documented in this encounter [facility]* Diagnosis Lumbar paraspinal muscle spasm Other symptoms referable to back documented in this encounter [facility]* Diagnosis Primary hypertension (CMS/HCC)- Primary Unspecified essential hypertension Lumbar paraspinal muscle spasm Other symptoms referable to back Generalized osteoarthritis Generalized osteoarthrosis, involving multiple sites Nonrheumatic aortic valve stenosis Bladder diverticulum Diverticulum of bladder Cecum mass Unspecified disorder of intestine documented in this encounter [facility]* Diagnosis Seborrheic keratosis- Primary Lentigines Angioma of skin Actinic keratosis Seborrheic keratosis, inflamed Neoplasm of unspecified behavior of bone, soft tissue, and skin documented in this encounter [facility] HealthcareEvaluation note* Diagnosis Lung nodules- Primary Other nonspecific abnormal finding of lung field Lung nodule Solitary pulmonary nodule [facility] Diagnosis Lumbar paraspinal muscle spasm- Primary Other symptoms referable to back documented in this encounter [facility]* Diagnosis Lumbar paraspinal muscle spasm- Primary Other symptoms referable to back documented in this encounter [facility] note* Diagnosis Nonrheumatic aortic valve stenosis- Primary Aortic valve disorders [facility] Diagnosis Lumbar paraspinal muscle spasm- Primary Other symptoms referable to back documented in this encounter [facility]* Diagnosis Primary hypertension (CMS/HCC)- Primary Unspecified essential hypertension Abnormal finding on CT scan Cecum mass Unspecified disorder of intestine Bladder diverticulum Diverticulum of bladder Renal mass, right Unspecified disorder of kidney and ureter Nonrheumatic aortic valve stenosis Pulmonary nodules Other diseases of lung, not elsewhere classified [facility] Diagnosis Lumbar paraspinal muscle spasm- Primary Other symptoms referable to back documented [facility]* Diagnosis Lumbar paraspinal muscle spasm- Primary Other symptoms referable to back [facility]* Diagnosis Lumbar paraspinal muscle spasm- Primary Other symptoms referable to back documented in this encounter [facility]* Diagnosis Abnormal abdominal CT scan- Primary Nonspecific (abnormal) findings on radiological and other examination of abdominal area, including retroperitoneum Cecum mass Unspecified disorder of intestine documented [facility]* Diagnosis 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 documented [facility]* Diagnosis Mohs defect- Primary 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 documented [facility]* Diagnosis URI with cough and congestion- Primary documented in this encounter [facility]* Diagnosis Mohs defect- Primary documented in this encounter [facility]* Diagnosis Abnormal abdominal CT scan- Primary Nonspecific (abnormal) findings on radiological and other examination of abdominal area, including retroperitoneum documented in this encounter [facility]* Diagnosis Nonrheumatic aortic valve stenosis- Primary Aortic valve disorders Aortic valve disorder Aortic valve disorders Shortness of breath Nonrheumatic aortic valve stenosis Aortic valve disorders documented in this encounter [facility] course Narrative No data available for this section [facility] Hospital Discharge instructions No data available for this section [facility] Progress note No data available for this section [facility] Reason for referral (narrative)* Outpatient Procedure (Routine) - Authorized Specialty Diagnoses / Procedures Referred By Contac t Referred To [facility] Diagnoses Nonrheumatic aortic valve stenosis Nonrheumatic mitral valve regurgitation Procedures ECHO ECHO TTC R-T 2D W/WOM-MODE COMPL SPEC&COLR D Max Cardoso MD [address] [place] [address] [address] Referral ID Status Reason Start Date Expiration Date Visits Requested Visits Authorized [id number] Authorized Auto-Generat ed Referral 06/12/2023 06/11/2024 1 1 * Outpatient Procedure (Routine) - Authorized Specialty Diagnoses / Procedures Referred By Contac t Referred To Contact [facility] Diagnoses Nonrheumatic aortic valve stenosis Nonrheumatic mitral valve regurgitation Procedures ECG COMPLETE ECG ROUTINE ECG W/LEAST 12 LDS W/[place] [address] [place], [place] [id number] [place] [id number] Referral ID Status Reason Start Date Expiration Date Visits Requested Visits Authorized [id number] Authorized Auto-Generat ed Referral 06/12/2023 06/11/2024 1 1 [facility] for referral (narrative)* Outpatient Procedure (Routine) - Authorized Specialty Diagnoses / Procedures Referred By Regulo t Referred To Contact [facility] Diagnoses Nonrheumatic aortic valve stenosis Shortness of breath Procedures ECG COMPLETE ECG ROUTINE ECG W/LEAST 12 LDS W/I&R Max Cardoso MD [address] [place] [address] [place] [id number] Referral ID Status Reason Start Date Expiration Date Visits Requested Visits Authorized [id number] Authorized Auto-Generat ed Referral 11/11/2023 11/10/2024 1 1 * Transition of Care (Routine) - Ref Not Required Specialty Diagnoses / Procedures Referred By Contac t Referred To Contact [facility] Procedures CARDIOVASCULAR MEDICINE [place] [address] [place], [place] [id number] [place] [id number] Referral ID Status Reason Start Date Expiration Date Visits Requested Visits Authorized [id number] Ref Not Required PCP Requested Referral 05/13/2024 11/10/2024 1 1 [facility] for referral (narrative)* Outpatient Procedure (Routine) - New Request Specialty Diagnoses / Procedures Referred By Joshac t Referred To Contact [facility] Diagnoses Aortic valve disorder Procedures ECG COMPLETE ECG ROUTINE ECG W/LEAST 12 LDS W/I&R Flip Lozano APRN.COURTESY BUS DRIVER [address] [place] [phone] [place] [id number] Referral ID Status Reason Start Date Expiration Date Visits Requested Visits Authorized [id number] New Request Auto-Generat ed Referral 11/12/2023 11/11/2024 1 1 * MRI/CT (Routine) - New Request Specialty Diagnoses / Procedures Referred By Regulo t Referred To Contact CT IMAGING Diagnoses Aortic valve disorder Procedures CTA CHEST/ABD/PEL (GATED) W IVCON CT ANGIOGRAPHY CHEST W/CONTRAST/NONCONTRAST CT ANGIO ABD&PLVIS CNTRST MTRL W/WO CNTRST Flip Dodson APRN.COURTESY BUS DRIVER [address] [place] [address] Ct Imaging [facility]95 Referral ID Status Reason Start Date Expiration Date Visits Requested Visits Authorized [id number] New Request Auto-Generat ed Referral 11/12/2023 12/11/2024 1 1 * Outpatient Procedure (Routine) - New Request Specialty Diagnoses / Procedures Referred By Joshac t Referred To [facility] Diagnoses Aortic valve disorder Procedures LUNG DIFFUSION CAPACITY (DLCO) DIFFUSING CAPACITY Flip Lozano APRN.COURTESY BUS DRIVER [address] [place] [phone] [place] [address] Referral ID Status Reason Start Date Expiration Date Visits Requested Visits Authorized [id number] New Request Auto-Generat ed Referral 11/12/2023 12/11/2024 1 1 * Outpatient Procedure (Routine) - New Request Specialty Diagnoses / Procedures Referred By Contac t Referred To [facility] Diagnoses Aortic valve disorder Procedures SPIROMETRY BASELINE ONLY SPMTRY W/VC EXPIRATORY ANGUS W/WO MXML VOL VNTJ Flip Lozano APRN.CNP [address] [place] [phone] [place] [phone] Referral ID Status Reason Start Date Expiration Date Visits Requested Visits Authorized [id number] New Request Auto-Generat ed Referral 11/12/2023 12/11/2024 1 1 [facility] for referral (narrative)* Outpatient Procedure (Routine) - Authorized Specialty Diagnoses / Procedures Referred By Contac t Referred To [facility] Diagnoses Nonrheumatic aortic valve stenosis Aortic valve disorder Procedures ECG COMPLETE ECG ROUTINE ECG W/LEAST 12 LDS W/I&R Zita Simmons APRN.COURTESY BUS DRIVER [address] [place] [address] [facility] [place] [address] Referral ID Status Reason Start Date Expiration Date Visits Requested Visits Authorized [id number] Authorized Auto-Generat ed Referral 05/05/2024 05/05/2025 1 1 [facility] for visit Narrative* Rehabilitation - Outpatient (Routine) - Authorized Specialty Diagnoses / Procedures Referred By Contac t Referred To Contact Physical Therapy Diagnoses Lumbar paraspinal muscle spasm Procedures [place] OFFICE/OUTPATIENT NEW HIGH MDM 60 MINUTES Peggy Wakefield, PA [address] [facility] [address] [place] [address] Phone: tel: fax: Quang Garcia, PT 112 [facility] [address] [place] [address] Phone: tel: fax: Referral ID Status Reason Start Date Expiration Date Visits Requested Visits Authorized [id number] Authorized Specialty Services Required 4 07/20/2024 10 10 [facility]* Rehabilitation - Outpatient (Routine) - Authorized Specialty Diagnoses / Procedures Referred By Contac t Referred To Contact Physical Therapy Diagnoses Lumbar paraspinal muscle spasm Procedures [place] OFFICE/OUTPATIENT NEW HIGH MDM 60 MINUTES Peggy Wakefield, PA [address] [address] Phone: tel: fax: Quang Garcia, PT 112 [facility] [address] [place] [address] Phone: tel: fax: Referral ID Status Reason Start Date Expiration Date Visits Requested Visits Authorized [id number] Authorized Specialty Services Required 4 07/20/2024 20 30 [facility]* Rehabilitation - Outpatient (Routine) - Closed Specialty Diagnoses / Procedures Referred By Contac t Referred To Contact Physical Therapy Diagnoses Lumbar paraspinal muscle spasm Procedures [place] OFFICE/OUTPATIENT NEW HIGH MDM 60 MINUTES Peggy Wakefield, PA 112 [facility] [address] [place] [address] Phone: tel: fax: Quang Garcia, PT 112 [facility] [address] [place] [address] Phone: tel: fax: Referral ID Status Reason Start Date Expiration Date V isits Requested Visits Authorized [id number] Closed Specialty Services Required 01/22/2024 07/20/2024 20 [...] Referral Specialty Diagnoses / Procedures Referred By Contac t Referred To Contact CT IMAGING Diagnoses Lung nodules Procedures CT CHEST WO IVCON DIAGNOSTIC COMPUTED TOMOGRAPHY THORAX W/O CNTRST Bri Valladares, FORMING PRESS OPERATOR.COURTESY BUS DRIVER [address] [place] [address] [place] [address] Referral ID Status Reason Start Date Expiration Date Visits Requested Visits Authorized [id number] Authorized Auto-Generat ed Referral 4 03/07/2025 1 1 Specialty Diagnoses / Procedures Referred By Contac t Referred To Contact [facility] Procedures CARDIOVASCULAR MEDICINE OP FOLLOW UP APPT ORDER Flip Lozano, FORMING PRESS OPERATOR.COURTESY BUS DRIVER [address] [place] [address] [facility] [place] [address] [place] [address] Referral ID Status Reason Start Date Expiration Date Visits Requested Visits Authorized [id number] Ref Not Required PCP Requested Referral 4 01/20/2025 1 1 Specialty Diagnoses / Procedures Referred By Contac t Referred To Contact Pulmonary Disease Diagnoses Lung nodule Procedures CONSULT TO LUNG NODULE CLINIC OFFICE/OUTPATIENT [facility] 60 MINUTES Flip Lozano, FORMING PRESS OPERATOR.COURTESY BUS DRIVER [address] [place] [address] Referral ID Status Reason Start Date Expiration Date Visits Requested Visits Authorized [id number] Authorized PCP Requested Referral 4 01/20/2025 1 1 Specialty Diagnoses / Procedures Referred By Contac t Referred To Contact CT IMAGING Diagnoses Aortic valve disorder Procedures CTA CHEST/ABD/PEL (GATED) W IVCON CT ANGIOGRAPHY CHEST W/CONTRAST/NONCONTRAST CT ANGIO ABD&PLVIS CNTRST MTRL W/WO CNTRST Flip Dodson, FORMING PRESS OPERATOR.COURTESY BUS DRIVER [address] [place] [address] [place] [address] Referral ID Status Reason Start Date Expiration Date V isits Requested Visits Authorized [id number] Closed Auto-Generate d Referral 11/12/2023 12/11/2024 1 1 Specialty Diagnoses / Procedures Referred By Contac t Referred To Contact Diagnoses Lumbar paraspinal muscle spasm Peggy Wakefield PA 112 [facility] [address] [place] [address] Referral ID Status Reason Start Date Expiration Date V isits Requested Visits Authorized [id number] Pending Review 01/07/2024 07/05/2024 1 1 Additional Source Comments (unrecognized sect ion and content) No Status Records FoundNo Status Records FoundNo Status Records FoundNo Status Records FoundNo Status Records FoundNo Status Records Found INFORMATION SOURCE (unrecogn ized section and content) DATE CREATED AUTHOR 07/26/2021 [facility] dical Specialist DATE CREATED AUTHOR AUTHOR'S ORGANIZ ATION 08/06/2022 [facility] DATE CREATED AUTHOR AUTHOR'S ORGANIZ ATION [facility]/03[facility]2024 [facility] DATE CREATED AUTHOR AUTHOR'S ORGANIZ ATION 04/07/2024 [facility] d[facility] Specialists EPIC DATE CREATED AUTHOR AUTHOR'S ORGANIZ ATION 04/09/2024 [facility] DATE CREATED AUTHOR AUTHOR'S ORGANIZ ATION 05/07/2024 [facility] Patient Care team informatio n (unrecognized section and content) 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 Specialty Start Date End Date Juanjo Murdock II [address] [facility] [address] [place] [address] Referring Internal Medicine 08/14/22 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 Specialty Start Date End Date Juanjo Murdock II [address] [facility] [address] [place] [address] Referring Internal Medicine 08/14/22 Max Cardoso MD [address] [facility] [place], [place] [id number] Primary Staff Physician Cardiology 10/22/22 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 Specialty Start Date End Date Juanjo Murdock MD [address] [facility] [address] [place] [address] PCP - ACO Reach 08/30/22 Juanjo Murdock MD [address] [facility] [address] [place] [address] PCP - General Internal Medicine 09/18/22 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 Specialty Start Date End Date Juanjo Murdock MD [address] [facility] [address] [place] [address] PCP - ACO Reach 08/30/22 Juanjo Murdock MD [address] [facility] [address] [place] [address] PCP - General Internal Medicine 09/18/22 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 Specialty Start Date End Date Juanjo Murdock II, MD [address] [facility] [address] [place] [address] Referring Internal Medicine 08/14/22 Max Cardoso MD [address] [place] [address] Primary Staff Physician Cardiology 10/22/22 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 Specialty Start Date End Date Juanjo Murdock II, MD [address] [facility] [address] [place] [address] Referring Internal Medicine 08/14/22 Max Cardoso MD [address] [place] [address] Primary Staff Physician Cardiology 10/22/22 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 Specialty Start Date End Date Juanjo Murdock II, MD [address] [facility] [address] [place] [address] Referring Internal Medicine 08/14/22 Max Cardoso MD [address] [place] [address] Primary Staff Physician Cardiology 10/22/22 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 Specialty Start Date End Date Juanjo Murdock MD [address] [facility] [address] [place] [address] PCP - ACO Reach 08/30/22 Juanjo Murdock MD [address] [facility] [address] [place] [address] PCP - General Internal Medicine 09/18/22 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 Specialty Start Date End Date Juanjo Murdock MD [address] [facility] [address] [place] [address] PCP - ACO Reach 08/30/22 Juanjo Murdock MD [address] [facility] [address] [place] [address] PCP - General Internal Medicine 09/18/22 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 Specialty Start Date End Date Juanjo Murdock II, MD [address] [facility] [address] [place] [address] PCP - General Internal Medicine 12/19/23 Juanjo Murdock II, MD [address] [facility] [address] [place] [address] Referring Internal Medicine 08/14/22 Max Cardoso MD [address] [place] [address] Primary Staff Physician Cardiology 10/22/22 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 Specialty Start Date End Date Juanjo Murdock II, MD [address] [facility] [address] [place] [address] PCP - General Internal Medicine 12/19/23 Juanjo Murdock II, MD [address] [facility] [address] [place] [address] Referring Internal Medicine 08/14/22 Max Cardoso MD [address] [place] [address] Primary Staff Physician Cardiology 10/22/22 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 Specialty Start Date End Date Juanjo Murdock II, MD [address] [facility] [address] [place] [address] PCP - General Internal Medicine 12/19/23 Juanjo Murdock II, MD [address] [facility] [address] [place] [address] Referring Internal Medicine 08/14/22 Max Cardoso MD [address] [place] [address] Primary Staff Physician Cardiology 10/22/22 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 Specialty Start Date End Date Juanjo Murdock II, MD [address] [facility] [address] [place] [address] PCP - General Internal Medicine 12/19/23 Juanjo Murdock II, MD [address] [facility] [address] [place] [address] Referring Internal Medicine 08/14/22 Max Cardoso MD [address] [place] [address] Primary Staff Physician Cardiology 10/22/22 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 Specialty Start Date End Date Juanjo Murdock II, MD [address] [facility] [address] [place] [address] PCP - General Internal Medicine 12/19/23 uJanjo Murdock II, MD [address] [facility] [address] [place], [place] [address] Referring Internal Medicine 08/14/22 Max Cardoso MD [address] [place] [address] Primary Staff Physician Cardiology 10/22/22 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 Specialty Start Date End Date Juanjo Murdock II, MD [address] [place] [address] PCP - General Internal Medicine 12/19/23 Juanjo Murdock II, MD [address] [place] [address] Referring Internal Medicine 08/14/22 Max Cadroso MD [address] [place] [address] Primary Staff Physician Cardiology 10/22/22 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 Specialty Start Date End Date Juanjo Murdock II, MD [address] [place] [address] PCP - General Internal Medicine 12/19/23 Juanjo Murdock II, MD [address] [place] [address] Referring Internal Medicine 08/14/22 Max Cardoso MD [address] [place], [place] [id number] Primary Staff Physician Cardiology 10/22/22 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 Specialty Start Date End Date Juanjo Murdock II, MD [address] [place] [address] PCP - General Internal Medicine 12/19/23 Juanjo Murdock II, MD [address] [place] [address] Referring Internal Medicine 08/14/22 Max Cardoso MD [address] [place], [place] [id number] Primary Staff Physician Cardiology 10/22/22 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 Specialty Start Date End Date Juanjo Murdock MD [address] [place] [address] PCP - ACO Reach 08/30/22 Juanjo Murdock MD [address] [place] [address] PCP - General Internal Medicine 09/18/22 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 Specialty Start Date End Date Juanjo Murdock MD [address] [place] [address] PCP - ACO Reach 08/30/22 Juanjo Murdock MD [address] [place] [address] PCP - General Internal Medicine 09/18/22 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 Specialty Start Date End Date Juanjo Murdock MD [address] [place] [address] PCP - ACO Reach 08/30/22 Juanjo Murdock MD [address] [place] [address] PCP - General Internal Medicine 09/18/22 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 Specialty Start Date End Date Juanjo Murdock MD [address] [place] [address] PCP - ACO Reach 08/30/22 Juanjo Murdock MD [address] [place] [address] PCP - General Internal Medicine 09/18/22 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 Specialty Start Date End Date Juanjo Murdock MD [address] [place] [address] PCP - ACO Reach 08/30/22 Juanjo Murdock MD [address] [place] [address] PCP - General Internal Medicine 09/18/22 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 Specialty Start Date End Date Juanjo Murdock MD [address] [place] [address] PCP - ACO Reach 08/30/22 Juanjo Murdock MD [address] [place] [address] PCP - General Internal Medicine 09/18/22 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 Specialty Start Date End Date Juanjo Murdock MD [address] [place] [address] PCP - ACO Reach 08/30/22 Juanjo Murdock MD [address] [place] [address] PCP - General Internal Medicine 09/18/22 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 Specialty Start Date End Date Juanjo Murdock MD [address] [place] [address] PCP - ACO Reach 08/30/22 Juanjo Murdock MD [address] [place] [address] PCP - General Internal Medicine 09/18/22 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 Specialty Start Date End Date Juanjo Murdock II, MD [address] [place] [address] PCP - General Internal Medicine 12/19/23 Juanjo Murdock II, MD [address] [place] [address] Referring Internal Medicine 08/14/22 Max Cardoso MD [address] [place] [address] Primary Staff Physician Cardiology 10/22/22 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 Specialty Start Date End Date Juanjo Murdock MD [address] [place] [address] PCP - ACO Reach 08/30/22 Juanjo Murdock MD [address] [place] [address] PCP - General Internal Medicine 09/18/22 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 Specialty Start Date End Date Juanjo Murdock MD [address] [place] [address] PCP - ACO Reach 08/30/22 Juanjo Murdock MD [address] [place] [address] PCP - General Internal Medicine 09/18/22 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 Specialty Start Date End Date Juanjo Murdock MD [address] [place] [address] PCP - ACO Reach 08/30/22 Juanjo Murdock MD [address] [place] [address] PCP - General Internal Medicine 09/18/22 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 Specialty Start Date End Date Juanjo Murdock II, MD [address] [place] [address] PCP - General Internal Medicine 12/19/23 Juanjo Murdock II, MD [address] [place] [address] Referring Internal Medicine 08/14/22 Max Cardoso MD [address] [place] [address] Primary Staff Physician Cardiology 10/22/22 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 Specialty Start Date End Date Juanjo Murdock MD [address] [place] [address] PCP - ACO Reach 08/30/22 Juanjo Murdock MD [address] [place] [address] PCP - General Internal Medicine 09/18/22 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 Specialty Start Date End Date Juanjo Murdock II, MD [address] [place] [address] PCP - General Internal Medicine 12/19/23 Juanjo Murdock II, MD [address] [place] [address] Referring Internal Medicine 08/14/22 Max Cardoso MD [address] [place] [address] Primary Staff Physician Cardiology 10/22/22 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 Specialty Start Date End Date Juanjo Murdock MD [address] [place] [address] PCP - ACO Reach 08/30/22 Juanjo Murdock MD [address] [place] [address] PCP - General Internal Medicine 09/18/22 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 Specialty Start Date End Date Juanjo Murdock MD [address] [place] [address] PCP - ACO Reach 08/30/22 Juanjo Murdock MD [address] [place] [address] PCP - General Internal Medicine 09/18/22 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 Specialty Start Date End Date Juanjo Murdock MD [address] [place] [address] PCP - ACO Reach 08/30/22 Juanjo Murdock MD [address] [place] [address] PCP - General Internal Medicine 09/18/22 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 Specialty Start Date End Date Juanjo Murdock MD [address] [place] [address] PCP - ACO Reach 08/30/22 Juanjo Murdock MD [address] [place] [address] PCP - General Internal Medicine 09/18/22 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 Specialty Start Date End Date Juanjo Murdock MD [address] [place] [address] PCP - ACO Reach 08/30/22 Juanjo Murdock MD [address] [place] [address] PCP - General Internal Medicine 09/18/22 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 Specialty Start Date End Date Juanjo Murdock MD [address] [place] [address] PCP - ACO Reach 08/30/22 Juanjo Murdock MD [address] [place] [address] PCP - General Internal Medicine 09/18/22 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 Specialty Start Date End Date Juanjo Murdock MD [address] [place] [address] PCP - ACO Reach 08/30/22 Juanjo Murdock MD [address] [place] [address] PCP - General Internal Medicine 09/18/22 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 Specialty Start Date End Date Juanjo Murdock MD [address] [place] [address] PCP - ACO Reach 08/30/22 Juanjo Murdock MD [address] [place] [address] PCP - General Internal Medicine 09/18/22 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 Specialty Start Date End Date Juanjo Murdock II, MD [address] [place] [address] PCP - General Internal Medicine 12/19/23 Juanjo Murdock II, MD [address] [place] [address] Referring Internal Medicine 08/14/22 Max Cardoso MD [address] [place] [address] Primary Staff Physician Cardiology 10/22/22 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 Specialty Start Date End Date Juanjo Murdock II, MD [address] [place] [address] PCP - General Internal Medicine 12/19/23 Juanjo Murdock II, MD [address] [place] [address] Referring Internal Medicine 08/14/22 Max Cardoso MD [address] [place] [address] Primary Staff Physician Cardiology 10/22/22 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 Specialty Start Date End Date Juanjo Murdock II, MD [address] [address] PCP - General Internal Medicine 12/19/23 Juanjo Murdock II, MD [address] [address] Referring Internal Medicine 08/14/22 Max Cardoso MD [address] [facility] [facility] [place] [address] Primary Staff Physician Cardiology 10/22/22 Source Comments (unrecognize d section and content) In the event this informatio n is protected by the Federal Confidentiality of Alcohol and Drug Abuse Patient Records regulations: The Federal rules restrict any use of the information to criminally investigate or prosecute any alcohol or drug abuse patient.[facility] the event this information is protected by the Federal Confidentiality of Alcohol and Drug Abuse Patient Records regulations: The Federal rules restrict any use of the information to criminally investigate or prosecute any alcohol or drug abuse patient.[facility] HospitalIn the event this information is protected by the Federal Confidentiality of Alcohol and Drug Abuse Patient Records regulations: The Federal rules restrict any use of the information to criminally investigate or prosecute any alcohol or drug abuse patient.[facility] HospitalIn the event this information is protected by the Federal Confidentiality of Alcohol and Drug Abuse Patient Records regulations: The Federal rules restrict any use of the information to criminally investigate or prosecute any alcohol or drug abuse patient.[facility] HospitalIn the event this information is protected by the Federal Confidentiality of Alcohol and Drug Abuse Patient Records regulations: The Federal rules restrict any use of the information to criminally investigate or prosecute any alcohol or drug abuse patient.[facility] HospitalIn the event this information is protected by the Federal Confidentiality of Alcohol and Drug Abuse Patient Records regulations: The Federal rules restrict any use of the information to criminally investigate or prosecute any alcohol or drug abuse patient.[facility] HospitalIn the event this information is protected by the Federal Confidentiality of Alcohol and Drug Abuse Patient Records regulations: The Federal rules restrict any use of the information to criminally investigate or prosecute any alcohol or drug abuse patient.[facility] HospitalIn the event this information is protected by the Federal Confidentiality of Alcohol and Drug Abuse Patient Records regulations: The Federal rules restrict any use of the information to criminally investigate or prosecute any alcohol or drug abuse patient.[facility] HospitalIn the event this information is protected by the Federal Confidentiality of Alcohol and Drug Abuse Patient Records regulations: The Federal rules restrict any use of the information to criminally investigate or prosecute any alcohol or drug abuse patient.[facility] HospitalIn the event this information is protected by the Federal Confidentiality of Alcohol and Drug Abuse Patient Records regulations: The Federal rules restrict any use of the information to criminally investigate or prosecute any alcohol or drug abuse patient.[facility] HospitalIn the event this information is protected by the Federal Confidentiality of Alcohol and Drug Abuse Patient Records regulations: The Federal rules restrict any use of the information to criminally investigate or prosecute any alcohol or drug abuse patient.[facility] HospitalIn the event this information is protected by the Federal Confidentiality of Alcohol and Drug Abuse Patient Records regulations: The Federal rules restrict any use of the information to criminally investigate or prosecute any alcohol or drug abuse patient.[facility] HospitalIn the event this information is protected by the Federal Confidentiality of Alcohol and Drug Abuse Patient Records regulations: The Federal rules restrict any use of the information to criminally investigate or prosecute any alcohol or drug abuse patient.[facility] HospitalIn the event this information is protected by the Federal Confidentiality of Alcohol and Drug Abuse Patient Records regulations: The Federal rules restrict any use of the information to criminally investigate or prosecute any alcohol or drug abuse patient.[facility] HospitalIn the event this information is protected by the Federal Confidentiality of Alcohol and Drug Abuse Patient Records regulations: The Federal rules restrict any use of the information to criminally investigate or prosecute any alcohol or drug abuse patient.[facility] HospitalIn the event this information is protected by the Federal Confidentiality of Alcohol and Drug Abuse Patient Records regulations: The Federal rules restrict any use of the information to criminally investigate or prosecute any alcohol or drug abuse patient.[facility] HospitalIn the event this information is protected by the Federal Confidentiality of Alcohol and Drug Abuse Patient Records regulations: The Federal rules restrict any use of the information to criminally investigate or prosecute any alcohol or drug abuse patient.[facility] HospitalIn the event this information is protected by the Federal Confidentiality of Alcohol and Drug Abuse Patient Records regulations: The Federal rules restrict any use of the information to criminally investigate or prosecute any alcohol or drug abuse patient.[facility] HospitalIn the event this information is protected by the Federal Confidentiality of Alcohol and Drug Abuse Patient Records regulations: The Federal rules restrict any use of the information to criminally investigate or prosecute any alcohol or drug abuse patient.[facility] HospitalIn the event this information is protected by the Federal Confidentiality of Alcohol and Drug Abuse Patient Records regulations: The Federal rules restrict any use of the information to criminally investigate or prosecute any alcohol or drug abuse patient.[facility] HospitalIn the event this information is protected by the Federal Confidentiality of Alcohol and Drug Abuse Patient Records regulations: The Federal rules restrict any use of the information to criminally investigate or prosecute any alcohol or drug abuse patient.[facility] HospitalIn the event this information is protected by the Federal Confidentiality of Alcohol and Drug Abuse Patient Records regulations: The Federal rules restrict any use of the information to criminally investigate or prosecute any alcohol or drug abuse patient.[facility] HospitalIn the event this information is protected by the Federal Confidentiality of Alcohol and Drug Abuse Patient Records regulations: The Federal rules restrict any use of the information to criminally investigate or prosecute any alcohol or drug abuse patient.[facility] HospitalIn the event this information is protected by the Federal Confidentiality of Alcohol and Drug Abuse Patient Records regulations: The Federal rules restrict any use of the information to criminally investigate or prosecute any alcohol or drug abuse patient.[facility] HospitalIn the event this information is protected by the Federal Confidentiality of Alcohol and Drug Abuse Patient Records regulations: The Federal rules restrict any use of the information to criminally investigate or prosecute any alcohol or drug abuse patient.[facility] HospitalIn the event this information is protected by the Federal Confidentiality of Alcohol and Drug Abuse Patient Records regulations: The Federal rules restrict any use of the information to criminally investigate or prosecute any alcohol or drug abuse patient.[facility] Reason for Visit (unrecogniz ed section and [...] CT ANGIO ABD&PLVIS CNTRST MTRL W/WO CNTRST IMGES JeovannyFlip Loja, FORMING PRESS OPERATOR.COURTESY BUS DRIVER [id number] [facility] [place] [address] Referral ID Status Reason Start Date Expiration Date V isits Requested Visits Authorized [id number] Closed Auto-Generate d Referral 11/12/2023 12/11/2024 1 1 Reason Comments Patient Education Reason Comments Spirometry Specialty Diagnoses / Procedures Referred By Contac t Referred To [facility] Diagnoses Aortic valve disorder Procedures LUNG DIFFUSION CAPACITY (DLCO) DIFFUSING CAPACITY Flip Lozano, FORMING PRESS OPERATOR.COURTESY BUS DRIVER [address] [place] [address] [facility] [place] [address] [place] [id number] Referral ID Status Reason Start Date Expiration Date V isits Requested Visits Authorized [id number] Closed Auto-Generate d Referral 11/12/2023 12/11/2024 1 1 Specialty Diagnoses / Procedures Referred By Contac t Referred To Contact [facility] Diagnoses Aortic valve disorder Procedures SPIROMETRY BASELINE ONLY SPMTRY W/VC EXPIRATORY ANGUS W/WO MXML VOL VNTJ Flip Lozano, FORMING PRESS OPERATOR.COURTESY BUS DRIVER [address] [place] [address] [facility] [place] [address] [place] [address] Referral ID Status Reason Start Date Expiration Date V isits Requested Visits Authorized [id number] Closed Auto-Generate d Referral 11/12/2023 12/11/2024 1 [...] Nodule Specialty Diagnoses / Procedures Referred By Contbraden t Referred To Contact Pulmonary Disease Diagnoses Lung nodule Procedures CONSULT TO LUNG NODULE CLINIC OFFICE/OUTPATIENT NEW HIGH MDM 60 MINUTES Flip Lozano, FORMING PRESS OPERATOR.COURTESY BUS DRIVER [address] [place] [address] Referral ID Status Reason Start Date Expiration Date V isits Requested Visits Authorized [id number] Closed PCP Requested Referral 01/21/2024 01/20/2025 1 1 Reason Comments TAVR Meeting Reason Comments Return Call Request Reason Comments Patient Update { Reason Comments Results Ct scan results Hypertension Reason Comments Consult Abnormal CT, needs c olonoscopy Specialty Diagnoses / Procedures Referred By Contac t Referred To Contact General Surgery Diagnoses Cecum mass Procedures [place] OFFICE/OUTPATIENT NEW HIGH MDM 60 MINUTES Juanjo Murdock MD [address] [facility] [address] [place] [address] Phone: tel: fax: Lucy Nance MD [address] [place] [address] Phone: tel: Referral ID Status Reason Start Date Expiration Date V isits Requested Visits Authorized [id number] Closed Specialty Services Required 02/13/2024 08/11/2024 1 1 Reason Comments Patient Update Reason Comments Mohs Micrographic Surgery Reason Comments Mohs Reconstruction New Patient : Mohs n ose / BCC Specialty Diagnoses / Procedures Referred By Contac t Referred To Contact Otolaryngology Diagnoses 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 [facility]. provides no warranty or guarantee of the accuracy or completeness of information in this document.
[2024-05-13 11:49] LABS: Estimated GFR (African America >60 (>=60 mL/min/1.73m^2); Estimated GFR (Non-African Ame >60 (>=60 mL/min/1.73m^2)
== END 2024-05-13 11:32 | disposition home or self-care (01) ==
LOC: LAB 11:32
PROVIDERS: PCP Internal Medicine; Visit Provider Urology
DX: N20.0 Calculus of kidney (principal); N28.89 Other specified disorders of kidney and ureter
CPT/HCPCS: 36415; 74178; 82565; Q9967

== ENCOUNTER 2024-06-01 14:09 | Emergency (ER) | payer MEDICARE, OTHER, SELFPAY ==
[2024-06-01] VITALS (67 sets, daily range): BP systolic 146–183; BP diastolic 79–129; PULSE 82–118; TEMP 37.3; O2SAT 94–99; BMI 22.9
--- NOTE | 2024-06-01 15:28 | XR_ITS ---
[facility] [place] [id number] Patient Name: NIVIA RAMOS MRN: [id number] date: 1950 Sex: M Assigned Patient Location: ER Current Patient Location: ER Accession/Order Number: [id number] Exam Date: 06/01/2024 16:41 Report Date: 06/01/2024 16:41 At the request of: CON FARLEY Procedure: XR chest 1V XR chest 1V 06/01/2024 3:49 PM SIGNS AND SYMPTOMS: ^High blood pressure, lightheaded PROTOCOL: Frontal radiograph of the chest COMPARISON: 03/06/2021 FINDINGS: The trachea is midline. Atherosclerotic changes are present in the thoracic aorta. The heart and mediastinal structures are within normal limits. The lung parenchyma is clear. The bony thorax is intact. Degenerative changes are noted in the shoulders and thoracic spine. XR/XR chest 1V IMPRESSION: No acute cardiopulmonary pathology. Impression dictated by: Jonathan Humphrey M.D.06/01/2024 4:41 PM Dictation Location: [place] [address] Electronically authenticated by: [id number] Y Date: 06/01/2024 16:41
--- NOTE | 2024-06-01 15:28 | ECG_ITS ---
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
[2024-06-01 15:42] LABS: Basophils Absolute Auto 0.1 10^3/uL (0.0-0.1); Basophils Percent Auto 0.5 % (0.2-2.0); Eosinophils Absolute Auto 0.1 10^3/uL (0.0-0.7); Eosinophils Percent Auto 1.2 % (0.9-7.0); Hematocrit 39.4 % (42.0-54.0); Hemoglobin 13.5 g/dL (14.0-18.0); Immature Granulocytes Abs Auto 0.03 10^3/uL (0.00-0.03); Immature Granulocytes Pct Auto 0.3 % (0.0-0.5); Lymphocytes Percent Auto 11.2 % (20.5-60.0); Mean Corpuscular HGB Conc 34.3 g/dL (29.9-35.2); Mean Corpuscular Hemoglobin 32.4 pg (25.9-34.0); Mean Corpuscular Volume 94.5 fL (80.0-94.0); Mean Platelet Volume 9.7 fL (9.5-13.5); Monocytes Percent Auto 10.7 % (1.7-12.0); Neutrophils Absolute Auto 7.1 10^3/uL (1.4-6.5); Neutrophils Percent Auto 76.1 % (43.0-75.0); Platelet Count 213 10^3/uL (150-450); Red Blood Count 4.17 10^6/uL (4.70-6.10); Red Cell Distribution Width 12.6 % (11.0-15.0); White Blood Count 9.3 10^3/uL (4.0-11.0)
--- NOTE | 2024-06-01 15:43 | ED_ITS ---
Documented by User: MIGUELITO Bay 06/01/24 22:11 HPI HPI - General Adult General Chief complaint: Recheck/Abnormal Lab/Rx Stated complaint: HIGH BLOOD PRESSURE Time Seen by Provider: 06/01/24 15:28 Source: patient Mode of arrival: walk-in Limitations: no limitations History of Present Illness HPI narrative: Patient is a 73-year-old male who presents to the emergency department for lightheadedness and elevated blood pressure that was noted today. Patient was seen at [facility] last week, he had an aortic valve replacement performed last and was discharged Saturday. He was having episodes of lightheadedness since his surgery, he states today he felt more lightheaded. No syncope or falls. No chest pain or shortness of breath. He had a heart rate monitor placed while he was hospitalized as he was noted to have episodes of tachycardia. Patient states prior to his surgery he was having infrequent episodes of lightheadedness but feels it is more often since his surgery last week. They called his trouble lineman/cardiac surgeons office in [place] and they were instructed to go to the emergency department. Related Data Home Medications ?Medication ?Instructions ?Recorded ?Confirmed amlodipine 5 mg-benazepril 20 mg 1 cap PO DAILY 06/01/24 06/01/24 capsule aspirin 81 mg tablet,delayed 81 mg PO DAILY 06/01/24 06/01/24 release (Adult Aspirin Regimen) bisoprolol 5 1 tab PO DAILY 06/01/24 06/01/24 mg-hydrochlorothiazide 6.25 mg tablet cyclobenzaprine 10 mg tablet 10 mg PO BID 06/01/24 06/01/24 ibuprofen 800 mg tablet 800 mg PO BID 06/01/24 06/01/24 Allergies Allergy/AdvReac Type Severity Reaction Status Date / Time tizanidine Allergy Mild Abdominal Verified 06/01/24 14:36 Pain Sulfa (Sulfonamide AdvReac Mild Redness of Verified 06/01/24 14:36 Antibiotics) Skin Opioid HPI Opioid Management Most Recent Opioid Data: Last Pain Scale 7 06/02/24 00:18 06/02/24 Last JUN Pain Assessment 06/02/24 00:18 Review of Systems ROS Constitutional Denies: fever or chills Ears, nose, mouth, and throat Denies: throat pain or nasal congestion Cardiovascular Denies: chest pain Respiratory Denies: shortness of breath Gastrointestinal Denies: nausea or vomiting Musculoskeletal Denies: back pain Integumentary/Breast Denies: rash Neurological Denies: numbness in extremities or weakness in extremities Hematologic/Lymphatic Denies: easy bruising or easy bleeding Exam Narrative Exam Narrative: Gen.: Awake, alert, in no distress Head: Normocephalic, atraumatic ENT: Moist mucous membranes Respiratory: No respiratory distress, lungs clear bilaterally Cardio: Regular rate and rhythm, alarm security or surveillance monitor placed to the left upper chest Gastrointestinal: Abdomen is soft, nondistended and nontender to palpation Extremities: Moves extremities equally Psych: Normal mood and affect Neuro: No focal neuro deficit Skin: Warm, dry, intact Constitutional Vital Signs, click to edit/add: Last Vital Signs Temp 99.1 F 06/01/24 14:22 Pulse 87 06/02/24 00:10 Resp 17 06/02/24 00:10 BP 141/82 06/02/24 00:10 Pulse Ox 98 06/02/24 00:10 O2 Del Method Room Air 06/01/24 14:22 Course Vital Signs Vital signs: Vital Signs Temperature 99.1 F 06/01/24 14:22 Pulse Rate 117 H 06/01/24 14:22 Respiratory Rate 18 06/01/24 14:22 Blood Pressure 146/84 H 06/01/24 14:22 Pulse Oximetry 97 06/01/24 14:22 Oxygen Delivery Method Room Air 06/01/24 14:22 Temperature 99.1 F 06/01/24 14:22 Pulse Rate 87 06/02/24 00:10 Respiratory Rate 17 06/02/24 00:10 Blood Pressure 141/82 06/02/24 00:10 Pulse Oximetry 98 06/02/24 00:10 Oxygen Delivery Method Room Air 06/01/24 14:22 Medical Decision Making [facility] Narrative Medical decision making narrative: 1812: Initial EKG shows irregular rhythm consistent with A-fib with RVR. Patient was initially hypertensive and treated with Lopressor which improved heart rate and blood pressure. He has no complaints of chest pain or shortness of breath. Labs show elevated troponin which may be residual from his procedure. Discussed the case with Dr. Toscano for cardiology at [facility], patient was given the option of outpatient follow-up tomorrow versus transfer for evaluation of his new onset A-fib. Patient was in sinus rhythm on EKG from discharge from the hospital, today he is in an irregular rhythm consistent with A-fib. Patient and family prefer transfer to [facility] for observation and management. Patient is stable at this time. Critical care time 45 minutes Patient was reevaluated by attending physician prior to shift change. Per attending, no contraindication for anticoagulation at this time so she suggested the patient receive Lovenox while in the emergency department waiting for transfer. Patient was treated with subcutaneous Lovenox after reevaluation by Dr. Casas 2200: Patient's vital signs are more normalized, EKG and troponin were repeated. EKG is grossly stable, however repeat EKG now shows normal sinus rhythm with a first-degree AV block and left bundle branch block. P waves are now present on the EKG. His rhythm is regular. Patient was reevaluated by Dr. Leonardo, he was again given the option of outpatient follow-up as we do not have a bed assignment for him at [facility]. Patient would like to wait for a bed assignment, he was made aware that it may be up to several days before he has a bed assignment, he verbalizes understanding. Case is turned over to Dr. Leonardo for continued care at this time at the end of my shift. SHARED APC VISIT, PHYSICIAN ATTESTATION: [id number] I performed a substantive part of the MDM during the patient?s E/M visit. I personally evaluated and examined the patient. I personally made or approved the documented management plan and acknowledge its risk of complications. ? Medical Records Medical records reviewed: Yes I reviewed the patient's medical records Lab Data Lab results reviewed: Yes I reviewed the patient's lab results Labs: Lab Results 06/01/24 06/01/24 06/01/24 Range/Units 15:30 15:55 16:55 WBC 9.3 (4.0-11.0) 10^3/uL RBC 4.17 L (4.70-6.10) 10^6/uL Hgb 13.5 L (14.0-18.0) g/dL Hct 39.4 L (42.0-54.0) % MCV 94.5 H (80.0-94.0) fL MCH 32.4 (25.9-34.0) pg MCHC 34.3 (29.9-35.2) g/dL RDW 12.6 (11.0-15.0) % Plt Count 213 (150-450) 10^3/uL MPV 9.7 (9.5-13.5) fL Neut % (Auto) 76.1 H (43.0-75.0) % Lymph % (Auto) 11.2 L (20.5-60.0) % [place] % (Auto) 10.7 (1.7-12.0) % Eos % (Auto) 1.2 (0.9-7.0) % Baso % (Auto) 0.5 (0.2-2.0) % Neut # (Auto) 7.1 H (1.4-6.5) 10^3/uL Lymph # (Auto) 1.0 L (1.2-3.8) 10^3/uL [place] # (Auto) 1.0 H (0.3-0.8) 10^3/uL Eos # (Auto) 0.1 (0.0-0.7) 10^3/uL Baso # (Auto) 0.1 (0.0-0.1) 10^3/uL Abs Immat Gran (auto) 0.03 (0.00-0.03) 10^3/uL Imm/Tot Granulo (auto) 0.3 (0.0-0.5) % PT 10.6 (9.0-11.6) sec INR 1.00 Sodium 132 L (136-145) mmol/L Potassium 3.7 (3.5-5.1) mmol/L Chloride 96 L (98-107) mmol/L Carbon Dioxide 28.9 (21.0-32.0) mmol/L Anion Gap 10.8 BUN 17.0 (7.0-18.0) mg/dL Creatinine 0.91 (0.70-1.30) mg/dL Est GFR ( Amer) >60 (>=60 mL/min/1.73m^2) Est GFR (Non-Af Amer) >60 (>=60 mL/min/1.73m^2) BUN/Creatinine Ratio 18.7 Glucose 118 H (74-106) mg/dL Calcium 9.3 (8.5-10.1) mg/dL Total Bilirubin 0.2 (0.2-1.0) mg/dL AST 23 (15-37) U/L ALT 31 (16-63) U/L Alkaline Phosphatase 82 (46-116) U/L Troponin I High Sens 273.3 H* 314.2 H* (4.0-76.1) pg/mL NT-Pro-B Natriuret Pep 560.0 (<=900.0) pg/mL Total Protein 7.4 (6.4-8.2) g/dL Albumin 3.5 (3.4-5.0) g/dL Globulin 3.9 g/dL Albumin/Globulin Ratio 0.9 TSH 1.941 (0.358-3.740) uIU/mL 06/01/24 Range/Units 21:45 WBC (4.0-11.0) 10^3/uL RBC (4.70-6.10) 10^6/uL Hgb (14.0-18.0) g/dL Hct (42.0-54.0) % MCV (80.0-94.0) fL MCH (25.9-34.0) pg MCHC (29.9-35.2) g/dL RDW (11.0-15.0) % Plt Count (150-450) 10^3/uL MPV (9.5-13.5) fL Neut % (Auto) (43.0-75.0) % Lymph % (Auto) (20.5-60.0) % [place] % (Auto) (1.7-12.0) % Eos % (Auto) (0.9-7.0) % Baso % (Auto) (0.2-2.0) % Neut # (Auto) (1.4-6.5) 10^3/uL Lymph # (Auto) (1.2-3.8) 10^3/uL [place] # (Auto) (0.3-0.8) 10^3/uL Eos # (Auto) (0.0-0.7) 10^3/uL Baso # (Auto) (0.0-0.1) 10^3/uL Abs Immat Gran (auto) (0.00-0.03) 10^3/uL Imm/Tot Granulo (auto) (0.0-0.5) % PT (9.0-11.6) sec INR Sodium (136-145) mmol/L Potassium (3.5-5.1) mmol/L Chloride (98-107) mmol/L Carbon Dioxide (21.0-32.0) mmol/L Anion Gap BUN (7.0-18.0) mg/dL Creatinine (0.70-1.30) mg/dL Est GFR ( Amer) (>=60 mL/min/1.73m^2) Est GFR (Non-Af Amer) (>=60 mL/min/1.73m^2) BUN/Creatinine Ratio Glucose (74-106) mg/dL Calcium (8.5-10.1) mg/dL Total Bilirubin (0.2-1.0) mg/dL AST (15-37) U/L ALT (16-63) U/L Alkaline Phosphatase (46-116) U/L Troponin I High Sens 325.8 H* (4.0-76.1) pg/mL NT-Pro-B Natriuret Pep (<=900.0) pg/mL Total Protein (6.4-8.2) g/dL Albumin (3.4-5.0) g/dL Globulin g/dL Albumin/Globulin Ratio TSH (0.358-3.740) uIU/mL Imaging Data Chest x-ray: Attestation: I have reviewed the pertinent imaging results. Radiologist's impression: ITS Impressions Chest X-Ray 06/01/24 15:28 IMPRESSION: No acute cardiopulmonary pathology. Impression dictated by: Jonathan Humphrey M.D.06/01/2024 4:41 PM Dictation Location: [place] [address] Electronically authenticated by: [id number] Y Date: 06/01/2024 16:41 ECG Data Attestation: I personally reviewed and interpreted this ECG as follows: (Atrial fibrillation with rapid ventricular response at a rate of 121, left bundle branch block noted, no P waves are noted. This EKG was reviewed by attending physician.) Discharge Plan Discharge Chief Complaint: Recheck/Abnormal Lab/Rx Clinical Impression: New onset a-fib, Lightheadedness, Hypertension, Elevated troponin Patient Disposition: [facility] Time of Disposition Decision: 18:17 Discharge Location: [facility] Condition: Good Mode of Transportation: EMS Documented by User: Melba Leonardo MD 06/02/24 03:49 HPI HPI - General Adult General Chief complaint: Recheck/Abnormal Lab/Rx Stated complaint: HIGH BLOOD PRESSURE Time Seen by Provider: 06/01/24 15:28 Related Data Home Medications ?Medication ?Instructions ?Recorded ?Confirmed amlodipine 5 mg-benazepril 20 mg 1 cap PO DAILY 06/01/24 06/01/24 capsule aspirin 81 mg tablet,delayed 81 mg PO DAILY 06/01/24 06/01/24 release (Adult Aspirin Regimen) bisoprolol 5 1 tab PO DAILY 06/01/24 06/01/24 mg-hydrochlorothiazide 6.25 mg tablet cyclobenzaprine 10 mg tablet 10 mg PO BID 06/01/24 06/01/24 ibuprofen 800 mg tablet 800 mg PO BID 06/01/24 06/01/24 Allergies Allergy/AdvReac Type Severity Reaction Status Date / Time tizanidine Allergy Mild Abdominal Verified 06/01/24 14:36 Pain Sulfa (Sulfonamide AdvReac Mild Redness of Verified 06/01/24 14:36 Antibiotics) Skin Opioid HPI Opioid Management Most Recent Opioid Data: Last Pain Scale 7 06/02/24 00:18 06/02/24 Last MAR Pain Assessment 06/02/24 00:18 Exam Constitutional Vital Signs, click to edit/add: Last Vital Signs Temp 99.1 F 06/01/24 14:22 Pulse 87 06/02/24 00:10 Resp 17 06/02/24 00:10 BP 141/82 06/02/24 00:10 Pulse Ox 98 06/02/24 00:10 O2 Del Method Room Air 06/01/24 14:22 Course Vital Signs Vital signs: Vital Signs Temperature 99.1 F 06/01/24 14:22 Pulse Rate 117 H 06/01/24 14:22 Respiratory Rate 18 06/01/24 14:22 Blood Pressure 146/84 H 06/01/24 14:22 Pulse Oximetry 97 06/01/24 14:22 Oxygen Delivery Method Room Air 06/01/24 14:22 Temperature 99.1 F 06/01/24 14:22 Pulse Rate 87 06/02/24 00:10 Respiratory Rate 17 06/02/24 00:10 Blood Pressure 141/82 06/02/24 00:10 Pulse Oximetry 98 06/02/24 00:10 Oxygen Delivery Method Room Air 06/01/24 14:22 Medical Decision Making MDM Narrative Medical decision making narrative: 1812: Initial EKG shows irregular rhythm consistent with A-fib with RVR. Patient was initially hypertensive and treated with Lopressor which improved heart rate and blood pressure. He has no complaints of chest pain or shortness of breath. Labs show elevated troponin which may be residual from his procedure. Discussed the case with Dr. Toscano for cardiology at [facility], patient was given the option of outpatient follow-up tomorrow versus transfer for evaluation of his new onset A-fib. Patient was in sinus rhythm on EKG from discharge from the hospital, today he is in an irregular rhythm consistent with A-fib. Patient and family prefer transfer to [facility] for observation and management. Patient is stable at this time. Critical care time 45 minutes Patient was reevaluated by attending physician prior to shift change. Per attending, no contraindication for anticoagulation at this time so she suggested the patient receive Lovenox while in the emergency department waiting for transfer. Patient was treated with subcutaneous Lovenox after reevaluation by Dr. Casas 2199: Patient's vital signs are more normalized, EKG and troponin were repeated. EKG is grossly stable, however repeat EKG now shows normal sinus rhythm with a first-degree AV block and left bundle branch block. P waves are now present on the EKG. His rhythm is regular. Patient was reevaluated by Dr. Leonardo, he was again given the option of outpatient follow-up as we do not have a bed assignment for him at [facility]. Patient would like to wait for a bed assignment, he was made aware that it may be up to several days before he has a bed assignment, he verbalizes understanding. Case is turned over to Dr. Leonardo for continued care at this time at the end of my shift. This 73-year-old male who had a TAVR at [facility] last week was seen and evaluated in conjunction with the physician volleyball assistant coach. His EKGs were reviewed. The patient was seen and evaluated. He presents for evaluation of lightheadedness and elevated blood pressure. He states that while he was at [facility] his blood pressure medication, Ziac, was discontinued because he was told that it did 2 things to his heart and they only wanted it to do 1 thing. It is unclear to me exactly what outcome they were looking for but his Ziac was discontinued and he was put on a new blood pressure medication. In the emergency department his blood pressure has been elevated. He was initially in A-fib with a left bundle branch block and [facility] cardiology was consulted. He was accepted for admission but no bed has been available. After being treated with Lopressor he converted to a normal sinus rhythm. His blood pressure has been moderately elevated but after the Lopressor has been in the 150s systolic. Cardiac enzymes have been monitored. They have been elevated but consistent and likely related to his recent procedure. He is not having any chest pain. He was anticoagulated with Lovenox. He was medicated with a dose of [place] and Zofran for his chronic back pain. He was medicated earlier in the shift with Robaxin. He has remained hemodynamically stable in the emergency department. At the time of this dictation his pulse is 85 and regular with P waves. His blood pressure is 150/90 and his pulse ox is 98% on room air. SHARED APC VISIT, PHYSICIAN ATTESTATION: [id number] I performed a substantive part of the MDM during the patient?s E/M visit. I personally evaluated and examined the patient. I personally made or approved the documented management plan and acknowledge its risk of complications. ? Lab Data Labs: Lab Results 06/01/24 06/01/24 06/01/24 Range/Units 15:30 15:55 16:55 WBC 9.3 (4.0-11.0) 10^3/uL RBC 4.17 L (4.70-6.10) 10^6/uL Hgb 13.5 L (14.0-18.0) g/dL Hct 39.4 L (42.0-54.0) % MCV 94.5 H (80.0-94.0) fL MCH 32.4 (25.9-34.0) pg MCHC 34.3 (29.9-35.2) g/dL RDW 12.6 (11.0-15.0) % Plt Count 213 (150-450) 10^3/uL MPV 9.7 (9.5-13.5) fL Neut % (Auto) 76.1 H (43.0-75.0) % Lymph % (Auto) 11.2 L (20.5-60.0) % [place] % (Auto) 10.7 (1.7-12.0) % Eos % (Auto) 1.2 (0.9-7.0) % Baso % (Auto) 0.5 (0.2-2.0) % Neut # (Auto) 7.1 H (1.4-6.5) 10^3/uL Lymph # (Auto) 1.0 L (1.2-3.8) 10^3/uL [place] # (Auto) 1.0 H (0.3-0.8) 10^3/uL Eos # (Auto) 0.1 (0.0-0.7) 10^3/uL Baso # (Auto) 0.1 (0.0-0.1) 10^3/uL Abs Immat Gran (auto) 0.03 (0.00-0.03) 10^3/uL Imm/Tot Granulo (auto) 0.3 (0.0-0.5) % PT 10.6 (9.0-11.6) sec INR 1.00 Sodium 132 L (136-145) mmol/L Potassium 3.7 (3.5-5.1) mmol/L Chloride 96 L (98-107) mmol/L Carbon Dioxide 28.9 (21.0-32.0) mmol/L Anion Gap 10.8 BUN 17.0 (7.0-18.0) mg/dL Creatinine 0.91 (0.70-1.30) mg/dL Est GFR ( Amer) >60 (>=60 mL/min/1.73m^2) Est GFR (Non-Af Amer) >60 (>=60 mL/min/1.73m^2) BUN/Creatinine Ratio 18.7 Glucose 118 H (74-106) mg/dL Calcium 9.3 (8.5-10.1) mg/dL Total Bilirubin 0.2 (0.2-1.0) mg/dL AST 23 (15-37) U/L ALT 31 (16-63) U/L Alkaline Phosphatase 82 (46-116) U/L Troponin I High Sens 273.3 H* 314.2 H* (4.0-76.1) pg/mL NT-Pro-B Natriuret Pep 560.0 (<=900.0) pg/mL Total Protein 7.4 (6.4-8.2) g/dL Albumin 3.5 (3.4-5.0) g/dL Globulin 3.9 g/dL Albumin/Globulin Ratio 0.9 TSH 1.941 (0.358-3.740) uIU/mL 06/01/24 Range/Units 21:45 WBC (4.0-11.0) 10^3/uL RBC (4.70-6.10) 10^6/uL Hgb (14.0-18.0) g/dL Hct (42.0-54.0) % MCV (80.0-94.0) fL MCH (25.9-34.0) pg MCHC (29.9-35.2) g/dL RDW (11.0-15.0) % Plt Count (150-450) 10^3/uL MPV (9.5-13.5) fL Neut % (Auto) (43.0-75.0) % Lymph % (Auto) (20.5-60.0) % [place] % (Auto) (1.7-12.0) % Eos % (Auto) (0.9-7.0) % Baso % (Auto) (0.2-2.0) % Neut # (Auto) (1.4-6.5) 10^3/uL Lymph # (Auto) (1.2-3.8) 10^3/uL [place] # (Auto) (0.3-0.8) 10^3/uL Eos # (Auto) (0.0-0.7) 10^3/uL Baso # (Auto) (0.0-0.1) 10^3/uL Abs Immat Gran (auto) (0.00-0.03) 10^3/uL Imm/Tot Granulo (auto) (0.0-0.5) % PT (9.0-11.6) sec INR Sodium (136-145) mmol/L Potassium (3.5-5.1) mmol/L Chloride (98-107) mmol/L Carbon Dioxide (21.0-32.0) mmol/L Anion Gap BUN (7.0-18.0) mg/dL Creatinine (0.70-1.30) mg/dL Est GFR ( Amer) (>=60 mL/min/1.73m^2) Est GFR (Non-Af Amer) (>=60 mL/min/1.73m^2) BUN/Creatinine Ratio Glucose (74-106) mg/dL Calcium (8.5-10.1) mg/dL Total Bilirubin (0.2-1.0) mg/dL AST (15-37) U/L ALT (16-63) U/L Alkaline Phosphatase (46-116) U/L Troponin I High Sens 325.8 H* (4.0-76.1) pg/mL NT-Pro-B Natriuret Pep (<=900.0) pg/mL Total Protein (6.4-8.2) g/dL Albumin (3.4-5.0) g/dL Globulin g/dL Albumin/Globulin Ratio TSH (0.358-3.740) uIU/mL Imaging Data Chest x-ray: Radiologist's impression: ITS Impressions Chest X-Ray 06/01/24 15:28 IMPRESSION: No acute cardiopulmonary pathology. Impression dictated by: Jonathan Humphrey M.D.06/01/2024 4:41 PM Dictation Location: [place] [address] Electronically authenticated by: [id number] Y Date: 06/01/2024 16:41 Discharge Plan Discharge Chief Complaint: Recheck/Abnormal Lab/Rx Clinical Impression: New onset a-fib, Lightheadedness, Hypertension, Elevated troponin Patient Disposition: [facility] Time of Disposition Decision: 18:17 Discharge Location: [facility] Condition: Good Mode of Transportation: EMS
[2024-06-01 16:06] LABS: Alanine Aminotransferase 31 U/L (16-63); Albumin Globulin Ratio 0.9; Albumin Level 3.5 g/dL (3.4-5.0); Alkaline Phosphatase 82 U/L (46-116); Anion Gap 10.8; Aspartate Amino Transferase 23 U/L (15-37); BUN Creatinine Ratio 18.7; Bilirubin Total 0.2 mg/dL (0.2-1.0); Calcium 9.3 mg/dL (8.5-10.1); Carbon Dioxide 28.9 mmol/L (21.0-32.0); Chloride 96 mmol/L (98-107); Estimated GFR (African America >60 (>=60 mL/min/1.73m^2); Estimated GFR (Non-African Ame >60 (>=60 mL/min/1.73m^2); Globulin 3.9 g/dL; Glucose 118 mg/dL (74-106); Potassium 3.7 mmol/L (3.5-5.1); Sodium 132 mmol/L (136-145); Thyroid Stimulating Hormone 1.941 uIU/mL (0.358-3.740); Total Protein 7.4 g/dL (6.4-8.2)
[2024-06-01 16:08] LABS: Troponin I High Sensitivity 273.3 pg/mL (4.0-76.1)
[2024-06-01 16:12] LABS: Prothrombin Time 10.6 sec (9.0-11.6)
[2024-06-01] MEDS: METOPROLOL TARTRATE 5 MG/5 ML VIAL IVP (16:20)
[2024-06-01 17:21] LABS: Troponin I High Sensitivity 314.2 pg/mL (4.0-76.1)
[2024-06-01] MEDS: ACETAMINOPHEN 325 MG TABLET 650 MG PO (18:34)
[2024-06-01] MEDS: METHOCARBAMOL 500 MG TABLET PO (18:35)
--- NOTE | 2024-06-01 21:39 | ECG_ITS ---
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
[2024-06-01] MEDS: ENOXAPARIN SODIUM 80 MG/0.8 ML SYRINGE 70 MG SUBQ (22:06)
[2024-06-01] MEDS: ENALAPRILAT DIHYDRATE 1.25 MG/ML VIAL IV (22:07)
[2024-06-01 22:23] LABS: Troponin I High Sensitivity 325.8 pg/mL (4.0-76.1)
[2024-06-02] VITALS (61 sets, daily range): BP systolic 114–182; BP diastolic 82–103; PULSE 77–117; O2SAT 92–99
[2024-06-02] MEDS: ONDANSETRON 4 MG RAPDIS TABLET SL (00:17)
[2024-06-02] MEDS: HYDROCODONE/ACET 5-325 MG TABLET 1 TAB PO ×2 (00:18→12:13)
[2024-06-02] MEDS: AMLODIPINE BESYLATE 5 MG TABLET PO (09:29)
[2024-06-02] MEDS: LISINOPRIL 20 MG TABLET PO (10:16)
[2024-06-02] MEDS: ASPIRIN 81 MG TAB.CHEW PO (10:16)
[2024-06-02] MEDS: METOPROLOL SUCCINATE 25 MG TAB.ER.24H PO (10:16)
== END 2024-06-02 13:35 | disposition home or self-care (01) ==
PROVIDERS: Physician Assistant; Emergency Provider Emergency Medicine; PCP Internal Medicine
DX: I48.91 Unspecified atrial fibrillation (principal); Z95.2 Presence of prosthetic heart valve; R42 Dizziness and giddiness; I10 Essential (primary) hypertension; R79.89 Other specified abnormal findings of blood chemistry
CPT/HCPCS: 36415; 71045; 80053; 83880; 84443; 84484; 85025; 85610; 93005; 96372; 96374; 96375; 99285; J1650; Q0162